=== PATIENT | female | born 1965 | race American Indian/Alaskan Native ===

== ENCOUNTER → 2020-08-10 14:25 | Outpatient (BNVA) | payer OTHER, SELFPAY | PROVIDERS: PCP Internal Medicine; Visit Provider Hospitalist | DX: Z76.89 Persons encountering health services in other specified circumstances (principal) ==

== ENCOUNTER 2021-06-01 17:16 | Outpatient (REF) | payer OTHER, SELFPAY | END 2021-06-01 17:17 | disposition home or self-care (01) | LOC: HO.LNP 17:16 | PROVIDERS: Visit Provider Hospitalist | DX: R30.0 Dysuria (principal) | CPT/HCPCS: 87086; 87088; 87186 ==

== ENCOUNTER 2021-08-01 09:57 | Outpatient (REF) | payer OTHER, SELFPAY ==
[2021-08-01 11:27] LABS: MANUAL DIFF FLAG NO
[2021-08-01 11:44] LABS: Basophils Percent Auto 0.5 % (0-2); Eosinophils Absolute Auto 0.1 X10*3/uL (0.0-0.4); Eosinophils Percent Auto 0.9 % (0-4); Hematocrit 43.2 % (37.0-47.0); Hemoglobin 14.3 g/dl (12.0-16.0); Imm Gran Abs Auto 0.03 X10*3/uL (0.00-0.03); Imm Gran Pct Auto 0.4 % (0.0-0.4); Lymphocytes Absolute Auto 1.7 X10*3/uL (1.2-4.9); Lymphocytes Percent Auto 22.7 % (20-40); Mean Corpuscular HGB Conc 33.1 g/dl (31.0-35.0); Mean Corpuscular Hemoglobin 29.1 pg (27.0-33.0); Mean Corpuscular Volume 87.8 fL (80.0-98.0); Mean Platelet Volume 10.3 fL (9.4-12.3); Monocytes Absolute Auto 0.4 X10*3/uL (0.1-1.2); Monocytes Percent Auto 4.7 % (2-11); Neutrophils Percent Auto 70.8 % (45-73); Platelet Count 216 X10*3/uL (160-400); Red Blood Count 4.92 X10*6/uL (4.20-5.50); Red Cell Distribution Width 12.9 % (11.0-16.0); White Blood Count 7.6 X10*3/uL (4.8-10.8)
[2021-08-01 12:30] LABS: Alanine Aminotransferase 14 U/L (0-31); Alkaline Phosphatase 71 U/L (39-117); Anion Gap 14 (12-20); Aspartate Amino Transferase 16 U/L (5-31); Bilirubin Direct 0.2 mg/dL (0.0-0.5); Bilirubin Total 0.4 mg/dL (0.0-1.0); Blood Urea Nitrogen 17 mg/dL (9-16); Calcium 9.2 mg/dL (8.4-10.2); Carbon Dioxide 30 mmol/L (22-29); Chloride 101 mmol/L (96-108); Estimated Glomerular Filt Rate > 60; Glucose Random 82 mg/dL (60-115); Potassium 3.2 mmol/L (3.3-5.1); Sodium 142 mmol/L (135-145); Total Protein 6.9 g/dL (6.5-8.0)
[2021-08-02 09:20] LABS: LDL Cholesterol Direct 125 mg/dL (<100)
== END 2021-08-01 09:58 | disposition home or self-care (01) ==
LOC: HO.HMGCLDS 09:57
PROVIDERS: PCP Internal Medicine; Visit Provider Internal Medicine
DX: J44.9 Chronic obstructive pulmonary disease, unspecified (principal); I10 Essential (primary) hypertension; G89.29 Other chronic pain; K21.9 Gastro-esophageal reflux disease without esophagitis; K59.01 Slow transit constipation; M54.9 Dorsalgia, unspecified; R26.2 Difficulty in walking, not elsewhere classified; Z72.0 Tobacco use; E78.9 Disorder of lipoprotein metabolism, unspecified; E66.09 Other obesity due to excess calories; F33.2 Major depressive disorder, recurrent severe without psychotic features
CPT/HCPCS: 36415; 80053; 82248; 83721; 85025

== ENCOUNTER → 2021-08-21 10:10 | Outpatient (BNVA) | payer OTHER, SELFPAY | PROVIDERS: Visit Provider Nurse Practitioner Family | DX: M47.816 Spondylosis without myelopathy or radiculopathy, lumbar region (principal); F11.90 Opioid use, unspecified, uncomplicated | CPT/HCPCS: 99202 ==

== ENCOUNTER → 2021-09-12 11:02 | Outpatient (BNVA) | payer OTHER, SELFPAY | PROVIDERS: Visit Provider Nurse Practitioner Family | DX: Z51.81 Encounter for therapeutic drug level monitoring (principal); F11.20 Opioid dependence, uncomplicated; M47.816 Spondylosis without myelopathy or radiculopathy, lumbar region | CPT/HCPCS: 99212 ==

== ENCOUNTER → 2021-10-23 11:39 | Outpatient (BNVA) | payer OTHER, SELFPAY | PROVIDERS: PCP Internal Medicine; Visit Provider Nurse Practitioner Family | DX: Z51.81 Encounter for therapeutic drug level monitoring (principal); F11.20 Opioid dependence, uncomplicated; M47.816 Spondylosis without myelopathy or radiculopathy, lumbar region | CPT/HCPCS: 99212 ==

== ENCOUNTER 2021-10-24 12:41 | Outpatient (REF) | payer OTHER, SELFPAY ==
[2021-10-24 14:54] LABS: Alanine Aminotransferase 10 U/L (0-31); Albumin Level 3.9 g/dL (3.5-5.0); Alkaline Phosphatase 71 U/L (39-117); Anion Gap 12 (12-20); Aspartate Amino Transferase 16 U/L (5-31); Bilirubin Total 0.5 mg/dL (0.0-1.0); Blood Urea Nitrogen 14 mg/dL (9-16); Calcium 9.7 mg/dL (8.4-10.2); Carbon Dioxide 34 mmol/L (22-29); Chloride 99 mmol/L (96-108); Estimated Glomerular Filt Rate > 60; Glucose Random 89 mg/dL (60-115); Potassium 3.5 mmol/L (3.3-5.1); Sodium 141 mmol/L (135-145); Total Protein 7.1 g/dL (6.5-8.0)
== END 2021-10-24 12:42 | disposition home or self-care (01) ==
LOC: HO.HMGCLDS 12:41
PROVIDERS: PCP Internal Medicine; Visit Provider Internal Medicine
DX: Z00.01 Encounter for general adult medical examination with abnormal findings (principal); E66.09 Other obesity due to excess calories; E78.9 Disorder of lipoprotein metabolism, unspecified; I10 Essential (primary) hypertension; K21.9 Gastro-esophageal reflux disease without esophagitis; K59.01 Slow transit constipation; Z91.09 Other allergy status, other than to drugs and biological substances
CPT/HCPCS: 36415; 80053

== ENCOUNTER → 2021-11-06 09:58 | Outpatient (BNVA) | payer OTHER, SELFPAY | PROVIDERS: PCP Internal Medicine; Visit Provider Hospitalist | DX: J45.909 Unspecified asthma, uncomplicated (principal); F17.210 Nicotine dependence, cigarettes, uncomplicated | CPT/HCPCS: 99212 ==

== ENCOUNTER → 2021-11-20 11:41 | Outpatient (BNVA) | payer OTHER, SELFPAY | PROVIDERS: PCP Internal Medicine; Visit Provider Nurse Practitioner Family | DX: M47.816 Spondylosis without myelopathy or radiculopathy, lumbar region (principal); F11.90 Opioid use, unspecified, uncomplicated; I10 Essential (primary) hypertension; J44.9 Chronic obstructive pulmonary disease, unspecified; E53.9 Vitamin B deficiency, unspecified; E55.9 Vitamin D deficiency, unspecified; F17.210 Nicotine dependence, cigarettes, uncomplicated; F33.8 Other recurrent depressive disorders; Z88.0 Allergy status to penicillin; Z91.012 Allergy to eggs; Z79.899 Other long term (current) drug therapy | CPT/HCPCS: 99212 ==

== ENCOUNTER → 2021-12-19 10:52 | Outpatient (BNVA) | payer OTHER, SELFPAY | PROVIDERS: PCP Internal Medicine; Visit Provider Nurse Practitioner Family | DX: Z51.81 Encounter for therapeutic drug level monitoring (principal); F11.20 Opioid dependence, uncomplicated | CPT/HCPCS: 99212 ==

== ENCOUNTER → 2022-01-16 09:54 | Outpatient (BNVA) | payer OTHER, SELFPAY | PROVIDERS: PCP Internal Medicine; Visit Provider Nurse Practitioner Family | DX: Z51.81 Encounter for therapeutic drug level monitoring (principal); F11.20 Opioid dependence, uncomplicated; M47.816 Spondylosis without myelopathy or radiculopathy, lumbar region; M53.3 Sacrococcygeal disorders, not elsewhere classified; M48.061 Spinal stenosis, lumbar region without neurogenic claudication | CPT/HCPCS: 99212 ==

== ENCOUNTER → 2022-02-12 12:41 | Outpatient (BNVA) | payer OTHER, SELFPAY | PROVIDERS: PCP Internal Medicine; Visit Provider Nurse Practitioner Family | DX: Z51.81 Encounter for therapeutic drug level monitoring (principal); F11.20 Opioid dependence, uncomplicated; M47.816 Spondylosis without myelopathy or radiculopathy, lumbar region; M53.3 Sacrococcygeal disorders, not elsewhere classified; M48.061 Spinal stenosis, lumbar region without neurogenic claudication; K59.01 Slow transit constipation | CPT/HCPCS: 99212 ==

== ENCOUNTER 2022-04-16 10:27 | Outpatient (REF) | payer OTHER, SELFPAY ==
[2022-04-16 11:57] LABS: Alanine Aminotransferase 11 U/L (0-31); Alkaline Phosphatase 68 U/L (39-117); Anion Gap 10 (12-20); Aspartate Amino Transferase 13 U/L (5-31); Bilirubin Total 0.2 mg/dL (0.0-1.0); Blood Urea Nitrogen 11 mg/dL (9-16); Carbon Dioxide 29 mmol/L (22-29); Chloride 108 mmol/L (96-108); Estimated Glomerular Filt Rate > 60; Glucose Random 92 mg/dL (60-115); Magnesium 1.8 mg/dL (1.6-2.6); Potassium 4.2 mmol/L (3.3-5.1); Sodium 143 mmol/L (135-145); Total Protein 6.9 g/dL (6.5-8.0)
== END 2022-04-16 10:28 | disposition home or self-care (01) ==
LOC: HO.HMGCLDS 10:27
PROVIDERS: PCP Internal Medicine; Visit Provider Internal Medicine
DX: E87.6 Hypokalemia (principal); R79.0 Abnormal level of blood mineral; I95.9 Hypotension, unspecified
CPT/HCPCS: 36415; 80053; 83735

== ENCOUNTER → 2022-05-08 11:16 | Outpatient (BNVA) | payer OTHER, SELFPAY | PROVIDERS: PCP Internal Medicine; Visit Provider Nurse Practitioner Family | DX: M47.816 Spondylosis without myelopathy or radiculopathy, lumbar region (principal); M53.3 Sacrococcygeal disorders, not elsewhere classified; M48.061 Spinal stenosis, lumbar region without neurogenic claudication; K59.01 Slow transit constipation; Z79.891 Long term (current) use of opiate analgesic | CPT/HCPCS: 99212 ==

== ENCOUNTER → 2022-07-04 11:27 | Outpatient (BNVA) | payer OTHER, SELFPAY | PROVIDERS: PCP Internal Medicine; Visit Provider Nurse Practitioner Family | DX: M53.3 Sacrococcygeal disorders, not elsewhere classified (principal); F11.90 Opioid use, unspecified, uncomplicated; M47.816 Spondylosis without myelopathy or radiculopathy, lumbar region; M48.061 Spinal stenosis, lumbar region without neurogenic claudication; M62.830 Muscle spasm of back | CPT/HCPCS: 99212 ==

== ENCOUNTER → 2022-08-30 11:14 | Outpatient (BNVA) | payer OTHER, SELFPAY | PROVIDERS: PCP Internal Medicine; Visit Provider Nurse Practitioner Family | DX: G89.4 Chronic pain syndrome (principal); M53.3 Sacrococcygeal disorders, not elsewhere classified; M47.816 Spondylosis without myelopathy or radiculopathy, lumbar region; M62.830 Muscle spasm of back; M48.061 Spinal stenosis, lumbar region without neurogenic claudication; Z79.891 Long term (current) use of opiate analgesic | CPT/HCPCS: 99212 ==

== ENCOUNTER 2022-09-05 14:18 | Outpatient (REF) | payer OTHER, SELFPAY ==
[2022-09-05 15:14] LABS: Influenza A PCR NEGATIVE (Negative); Influenza B PCR NEGATIVE (Negative); Resp Syncy Virus RNA Qual PCR NEGATIVE (Negative); SARS COV2 PCR INHOUSE NEGATIVE (Negative)
== END 2022-09-05 14:19 | disposition home or self-care (01) ==
LOC: HO.LNP 14:18
PROVIDERS: Visit Provider Internal Medicine
DX: Z20.822 Contact with and (suspected) exposure to COVID-19 (principal); R09.89 Other specified symptoms and signs involving the circulatory and respiratory systems
CPT/HCPCS: 0241U

== ENCOUNTER 2022-10-18 11:10 | Outpatient (REF) | payer OTHER, SELFPAY ==
[2022-10-18 14:44] LABS: Alanine Aminotransferase 13 U/L (0-31); Albumin Level 4.1 g/dL (3.5-5.0); Alkaline Phosphatase 73 U/L (39-117); Anion Gap 12 (12-20); Aspartate Amino Transferase 13 U/L (5-31); Bilirubin Total 0.3 mg/dL (0.0-1.0); Blood Urea Nitrogen 14 mg/dL (9-16); Calcium 9.5 mg/dL (8.4-10.2); Carbon Dioxide 31 mmol/L (22-29); Chloride 106 mmol/L (96-108); Estimated Glomerular Filt Rate > 60; Glucose Random 88 mg/dL (60-115); Potassium 4.6 mmol/L (3.3-5.1); Sodium 144 mmol/L (135-145)
== END 2022-10-18 11:11 | disposition home or self-care (01) ==
LOC: HO.HMGCLDS 11:10
PROVIDERS: PCP Internal Medicine; Visit Provider Internal Medicine
DX: E66.09 Other obesity due to excess calories (principal); E78.9 Disorder of lipoprotein metabolism, unspecified; F33.2 Major depressive disorder, recurrent severe without psychotic features; I10 Essential (primary) hypertension; J44.9 Chronic obstructive pulmonary disease, unspecified; K21.9 Gastro-esophageal reflux disease without esophagitis; R26.2 Difficulty in walking, not elsewhere classified; Z91.09 Other allergy status, other than to drugs and biological substances
CPT/HCPCS: 36415; 80053

== ENCOUNTER → 2022-10-25 11:07 | Outpatient (BNVA) | payer OTHER, SELFPAY | PROVIDERS: PCP Internal Medicine; Visit Provider Nurse Practitioner Family | DX: G89.29 Other chronic pain (principal); M54.50 Low back pain, unspecified; M79.662 Pain in left lower leg; M79.661 Pain in right lower leg; M53.3 Sacrococcygeal disorders, not elsewhere classified; R51.9 Headache, unspecified; U09.9 Post COVID-19 condition, unspecified; F11.20 Opioid dependence, uncomplicated; Z86.59 Personal history of other mental and behavioral disorders; Z51.81 Encounter for therapeutic drug level monitoring; Z79.899 Other long term (current) drug therapy | CPT/HCPCS: 99212 ==

== ENCOUNTER → 2022-11-22 14:25 | Outpatient (REF) | payer OTHER, SELFPAY ==
--- NOTE | 2022-11-22 15:12 | ECG_ITS ---
Test Reason : CHEST PAIN Blood Pressure : / mmHG Vent. Rate : 054 BPM Atrial Rate : 054 BPM P-R Int : 148 ms QRS Dur : 078 ms QT Int : 398 ms P-R-T Axes : 077 064 052 degrees QTc Int : 377 ms Sinus bradycardia with Premature atrial complexes Otherwise normal ECG No significant changes when compared with the previous EKG of 21 jun 2003 Referred By: Katherin Connolly Electronically Signed By:JESSIE MARTINEZ
== END ==
LOC: HO.CARD 14:25
PROVIDERS: PCP Internal Medicine; Visit Provider Nurse Practitioner Family
DX: M47.816 Spondylosis without myelopathy or radiculopathy, lumbar region (principal); M48.061 Spinal stenosis, lumbar region without neurogenic claudication; M53.3 Sacrococcygeal disorders, not elsewhere classified; M62.830 Muscle spasm of back; F11.90 Opioid use, unspecified, uncomplicated; G89.4 Chronic pain syndrome; Z91.89 Other specified personal risk factors, not elsewhere classified; Z79.899 Other long term (current) drug therapy
CPT/HCPCS: 93005; 99212

== ENCOUNTER → 2022-12-20 12:59 | Outpatient (BNVA) | payer OTHER, SELFPAY | PROVIDERS: PCP Internal Medicine; Visit Provider Nurse Practitioner Family ==

== ENCOUNTER → 2023-01-23 09:12 | Outpatient (BNVA) | payer OTHER, SELFPAY | PROVIDERS: PCP Internal Medicine; Visit Provider Nurse Practitioner Family ==

== ENCOUNTER → 2023-02-07 11:26 | Outpatient (BNVA) | payer OTHER, SELFPAY | PROVIDERS: PCP Internal Medicine; Visit Provider Nurse Practitioner Family | DX: J45.909 Unspecified asthma, uncomplicated (principal); Z51.81 Encounter for therapeutic drug level monitoring; F11.20 Opioid dependence, uncomplicated; Z87.891 Personal history of nicotine dependence; M47.816 Spondylosis without myelopathy or radiculopathy, lumbar region; M53.3 Sacrococcygeal disorders, not elsewhere classified; M48.061 Spinal stenosis, lumbar region without neurogenic claudication; M62.830 Muscle spasm of back | CPT/HCPCS: 99212 ==

== ENCOUNTER 2023-04-04 13:06 | Outpatient (REF) | payer OTHER, SELFPAY ==
--- NOTE | ~2023-04-04 | CT_ITS ---
EXAMINATION: CT CHEST SCREENING CLINICAL INFORMATION: Asymptomatic patient meeting criteria for lung screening. PATIENT PACK-YEAR HISTORY: Current Smoker: Yes If former smoker, years since quittin COMPARISON: None TECHNIQUE: Multidetector volumetric CT imaging of the chest is performed without contrast using low dose technique. Additional 2D coronal and sagittal reformatted images and axial 3D maximum intensity projection (MIP) images are generated on the CT workstation. This CT examination was performed using dose optimization techniques as appropriate, variously including the following: *Automated exposure control *Adjustment of mA and/or kV according to patient size (this includes techniques or standardized protocols for targeted exams where dose is matched to indication/reason for exam; i.e. extremities or head) *Use of iterative reconstruction technique DLP: 56 mGy-cm FINDINGS: LUNGS: Mild centrilobular emphysema. Minimal scarring at the lung apices. 4 mm nodule left upper lobe on image 85. No focal consolidation. Central airways are patent. MEDIASTINUM: The ascending thoracic aorta measures 4.1 x 4.1 cm in transverse dimension at the level of the pulmonary trunk. Heart size is normal. No pericardial effusion. No mediastinal or hilar lymphadenopathy. CORONARY ARTERY CALCIFICATION: None visualized on this study. PLEURA: There is no pleural effusion. No pleural mass or thickening. AXILLA: No axillary lymphadenopathy. UPPER ABDOMEN: Status post cholecystectomy. OSSEOUS STRUCTURES: No destructive bone lesions. CT/CT lung screening IMPRESSION: 4 mm left upper lobe pulmonary nodule. Dilatation of the ascending thoracic aorta. ASSESSMENT: Lung-RADS category 2: Benign RECOMMENDATION: Routine annual low-dose CT screening in 12 months.
== END 2023-04-04 13:07 | disposition home or self-care (01) ==
LOC: HO.CT 13:06
PROVIDERS: PCP Internal Medicine; Visit Provider Physician Assistant Medical
DX: Z12.2 Encounter for screening for malignant neoplasm of respiratory organs (principal); F17.210 Nicotine dependence, cigarettes, uncomplicated; M47.816 Spondylosis without myelopathy or radiculopathy, lumbar region; M53.3 Sacrococcygeal disorders, not elsewhere classified
CPT/HCPCS: 71271; 99212; G0296

== ENCOUNTER 2023-05-23 12:37 | Outpatient (AMB) | payer OTHER, SELFPAY ==
--- NOTE | 2023-05-23 12:54 | A.OFFPC_ITS ---
Vital Signs 05/23/23 12:55 Height 5 ft 6 in Weight 211 lb BMI 34.1 BP 156/100 H Blood Pressure Location Lt brachial Position Sitting Pulse 68 Pulse Source Palpation Intake Visit Reasons: PE Intake Note: Pt is here today for PE. Allergies egg Allergy (Unknown, Verified 05/23/23 12:57) belly pain Penicillins [PENICILLINS] Allergy (Unknown, Verified 05/23/23 12:57) UNKNOWN, WAS A CHILD lobster Adverse Reaction (Mild, Uncoded 05/23/23 12:57) Constipation Medication List - Last Reconciled 05/23/23 by Oral Ocasio MD acetaminophen 650 mg (2 x 325 mg) PO Q6H PRN albuterol sulfate 90 mcg/actuation 2 puffs PO Q6H PRN NS ascorbic acid (vitamin C) 500 mg PO BID blood pressure monitor (Blood Pressure Kit) As directed buprenorphine HCl 300 mcg buccal Q12H 30 days buspirone 30 mg PO BID [Cane As directed] celecoxib mg PO BID cholecalciferol (vitamin D3) 50 mcg PO DAILY 90 days diphenhydramine HCl (Banophen) 25 mg PO PRN estradiol (Yuvafem) 10 mcg vaginal 2XW famotidine 40 mg PO DAILY 90 days gabapentin 600 mg PO QID 30 days loratadine 10 mg PO DAILY 90 days losartan 25 mg PO DAILY methocarbamol 750 mg PO BID PRN mirabegron ER (Myrbetriq) 50 mg PO DAILY mirtazapine 45 mg PO BEDTIME montelukast 10 mg PO DAILY 90 days naloxone 4 mg/actuation 1 spray intranasal Q2M PRN sennosides-docusate sodium 8.6-50 mg (Senexon-S) 1 tab PO BEDTIME [shower chair with handles As directed] Symbicort 160-4.5 mcg/actuation (budesonide-formoterol) 2 puffs PO BID NS Tobacco use date assessed: 05/23/23 Dental Screening Dental Screen Date: 05/23/23 Did you have a dental visit in the last 12 months?: Yes Did you have a dental problem in the last 6 months where you did not have access to dental care?: No Was dental information given to patient?: Patient has dentist HPI PE HPI Details Patient is a 58-year-old female came in today for physical examination Medication list reviewed Medical problem list reviewed and updated Her blood pressure is very high today at 156/100 she is supposed to be on losartan 25 mg but patient is only taking half a tablet I have told her to start taking a full tablet and return in 1 week for follow-up appointment OBGYN is at [facility] mammogram is through them Patient continued to decline to have a colonoscopy Lab order placed to be done today BMI recently did dietitian consultation offered to patient. Tobacco use counseling provided help offered Balance is intact but patient failed tandem walk She uses cane for ambulation [facility] Medical History Asthma Asthma-COPD overlap syndrome Back pain, chronic Chronic GERD Depression, major, severe recurrence Gait instability History of COVID-19 (~09/2021) Hypertension, essential Lipid disorder Nicotine dependence, cigarettes, uncomplicated Vitamin B deficiency Vitamin D deficiency Surgical History History of cervical spinal surgery (~2015) History of cholecystectomy (~2008) History of colonoscopy History of lumbar fusion History of tubal ligation Family History Father No problems noted. Mother No problems noted. Brother No problems noted. Brother No problems noted. Sister No problems noted. Daughter No problems noted. Daughter No problems noted. Daughter No problems noted. Other Mental health disorder Social History Housing: Apartment Patient Tobacco Use Status: Current someday Tobacco user Tobacco use type: Cigarette Cigarettes Per Day: 3 Years Smoked: current smoker - onset 15, 1/2ppd x 42yrs, 21pyh e-Cigarette/Vaping Use: Never Used service: No Current occupational status: disabled Cognitive needs: No Hearing needs: No Vision needs: No Questionnaire PHQ-9 Over the last 2 weeks, how often have you been bothered by any of the following problems? 1. Little interest or pleasure in doing things: several days 2. Feeling down, depressed, or hopeless: not at all 3. Trouble falling or staying asleep, or sleeping too much: several days 4. Feeling tired or having little energy: several days 5. Poor appetite or overeating: several days 6. Feeling bad about yourself - or that you are a failure or have let yourself or your family down: not at all 7. Trouble concentrating on things, such as reading the newspaper or watching television: not at all 8. Moving or speaking so slowly that other people could have noticed. Or the opposite - being so fidgety or restless that you have been moving around a lot more than usual: not at all 9. Thoughts that you would be better off or of hurting yourself in some way: not at all Total score: 4 Depression Screening Interpretation: Negative 40659 - PHQ-9 Billing: Yes Source: Developed by Drs. Rusty Munoz, Yolanda Jacobson, Sabino Loomis and colleagues, with an educational kim from [employer]. Thrive Questionnaire Date Thrive assessed: 10/18/22 AUDIT C Alcohol Use Questionnaire (AUDIT-C) 1. How often do you have a drink containing alcohol?: Never 3. How often do you have six or more drinks on one occasion?: Never Total Score: 0 Score Reviewed/Action Taken: No TAI-7 AMB Questionnaire TAI-7 Date TAI - 7 assessed: 10/18/22 Source: Developed by Drs. Rusty Munoz, Yolanda Jacobson, Sabino Loomis and colleagues, with an educational kim from [employer]. Review of Systems Const Denies chills, Denies fever(s) and Denies headache(s) Eyes Denies blurry vision ENT Denies headache(s), Denies nasal discharge, Denies nasal obstruction, Denies odynophagia and Denies sinus pain Card Denies chest pain at rest and Denies chest pain with activity Resp Denies cough and Denies hemoptysis GI Denies diarrhea, Denies odynophagia, Denies vomiting and Denies hematemesis Reports as per HPI Musc Denies abnormal gait Skin/Breast Reports as per HPI Neuro Denies Neuro-related abnormal movements, Denies Abnormal speech present, Denies abnormal gait, Denies headache(s) and Denies Sensory deficit (Neuro) Psych Denies mood swings and Denies paranoia Endo Reports as per HPI Lio/Lymph Reports as per HPI Aller/Immun Reports as per HPI Physical exam (Primary Care) Vital Signs: Last Vital Signs Pulse 68 05/23/23 12:55 BP 156/100 H 05/23/23 12:55 BMI result Body Mass Index 34.1 BMI Assessment/Plan discussion: High Tobacco/Smoking Status: Tobacco use Status Tobacco use date assessed 05/23/23 05/23/23 13:00 Patient Tobacco Use Status Current someday Tobacco 05/23/23 13:00 Tobacco use type Cigarette 05/23/23 12:55 e-Cigarette/Vaping Use Never Used 05/23/23 12:55 Are you ready to quit: No Tobacco cessation counseling provided: Yes CPT code: 80964 - 4-10 Minutes Depression Screening Interpretation: Negative Thrive Assessment: Date of Thrive Assessment Date Thrive assessed 10/18/22 05/23/23 12:55 Const General: cooperative, comfortable and no acute distress Orientation/consciousness: patient oriented x3 HENMT Head: Yes normocephalic and Yes atraumatic Eyes General: appearance normal, both eyes and all related structures Pupils: Equal, round and reactive pupils present EOM: EOMs intact bilaterally Neck Neck: Yes supple and No lymphadenopathy Thyroid: Thyroid normal Lymphatic: no lymphadenopathy noted Chest Breast/axilla palpation: normal palpation of the breasts Resp Effort & Inspection: normal respiratory effort and able to speak in complete sentences Auscultation: clear to auscultation bilaterally Cardio Heart sounds: S1 normal heart sound present and S2 normal heart sound present GI Palpation (GI): Soft to palpation and nontender Auscultation: normal bowel sounds General: Yes no CVA tenderness Back/Spine/Pelvis Back: no CVA tenderness Skin General skin exam: elasticity normal and turgor normal Neuro General: patient oriented x3 and gait normal Cranial nerves: Yes Equal, round and reactive pupils present Speech: No Abnormal speech present Sensory Exam: No Sensory deficit (Neuro) Coordination: Romberg test negative Extrem General: Yes normal exam except as noted and No edema Assessment and Plan Assessment & Plan (1) Encounter for general adult medical examination with abnormal findings: Code(s): Z00.01 - Encounter for general adult medical examination with abnormal findings (2) Tobacco abuse: Code(s): Z72.0 - Tobacco use (3) Balance problem: Code(s): R26.89 - Other abnormalities of gait and mobility (4) Difficulty walking: Code(s): R26.2 - Difficulty in walking, not elsewhere classified (5) Spinal stenosis, lumbar: Code(s): M48.061 - Spinal stenosis, lumbar region without neurogenic claudication (6) Depression, major, severe recurrence: Code(s): F33.2 - Major depressive disorder, recurrent severe without psychotic features (7) Obesity due to excess calories: Code(s): E66.09 - Other obesity due to excess calories (8) Lipid disorder: Code(s): E78.9 - Disorder of lipoprotein metabolism, unspecified (9) Hypertension, essential: Code(s): I10 - Essential (primary) hypertension (10) Constipation by delayed colonic transit: Code(s): K59.01 - Slow transit constipation (11) Environmental allergies: Code(s): Z91.09 - Other allergy status, other than to drugs and biological substances (12) Asthma-COPD overlap syndrome: Code(s): J44.9 - Chronic obstructive pulmonary disease, unspecified (13) Nicotine dependence, cigarettes, uncomplicated: Comment: (current smoker - onset 15, 1/2ppd x 42yrs, 21pyh) Code(s): F17.210 - Nicotine dependence, cigarettes, uncomplicated (14) Dilatation of thoracic aorta: Comment: (ascending thoracic aorta measures 4.1 x 4.1 cm - noted on 04/04/23 LDCT) Code(s): I77.810 - Thoracic aortic ectasia (15) Vascular insufficiency of extremity: Code(s): I99.8 - Other disorder of circulatory system (16) Tobacco abuse counseling: Code(s): Z71.6 - Tobacco abuse counseling Plan Patient is a 58-year-old female came in today for physical examination Medication list reviewed Medical problem list reviewed and updated Her blood pressure is very high today at 156/100 she is supposed to be on losartan 25 mg but patient is only taking half a tablet I have told her to start taking a full tablet and return in 1 week for follow-up appointment OBGYN is at [facility] mammogram is through them Patient continued to decline to have a colonoscopy Lab order placed to be done today BMI recently did dietitian consultation offered to patient. Tobacco use counseling provided help offered Balance is intact but patient failed tandem walk She uses cane for ambulation Orders: Orders Comprehensive Met. Panel Today E66.09 - Other obesity due to excess calories, E78.9 - Disorder of lipoprotein metabolism, unspecified, F17.210 - Nicotine de pendence, cigarettes, uncomplicated, F33.2 - Major depressive disorder, recurrent severe without psychotic features, I10 - Essential (primary) hypertension, I77.810 - Thoracic aortic ectasia, I99.8 - Other disorder of circulatory system, J44.9 - Chronic obstructive pulmonary disease, unspecified, K59.01 - Slow transit constipation, M48.061 - Spinal stenosis, lumbar region without neurogenic claudication, R26.2 - Difficulty in walking, not elsewhere classified, R26.89 - Other abnormalities of gait and mobility, Z00.01 - Encounter for general adult medical examination with abnormal findings, Z72.0 - Tobacco use, Z91.09 - Other allergy status, other than to drugs and biological substances LDL Cholesterol Direct Today E66.09 - Other obesity due to excess calories, E7 8.9 - Disorder of lipoprotein metabolism, unspecified, F17.210 - Nicotine dependence, cigarettes, uncomplicated, F33.2 - Major depressive disorder, recurrent severe without psychotic features, I10 - Essential (primary) hypertension, I77.810 - Thoracic aortic ectasia, I99.8 - Other disorder of circulatory system, J44.9 - Chronic obstructive pulmonary disease, unspecified, K59.01 - Slow transit constipation, M48.061 - Spinal stenosis, lumbar region without neurogenic claudication, R26.2 - Difficulty in walking, not elsewhere classified, R26.89 - Other abnormalities of gait and mobility, Z00.01 - Encounter for general adult medical examination with abnormal findings, Z72.0 - Tobacco use, Z91.09 - Other allergy status, other than to drugs and biological substances Complete Blood Count Auto Diff Today E66.09 - Other obesity due to excess calories, E78.9 - Disorder of lipoprotein metabolism, unspecified, F17.210 - Nicotine dependence, cigarettes, uncomplicated, F33.2 - Major depressive disorder, recurrent severe without psychotic features, I10 - Essential (primary) hypertension, I77.810 - Thoracic aortic ectasia, I99.8 - Other disorder of circulatory system, J44.9 - Chronic obstructive pulmonary disease, unspecified, K59.01 - Slow transit constipation, M48.061 - Spinal stenosis, lumbar region without neurogenic claudication, R26.2 - Difficulty in walking, not elsewhere classified, R26.89 - Other abnormalities of gait and mobility, Z00.01 - Encounter for general adult medical examination with abnormal findings, Z72.0 - Tobacco use, Z91.09 - Other allergy status, other than to drugs and biological substances Coding Level of Care Code Est Pt Prev Care 40-64y(32738) Diagnoses Encounter for general adult medical examination with abnormal findings Z00.01 Tobacco abuse Z72.0 Balance problem R26.89 Difficulty walking R26.2 Spinal stenosis, lumbar M48.061 Depression, major, severe recurrence F33.2 Obesity due to excess calories E66.09 Lipid disorder E78.9 Hypertension, essential I10 Constipation by delayed colonic transit K59.01 Environmental allergies Z91.09 Asthma-COPD overlap syndrome J44.9 Nicotine dependence, cigarettes, uncomplicated F17.210 Dilatation of thoracic aorta I77.810 Vascular insufficiency of extremity I99.8 Tobacco abuse counseling Z71.6 Additional Codes Vital Signs *Quality* - CPT code: 80356 - 4-10 Minutes ([id number])
[2023-05-23 12:55] VITALS: BP 156/100; PULSE 68; BMI 34.1
== END 2023-05-23 13:18 | disposition home or self-care (01) ==
PROVIDERS: Visit Provider Internal Medicine
DX: Z00.00 Encounter for general adult medical examination without abnormal findings (principal); F33.2 Major depressive disorder, recurrent severe without psychotic features; I10 Essential (primary) hypertension; Z91.09 Other allergy status, other than to drugs and biological substances; F17.210 Nicotine dependence, cigarettes, uncomplicated; J44.9 Chronic obstructive pulmonary disease, unspecified; Z72.0 Tobacco use; R26.89 Other abnormalities of gait and mobility; R26.2 Difficulty in walking, not elsewhere classified; I77.810 Thoracic aortic ectasia; M48.061 Spinal stenosis, lumbar region without neurogenic claudication; E78.9 Disorder of lipoprotein metabolism, unspecified
CPT/HCPCS: 99396

== ENCOUNTER 2023-05-23 13:20 | Outpatient (REF) | payer OTHER, SELFPAY ==
[2023-05-23 15:56] LABS: MANUAL DIFF FLAG NO
[2023-05-23 16:00] LABS: Basophils Percent Auto 0.2 % (0-2); Hematocrit 44.3 % (37.0-47.0); Hemoglobin 14.8 g/dl (12.0-16.0); Imm Gran Abs Auto 0.06 X10*3/uL (0.00-0.03); Imm Gran Pct Auto 0.5 % (0.0-0.4); Lymphocytes Absolute Auto 1.1 X10*3/uL (1.2-4.9); Lymphocytes Percent Auto 9.1 % (20-40); Mean Corpuscular HGB Conc 33.4 g/dl (31.0-35.0); Mean Corpuscular Hemoglobin 29.4 pg (27.0-33.0); Mean Corpuscular Volume 88.1 fL (80.0-98.0); Mean Platelet Volume 10.1 fL (9.4-12.3); Monocytes Absolute Auto 0.5 X10*3/uL (0.1-1.2); Monocytes Percent Auto 3.9 % (2-11); Neutrophils Absolute Auto 10.1 x10*3/uL (2.0-8.3); Neutrophils Percent Auto 86.3 % (45-73); Platelet Count 240 X10*3/uL (160-400); Red Blood Count 5.03 X10*6/uL (4.20-5.50); Red Cell Distribution Width 13.2 % (11.0-16.0); White Blood Count 11.7 X10*3/uL (4.8-10.8)
[2023-05-23 16:11] LABS: Alanine Aminotransferase 12 U/L (0-31); Albumin Level 4.1 g/dL (3.5-5.0); Alkaline Phosphatase 63 U/L (39-117); Anion Gap 12 (12-20); Aspartate Amino Transferase 14 U/L (5-31); Bilirubin Total 0.4 mg/dL (0.0-1.0); Blood Urea Nitrogen 14 mg/dL (9-16); Calcium 9.6 mg/dL (8.4-10.2); Carbon Dioxide 26 mmol/L (22-29); Chloride 108 mmol/L (96-108); Estimated Glomerular Filt Rate > 60; Glucose Random 99 mg/dL (60-115); Potassium 3.9 mmol/L (3.3-5.1); Sodium 142 mmol/L (135-145); Total Protein 7.5 g/dL (6.5-8.0)
[2023-05-24 12:48] LABS: LDL Cholesterol Direct 132 mg/dL (<100)
== END 2023-05-23 13:21 | disposition home or self-care (01) ==
LOC: HO.HMGCLDS 13:20
PROVIDERS: PCP Internal Medicine; Visit Provider Internal Medicine
DX: Z00.01 Encounter for general adult medical examination with abnormal findings (principal); E66.09 Other obesity due to excess calories; E78.9 Disorder of lipoprotein metabolism, unspecified; F17.210 Nicotine dependence, cigarettes, uncomplicated; F33.2 Major depressive disorder, recurrent severe without psychotic features; I10 Essential (primary) hypertension; I77.810 Thoracic aortic ectasia; I99.8 Other disorder of circulatory system; J44.9 Chronic obstructive pulmonary disease, unspecified; K59.01 Slow transit constipation; M48.061 Spinal stenosis, lumbar region without neurogenic claudication; R26.2 Difficulty in walking, not elsewhere classified; R26.89 Other abnormalities of gait and mobility; Z91.09 Other allergy status, other than to drugs and biological substances
CPT/HCPCS: 36415; 80053; 83721; 85025

== ENCOUNTER 2023-05-30 11:02 | Outpatient (AMB) | payer OTHER, SELFPAY ==
--- NOTE | 2023-05-30 11:16 | MHC.OFFVIS ---
Intake Vital Signs 05/30/23 11:31 Height 5 ft 6 in Weight 209 lb BMI 33.7 BP 158/87 H Blood Pressure Location Rt brachial Position Sitting Pulse 58 Pulse Source Pulse Oximeter Pulse Oximetry (%) 96 Oxygen Delivery Method Room Air Intake Visit Reasons: Med count Intake Note: Parveen comes in today for a film count to [facility], patient should have 40 films and presents with 43 films which she last took today 05/30/23 at 7am. Principal Librarian Required: No Accompanied by: Self / Same As Patient Allergies egg Allergy (Unknown, Verified 05/30/23 11:32) belly pain Penicillins [PENICILLINS] Allergy (Unknown, Verified 05/30/23 11:32) UNKNOWN, WAS A CHILD lobster Adverse Reaction (Mild, Uncoded 05/23/23 12:57) Constipation HPI HPI Comments History of Present Illness Details Patient returns today for a film count. She is currently prescribed Belbuca 300 mcg BID. Patient is supposed to have #40 films and presents with #43. This demonstrates a responsible attitude towards her regimen. She reports opioid medication allows her to be less symptomatic and more functional. Denies any side effects on current regime except occasional constipation with mild relief from Senexon. Patient denies any fever, abdominal or groin pain, weakness, bladder or bowel incontinence or saddle anesthesia. [facility] Medical History Asthma Asthma-COPD overlap syndrome Back pain, chronic Chronic GERD Depression, major, severe recurrence Gait instability History of COVID-19 (~09/2021) Hypertension, essential Lipid disorder Nicotine dependence, cigarettes, uncomplicated Vitamin B deficiency Vitamin D deficiency Surgical History History of cervical spinal surgery (~2015) History of cholecystectomy (~2008) History of colonoscopy History of lumbar fusion History of tubal ligation Family History Father No problems noted. Mother No problems noted. Brother No problems noted. Brother No problems noted. Sister No problems noted. Daughter No problems noted. Daughter No problems noted. Daughter No problems noted. Other Mental health disorder Social History Housing: Apartment Patient Tobacco Use Status: Current someday Tobacco user Tobacco use type: Cigarette Cigarettes Per Day: 3 Years Smoked: current smoker - onset 15, 1/2ppd x 42yrs, 21pyh e-Cigarette/Vaping Use: Never Used service: No Current occupational status: disabled Cognitive needs: No Hearing needs: No Vision needs: No Review of Systems Const All systems reviewed & are unremarkable except as noted in HPI and below Physical Exam Vital Signs: Last Vital Signs Pulse 58 05/30/23 11:31 BP 158/87 H 05/30/23 11:31 Pulse Ox 96 05/30/23 11:31 Oxygen Delivery Method Room Air 05/30/23 11:31 BMI result Body Mass Index 33.7 General: Appears afebrile. Alert and oriented. Mood and affect appropriate. Follows and participates in conversation appropriately. Respiratory effort is unlabored. Able to transition from sit to stand unassisted. Back/Spine/Pelvis Cervical Spine: cervical muscular tenderness and No Cervical spine tenderness Thoracic/Lumbar Spine: Lasegue's sign negative, pain with thoraco-lumbar ROM, paraspinal muscle tenderness, No thoracic spinal tenderness and No lumbar spinal tenderness Neuro Gait exam (Neuro): Antalgic gait present and No Assistive device used Motor exam (neuro): 5/5 motor strength present throughout, no tremor noted and Motor abnormalities not present Psych Appearance: grossly normal and well kempt Mental Status: mental status grossly normal Speech and movement: Normal speech and movement present and Clear speech present Affect: normal affect Attitude: cooperative Thought process: Normal thought process present Thought content: Normal thought content present, suicidality (none), no hallucinations and No Depressive thoughts present Insight: Good insight present (Psych) Judgement: Good judgement present (Psych) Assessment & Plan Assessment & Plan (1) Chronic, continuous use of opioids: Code(s): F11.90 - Opioid use, unspecified, uncomplicated (2) Sacroiliac joint pain: Code(s): M53.3 - Sacrococcygeal disorders, not elsewhere classified (3) Spinal stenosis, lumbar: Code(s): M48.061 - Spinal stenosis, lumbar region without neurogenic claudication (4) Muscle spasm of back: Code(s): M62.830 - Muscle spasm of back Plan Patient presents today for a film count. She has shown accountability for her medication regimen and the count was accurate. There is no evidence of misuse, abuse or diversion at this time. [employer] reviewed. Script for Belbuca 300 mcg BID sent with an advanced date of 06/19/23 with one refill and also refill Senexon and new script for stool softener per patient's request. Encouraged increase daily physical activity as tolerate, adequate hydration and increase fiber in dietary intake. All questions were answered and this patient is agreeable to the plan.?Patient will follow-up in 8 weeks for a film count. Medications: New docusate sodium 50 mg PO BID 30 days PRN 60 caps 1RF constipation F11.90 - Opioid use, unspecified, uncomplicated Refilled sennosides-docusate sodium 8.6-50 mg (Senexon-S) 1 tab PO BEDTIME 90 tabs 1RF constipation K59.03 - Drug induced constipation, T40.2X5A - Adverse effect of other opioids, initial encounter buprenorphine HCl Partial Fill upon patient request. 300 mcg buccal Q12H 30 days 60 ea 1RF pain F11.90 - Opioid use, unspecified, uncomplicated, M47.816 - Spondylosis without myelopathy or radiculopathy, lumbar region, M48.061 - Spinal stenosis, lumbar region without neurogenic claudication Quality Reporting (2019) Adult ([facility] 138/11/20/68) Smoking risk assessment performed?: Yes Patient Tobacco Use Status: Current someday Tobacco user Coding Level of Care Code Est Pt Level 4 (28268) Diagnoses Chronic, continuous use of opioids F11.90 Sacroiliac joint pain M53.3 Spinal stenosis, lumbar M48.061 Muscle spasm of back M62.830
[2023-05-30 11:31] VITALS: BP 158/87; PULSE 58; O2SAT 96; BMI 33.7
== END 2023-05-30 11:39 | disposition home or self-care (01) ==
PROVIDERS: PCP Internal Medicine; Visit Provider Nurse Practitioner Family
DX: M53.3 Sacrococcygeal disorders, not elsewhere classified (principal); M48.061 Spinal stenosis, lumbar region without neurogenic claudication; M62.830 Muscle spasm of back; Z79.891 Long term (current) use of opiate analgesic
CPT/HCPCS: 99214

== ENCOUNTER → 2023-05-30 11:02 | Outpatient (BNVA) | payer OTHER, SELFPAY | PROVIDERS: PCP Internal Medicine; Visit Provider Nurse Practitioner Family | DX: Z51.81 Encounter for therapeutic drug level monitoring (principal); F11.20 Opioid dependence, uncomplicated; M53.3 Sacrococcygeal disorders, not elsewhere classified; M48.061 Spinal stenosis, lumbar region without neurogenic claudication; M62.830 Muscle spasm of back | CPT/HCPCS: 99212 ==

== ENCOUNTER 2023-07-11 12:35 | Outpatient (AMB) | payer OTHER, SELFPAY ==
[2023-07-11 12:42] VITALS: BP 118/74; PULSE 101; O2SAT 96
--- NOTE | 2023-07-11 12:42 | A.OFFPC_ITS ---
Vital Signs 07/11/23 12:42 Weight 211 lb 4 oz BP 118/74 Blood Pressure Location Rt brachial Position Sitting Pulse 101 H Pulse Source Pulse Oximeter Pulse Oximetry (%) 96 Oxygen Delivery Method Room Air Intake Visit Reasons: BP f/u Allergies egg Allergy (Unknown, Verified 07/11/23 12:44) belly pain Penicillins [PENICILLINS] Allergy (Unknown, Verified 07/11/23 12:44) UNKNOWN, WAS A CHILD lobster Adverse Reaction (Mild, Uncoded 05/23/23 12:57) Constipation Medication List - Last Reconciled 07/11/23 by Oral Ocasio MD acetaminophen 650 mg (2 x 325 mg) PO Q6H PRN albuterol sulfate 90 mcg/actuation 2 puffs PO Q6H PRN NS blood pressure monitor (Blood Pressure Kit) As directed buprenorphine HCl 300 mcg buccal Q12H 30 days buspirone 30 mg PO BID [Cane As directed] celecoxib mg PO BID diphenhydramine HCl (Banophen) 25 mg PO PRN docusate sodium 50 mg PO BID PRN 30 days estradiol (Yuvafem) 10 mcg vaginal 2XW famotidine 40 mg PO DAILY 90 days gabapentin 600 mg PO QID 30 days loratadine 10 mg PO DAILY 90 days losartan 25 mg PO DAILY mirabegron ER (Myrbetriq) 50 mg PO DAILY mirtazapine 45 mg PO BEDTIME montelukast 10 mg PO DAILY 90 days naloxone 4 mg/actuation 1 spray intranasal Q2M PRN sennosides-docusate sodium 8.6-50 mg (Senexon-S) 1 tab PO BEDTIME [shower chair with handles As directed] Symbicort 160-4.5 mcg/actuation (budesonide-formoterol) 2 puffs PO BID NS Tobacco use date assessed: 07/11/23 Dental Screening Dental Screen Date: 07/11/23 Did you have a dental visit in the last 12 months?: No Did you have a dental problem in the last 6 months where you did not have access to dental care?: No Was dental information given to patient?: Patient declined HPI BP f/u HPI Details ?Patient is a 58-year-old female came in today for her follow-up appointment Patient is requesting another handicap placard as she is not able to walk long distance and is using cane Paperwork filled and needed permanent patient has spinal stenosis and is having weakness in her left leg which is a chronic problem for her She also goes to a scene painter and is taking Belbuca 300 mcg b.i.d. and gabapentin 600 mg q.i.d. which is helping her. Lipid disorder: She was on statin she has lost a lot of weight her LDL is 132 we checked it in April. I am not starting her on statin at this time I would recommend to control her diet little bit better. Blood pressure is stable , patient is taking all her medications, patient is on losartan 25 mg no side effects Allergies are stable she is on loratadine BMI is elevated patient is having difficulty losing weight Psychiatric medication through Psychiatry, buspirone, lamotrigine, mirtazapine PCP office: vitamin-D, omeprazole, MiraLax, atorvastatin, declined colonoscopy 10/18/2021 and is still declining OBGYN at [facility] Pulmonary office: Symbicort, albuterol. Also seeing volcanologist Follow-up 3 months PFSH Medical History Nicotine dependence, cigarettes, uncomplicated Gait instability History of COVID-19 (~09/2021) Lipid disorder Asthma-COPD overlap syndrome Vitamin B deficiency Vitamin D deficiency Chronic GERD Depression, major, severe recurrence Back pain, chronic Asthma Hypertension, essential Surgical History History of lumbar fusion History of colonoscopy History of cervical spinal surgery (~2015) History of cholecystectomy (~2008) History of tubal ligation Family History Father No problems noted. Mother No problems noted. Brother No problems noted. Brother No problems noted. Sister No problems noted. Daughter No problems noted. Daughter No problems noted. Daughter No problems noted. Other Mental health disorder Social History Housing: Apartment Patient Tobacco Use Status: Current someday Tobacco user Tobacco use type: Cigarette Cigarettes Per Day: 3 Years Smoked: current smoker - onset 15, 1/2ppd x 42yrs, 21pyh e-Cigarette/Vaping Use: Never Used service: No Current occupational status: disabled Cognitive needs: No Hearing needs: No Vision needs: No Questionnaire PHQ-9 Over the last 2 weeks, how often have you been bothered by any of the following problems? 1. Little interest or pleasure in doing things: several days 2. Feeling down, depressed, or hopeless: not at all 3. Trouble falling or staying asleep, or sleeping too much: several days 4. Feeling tired or having little energy: several days 5. Poor appetite or overeating: several days 6. Feeling bad about yourself - or that you are a failure or have let yourself or your family down: not at all 7. Trouble concentrating on things, such as reading the newspaper or watching television: not at all 8. Moving or speaking so slowly that other people could have noticed. Or the opposite - being so fidgety or restless that you have been moving around a lot more than usual: not at all 9. Thoughts that you would be better off or of hurting yourself in some way: not at all Total score: 4 Depression Screening Interpretation: Negative Depression Screening Done: Yes 19922 - PHQ-9 Billing: Yes Source: Developed by Drs. Rusty Munoz, Yolanda Jacobson, Sabino Loomis and colleagues, with an educational kim from [employer]. Thrive Questionnaire Date Thrive assessed: 10/18/22 AUDIT C Alcohol Use Questionnaire (AUDIT-C) 1. How often do you have a drink containing alcohol?: Never 3. How often do you have six or more drinks on one occasion?: Never Total Score: 0 Score Reviewed/Action Taken: Yes TAI-7 AMB Questionnaire TAI-7 Date TAI - 7 assessed: 10/18/22 Source: Developed by Drs. Rusty Munoz, Sabino Zamudio and colleagues, with an educational kim from [employer]. Review of Systems Const Denies chills and Denies fever(s) ENT Denies epistaxis and Denies nasal discharge Card Denies chest pain Resp Denies chest congestion, Denies cough and Denies hemoptysis GI Denies diarrhea and Denies nausea Skin/Breast Denies rash Neuro Reports no additional complaints Psych Reports no additional complaints Endo Reports no additional complaints Physical exam (Primary Care) Vital Signs: Last Vital Signs Pulse 101 H 07/11/23 12:42 BP 118/74 07/11/23 12:42 Pulse Ox 96 07/11/23 12:42 Oxygen Delivery Method Room Air 07/11/23 12:42 Tobacco/Smoking Status: Tobacco use Status Tobacco use date assessed 07/11/23 07/11/23 12:48 Patient Tobacco Use Status Current someday Tobacco 07/11/23 12:48 Tobacco use type Cigarette 07/11/23 12:48 e-Cigarette/Vaping Use Never Used 07/11/23 12:48 Depression Screening Interpretation: Negative Thrive Assessment: Date of Thrive Assessment Date Thrive assessed 10/18/22 07/11/23 12:48 Const General: cooperative, comfortable and no acute distress Orientation/consciousness: patient oriented x3 HENMT Head: Yes normocephalic Eyes General: appearance normal, both eyes and all related structures Neck Neck: Yes supple Resp Effort & Inspection: normal respiratory effort, no cough and no stridor Cardio Rhythm: regular rhythm Heart sounds: S1 normal heart sound present and S2 normal heart sound present Skin General skin exam: turgor normal Neuro Other: Mild weakness left leg, patient uses cane to ambulate General: patient oriented x3, tone normal and moves all extremities Extrem Other: 1+ edema ankle left more than right Office Procedures Flu Questionnaire Does the patient have a severe egg allergy?: No Does the patient have severe life threatening allergies?: No Does the patient have a fever or illness today?: No Has the patient ever had Guillain-[place] Syndrome?: No Has the patient ever had any past reaction to a flu shot?: No Immunizations flu vacc [id number] 6mos up(PF) 60 mcg(15 mcgx4)/0.5 mL IM syringe Performing Provider: Oral Ocasio MD Performing Location: [facility] Administered by: JUN Marques on 07/11/23 13:04 Dose Route Admin Location Dispensed Lot Number Expiration Date NDC [employer] 0.5 mL IM Left Deltoid 0.5 mL [id number] 03/28/24 [id number] [employer] VIS Given Date VIS Provided VIS Publication Date 07/11/23 Single Vaccine 21 Eligibility Eligibility Date Funding Source Not [facility] Eligible 07/11/23 Private Assessment and Plan Assessment & Plan (1) Hypertension, essential: Code(s): I10 - Essential (primary) hypertension (2) Balance problem: Code(s): R26.89 - Other abnormalities of gait and mobility (3) Asthma-COPD overlap syndrome: Code(s): J44.9 - Chronic obstructive pulmonary disease, unspecified (4) Difficulty walking: Code(s): R26.2 - Difficulty in walking, not elsewhere classified (5) Spinal stenosis, lumbar: Code(s): M48.061 - Spinal stenosis, lumbar region without neurogenic claudication Qualifiers: Neurogenic claudication status: without neurogenic claudication Qualified Code(s): M48.061 - Spinal stenosis, lumbar region without neurogenic claudication (6) Depression, major, severe recurrence: Code(s): F33.2 - Major depressive disorder, recurrent severe without psychotic features Qualifiers: Psychotic features: without psychotic features Qualified Code(s): F33.2 - Major depressive disorder, recurrent severe without psychotic features (7) Obesity due to excess calories: Code(s): E66.09 - Other obesity due to excess calories Qualifiers: Body mass index: BMI 33.0-33.9 Obesity classification: adult class 1 (BMI 30 - 34.9) Serious obesity comorbidity presence: with serious comorbidity Qualified Code(s): E66.09 - Other obesity due to excess calories; Z68.33 - Body mass index [BMI] 33.0-33.9, adult (8) Lipid disorder: Comment: Make healthy food choices . Eat lots of fruits, vegetables, whole grains, and low-fat dairy products. Limit the amount of meat and fried or fatty foods that you eat. Be active Walk, garden, or do something active for 30 minutes or more on most days of the week. If you smoke, stop smoking. Smoking increases the chance of heart attack or stroke, or develop cancer.If you are over weight, Lose weight, Being overweight increases the risk of many health problems. Avoid alcohol Alcohol can increase blood sugar and blood pressure. Code(s): E78.9 - Disorder of lipoprotein metabolism, unspecified (9) Constipation by delayed colonic transit: Code(s): K59.01 - Slow transit constipation (10) Environmental allergies: Code(s): Z91.09 - Other allergy status, other than to drugs and biological substances (11) Nicotine dependence, cigarettes, uncomplicated: Comment: (current smoker - onset 15, 1/2ppd x 42yrs, 21pyh) Code(s): F17.210 - Nicotine dependence, cigarettes, uncomplicated (12) Vascular insufficiency of extremity: Comment: Chronic mild swelling left more than right Code(s): I99.8 - Other disorder of circulatory system (13) Chronic GERD: Code(s): K21.9 - Gastro-esophageal reflux disease without esophagitis (14) Gait instability: Code(s): R26.81 - Unsteadiness on feet Plan ?Patient is a 58-year-old female came in today for her follow-up appointment Patient is requesting another handicap placard as she is not able to walk long distance and is using cane Paperwork filled and needed permanent patient has spinal stenosis and is having weakness in her left leg which is a chronic problem for her She also goes to a scene painter and is taking Belbuca 300 mcg b.i.d. and gabapentin 600 mg q.i.d. which is helping her. Lipid disorder: She was on statin she has lost a lot of weight her LDL is 132 we checked it in April. I am not starting her on statin at this time I would recommend to control her diet little bit better. Blood pressure is stable , patient is taking all her medications, patient is on losartan 25 mg no side effects Allergies are stable she is on loratadine BMI is elevated patient is having difficulty losing weight Psychiatric medication through Psychiatry, buspirone, lamotrigine, mirtazapine PCP office: vitamin-D, omeprazole, MiraLax, atorvastatin, declined colonoscopy 10/18/2021 and is still declining OBGYN at [facility] Pulmonary office: Symbicort, albuterol. Also seeing volcanologist Follow-up 3 months Orders: Orders Influenza [id number] Immunization Today Z23 - Encounter for immunization Coding Level of Care Code Est Pt Level 4 (03949) Diagnoses Hypertension, essential I10 Balance problem R26.89 Asthma-COPD overlap syndrome J44.9 Difficulty walking R26.2 Spinal stenosis of lumbar region without neurogenic claudication M48.061 Neurogenic claudication status: without neurogenic claudication Severe episode of recurrent major depressive disorder, without psychotic features F33.2 Psychotic features: without psychotic features Class 1 obesity due to excess calories with serious comorbidity and body mass index (BMI) of 33.0 to 33.9 in adult E66.09; Z68.33 Body mass index: BMI 33.0-33.9 Obesity classification: adult class 1 (BMI 30 - 34.9) Serious obesity comorbidity presence: with serious comorbidity Lipid disorder E78.9 Constipation by delayed colonic transit K59.01 Environmental allergies Z91.09 Nicotine dependence, cigarettes, uncomplicated F17.210 Vascular insufficiency of extremity I99.8 Chronic GERD K21.9 Gait instability R26.81
== END 2023-07-11 13:26 | disposition home or self-care (01) ==
PROVIDERS: PCP Internal Medicine; Visit Provider Internal Medicine
DX: Z23 Encounter for immunization (principal)
CPT/HCPCS: 90471; 90686; 99214

== ENCOUNTER 2023-08-05 11:35 | Outpatient (AMB) | payer OTHER, SELFPAY ==
--- NOTE | 2023-08-05 11:39 | A.OFFVIS_ITS ---
Intake Vital Signs 3 08/05/23 11:49 Height 5 ft 6 in Weight 207 lb BMI 33.4 BP 104/59 L Blood Pressure Location Lt brachial Position Sitting Pulse 72 Pulse Source Pulse Oximeter Pulse Oximetry (%) 98 Oxygen Delivery Method Room Air Intake Visit Reasons: PILL COUNT Intake Note: Parveen comes in today for a film count to belbuca, patient should have 20 films and presents with 23 films which she last took today 08/05/23 at 8am. Pain today 02/05 Perfume And Toilet Water Maker Required: No Accompanied by: Self / Same As Patient Allergies egg Allergy (Unknown, Verified 08/05/23 11:50) belly pain Penicillins [PENICILLINS] Allergy (Unknown, Verified 08/05/23 11:50) UNKNOWN, WAS A CHILD lobster Adverse Reaction (Mild, Uncoded 05/23/23 12:57) Constipation HPI HPI Comments 2 History of Present Illness0 Details Patient returns today for a film count. She is currently prescribed Belbuca 300 mcg BID. Patient is supposed to have #20 films and presents with #23. This demonstrates a responsible attitude towards her regimen. She reports opioid medication allows her to be less symptomatic and more functional. Denies any side effects on current regime except occasional constipation for which she takes Senexon-S. Patient denies any fever, abdominal or groin pain, weakness, bladder or bowel incontinence or saddle anesthesia. She reports being evaluated in ER in mid June for COVID illness and more recently admitted for left leg cellulitis and uncontrolled HTN at [facility]. She was discharged on 07/31/23 and had several follow up visits at home with VNA services. Patient has been doing her own dressing changes and continues to take Clindamycin. [facility] Medical History Nicotine dependence, cigarettes, uncomplicated Gait instability History of COVID-19 (~09/2021) Lipid disorder Asthma-COPD overlap syndrome Vitamin B deficiency Vitamin D deficiency Chronic GERD Depression, major, severe recurrence Back pain, chronic Asthma Hypertension, essential Surgical History History of lumbar fusion History of colonoscopy History of cervical spinal surgery (~2015) History of cholecystectomy (~2008) History of tubal ligation Family History Father No problems noted. Mother No problems noted. Brother No problems noted. Brother No problems noted. Sister No problems noted. Daughter No problems noted. Daughter No problems noted. Daughter No problems noted. Other Mental health disorder Social History Housing: Apartment Patient Tobacco Use Status: Current someday Tobacco user Tobacco use type: Cigarette Cigarettes Per Day: 3 Years Smoked: current smoker - onset 15, 1/2ppd x 42yrs, 21pyh e-Cigarette/Vaping Use: Never Used service: No Current occupational status: disabled Cognitive needs: No Hearing needs: No Vision needs: No Review of Systems Const All systems reviewed & are unremarkable except as noted in HPI and below Physical Exam Vital Signs: Last Vital Signs Pulse 72 08/05/23 11:49 BP 104/59 L 08/05/23 11:49 Pulse Ox 98 08/05/23 11:49 Oxygen Delivery Method Room Air 08/05/23 11:49 BMI result Body Mass Index 33.4 General: Appears afebrile. Alert and oriented. Mood and affect appropriate. Follows and participates in conversation appropriately. Respiratory effort is unlabored. Able to transition from sit to stand unassisted. Extrem General: Yes capillary refill normal, Yes no clubbing, cyanosis or edema and Yes no calf tenderness Left lower extremity: lower leg (Dressed in DSD) Psych Appearance: grossly normal and well kempt Mental Status: mental status grossly normal Speech and movement: Normal speech and movement present and Clear speech present Affect: normal affect Attitude: cooperative Thought process: Normal thought process present Thought content: Normal thought content present, suicidality (none), no hallucinations and No Depressive thoughts present Insight: Good insight present (Psych) Judgement: Good judgement present (Psych) Results Reviewed Results Reviewed: Assessment & Plan Assessment & Plan (1) Chronic, continuous use of opioids: Code(s): F11.90 - Opioid use, unspecified, uncomplicated (2) Sacroiliac joint pain: Code(s): M53.3 - Sacrococcygeal disorders, not elsewhere classified (3) Left leg cellulitis: Code(s): L03.116 - Cellulitis of left lower limb (4) Spondylosis of lumbar spine: Code(s): M47.816 - Spondylosis without myelopathy or radiculopathy, lumbar region Plan Patient presents today for a film count. She has shown accountability for her medication regimen and the count was accurate. There is no evidence of misuse, abuse or diversion at this time. [employer] reviewed. Script for Belbuca 300 mcg BID sent with an advanced date of 08/15/23 with one refill. Recent hospitalization at [facility] for left leg cellulitis and VNA follow up at home paperwork was reviewed and papers scanned into patient's chart. All questions were answered and this patient is agreeable to the plan.?Patient will follow-up in 8 weeks for a film count. Medications: Refilled 2 gabapentin 600 mg PO QID 30 days 120 tabs 3RF pain G89.4 - Chronic pain syndrome, M48.061 - Spinal stenosis, lumbar region without neurogenic claudication buprenorphine HCl Partial Fill upon patient request. 300 mcg buccal Q12H 30 days 60 ea 1RF pain F11.90 - Opioid use, unspecified, uncomplicated, M47.816 - Spondylosis without myelopathy or radiculopathy, lumbar region, M48.061 - Spinal stenosis, lumbar region without neurogenic claudication Quality Reporting (2019) Adult ([facility] 138/11/20/68) Smoking risk assessment performed?: Yes Patient Tobacco Use Status: Current someday Tobacco user Coding Level of Care Code Est Pt Level 4 (61152) Diagnoses Chronic, continuous use of opioids F11.90 Sacroiliac joint pain M53.3 Left leg cellulitis L03.116 Spondylosis of lumbar spine M47.816
[2023-08-05 11:49] VITALS: BP 104/59; PULSE 72; O2SAT 98; BMI 33.4
== END 2023-08-05 12:01 | disposition home or self-care (01) ==
PROVIDERS: PCP Internal Medicine; Visit Provider Nurse Practitioner Family
DX: M53.3 Sacrococcygeal disorders, not elsewhere classified (principal); L03.116 Cellulitis of left lower limb; M47.816 Spondylosis without myelopathy or radiculopathy, lumbar region; Z79.891 Long term (current) use of opiate analgesic
CPT/HCPCS: 99214

== ENCOUNTER → 2023-08-05 11:35 | Outpatient (BNVA) | payer OTHER, SELFPAY | PROVIDERS: PCP Internal Medicine; Visit Provider Nurse Practitioner Family | DX: Z51.81 Encounter for therapeutic drug level monitoring (principal); F11.20 Opioid dependence, uncomplicated; M53.3 Sacrococcygeal disorders, not elsewhere classified; M47.816 Spondylosis without myelopathy or radiculopathy, lumbar region; L03.116 Cellulitis of left lower limb | CPT/HCPCS: 99212 ==

== ENCOUNTER 2023-09-04 09:53 | Outpatient (AMB) | payer OTHER, SELFPAY ==
--- NOTE | 2023-09-04 10:21 | HO.NEPHOV_ITS ---
HPI HPI Comments History of Present Illness Details Parveen was seen in the office in follow-up of her hypertension and history of proteinuria. She is on angiotensin receptor arcelia in addition to other blood pressure medications and her blood pressure has been at goal. She has lost a lot of weight intentionally. She has no edema or urinary symptoms. She denies chest pain, shortness of breath, proximal nocturnal dyspnea, orthopnea or orthostatic symptoms. She does not take any nonsteroidal anti- inflammatories. She had no specific complaints at the time of this office visit. [facility] Medical History Nicotine dependence, cigarettes, uncomplicated Gait instability History of COVID-19 (~09/2021) Lipid disorder Asthma-COPD overlap syndrome Vitamin B deficiency Vitamin D deficiency Chronic GERD Depression, major, severe recurrence Back pain, chronic Asthma Hypertension, essential Surgical History History of lumbar fusion History of colonoscopy History of cervical spinal surgery (~2015) History of cholecystectomy (~2008) History of tubal ligation Family History Father No problems noted. Mother No problems noted. Brother No problems noted. Brother No problems noted. Sister No problems noted. Daughter No problems noted. Daughter No problems noted. Daughter No problems noted. Other Mental health disorder Social History Housing: Apartment Patient Tobacco Use Status: Current someday Tobacco user Tobacco use type: Cigarette Cigarettes Per Day: 3 Years Smoked: current smoker - onset 15, 1/2ppd x 42yrs, 21pyh e-Cigarette/Vaping Use: Never Used service: No Current occupational status: disabled Cognitive needs: No Hearing needs: No Vision needs: No Vital Signs 09/04/23 10:23 Height 5 ft 6 in Weight 209 lb BMI 33.7 BP 120/80 Blood Pressure Location Lt brachial Position Sitting Pulse 58 Pulse Source Pulse Oximeter Physical Exam Vital Signs: Last Vital Signs Pulse 58 09/04/23 10:23 BP 120/80 09/04/23 10:23 BMI result Body Mass Index 33.7 Const General: comfortable and no acute distress Orientation/consciousness: patient oriented x3 HEENT Head: Yes normocephalic Mouth: Normal oral and palatal mucosa present Eyes EOM: EOMs intact bilaterally Neck Neck: Yes supple Resp Auscultation: clear to auscultation bilaterally Cardio Jugular venous distension: no JVD Rate: regular rate GI Palpation (GI): Soft to palpation Auscultation: normal bowel sounds General: Yes no CVA tenderness Back/Spine/Pelvis Back: no CVA tenderness Skin General skin exam: no rashes or lesions noted Neuro General: patient oriented x3 and moves all extremities Extrem General: Yes no pedal edema Assessment & Plan Assessment & Plan (1) Hypertension: Code(s): I10 - Essential (primary) hypertension Qualifiers: Hypertension type: primary hypertension Qualified Code(s): I10 - Essential (primary) hypertension (2) Dilatation of thoracic aorta: Comment: (ascending thoracic aorta measures 4.1 x 4.1 cm - noted on 04/04/23 LDCT) Code(s): I77.810 - Thoracic aortic ectasia (3) Proteinuria: Code(s): R80.9 - Proteinuria, unspecified Qualifiers: Proteinuria type: other Qualified Code(s): R80.8 - Other proteinuria Plan Parveen 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 She had obesity which was putting her at risk for secondary FSGS. She has lost a lot of weight intentionally. Her blood pressure is at goal. She is on angiotensin receptor arcelia. I have ordered urine protein along with the repeat blood work. If her urine protein gets worse with time, I plan to doing more immunological and serological workup and will consider renal biopsy if indicated. I did not make any medication changes today. All questions answered. Follow-up given. Orders: Orders Electrolytes 09/04/23 I10 - Essential (primary) hypertension Creatinine 09/04/23 I10 - Essential (primary) hypertension Protein Creatinine Ratio, Ur 09/04/23 I10 - Essential (primary) hypertension Blood Urea Nitrogen 09/04/23 I10 - Essential (primary) hypertension Coding Level of Care Code Est Pt Level 4 (27002) Diagnoses Primary hypertension I10 Hypertension type: primary hypertension Dilatation of thoracic aorta I77.810 Other proteinuria R80.8 Proteinuria type: other Results Reviewed Nephrology Results: Hgb 14.8 g/dl (12.0-16.0) 05/23/23 WBC 11.7 X10*3/uL (4.8-10.8) H 05/23/23 Plt Count 240 X10*3/uL (160-400) 05/23/23 Sodium 142 mmol/L (135-145) 05/23/23 Potassium 3.9 mmol/L (3.3-5.1) 05/23/23 Chloride 108 mmol/L (96-108) 05/23/23 Carbon Dioxide 26 mmol/L (22-29) 05/23/23 BUN 14 mg/dL (9-16) 05/23/23 Creatinine 0.72 mg/dL (0.5-1.4) 05/23/23 Calcium 9.6 mg/dL (8.4-10.2) 05/23/23
[2023-09-04 10:23] VITALS: BP 120/80; PULSE 58; BMI 33.7
== END 2023-09-04 10:56 | disposition home or self-care (01) ==
PROVIDERS: PCP Internal Medicine; Visit Provider Internal Medicine Nephrology
DX: I10 Essential (primary) hypertension (principal); I77.810 Thoracic aortic ectasia; R80.8 Other proteinuria
CPT/HCPCS: 99214

== ENCOUNTER → 2023-09-04 09:53 | Outpatient (BNVA) | payer OTHER, SELFPAY | PROVIDERS: PCP Internal Medicine; Visit Provider Internal Medicine Nephrology | DX: I10 Essential (primary) hypertension (principal); I77.810 Thoracic aortic ectasia; R80.8 Other proteinuria | CPT/HCPCS: 99212 ==

== ENCOUNTER 2023-10-07 11:21 | Outpatient (AMB) | payer OTHER, SELFPAY ==
--- NOTE | 2023-10-07 11:29 | A.OFFVIS_ITS ---
Intake Vital Signs 10/07/23 11:39 Height 5 ft 6 in Weight 210 lb 8 oz BMI 34.0 BP 144/84 H Blood Pressure Location Rt brachial Position Sitting Pulse 55 Pulse Source Pulse Oximeter Pulse Oximetry (%) 97 Oxygen Delivery Method Room Air Intake Visit Reasons: Medication Count Intake Note: Parveen comes in today for a film count to belbuca, patient should have 8 films and presents with 11 films which she last took today 10/07/23 at 6am. Pain today 02/05 Patient signed updated opioid contract in office today. Copy of signed contract was provided to patient. Packing Attendant Required: No Accompanied by: Self / Same As Patient Allergies egg Allergy (Unknown, Verified 10/07/23 11:39) belly pain Penicillins [PENICILLINS] Allergy (Unknown, Verified 10/07/23 11:39) UNKNOWN, WAS A CHILD lobster Adverse Reaction (Mild, Uncoded 05/23/23 12:57) Constipation HPI HPI Comments History of Present Illness Details Patient returns today for a film count for Belbuca 300 mcg BID. Patient is supposed to have #8 films and presents with #11. This demonstrates a responsible attitude towards her regimen. She reports opioid medication allows her to be less symptomatic and more functional. Denies any side effects on current regime except occasional constipation for which she takes Senexon-S and increases fluid intake. Patient reports she recently had follow up with her Hospice Nurse Practitioner and was told her kidney and liver function has improved. Denies any fever, chills, chest pain, dizziness, shortness of breaths, nausea, sedation, dizziness, or urinary retention. [facility] Medical History Nicotine dependence, cigarettes, uncomplicated Gait instability History of COVID-19 (~09/2021) Lipid disorder Asthma-COPD overlap syndrome Vitamin B deficiency Vitamin D deficiency Chronic GERD Depression, major, severe recurrence Back pain, chronic Asthma Hypertension, essential Surgical History History of lumbar fusion History of colonoscopy History of cervical spinal surgery (~2015) History of cholecystectomy (~2008) History of tubal ligation Family History Father No problems noted. Mother No problems noted. Brother No problems noted. Brother No problems noted. Sister No problems noted. Daughter No problems noted. Daughter No problems noted. Daughter No problems noted. Other Mental health disorder Social History Housing: Apartment Patient Tobacco Use Status: Current someday Tobacco user Tobacco use type: Cigarette Cigarettes Per Day: 3 Years Smoked: current smoker - onset 15, 1/2ppd x 42yrs, 21pyh e-Cigarette/Vaping Use: Never Used service: No Current occupational status: disabled Cognitive needs: No Hearing needs: No Vision needs: No Review of Systems Const All systems reviewed & are unremarkable except as noted in HPI and below Physical Exam General: Appears afebrile. Alert and oriented. Mood and affect appropriate. Very pleasant. Follows and participates in conversation appropriately. Respiratory effort is unlabored. No cough. Able to transition from sit to stand unassisted. Psych Appearance: grossly normal and well kempt Mental Status: mental status grossly normal Speech and movement: Normal speech and movement present and Clear speech present Affect: normal affect Attitude: cooperative Thought process: Normal thought process present Thought content: Normal thought content present, suicidality (none), no hallucinations and No Depressive thoughts present Insight: Good insight present (Psych) Judgement: Good judgement present (Psych) Assessment & Plan Assessment & Plan (1) Chronic, continuous use of opioids: Code(s): F11.90 - Opioid use, unspecified, uncomplicated (2) Sacroiliac joint pain: Code(s): M53.3 - Sacrococcygeal disorders, not elsewhere classified (3) Spondylosis of lumbar spine: Code(s): M47.816 - Spondylosis without myelopathy or radiculopathy, lumbar region (4) Back pain, chronic: Code(s): M54.9 - Dorsalgia, unspecified; G89.29 - Other chronic pain Plan Patient presents today for a film count. She has shown accountability for her medication regimen and the count was accurate. There is no evidence of misuse, abuse or diversion at this time. [employer] reviewed. Script for Belbuca 300 mcg BID sent with an advanced date of 10/11/23 with one refill. Refill sent for gabapentin per patient's request. Continue daily physical activity as tolerated, weight loss, adequate hydration, daily fiber intake and good posture. All questions were answered and this patient is agreeable to the plan.?Patient will follow-up in 8 weeks for a film count. Medications: Refilled gabapentin 600 mg PO QID 120 tabs 3RF pain 30 days G89.4 - Chronic pain syndrome, M48.061 - Spinal stenosis, lumbar region without neurogenic claudication buprenorphine HCl Partial Fill upon patient request. 300 mcg buccal Q12H 60 ea 1RF pain 30 days F11.90 - Opioid use, unspecified, uncomplicated, M47.816 - Spondylosis without myelopathy or radiculopathy, lumbar region, M48.061 - Spinal stenosis, lumbar region without neurogenic claudication Quality Reporting (2019) Adult ([facility] 138/11/20/68) Smoking risk assessment performed?: Yes Patient Tobacco Use Status: Current someday Tobacco user Coding Level of Care Code Est Pt Level 4 (26317) Diagnoses Chronic, continuous use of opioids F11.90 Sacroiliac joint pain M53.3 Spondylosis of lumbar spine M47.816 Back pain, chronic M54.9; G89.29
[2023-10-07 11:39] VITALS: BP 144/84; PULSE 55; O2SAT 97; BMI 34.0
== END 2023-10-07 11:40 | disposition home or self-care (01) ==
PROVIDERS: PCP Internal Medicine; Visit Provider Nurse Practitioner Family
DX: G89.29 Other chronic pain (principal); M53.3 Sacrococcygeal disorders, not elsewhere classified; M47.816 Spondylosis without myelopathy or radiculopathy, lumbar region; Z79.891 Long term (current) use of opiate analgesic; M54.9 Dorsalgia, unspecified
CPT/HCPCS: 99214

== ENCOUNTER → 2023-10-07 11:21 | Outpatient (BNVA) | payer OTHER, SELFPAY | PROVIDERS: PCP Internal Medicine; Visit Provider Nurse Practitioner Family | DX: Z51.81 Encounter for therapeutic drug level monitoring (principal); F11.20 Opioid dependence, uncomplicated; M53.3 Sacrococcygeal disorders, not elsewhere classified; M47.816 Spondylosis without myelopathy or radiculopathy, lumbar region; M54.9 Dorsalgia, unspecified; G89.29 Other chronic pain | CPT/HCPCS: 99212 ==

== ENCOUNTER 2023-10-10 15:49 | Outpatient (AMB) | payer OTHER, SELFPAY ==
[2023-10-10 15:51] VITALS: BP 140/84; PULSE 62; O2SAT 96; BMI 33.2
--- NOTE | 2023-10-10 15:51 | HO.NEPHOV_ITS ---
HPI HPI Comments History of Present Illness Details Parveen was seen in the office in follow-up of her hypertension and history of proteinuria. She had headaches and her BP has not been at goal at home. She has lost a lot of weight intentionally. She has no edema or urinary symptoms. She denies chest pain but had chest pressure without any shortness of breath, proximal nocturnal dyspnea, orthopnea or orthostatic symptoms. She was seen in [facility] and was D/[facility]on home. She does not take any nonsteroidal anti-inflammatories. She had no other specific complaints at the time of this office visit [facility] Medical History Nicotine dependence, cigarettes, uncomplicated Gait instability History of COVID-19 (~09/2021) Lipid disorder Asthma-COPD overlap syndrome Vitamin B deficiency Vitamin D deficiency Chronic GERD Depression, major, severe recurrence Back pain, chronic Asthma Hypertension, essential Surgical History History of lumbar fusion History of colonoscopy History of cervical spinal surgery (~2015) History of cholecystectomy (~2008) History of tubal ligation Family History Father No problems noted. Mother No problems noted. Brother No problems noted. Brother No problems noted. Sister No problems noted. Daughter No problems noted. Daughter No problems noted. Daughter No problems noted. Other Mental health disorder Social History Housing: Apartment Patient Tobacco Use Status: Current someday Tobacco user Tobacco use type: Cigarette Cigarettes Per Day: 3 Years Smoked: current smoker - onset 15, 1/2ppd x 42yrs, 21pyh e-Cigarette/Vaping Use: Never Used service: No Current occupational status: disabled Cognitive needs: No Hearing needs: No Vision needs: No Vital Signs 10/10/23 15:51 Height 5 ft 6 in Weight 205 lb 8 oz BMI 33.2 BP 140/84 H Blood Pressure Location Lt brachial Position Sitting Pulse 62 Pulse Source Pulse Oximeter Pulse Oximetry (%) 96 Oxygen Delivery Method Room Air Physical Exam Vital Signs: Last Vital Signs Pulse 62 10/10/23 15:51 BP 140/84 H 10/10/23 15:51 Pulse Ox 96 10/10/23 15:51 Oxygen Delivery Method Room Air 10/10/23 15:51 BMI result Body Mass Index 33.2 Const General: comfortable and no acute distress Orientation/consciousness: patient oriented x3 HEENT Head: Yes normocephalic Mouth: Normal oral and palatal mucosa present Eyes EOM: EOMs intact bilaterally Neck Neck: Yes supple Resp Auscultation: clear to auscultation bilaterally Cardio Jugular venous distension: no JVD Rate: regular rate GI Palpation (GI): Soft to palpation Auscultation: normal bowel sounds General: Yes no CVA tenderness Back/Spine/Pelvis Back: no CVA tenderness Skin General skin exam: no rashes or lesions noted Neuro General: patient oriented x3 and moves all extremities Extrem General: Yes no pedal edema Assessment & Plan Assessment & Plan (1) Hypertension: Code(s): I10 - Essential (primary) hypertension Qualifiers: Hypertension type: primary hypertension Qualified Code(s): I10 - Essential (primary) hypertension (2) Proteinuria: Code(s): R80.9 - Proteinuria, unspecified Qualifiers: Proteinuria type: other Qualified Code(s): R80.8 - Other proteinuria (3) Dilatation of thoracic aorta: Comment: (ascending thoracic aorta measures 4.1 x 4.1 cm - noted on 04/04/23 LDCT) Code(s): I77.810 - Thoracic aortic ectasia Plan Parveen 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 She had obesity which was putting her at risk for secondary FSGS. She has lost a lot of weight intentionally. Her blood pressure is not at goal. She is on angiotensin receptor arcelia. I increased her losartan to 25 mg bid and have ordered urine protein along with the repeat blood work. If her urine protein gets worse with time, I plan to doing more immunological and serological workup and will consider renal biopsy if indicated. I did not make any other medication changes today. All questions answered. Follow-up given Orders: Orders Blood Urea Nitrogen Today I10 - Essential (primary) hypertension, I77.810 - Thoracic aortic ectasia, R80.9 - Proteinuria, unspecified Creatinine Today I10 - Essential (primary) hypertension, I77.810 - Thoracic aortic ectasia, R80.9 - Proteinuria, unspecified Electrolytes Today I10 - Essential (primary) hypertension, I77.810 - Thoracic aortic ectasia, R80.9 - Proteinuria, unspecified Protein Creatinine Ratio, Ur Today I10 - Essential (primary) hypertension, I77.810 - Thoracic aortic ectasia, R80.9 - Proteinuria, unspecified Coding Level of Care Code Est Pt Level 4 (39231) Diagnoses Primary hypertension I10 Hypertension type: primary hypertension Other proteinuria R80.8 Proteinuria type: other Dilatation of thoracic aorta I77.810 Results Reviewed Nephrology Results: Hgb 14.8 g/dl (12.0-16.0) 05/23/23 WBC 11.7 X10*3/uL (4.8-10.8) H 05/23/23 Plt Count 240 X10*3/uL (160-400) 05/23/23 Sodium 142 mmol/L (135-145) 05/23/23 Potassium 3.9 mmol/L (3.3-5.1) 05/23/23 Chloride 108 mmol/L (96-108) 05/23/23 Carbon Dioxide 26 mmol/L (22-29) 05/23/23 BUN 14 mg/dL (9-16) 05/23/23 Creatinine 0.72 mg/dL (0.5-1.4) 05/23/23 Calcium 9.6 mg/dL (8.4-10.2) 05/23/23
== END 2023-10-10 16:29 | disposition home or self-care (01) ==
PROVIDERS: PCP Internal Medicine; Visit Provider Internal Medicine Nephrology
DX: I10 Essential (primary) hypertension (principal); R80.8 Other proteinuria; I77.810 Thoracic aortic ectasia
CPT/HCPCS: 99214

== ENCOUNTER → 2023-10-10 15:49 | Outpatient (BNVA) | payer OTHER, SELFPAY | PROVIDERS: PCP Internal Medicine; Visit Provider Internal Medicine Nephrology | DX: I10 Essential (primary) hypertension (principal); R80.9 Proteinuria, unspecified; I77.810 Thoracic aortic ectasia | CPT/HCPCS: 99212 ==

== ENCOUNTER 2023-10-23 11:20 | Outpatient (AMB) | payer OTHER, SELFPAY ==
--- NOTE | 2023-10-23 11:47 | HO.NEPHOV ---
HPI HPI Comments History of Present Illness Details Parveen was seen in the office in follow-up of her hypertension and history of proteinuria. She had headaches which are better. Her BP is still not oal at home. She has lost a lot of weight intentionally. She has no urinary symptoms. She denies chest pain but had chest pressure without any shortness of breath, proximal nocturnal dyspnea, orthopnea or orthostatic symptoms. She does not take any nonsteroidal anti-inflammatories. She has ascending thoracic aorta measures 4.1 x 4.1 cm in transverse dimension at the level of the pulmonary trunk. She has no other specific complaints at the time of this office visit [facility] Medical History Nicotine dependence, cigarettes, uncomplicated Gait instability History of COVID-19 (~09/2021) Lipid disorder Asthma-COPD overlap syndrome Vitamin B deficiency Vitamin D deficiency Chronic GERD Depression, major, severe recurrence Back pain, chronic Asthma Hypertension, essential Surgical History History of lumbar fusion History of colonoscopy History of cervical spinal surgery (~2015) History of cholecystectomy (~2008) History of tubal ligation Family History Father No problems noted. Mother No problems noted. Brother No problems noted. Brother No problems noted. Sister No problems noted. Daughter No problems noted. Daughter No problems noted. Daughter No problems noted. Other Mental health disorder Social History Housing: Apartment Patient Tobacco Use Status: Current someday Tobacco user Tobacco use type: Cigarette Cigarettes Per Day: 3 Years Smoked: current smoker - onset 15, 1/2ppd x 42yrs, 21pyh e-Cigarette/Vaping Use: Never Used service: No Current occupational status: disabled Cognitive needs: No Hearing needs: No Vision needs: No Vital Signs 10/23/23 11:48 10/23/23 12:19 Height 5 ft 6 in Weight 214 lb 4 oz BMI 34.6 BP 150/92 H 140/90 H Blood Pressure Location Lt brachial Position Sitting Pulse 57 Pulse Source Pulse Oximeter Pulse Oximetry (%) 97 Oxygen Delivery Method Room Air Physical Exam Vital Signs: Last Vital Signs Pulse 57 10/23/23 11:48 BP 140/90 H 10/23/23 12:19 Pulse Ox 97 10/23/23 11:48 Oxygen Delivery Method Room Air 10/23/23 11:48 BMI result Body Mass Index 34.6 Const General: comfortable and no acute distress Orientation/consciousness: patient oriented x3 HEENT Head: Yes normocephalic Mouth: Normal oral and palatal mucosa present Eyes EOM: EOMs intact bilaterally Neck Neck: Yes supple Resp Auscultation: clear to auscultation bilaterally Cardio Jugular venous distension: no JVD Rate: regular rate GI Palpation (GI): Soft to palpation Auscultation: normal bowel sounds General: Yes no CVA tenderness Back/Spine/Pelvis Back: no CVA tenderness Skin General skin exam: no rashes or lesions noted Neuro General: patient oriented x3 and moves all extremities Extrem General: Yes no pedal edema Assessment & Plan Assessment & Plan (1) Hypertension: Code(s): I10 - Essential (primary) hypertension Qualifiers: Hypertension type: primary hypertension Qualified Code(s): I10 - Essential (primary) hypertension (2) Proteinuria: Code(s): R80.9 - Proteinuria, unspecified Qualifiers: Proteinuria type: other Qualified Code(s): R80.8 - Other proteinuria Plan Parveen 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 She had obesity which was putting her at risk for secondary FSGS. Her blood pressure is not at goal. She is on angiotensin receptor arcelia. She is on losartan 50 mg bid. I started her on Chlorthalidone 25 mg daily. I have ordered urine protein along with the repeat blood work. If her urine protein gets worse with time, I plan to doing more immunological and serological workup and will consider renal biopsy if indicated. All questions answered. Follow-up given (She has ascending thoracic aorta measures 4.1 x 4.1 cm in transverse dimension at the level of the pulmonary trunk.from a CT scan in [facility] last year- needs F/U in 6 months) Orders: Orders Protein Creatinine Ratio, Ur Today I10 - Essential (primary) hypertension, R80.9 - Proteinuria, unspecified Creatinine Today I10 - Essential (primary) hypertension, R80.9 - Proteinuria, unspecified Electrolytes Today I10 - Essential (primary) hypertension, R80.9 - Proteinuria, unspecified Blood Urea Nitrogen Today I10 - Essential (primary) hypertension, R80.9 - Proteinuria, unspecified Medications: New chlorthalidone 25 mg PO DAILY 30 tabs 3RF Coding Level of Care Code Est Pt Level 4 (38102) Diagnoses Primary hypertension I10 Hypertension type: primary hypertension Other proteinuria R80.8 Proteinuria type: other Results Reviewed Nephrology Results: Hgb 14.8 g/dl (12.0-16.0) 05/23/23 WBC 11.7 X10*3/uL (4.8-10.8) H 05/23/23 Plt Count 240 X10*3/uL (160-400) 05/23/23 Sodium 142 mmol/L (135-145) 05/23/23 Potassium 3.9 mmol/L (3.3-5.1) 05/23/23 Chloride 108 mmol/L (96-108) 05/23/23 Carbon Dioxide 26 mmol/L (22-29) 05/23/23 BUN 14 mg/dL (9-16) 05/23/23 Creatinine 0.72 mg/dL (0.5-1.4) 05/23/23 Calcium 9.6 mg/dL (8.4-10.2) 05/23/23
[2023-10-23 11:48] VITALS: BP 150/92; PULSE 57; O2SAT 97; BMI 34.6
[2023-10-23 12:19] VITALS: BP 140/90
== END 2023-10-23 12:33 | disposition home or self-care (01) ==
PROVIDERS: PCP Internal Medicine; Visit Provider Internal Medicine Nephrology
DX: I10 Essential (primary) hypertension (principal); R80.8 Other proteinuria
CPT/HCPCS: 99214

== ENCOUNTER → 2023-10-23 11:20 | Outpatient (BNVA) | payer OTHER, SELFPAY | PROVIDERS: PCP Internal Medicine; Visit Provider Internal Medicine Nephrology | DX: I10 Essential (primary) hypertension (principal); R80.8 Other proteinuria | CPT/HCPCS: 99212 ==

== ENCOUNTER 2023-11-12 09:44 | Outpatient (AMB) | payer OTHER, SELFPAY ==
[2023-11-12 09:47] VITALS: BP 142/88; BMI 34.8
--- NOTE | 2023-11-12 09:47 | A.OFFPC_ITS ---
Vital Signs 11/12/23 09:47 Height 5 ft 6 in Weight 215 lb 6 oz BMI 34.8 BP 142/88 H Blood Pressure Location Lt brachial Position Sitting Intake Visit Reasons: 4 month follow up ( meds) Allergies egg Allergy (Unknown, Verified 11/12/23 09:49) belly pain Penicillins [PENICILLINS] Allergy (Unknown, Verified 11/12/23 09:49) UNKNOWN, WAS A CHILD lobster Adverse Reaction (Mild, Uncoded 05/23/23 12:57) Constipation Medication List - Last Reconciled 11/12/23 by Oral Ocasio MD acetaminophen 650 mg (2 x 325 mg) PO Q6H PRN albuterol sulfate 90 mcg/actuation 2 puffs PO Q6H PRN NS blood pressure monitor (Blood Pressure Kit) As directed buprenorphine HCl 300 mcg buccal Q12H 30 days buspirone 30 mg PO BID [Cane As directed] diphenhydramine HCl (Banophen) 25 mg PO PRN famotidine 40 mg PO DAILY 90 days gabapentin 600 mg PO QID 30 days loratadine 10 mg PO DAILY 90 days losartan 50 mg PO BID mirabegron ER (Myrbetriq) 50 mg PO DAILY mirtazapine 45 mg PO BEDTIME montelukast 10 mg PO DAILY 90 days sennosides-docusate sodium 8.6-50 mg (Senexon-S) 1 tab PO BEDTIME [shower chair with handles As directed] Symbicort 160-4.5 mcg/actuation (budesonide-formoterol) 2 puffs PO BID NS Tobacco use date assessed: 11/12/23 Dental Screening Dental Screen Date: 11/12/23 Did you have a dental visit in the last 12 months?: Yes Did you have a dental problem in the last 6 months where you did not have access to dental care?: No Was dental information given to patient?: Patient has dentist HPI 4 month follow up ( meds) HPI Details Patient is a 51 year female came in today for follow-up Patient is complaining of instability of left ankle, patient says that sometimes she feels as if she is going to fall She is requesting a referral to orthopedic Also having pain in her left foot She also goes to a hand touch up painter and is taking Belbuca 300 mcg b.i.d. and gabapentin 600 mg q.i.d. which is helping her. Lipid disorder: She was on statin she has lost a lot of weight her LDL is 132 we checked it in April. I am not starting her on statin at this time I would recommend to control her diet little bit better. Blood pressure is stable , through Nephrology Dr. Hurd Allergies are stable she is on loratadine BMI is elevated patient is having difficulty losing weight Psychiatric medication through Psychiatry, buspirone, lamotrigine, mirtazapine PCP office: vitamin-D, omeprazole, MiraLax, atorvastatin, declined colonoscopy 10/18/2021 and is still declining OBGYN at [facility] Pulmonary office: Symbicort, albuterol. Also seeing retail helper Follow-up in January [facility] Medical History Nicotine dependence, cigarettes, uncomplicated Gait instability History of COVID-19 (~09/2021) Lipid disorder Asthma-COPD overlap syndrome Vitamin B deficiency Vitamin D deficiency Chronic GERD Depression, major, severe recurrence Back pain, chronic Asthma Hypertension, essential Surgical History History of lumbar fusion History of colonoscopy History of cervical spinal surgery (~2015) History of cholecystectomy (~2008) History of tubal ligation Family History Father No problems noted. Mother No problems noted. Brother No problems noted. Brother No problems noted. Sister No problems noted. Daughter No problems noted. Daughter No problems noted. Daughter No problems noted. Other Mental health disorder Social History Housing: Apartment Patient Tobacco Use Status: Current someday Tobacco user Tobacco use type: Cigarette Cigarettes Per Day: 3 Years Smoked: current smoker - onset 15, 1/2ppd x 42yrs, 21pyh e-Cigarette/Vaping Use: Never Used service: No Current occupational status: disabled Cognitive needs: No Hearing needs: No Vision needs: No Questionnaire PHQ-9 Over the last 2 weeks, how often have you been bothered by any of the following problems? Depression Screening Interpretation: Negative Depression Screening Done: Yes Source: Developed by Drs. Rusty Munoz, Sabino Zamudio and colleagues, with an educational kim from [employer]. Thrive Questionnaire Date Thrive assessed: 10/18/22 AUDIT C Alcohol Use Questionnaire (AUDIT-C) 1. How often do you have a drink containing alcohol?: Never 3. How often do you have six or more drinks on one occasion?: Never Total Score: 0 Score Reviewed/Action Taken: Yes TAI-7 AMB Questionnaire TAI-7 Date TAI - 7 assessed: 10/18/22 Source: Developed by Drs. Rusty Munoz, Sabino Zamudio and colleagues, with an educational kim from [employer]. Review of Systems Const Denies chills and Denies fever(s) ENT Denies epistaxis and Denies nasal discharge Card Denies chest pain Resp Denies chest congestion, Denies cough and Denies hemoptysis GI Denies diarrhea and Denies nausea Skin/Breast Denies rash Neuro Reports no additional complaints Psych Reports no additional complaints Endo Reports no additional complaints Physical exam (Primary Care) Vital Signs: Last Vital Signs BP 142/88 H 11/12/23 09:47 BMI result Body Mass Index 34.8 Tobacco/Smoking Status: Tobacco use Status Tobacco use date assessed 11/12/23 11/12/23 09:57 Patient Tobacco Use Status Current someday Tobacco 11/12/23 09:53 Tobacco use type Cigarette 11/12/23 09:53 e-Cigarette/Vaping Use Never Used 11/12/23 09:53 Depression Screening Interpretation: Negative Thrive Assessment: Date of Thrive Assessment Date Thrive assessed 10/18/22 11/12/23 09:53 Const General: cooperative, comfortable and no acute distress Orientation/consciousness: patient oriented x3 HENMT Head: Yes normocephalic Eyes General: appearance normal, both eyes and all related structures Neck Neck: Yes supple Resp Effort & Inspection: normal respiratory effort, no cough and no stridor Cardio Rhythm: regular rhythm Heart sounds: S1 normal heart sound present and S2 normal heart sound present Skin General skin exam: turgor normal Neuro Other: Mild weakness left leg, patient uses cane to ambulate General: patient oriented x3, tone normal and moves all extremities Extrem Other: 1+ edema ankle left more than right Assessment and Plan Assessment & Plan (1) Asthma-COPD overlap syndrome: Code(s): J44.9 - Chronic obstructive pulmonary disease, unspecified (2) Hypertension, essential: Code(s): I10 - Essential (primary) hypertension (3) Left ankle instability: Code(s): M25.372 - Other instability, left ankle (4) Left foot pain: Code(s): M79.672 - Pain in left foot (5) Lipid disorder: Comment: Make healthy food choices . Eat lots of fruits, vegetables, whole grains, and low-fat dairy products. Limit the amount of meat and fried or fatty foods that you eat. Be active Walk, garden, or do something active for 30 minutes or more on most days of the week. If you smoke, stop smoking. Smoking increases the chance of heart attack or stroke, or develop cancer.If you are over weight, Lose weight, Being overweight increases the risk of many health problems. Avoid alcohol Alcohol can increase blood sugar and blood pressure. Code(s): E78.9 - Disorder of lipoprotein metabolism, unspecified (6) Depression, major, severe recurrence: Code(s): F33.2 - Major depressive disorder, recurrent severe without psychotic features Qualifiers: Psychotic features: without psychotic features Qualified Code(s): F33.2 - Major depressive disorder, recurrent severe without psychotic features (7) Disability of walking: Code(s): R26.2 - Difficulty in walking, not elsewhere classified (8) Vascular insufficiency of extremity: Comment: Chronic mild swelling left more than right Code(s): I99.8 - Other disorder of circulatory system (9) Environmental allergies: Code(s): Z91.09 - Other allergy status, other than to drugs and biological substances (10) Nicotine dependence, cigarettes, uncomplicated: Comment: (current smoker - onset 15, 1/2ppd x 42yrs, 21pyh) Code(s): F17.210 - Nicotine dependence, cigarettes, uncomplicated (11) Obesity due to excess calories: Code(s): E66.09 - Other obesity due to excess calories Qualifiers: Body mass index: BMI 33.0-33.9 Obesity classification: adult class 1 (BMI 30 - 34.9) Serious obesity comorbidity presence: with serious comorbidity Qualified Code(s): E66.09 - Other obesity due to excess calories; Z68.33 - Body mass index [BMI] 33.0-33.9, adult (12) Chronic GERD: Code(s): K21.9 - Gastro-esophageal reflux disease without esophagitis (13) Constipation by delayed colonic transit: Code(s): K59.01 - Slow transit constipation Plan Patient is a 51 year female came in today for follow-up Patient is complaining of instability of left ankle, patient says that sometimes she feels as if she is going to fall She is requesting a referral to orthopedic Also having pain in her left foot She also goes to a hand touch up painter and is taking Belbuca 300 mcg b.i.d. and gabapentin 600 mg q.i.d. which is helping her. Lipid disorder: She was on statin she has lost a lot of weight her LDL is 132 we checked it in April. I am not starting her on statin at this time I would recommend to control her diet little bit better. Blood pressure is stable , through Nephrology Dr. Hurd Allergies are stable she is on loratadine BMI is elevated patient is having difficulty losing weight Psychiatric medication through Psychiatry, buspirone, lamotrigine, mirtazapine PCP office: vitamin-D, omeprazole, MiraLax, atorvastatin, declined colonoscopy 10/18/2021 and is still declining OBGYN at [facility] Pulmonary office: Symbicort, albuterol. Also seeing retail helper Follow-up in January Orders: Orders Complete Blood Count Auto Diff Today E66.09 - Other obesity due to excess calories, E78.9 - Disorder of lipoprotein metabolism, unspecified, F17.210 - Nicotine dependence, cigarettes, uncomplicated, F33.2 - Major depressive dis order, recurrent severe without psychotic features, I10 - Essential (primary) hypertension, I99.8 - Other disorder of circulatory system, J44.9 - Chronic obstructive pulmonary disease, unspecified, K21.9 - Gastro-esophageal reflux disease without esophagitis, K59.01 - Slow transit constipation, R26.2 - Difficulty in walking, not elsewhere classified, Z91.09 - Other allergy status, other than to drugs and biological substances Comprehensive Met. Panel Today E66.09 - Other obesity due to excess calories, E78.9 - Disorder of lipoprotein metabolism, unspecified, F17.210 - Nicotine dependence, cigarettes, uncomplicated, F33.2 - Major depressive disorder, recurrent severe without psychotic features, I10 - Essential (primary) hypertension, I99.8 - Other disorder of circulatory system, J44.9 - Chronic obstructive pulmonary disease, unspecified, K21.9 - Gastro-esophageal reflux disease without esophagitis, K59.01 - Slow transit constipation, R26.2 - Difficulty in walking, not elsewhere classified, Z91.09 - Other allergy status, other than to drugs and biological substances LDL Cholesterol Direct Today E66.09 - Other obesity due to excess calories, E78.9 - Disorder of lipoprotein metabolism, unspecified, F17.210 - Nicotine dependence, cigarettes, uncomplicated, F33.2 - Major depressive disorder, recurrent severe without psychotic features, I10 - Essential (primary) hypertension, I99.8 - Other disorder of circulatory system, J44.9 - Chronic obstructive pulmonary disease, unspecified, K21.9 - Gastro-esophageal reflux disease without esophagitis, K59.01 - Slow transit constipation, R26.2 - Difficulty in walking, not elsewhere classified, Z91.09 - Other allergy status, other than to drugs and biological substances Referrals Podiatry Referral M79.672 - Pain in left foot Orthopedics Referral M25.372 - Other instability, left ankle Medications: New [Blood pressure monitor] As directed 1 ea 0RF I10 - Essential (primary) hyp ertension Coding Level of Care Code Est Pt Level 5 (30699) Diagnoses Asthma-COPD overlap syndrome J44.9 Hypertension, essential I10 Left ankle instability M25.372 Left foot pain M79.672 Lipid disorder E78.9 Severe episode of recurrent major depressive disorder, without psychotic features F33.2 Psychotic features: without psychotic features Disability of walking R26.2 Vascular insufficiency of extremity I99.8 Environmental allergies Z91.09 Nicotine dependence, cigarettes, uncomplicated F17.210 Class 1 obesity due to excess calories with serious comorbidity and body mass index (BMI) of 33.0 to 33.9 in adult E66.09; Z68.33 Body mass index: BMI 33.0-33.9 Obesity classification: adult class 1 (BMI 30 - 34.9) Serious obesity comorbidity presence: with serious comorbidity Chronic GERD K21.9 Constipation by delayed colonic transit K59.01 Time Spent (min) 45 Comment 5 pre visit, 22 with patient, 7 minute charting, 11 minute coordination care
== END 2023-11-12 12:17 | disposition home or self-care (01) ==
PROVIDERS: PCP Internal Medicine; Visit Provider Internal Medicine
DX: J44.9 Chronic obstructive pulmonary disease, unspecified (principal); I10 Essential (primary) hypertension; M25.372 Other instability, left ankle; M79.672 Pain in left foot; E78.9 Disorder of lipoprotein metabolism, unspecified; F33.2 Major depressive disorder, recurrent severe without psychotic features; R26.2 Difficulty in walking, not elsewhere classified; I99.8 Other disorder of circulatory system; Z91.09 Other allergy status, other than to drugs and biological substances; F17.210 Nicotine dependence, cigarettes, uncomplicated; E66.09 Other obesity due to excess calories; Z68.33 Body mass index [BMI] 33.0-33.9, adult
CPT/HCPCS: 99215

== ENCOUNTER 2023-11-12 10:12 | Outpatient (REF) | payer OTHER, SELFPAY ==
[2023-11-12 13:21] LABS: MANUAL DIFF FLAG NO
[2023-11-12 13:27] LABS: Basophils Percent Auto 0.6 % (0-2); Eosinophils Absolute Auto 0.1 X10*3/uL (0.0-0.4); Eosinophils Percent Auto 1.5 % (0-4); Hematocrit 43.4 % (37.0-47.0); Hemoglobin 14.3 g/dl (12.0-16.0); Imm Gran Abs Auto 0.02 X10*3/uL (0.00-0.03); Imm Gran Pct Auto 0.3 % (0.0-0.4); Lymphocytes Percent Auto 29.5 % (20-40); Mean Corpuscular HGB Conc 32.9 g/dl (31.0-35.0); Mean Corpuscular Hemoglobin 29.8 pg (27.0-33.0); Mean Corpuscular Volume 90.4 fL (80.0-98.0); Mean Platelet Volume 9.8 fL (9.4-12.3); Monocytes Absolute Auto 0.4 X10*3/uL (0.1-1.2); Monocytes Percent Auto 6.1 % (2-11); Neutrophils Absolute Auto 4.3 x10*3/uL (2.0-8.3); Platelet Count 222 X10*3/uL (160-400); Red Cell Distribution Width 12.5 % (11.0-16.0); White Blood Count 6.9 X10*3/uL (4.8-10.8)
[2023-11-12 13:43] LABS: Alanine Aminotransferase 14 U/L (0-31); Albumin Level 3.9 g/dL (3.5-5.0); Alkaline Phosphatase 67 U/L (39-117); Anion Gap 8 (12-20); Aspartate Amino Transferase 15 U/L (5-31); Bilirubin Total 0.5 mg/dL (0.0-1.0); Blood Urea Nitrogen 12 mg/dL (9-16); Calcium 9.1 mg/dL (8.4-10.2); Carbon Dioxide 32 mmol/L (22-29); Chloride 106 mmol/L (96-108); Estimated Glomerular Filt Rate > 60; Glucose Random 74 mg/dL (60-115); Potassium 4.4 mmol/L (3.3-5.1); Sodium 142 mmol/L (135-145); Total Protein 7.2 g/dL (6.5-8.0)
[2023-11-12 14:04] LABS: Creatinine Urine 101.35 mg/dL; Protein/Creatinine Ratio, Ur 0.17 (<0.2); Total Protein Urine Random 17 mg/dL (<12)
[2023-11-13 10:29] LABS: LDL Cholesterol Direct 119 mg/dL (<100)
== END 2023-11-12 10:13 | disposition home or self-care (01) ==
LOC: HO.HMGCLDS 10:12
PROVIDERS: PCP Internal Medicine; Referring Provider Internal Medicine Nephrology; Visit Provider Internal Medicine
DX: I10 Essential (primary) hypertension (principal); I99.8 Other disorder of circulatory system; E78.9 Disorder of lipoprotein metabolism, unspecified; J44.9 Chronic obstructive pulmonary disease, unspecified; Z91.09 Other allergy status, other than to drugs and biological substances; K21.9 Gastro-esophageal reflux disease without esophagitis; K59.01 Slow transit constipation; E66.09 Other obesity due to excess calories; R26.2 Difficulty in walking, not elsewhere classified; F33.2 Major depressive disorder, recurrent severe without psychotic features; F17.210 Nicotine dependence, cigarettes, uncomplicated
CPT/HCPCS: 36415; 80053; 82570; 83721; 84156; 85025

== ENCOUNTER 2023-11-13 11:40 | Outpatient (AMB) | payer OTHER, SELFPAY ==
--- NOTE | 2023-11-13 11:55 | HO.NEPHOV ---
HPI HPI Comments History of Present Illness Details Parveen was seen in the office in follow-up of her hypertension and history of proteinuria. She had headaches which are gone. Her BP is at goal at home. She has no urinary symptoms. She denies chest pain, shortness of breath, proximal nocturnal dyspnea, orthopnea or orthostatic symptoms. She does not take any nonsteroidal anti-inflammatories. She has ascending thoracic aorta measures 4.1 x 4.1 cm in transverse dimension at the level of the pulmonary trunk. She has no other specific complaints at the time of this office visit. She had issues with Chlorthalidone and it was discontinued by her. ON LICENSE OF [facility] Medical History Nicotine dependence, cigarettes, uncomplicated Gait instability History of COVID-19 (~09/2021) Lipid disorder Asthma-COPD overlap syndrome Vitamin B deficiency Vitamin D deficiency Chronic GERD Depression, major, severe recurrence Back pain, chronic Asthma Hypertension, essential Surgical History History of lumbar fusion History of colonoscopy History of cervical spinal surgery (~2015) History of cholecystectomy (~2008) History of tubal ligation Family History Father No problems noted. Mother No problems noted. Brother No problems noted. Brother No problems noted. Sister No problems noted. Daughter No problems noted. Daughter No problems noted. Daughter No problems noted. Other Mental health disorder Social History Housing: Apartment Patient Tobacco Use Status: Current someday Tobacco user Tobacco use type: Cigarette Cigarettes Per Day: 3 Years Smoked: current smoker - onset 15, 1/2ppd x 42yrs, 21pyh e-Cigarette/Vaping Use: Never Used service: No Current occupational status: disabled Cognitive needs: No Hearing needs: No Vision needs: No Vital Signs 11/13/23 11:56 Height 5 ft 6 in Weight 214 lb 4 oz BMI 34.6 BP 130/80 Blood Pressure Location Lt brachial Position Sitting Physical Exam Vital Signs: Last Vital Signs BP 130/86 11/13/23 11:56 BMI result Body Mass Index 34.6 Const General: comfortable and no acute distress Orientation/consciousness: patient oriented x3 HEENT Head: Yes normocephalic Mouth: Normal oral and palatal mucosa present Eyes EOM: EOMs intact bilaterally Neck Neck: Yes supple Resp Auscultation: clear to auscultation bilaterally Cardio Jugular venous distension: no JVD Rate: regular rate GI Palpation (GI): Soft to palpation Auscultation: normal bowel sounds General: Yes no CVA tenderness Back/Spine/Pelvis Back: no CVA tenderness Skin General skin exam: no rashes or lesions noted Neuro General: patient oriented x3 and moves all extremities Extrem General: Yes no pedal edema Assessment & Plan Assessment & Plan (1) Hypertension: Code(s): I10 - Essential (primary) hypertension Qualifiers: Hypertension type: primary hypertension Qualified Code(s): I10 - Essential (primary) hypertension (2) Dilatation of thoracic aorta: Comment: (ascending thoracic aorta measures 4.1 x 4.1 cm - noted on 04/04/23 LDCT) Code(s): I77.810 - Thoracic aortic ectasia Plan Parveen 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 She had obesity which was putting her at risk for secondary FSGS. Her blood pressure is not at goal. She is on angiotensin receptor arcelia. She is on losartan 50 mg bid. I have ordered urine protein along with the repeat blood work. If her urine protein gets worse with time, I plan to doing more immunological and serological workup and will consider renal biopsy if indicated. All questions answered. Follow-up given (She has ascending thoracic aorta measures 4.1 x 4.1 cm in transverse dimension at the level of the pulmonary trunk.from a CT scan in [facility] last year- needs F/U in 6 months) Orders: Orders Protein Creatinine Ratio, Ur Today I10 - Essential (primary) hypertension, I77.810 - Thoracic aortic ectasia Creatinine Today I10 - Essential (primary) hypertension, I77.810 - Thoracic aortic ectasia Blood Urea Nitrogen Today I10 - Essential (primary) hypertension, I77.810 - Thoracic aortic ectasia Electrolytes Today I10 - Essential (primary) hypertension, I77.810 - Thoracic aortic ectasia Coding Level of Care Code Est Pt Level 4 (52591) Diagnoses Primary hypertension I10 Hypertension type: primary hypertension Dilatation of thoracic aorta I77.810 Results Reviewed Nephrology Results: Hgb 14.3 g/dl (12.0-16.0) 11/12/23 WBC 6.9 X10*3/uL (4.8-10.8) 11/12/23 Plt Count 222 X10*3/uL (160-400) 11/12/23 Sodium 142 mmol/L (135-145) 11/12/23 Potassium 4.4 mmol/L (3.3-5.1) 11/12/23 Chloride 106 mmol/L (96-108) 11/12/23 Carbon Dioxide 32 mmol/L (22-29) H 11/12/23 BUN 12 mg/dL (9-16) 11/12/23 Creatinine 0.79 mg/dL (0.5-1.4) 11/12/23 Calcium 9.1 mg/dL (8.4-10.2) 11/12/23 Urine Creatinine 101.35 mg/dL 11/12/23 Protein/Creatinin Ratio 0.17 (<0.2) 11/12/23
[2023-11-13 11:56] VITALS: BP 130/80; BMI 34.6
== END 2023-11-13 12:16 | disposition home or self-care (01) ==
PROVIDERS: PCP Internal Medicine; Visit Provider Internal Medicine Nephrology
DX: I10 Essential (primary) hypertension (principal); I77.810 Thoracic aortic ectasia
CPT/HCPCS: 99214

== ENCOUNTER → 2023-11-13 11:40 | Outpatient (BNVA) | payer OTHER, SELFPAY | PROVIDERS: PCP Internal Medicine; Visit Provider Internal Medicine Nephrology | DX: I77.810 Thoracic aortic ectasia (principal); I10 Essential (primary) hypertension | CPT/HCPCS: 99212 ==

== ENCOUNTER 2023-12-04 11:33 | Outpatient (AMB) | payer OTHER, SELFPAY ==
--- NOTE | 2023-12-04 11:34 | MHC.OFFVIS ---
Intake Vital Signs 12/04/23 11:41 Height 5 ft 6 in Weight 211 lb 2 oz BMI 34.1 BP 142/91 H Blood Pressure Location Rt brachial Position Sitting Pulse 71 Pulse Source Pulse Oximeter Pulse Oximetry (%) 97 Oxygen Delivery Method Room Air Intake Visit Reasons: Medication Count Intake Note: Parveen comes in today for a film count to belbuca, patient should have 12 films and presents with 11 films which she last took today 12/04/23 at 8am. Pain today 6/10 Allergies egg Allergy (Unknown, Verified 12/04/23 11:41) belly pain Penicillins [PENICILLINS] Allergy (Unknown, Verified 12/04/23 11:41) UNKNOWN, WAS A CHILD lobster Adverse Reaction (Mild, Uncoded 05/23/23 12:57) Constipation HPI HPI Comments History of Present Illness Details Patient returns today for a film count for Belbuca 300 mcg BID. Patient is supposed to have #12 films and presents with #11. This demonstrates a responsible attitude towards her regimen. She reports opioid medication allows her to be less symptomatic and more functional. Denies any side effects on current regime except occasional constipation for which she takes Senexon-S, dietary fiber and increases fluid intake. Denies any fever, chills, chest pain, dizziness, shortness of breaths, nausea, sedation, dizziness, or urinary retention. Patient reports she is overcoming with cold, but denies any infection, fever, any significant changes in her medical history, medications or recent hospitalizations. [facility] Medical History Nicotine dependence, cigarettes, uncomplicated Gait instability History of COVID-19 (~09/2021) Lipid disorder Asthma-COPD overlap syndrome Vitamin B deficiency Vitamin D deficiency Chronic GERD Depression, major, severe recurrence Back pain, chronic Asthma Hypertension, essential Surgical History History of lumbar fusion History of colonoscopy History of cervical spinal surgery (~2015) History of cholecystectomy (~2008) History of tubal ligation Family History Father No problems noted. Mother No problems noted. Brother No problems noted. Brother No problems noted. Sister No problems noted. Daughter No problems noted. Daughter No problems noted. Daughter No problems noted. Other Mental health disorder Social History Housing: Apartment Patient Tobacco Use Status: Current someday Tobacco user Tobacco use type: Cigarette Cigarettes Per Day: 3 Years Smoked: current smoker - onset 15, 1/2ppd x 42yrs, 21pyh e-Cigarette/Vaping Use: Never Used service: No Current occupational status: disabled Cognitive needs: No Hearing needs: No Vision needs: No Review of Systems Const All systems reviewed & are unremarkable except as noted in HPI and below Physical Exam General: Appears afebrile. Alert and oriented. Mood and affect appropriate. Very pleasant. Follows and participates in conversation appropriately. Respiratory effort is unlabored. No cough. Able to transition from sit to stand unassisted. Resp Effort & Inspection: normal respiratory effort, able to speak in complete sentences, no cough, no respiratory distress and symmetric chest movement Back/Spine/Pelvis Cervical Spine: cervical ROM normal and No Cervical spine tenderness Thoracic/Lumbar Spine: thoracic and lumbar spine normal to inspection, pain with thoraco-lumbar ROM, thoraco-lumbar ROM limited, No thoracic spinal tenderness and No lumbar spinal tenderness Psych Appearance: grossly normal and well kempt Mental Status: mental status grossly normal Speech and movement: Normal speech and movement present and Clear speech present Affect: normal affect Attitude: cooperative Thought process: Normal thought process present Thought content: Normal thought content present, suicidality (none), no hallucinations and No Depressive thoughts present Insight: Good insight present (Psych) Judgement: Good judgement present (Psych) Assessment & Plan Assessment & Plan (1) Chronic, continuous use of opioids: Code(s): F11.90 - Opioid use, unspecified, uncomplicated (2) Sacroiliac joint pain: Code(s): M53.3 - Sacrococcygeal disorders, not elsewhere classified (3) Spondylosis of lumbar spine: Code(s): M47.816 - Spondylosis without myelopathy or radiculopathy, lumbar region (4) Back pain, chronic: Code(s): M54.9 - Dorsalgia, unspecified; G89.29 - Other chronic pain Plan Patient presents today for a film count. She has shown accountability for her medication regimen and the count was accurate. There is no evidence of misuse, abuse or diversion at this time. [employer] reviewed. Script for Belbuca 300 mcg BID sent with an advanced date of 12/07/23 with one refill. Refill sent for gabapentin per patient's request today. Continue daily physical activity as tolerated, weight loss, adequate hydration, daily fiber intake and good posture. All questions were answered and this patient is agreeable to the plan.?Patient will follow-up in 8 weeks for a film count. Medications: Refilled gabapentin 600 mg PO QID 30 days 120 tabs 3RF pain G89.4 - Chronic pain syndrome, M48.061 - Spinal stenosis, lumbar region without neurogenic claudication buprenorphine HCl Partial Fill upon patient request. 300 mcg buccal Q12H 60 ea 1RF pain 30 days F11.90 - Opioid use, unspecified, uncomplicated, M47.816 - Spondylosis without myelopathy or radiculopathy, lumbar region, M48.061 - Spinal stenosis, lumbar region without neurogenic claudication Quality Reporting (2019) Adult ([facility] 138/11/20/68) Smoking risk assessment performed?: Yes Patient Tobacco Use Status: Current someday Tobacco user Coding Level of Care Code Est Pt Level 4 (18416) Diagnoses Chronic, continuous use of opioids F11.90 Sacroiliac joint pain M53.3 Spondylosis of lumbar spine M47.816 Back pain, chronic M54.9; G89.29
[2023-12-04 11:41] VITALS: BP 142/91; PULSE 71; O2SAT 97; BMI 34.1
== END 2023-12-04 11:47 | disposition home or self-care (01) ==
PROVIDERS: PCP Internal Medicine; Visit Provider Nurse Practitioner Family
DX: G89.29 Other chronic pain (principal); M53.3 Sacrococcygeal disorders, not elsewhere classified; M47.816 Spondylosis without myelopathy or radiculopathy, lumbar region; Z79.891 Long term (current) use of opiate analgesic; M54.9 Dorsalgia, unspecified
CPT/HCPCS: 99214

== ENCOUNTER → 2023-12-04 11:33 | Outpatient (BNVA) | payer OTHER, SELFPAY | PROVIDERS: PCP Internal Medicine; Visit Provider Nurse Practitioner Family | DX: Z51.81 Encounter for therapeutic drug level monitoring (principal); F11.20 Opioid dependence, uncomplicated; M53.3 Sacrococcygeal disorders, not elsewhere classified; M47.816 Spondylosis without myelopathy or radiculopathy, lumbar region; M54.9 Dorsalgia, unspecified; G89.29 Other chronic pain | CPT/HCPCS: 99212 ==

== ENCOUNTER → 2023-12-09 09:54 | Outpatient (BNVA) | payer OTHER, SELFPAY | PROVIDERS: PCP Internal Medicine; Visit Provider Internal Medicine Nephrology | DX: I10 Essential (primary) hypertension (principal) | CPT/HCPCS: 99212 ==

== ENCOUNTER 2023-12-09 10:15 | Outpatient (AMB) | payer OTHER, SELFPAY ==
--- NOTE | 2023-12-09 10:09 | HO.NEPHOV ---
HPI HPI Comments History of Present Illness Details Parveen was seen in the office in follow-up of her hypertension and history of proteinuria. She had headaches which are gone. Her BP is at goal at home. She has no urinary symptoms. She denies chest pain, shortness of breath, proximal nocturnal dyspnea, orthopnea or orthostatic symptoms. She does not take any nonsteroidal anti-inflammatories. She has ascending thoracic aorta measures 4.1 x 4.1 cm in transverse dimension at the level of the pulmonary trunk. She has no other specific complaints at the time of this office visit. She had issues with Chlorthalidone and it was discontinued by her. [facility] Medical History Nicotine dependence, cigarettes, uncomplicated Gait instability History of COVID-19 (~09/2021) Lipid disorder Asthma-COPD overlap syndrome Vitamin B deficiency Vitamin D deficiency Chronic GERD Depression, major, severe recurrence Back pain, chronic Asthma Hypertension, essential Surgical History History of lumbar fusion History of colonoscopy History of cervical spinal surgery (~2015) History of cholecystectomy (~2008) History of tubal ligation Family History Father No problems noted. Mother No problems noted. Brother No problems noted. Brother No problems noted. Sister No problems noted. Daughter No problems noted. Daughter No problems noted. Daughter No problems noted. Other Mental health disorder Social History Housing: Apartment Patient Tobacco Use Status: Current someday Tobacco user Tobacco use type: Cigarette Cigarettes Per Day: 3 Years Smoked: current smoker - onset 15, 1/2ppd x 42yrs, 21pyh e-Cigarette/Vaping Use: Never Used service: No Current occupational status: disabled Cognitive needs: No Hearing needs: No Vision needs: No Vital Signs 12/09/23 10:10 Height 5 ft 6 in Weight 215 lb 4 oz BMI 34.7 BP 122/82 Blood Pressure Location Lt brachial Position Sitting Pulse 58 Pulse Source Pulse Oximeter Pulse Oximetry (%) 95 Oxygen Delivery Method Room Air Physical Exam Vital Signs: Last Vital Signs Pulse 58 12/09/23 10:10 BP 122/82 12/09/23 10:10 Pulse Ox 95 12/09/23 10:10 Oxygen Delivery Method Room Air 12/09/23 10:10 BMI result Body Mass Index 34.7 Const General: comfortable and no acute distress Orientation/consciousness: patient oriented x3 HEENT Head: Yes normocephalic Mouth: Normal oral and palatal mucosa present Eyes EOM: EOMs intact bilaterally Neck Neck: Yes supple Resp Auscultation: clear to auscultation bilaterally Cardio Jugular venous distension: no JVD Rate: regular rate GI Palpation (GI): Soft to palpation Auscultation: normal bowel sounds General: Yes no CVA tenderness Back/Spine/Pelvis Back: no CVA tenderness Skin General skin exam: no rashes or lesions noted Neuro General: patient oriented x3 and moves all extremities Extrem General: Yes no pedal edema Assessment & Plan Assessment & Plan (1) Hypertension: Code(s): I10 - Essential (primary) hypertension Qualifiers: Hypertension type: primary hypertension Qualified Code(s): I10 - Essential (primary) hypertension Plan Parveen has 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 Her last urine did not show any significant proteinuria. She had obesity which was putting her at risk for secondary FSGS. Her blood pressure is at goal. She is on angiotensin receptor arcelia. She is on losartan 50 mg bid. If her urine protein gets worse with time, I plan to doing more immunological and serological workup and will consider renal biopsy if indicated. All questions answered. Follow-up given (She has ascending thoracic aorta measures 4.1 x 4.1 cm in transverse dimension at the level of the pulmonary trunk.from a CT scan in [facility] last year- needs F/U in 6 months) Medications: New losartan 50 mg PO BID 60 tabs 5RF Coding Level of Care Code Est Pt Level 3 (66784) Diagnoses Primary hypertension I10 Hypertension type: primary hypertension Results Reviewed Nephrology Results: Hgb 14.3 g/dl (12.0-16.0) 11/12/23 WBC 6.9 X10*3/uL (4.8-10.8) 11/12/23 Plt Count 222 X10*3/uL (160-400) 11/12/23 Sodium 142 mmol/L (135-145) 11/12/23 Potassium 4.4 mmol/L (3.3-5.1) 11/12/23 Chloride 106 mmol/L (96-108) 11/12/23 Carbon Dioxide 32 mmol/L (22-29) H 11/12/23 BUN 12 mg/dL (9-16) 11/12/23 Creatinine 0.79 mg/dL (0.5-1.4) 11/12/23 Calcium 9.1 mg/dL (8.4-10.2) 11/12/23 Urine Creatinine 101.35 mg/dL 11/12/23 Protein/Creatinin Ratio 0.17 (<0.2) 11/12/23
[2023-12-09 10:10] VITALS: BP 122/82; PULSE 58; O2SAT 95; BMI 34.7
== END 2023-12-09 10:40 | disposition home or self-care (01) ==
PROVIDERS: PCP Internal Medicine; Visit Provider Internal Medicine Nephrology
DX: I10 Essential (primary) hypertension (principal)
CPT/HCPCS: 99213

== ENCOUNTER 2023-12-17 08:47 | Outpatient (AMB) | payer OTHER, SELFPAY ==
[2023-12-17 08:49] VITALS: BP 148/92; PULSE 56; O2SAT 96; BMI 34.9
--- NOTE | 2023-12-17 08:49 | A.OFFPC_ITS ---
Vital Signs 12/17/23 08:49 Height 5 ft 6 in Weight 216 lb BMI 34.9 BP 148/92 H Blood Pressure Location Rt brachial Position Sitting Pulse 56 Pulse Source Pulse Oximeter Pulse Oximetry (%) 96 Oxygen Delivery Method Room Air Intake Visit Reasons: DCF Forms~ Allergies egg Allergy (Unknown, Verified 12/17/23 08:49) belly pain Penicillins [PENICILLINS] Allergy (Unknown, Verified 12/17/23 08:49) UNKNOWN, WAS A CHILD lobster Adverse Reaction (Mild, Uncoded 05/23/23 12:57) Constipation Medication List - Last Reconciled 12/17/23 by Oral Ocasio MD acetaminophen 650 mg (2 x 325 mg) PO Q6H PRN albuterol sulfate 90 mcg/actuation 2 puffs PO Q6H PRN NS [Blood pressure monitor As directed] blood pressure monitor (Blood Pressure Kit) As directed buprenorphine HCl 300 mcg buccal Q12H 30 days buspirone 30 mg PO BID [Cane As directed] diphenhydramine HCl (Banophen) 25 mg PO PRN famotidine 40 mg PO DAILY 90 days gabapentin 600 mg PO QID 30 days loratadine 10 mg PO DAILY 90 days losartan 50 mg PO BID mirabegron ER (Myrbetriq) 50 mg PO DAILY mirtazapine 45 mg PO BEDTIME montelukast 10 mg PO DAILY 90 days sennosides-docusate sodium 8.6-50 mg (Senexon-S) 1 tab PO BEDTIME [shower chair with handles As directed] Symbicort 160-4.5 mcg/actuation (budesonide-formoterol) 2 puffs PO BID NS Tobacco use date assessed: 12/17/23 Dental Screening Dental Screen Date: 12/17/23 Did you have a dental visit in the last 12 months?: No Did you have a dental problem in the last 6 months where you did not have access to dental care?: No Was dental information given to patient?: No HPI DCF Forms~ HPI Details Patient is a 58-year-old female came in today for DCF forms to be filled Patient is currently taking care of 2 brothers 7 years and 9 years old for the past 7 months Patient says that she need papers just to complete the form LFTs She will be taking care of them for another 4 or 5 months and then they will go back to their father Patient says that she is very happy taking care of them, it gives her a purpose She no longer feels pain, and is feeling happy. Patient says that it is not too much work both boys behave well She takes them to their appointments as well. Forms filled, she is due for Tdap vaccine which was provided as per requirement of forms. [facility] Medical History Nicotine dependence, cigarettes, uncomplicated Gait instability History of COVID-19 (~09/2021) Lipid disorder Asthma-COPD overlap syndrome Vitamin B deficiency Vitamin D deficiency Chronic GERD Depression, major, severe recurrence Back pain, chronic Asthma Hypertension, essential Surgical History History of lumbar fusion History of colonoscopy History of cervical spinal surgery (~2015) History of cholecystectomy (~2008) History of tubal ligation Family History Father No problems noted. Mother No problems noted. Brother No problems noted. Brother No problems noted. Sister No problems noted. Daughter No problems noted. Daughter No problems noted. Daughter No problems noted. Other Mental health disorder Social History Housing: Apartment Patient Tobacco Use Status: Current someday Tobacco user Tobacco use type: Cigarette Cigarettes Per Day: 3 Years Smoked: current smoker - onset 15, 1/2ppd x 42yrs, 21pyh Packs per year/per ci.00 e-Cigarette/Vaping Use: Never Used service: No Current occupational status: disabled Cognitive needs: No Hearing needs: No Vision needs: No Questionnaire PHQ-9 Over the last 2 weeks, how often have you been bothered by any of the following problems? 1. Little interest or pleasure in doing things: not at all 2. Feeling down, depressed, or hopeless: not at all 3. Trouble falling or staying asleep, or sleeping too much: not at all 4. Feeling tired or having little energy: not at all 5. Poor appetite or overeating: not at all 6. Feeling bad about yourself - or that you are a failure or have let yourself or your family down: not at all 7. Trouble concentrating on things, such as reading the newspaper or watching television: not at all 8. Moving or speaking so slowly that other people could have noticed. Or the opposite - being so fidgety or restless that you have been moving around a lot more than usual: not at all 9. Thoughts that you would be better off or of hurting yourself in some way: not at all Total score: 0 Depression Screening Interpretation: Negative Depression Screening Done: Yes 59362 - PHQ-9 Billing: Yes Source: Developed by Drs. Rusty Munoz, Yolanda Jacobson, Sabino Loomis and colleagues, with an educational kim from [employer]. Thrive Questionnaire Date Thrive assessed: 12/17/23 I am a: Patient What is your living situation today?: I have a steady place to live Within the past 12 months, did the food you bought not last and you didn't have the money to get more?: Never true Within the past 12 months, did you worry whether your food would run out before you got money to buy more?: Never true Do you have trouble paying for medicines?: No Do you have trouble getting transportation to medical appointments?: No Do you have trouble paying your heating and electricity bill?: No Do you have trouble taking care of your child, family member or friend?: No Do you have trouble with day-to-day activities such as bathing, preparing meals, shopping, managing finances, etc.?: No Are you currently unemployed and looking for a job?: No Are you interested in more education?: No Please select the resources that you would like help with: None Currently or been in a relationship where the following occur: no concerns reported THRIVE Score: 0 AUDIT C Alcohol Use Questionnaire (AUDIT-C) 1. How often do you have a drink containing alcohol?: Never 3. How often do you have six or more drinks on one occasion?: Never Total Score: 0 Score Reviewed/Action Taken: Yes TAI-7 AMB Questionnaire TAI-7 Date TAI - 7 assessed: 12/17/23 Feeling nervous, anxious, or on edge: 0 = Not at all Not being able to stop or control worryin = Not at all Worrying too much about different things: 0 = Not at all Trouble relaxin = Not at all Being so restless that it is hard to sit still: 0 = Not at all Becoming easily annoyed or irritable: 0 = Not at all Feeling afraid as if something awful might happen: 0 = Not at all Total TAI-7 score (0-4 normal; 5-9 mild; 10-14 moderate; 15-21 severe): 0 Source: Developed by Drs. Rusty Munoz, Yolanda Jacobson, Sabino Loomis and colleagues, with an educational kim from [employer]. TAI-7 Assessment Billing TAI-7 Assessment Tool: TAI-7 Assessment 64933 Review of Systems Const All systems reviewed & are unremarkable except as noted in HPI and below Physical exam (Primary Care) Vital Signs: Last Vital Signs Pulse 56 12/17/23 08:49 BP 148/92 H 12/17/23 08:49 Pulse Ox 96 12/17/23 08:49 Oxygen Delivery Method Room Air 12/17/23 08:49 BMI result Body Mass Index 34.9 Tobacco/Smoking Status: Tobacco use Status Tobacco use date assessed 12/17/23 12/17/23 08:56 Patient Tobacco Use Status Current someday Tobacco 12/17/23 08:56 Tobacco use type Cigarette 12/17/23 08:56 e-Cigarette/Vaping Use Never Used 12/17/23 08:56 Depression Screening Interpretation: Negative Thrive Assessment: Date of Thrive Assessment Date Thrive assessed 12/17/23 12/17/23 09:17 Currently or been in a relationship where the following occur: no concerns reported Const General: no acute distress Orientation/consciousness: patient oriented x3 Eyes General: appearance normal, both eyes and all related structures Resp Effort & Inspection: normal respiratory effort and able to speak in complete sentences Auscultation: clear to auscultation bilaterally Neuro General: patient oriented x3 Psych Mental Status: mental status grossly normal Immunizations Boostrix Tdap 2.5 Lf unit-8 mcg-5 Lf/0.5 mL intramuscular syringe Performing Provider: Oral Ocasio MD [place] [facility] Administered by: WALTER Lord on 12/17/23 09:16 Dose Route Admin Location Dispensed Lot Number Expiration Date NDC [employer] 0.5 mL IM Right Deltoid 0.5 mL [id number] 01/22/26 [id number] [employer] VIS Given Date VIS Provided VIS Publication Date 12/17/23 Single Vaccine 21 Eligibility Eligibility Date Funding Source Not [facility] Eligible 12/17/23 Private Assessment and Plan Assessment & Plan (1) Asthma-COPD overlap syndrome: Code(s): J44.9 - Chronic obstructive pulmonary disease, unspecified (2) Hypertension, essential: Code(s): I10 - Essential (primary) hypertension Plan Patient is a 58-year-old female came in today for DCF forms to be filled Patient is currently taking care of 2 brothers 7 years and 9 years old for the past 7 months Patient says that she need papers just to complete the form LFTs She will be taking care of them for another 4 or 5 months and then they will go back to their father Patient says that she is very happy taking care of them, it gives her a purpose She no longer feels pain, and is feeling happy. Patient says that it is not too much work both boys behave well She takes them to their appointments as well. Forms filled, she is due for Tdap vaccine which was provided as per requirement of forms. Orders: Orders TDaP Immunization Today Z23 - Encounter for immunization Coding Level of Care Code Est Pt Level 3 (66626) Diagnoses Asthma-COPD overlap syndrome J44.9 Hypertension, essential I10 Additional Codes TAI-7 Assessment Billing - TAI-7 Assessment Tool: TAI-7 Assessment 43873 ([id number])
== END 2023-12-17 13:08 | disposition home or self-care (01) ==
PROVIDERS: PCP Internal Medicine; Visit Provider Internal Medicine
DX: J44.9 Chronic obstructive pulmonary disease, unspecified (principal); I10 Essential (primary) hypertension; Z23 Encounter for immunization
CPT/HCPCS: 90471; 90715; 99213

== ENCOUNTER 2023-12-24 09:37 | Outpatient (REF) | payer OTHER, SELFPAY ==
--- NOTE | ~2023-12-24 | XR_ITS ---
EXAMINATION: XR ANKLE, LEFT CLINICAL INFORMATION: Instability left ankle. COMPARISON: None available. TECHNIQUE: AP, lateral, and mortise views of the left ankle. FINDINGS: Diffuse soft tissue swelling at the ankle. Moderate dorsal and plantar calcaneal spurs. Degenerative changes with hypertrophic change at the midfoot. Ankle mortise preserved. XR/XR ankle LT 2V IMPRESSION: Degenerative changes. No displaced fracture. Recommend follow-up imaging in 10-14 days if fracture is suspected.
== END 2023-12-24 09:38 | disposition home or self-care (01) ==
LOC: HO.HOSX 09:37
PROVIDERS: Visit Provider Physical Medicine & Rehabilitation
DX: S93.432A Sprain of tibiofibular ligament of left ankle, initial encounter (principal)
CPT/HCPCS: 73600; 99202

== ENCOUNTER 2023-12-24 10:32 | Outpatient (AMB) | payer OTHER, SELFPAY ==
--- NOTE | 2023-12-24 10:38 | MHC.OFFVIS ---
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 Patient reports that she has felt unstable and weakness of the left ankle for about 3-4 months now. She explains that she had cellulitis of this extremity, where she was hospitalized for 2 days and given a treatment of antibiotics. denies numbness and tingling. She uses compression socks which does help her feel more stable. Allergies egg Allergy (Unknown, Verified 12/24/23 10:46) belly pain Penicillins [PENICILLINS] Allergy (Unknown, Verified 12/24/23 10:46) UNKNOWN, WAS A CHILD lobster Adverse Reaction (Mild, Uncoded 12/24/23 10:46) Constipation Medication List - Last Reconciled 12/24/23 by Alexandria Ricketts MD acetaminophen 650 mg (2 x 325 mg) PO Q6H PRN albuterol sulfate 90 mcg/actuation 2 puffs PO Q6H PRN NS [Blood pressure monitor As directed] blood pressure monitor (Blood Pressure Kit) As directed buprenorphine HCl 300 mcg buccal Q12H 30 days buspirone 30 mg PO BID [Cane As directed] diphenhydramine HCl (Banophen) 25 mg PO PRN famotidine 40 mg PO DAILY 90 days gabapentin 600 mg PO QID 30 days loratadine 10 mg PO DAILY 90 days losartan 50 mg PO BID mirabegron ER (Myrbetriq) 50 mg PO DAILY mirtazapine 45 mg PO BEDTIME montelukast 10 mg PO DAILY 90 days sennosides-docusate sodium 8.6-50 mg (Senexon-S) 1 tab PO BEDTIME [shower chair with handles As directed] Symbicort 160-4.5 mcg/actuation (budesonide-formoterol) 2 puffs PO BID NS HPI HPI Comments History of Present Illness Details 3-4 months of left ankle pain. Started after cellulitis resolved. When she walks, she starts to have weakness on left ankle, but denies pain. Improves with rest. Feels some numbness on left leg, but says even before the cellulitis. She attributes this to vascular insufficiency. She is wearing compression socks which helps with the numbness. [facility] Medical History Nicotine dependence, cigarettes, uncomplicated Gait instability History of COVID-19 (~09/2021) Lipid disorder Asthma-COPD overlap syndrome Vitamin B deficiency Vitamin D deficiency Chronic GERD Depression, major, severe recurrence Back pain, chronic Asthma Hypertension, essential Surgical History History of lumbar fusion History of colonoscopy History of cervical spinal surgery (~2015) History of cholecystectomy (~2008) History of tubal ligation Family History Father No problems noted. Mother No problems noted. Brother No problems noted. Brother No problems noted. Sister No problems noted. Daughter No problems noted. Daughter No problems noted. Daughter No problems noted. Other Mental health disorder Social History Housing: Apartment Patient Tobacco Use Status: Current someday Tobacco user Tobacco use type: Cigarette Cigarettes Per Day: 3 Years Smoked: current smoker - onset 15, 1/2ppd x 42yrs, 21pyh e-Cigarette/Vaping Use: Never Used service: No Current occupational status: disabled Cognitive needs: No Hearing needs: No Vision needs: No Review of Systems Const All systems reviewed & are unremarkable except as noted in HPI and below Physical Exam Vital Signs: BMI result Body Mass Index 34.9 Constitutional: Patient appears to be in no acute distress, well nourished and well developed. MSK: Tender anterior to left lateral malleolus, no effusion, redness, rash. No overt ankle instability. No tenderness over Achillis tendon, plantar fascia or medial malleolus. No footdrop. Strength is 5/5 in all muscle groups tested. No increased tone noted. Neurological: Neurologic examination of the upper and lower extremities was nonfocal with intact sensation, muscle stretch reflexes and without focal motor deficits . Reyes?s negative bilaterally. Babinski was down going bilaterally. Clonus was negative. Gait is non-antalgic without loss of balance. Results Reviewed Results Reviewed: I independently reviewed the results of the following: Left ankle x-ray done in the office today showed calcaneal spur. Await final reading. I reviewed records from the following: PCP Pain management, follows her for medication management Seen by [facility] in 2020 for neck and back pain. History of cervical surgery. [facility], diagnosis of fibromyalgia and OA. Assessment & Plan Assessment & Plan (1) Left ankle sprain: Code(s): S93.402A - Sprain of unspecified ligament of left ankle, initial encounter Qualifiers: Encounter type: initial encounter Involved ligament of ankle: tibiofibular ligament Qualified Code(s): S93.432A - Sprain of tibiofibular ligament of left ankle, initial encounter Plan Suspect left ankle sprain causing sensation of instability. No overt weakness or instability seen on exam though. Will put on a lace up ankle brace. Instructions given. Assessment and plan discussed with patient, and patient was agreeable. All questions were answered thoroughly. Follow-up 2 months. Alexandria Ricketts MD, ALEJANDRA Board Certified, [place] [employer] and [employer] (ABPMR) Board Certified, [place] [employer] Electro[employer] (ABEM) Orders: Orders XR ankle LT 2V Today M25.372 - Other instability, left ankle Quality Reporting (2019) Adult ([facility] 138/11/20/68) Smoking risk assessment performed?: Yes Patient Tobacco Use Status: Current someday Tobacco user Coding Level of Care Code New Pt Level 4 (57284) Diagnoses Sprain of tibiofibular ligament of left ankle, initial encounter S93.432A Encounter type: initial encounter Involved ligament of ankle: tibiofibular ligament
[2023-12-24 10:46] VITALS: BMI 34.9
== END 2023-12-24 11:50 | disposition home or self-care (01) ==
PROVIDERS: PCP Internal Medicine; Visit Provider Physical Medicine & Rehabilitation
DX: S93.432A Sprain of tibiofibular ligament of left ankle, initial encounter (principal)
CPT/HCPCS: 99204

== ENCOUNTER 2024-01-14 13:22 | Outpatient (AMB) | payer OTHER, SELFPAY ==
--- NOTE | 2024-01-14 13:51 | AM.OFFWIN_ITS ---
Intake Vital Signs 01/14/24 13:53 Height 5 ft 6 in Weight 220 lb BMI 35.5 BP 128/78 Blood Pressure Location Rt brachial Position Sitting Pulse 52 Pulse Source Pulse Oximeter Temp 97.7 F Temp Source Oral Pulse Oximetry (%) 96 Oxygen Delivery Method Room Air Intake Visit Reasons: EP fell left side/knees pain (lobby) Intake Note: Patient is here after fall Friday, hurt both her knees, and ribs, when she breathes in, it hurts. Patient Tobacco Use Status: Current someday Tobacco user Allergies egg Allergy (Unknown, Verified 01/14/24 13:55) belly pain Penicillins [PENICILLINS] Allergy (Unknown, Verified 01/14/24 13:55) UNKNOWN, WAS A CHILD lobster Adverse Reaction (Mild, Uncoded 01/14/24 13:55) Constipation Do you need a note to return to daycare/school/sports/work: No HPI HPI Comments History of Present Illness Details The patient presents to urgent care for evaluation of left chest wall pain after a fall. She states that on Friday she was walking out of an event and everyone was walking fast to exit and she tripped and fell landing onto her hands knees and left side. She states that her left knee swelled up but has since improved. She has been ambulatory but she has pain on the left lateral chest wall with deep inspiration. No shortness a breath. [facility] Medical History Nicotine dependence, cigarettes, uncomplicated Gait instability History of COVID-19 (~09/2021) Lipid disorder Asthma-COPD overlap syndrome Vitamin B deficiency Vitamin D deficiency Chronic GERD Depression, major, severe recurrence Back pain, chronic Asthma Hypertension, essential Surgical History History of lumbar fusion History of colonoscopy History of cervical spinal surgery (~2015) History of cholecystectomy (~2008) History of tubal ligation Family History Father No problems noted. Mother No problems noted. Brother No problems noted. Brother No problems noted. Sister No problems noted. Daughter No problems noted. Daughter No problems noted. Daughter No problems noted. Other Mental health disorder Social History Housing: Apartment Patient Tobacco Use Status: Current someday Tobacco user Tobacco use type: Cigarette Cigarettes Per Day: 3 Years Smoked: current smoker - onset 15, 1/2ppd x 42yrs, 21pyh e-Cigarette/Vaping Use: Never Used service: No Current occupational status: disabled Cognitive needs: No Hearing needs: No Vision needs: No Physical Exam Vital Signs: Last Vital Signs Temp 97.7 F 01/14/24 13:53 Pulse 52 01/14/24 13:53 BP 128/78 01/14/24 13:53 Pulse Ox 96 01/14/24 13:53 Oxygen Delivery Method Room Air 01/14/24 13:53 BMI result Body Mass Index 35.5 Const General: healthy appearing and no acute distress Orientation/consciousness: patient oriented x3 Eyes Corneas: corneas normal Pupils: Equal, round and reactive pupils present Chest Other: Tender to palpation in the left lateral chest wall. No crepitus no subcutaneous emphysema. No ecchymosis no erythema abrasions or induration. No bony deformity palpable Resp Effort & Inspection: normal respiratory effort and able to speak in complete sentences Neuro General: patient oriented x3 Cranial nerves: Yes Equal, round and reactive pupils present Extrem Other: Left knee: Tender to palpation. Mild soft tissue swelling appreciated. No bony deformity. Patient ambulatory with a steady gait. Psych Appearance: grossly normal Attitude: cooperative Assessment & Plan Assessment & Plan (1) Fall: Code(s): W19.XXXA - Unspecified fall, initial encounter Plan Rib series x-rays are negative per my interpretation though final report by radiology pending. X-ray of the left knee is negative for fracture dislocation. Patient was alerted to this information. Advised that if there was a discrepancy we would be in touch with the patient. Recommend ibuprofen 600 mg for pain control. Patient requesting this be sent to her pharmacy. Orders: Orders XR ribs LT min 3V w CXR1V Today W19.XXXA - Unspecified fall, initial encounter XR knee LT 2V Today R52 - Pain, unspecified Coding Level of Care Code Est Pt Level 3 (41161) Diagnoses Fall W19.XXXA
[2024-01-14 13:53] VITALS: BP 128/78; PULSE 52; TEMP 36.5; O2SAT 96; BMI 35.5
== END 2024-01-14 15:27 | disposition home or self-care (01) ==
PROVIDERS: PCP Internal Medicine; Visit Provider Emergency Medicine
DX: R07.89 Other chest pain (principal); M25.562 Pain in left knee; W19.XXXA Unspecified fall, initial encounter
CPT/HCPCS: 99213

== ENCOUNTER 2024-01-14 14:22 | Outpatient (REF) | payer OTHER, SELFPAY ==
--- NOTE | ~2024-01-14 | XR_ITS ---
EXAMINATION: XR RIBS, LEFT CLINICAL INFORMATION: Status post fall with pain in lower ribs on the left COMPARISON: None available. TECHNIQUE: 3 views of the left ribs were obtained. FINDINGS: Lungs are clear without consolidation, pleural effusion, pneumothorax. Left rib cage revealed revealed no fractures XR/XR ribs LT min 3V w CXR1V IMPRESSION: No fracture seen
--- NOTE | ~2024-01-14 | XR_ITS ---
EXAMINATION: XR KNEE, LEFT CLINICAL INFORMATION: Left knee pain following fall COMPARISON: None available. TECHNIQUE: Four views of the left knee. FINDINGS: No fracture or joint effusion. Alignment is anatomic. Joint spaces are maintained. No abnormal soft tissue calcification. XR/XR knee LT 2V IMPRESSION: Normal left knee.
== END 2024-01-14 14:23 | disposition home or self-care (01) ==
LOC: HO.HMGCX 14:22
PROVIDERS: PCP Internal Medicine; Visit Provider Emergency Medicine
DX: R07.81 Pleurodynia (principal); M25.562 Pain in left knee; W19.XXXA Unspecified fall, initial encounter
CPT/HCPCS: 71101; 73560

== ENCOUNTER 2024-02-03 11:10 | Outpatient (AMB) | payer OTHER, SELFPAY ==
--- NOTE | 2024-02-03 11:12 | MHC.OFFVIS ---
Vital Signs 02/03/24 11:19 Height 5 ft 6 in Weight 217 lb 8 oz BMI 35.1 BP 128/80 Blood Pressure Location Lt brachial Position Sitting Respiration 16 Pulse 62 Pulse Source Pulse Oximeter Pulse Oximetry (%) 98 Oxygen Delivery Method Room Air Intake Visit Reasons: Pill Count Allergies egg Allergy (Unknown, Verified 02/03/24 11:18) belly pain Penicillins [PENICILLINS] Allergy (Unknown, Verified 02/03/24 11:18) UNKNOWN, WAS A CHILD lobster Adverse Reaction (Mild, Uncoded 01/14/24 13:55) Constipation HPI Comments Details: Patient returns today for a film count for Belbuca 300 mcg BID. Patient is supposed to have #4 films and presents with #5 films. This demonstrates a responsible attitude towards her regimen. She reports opioid medication allows her to be less symptomatic and more functional. Denies any side effects on current regime except occasional constipation for which she takes Senexon-S, dietary fiber and increases fluid intake. Denies any fever, chills, chest pain, dizziness, shortness of breaths, nausea, sedation, dizziness, or urinary retention. Patient denies any recent cough, cold, infection, fever, any significant changes in her medical history, medications or recent hospitalizations. [facility] Medical History Nicotine dependence, cigarettes, uncomplicated Gait instability History of COVID-19 (~09/2021) Lipid disorder Asthma-COPD overlap syndrome Vitamin B deficiency Vitamin D deficiency Chronic GERD Depression, major, severe recurrence Back pain, chronic Asthma Hypertension, essential Surgical History History of lumbar fusion History of colonoscopy History of cervical spinal surgery (~2015) History of cholecystectomy (~2008) History of tubal ligation Family History Father No problems noted. Mother No problems noted. Brother No problems noted. Brother No problems noted. Sister No problems noted. Daughter No problems noted. Daughter No problems noted. Daughter No problems noted. Other Mental health disorder Social History Housing: Apartment Patient Tobacco Use Status: Current someday Tobacco user Tobacco use type: Cigarette Cigarettes Per Day: 3 Years Smoked: current smoker - onset 15, 1/2ppd x 42yrs, 21pyh e-Cigarette/Vaping Use: Never Used service: No Current occupational status: disabled Cognitive needs: No Hearing needs: No Vision needs: No Review of Systems Const All systems reviewed & are unremarkable except as noted in HPI and below Physical Exam Vital Signs: Last Vital Signs Pulse 62 02/03/24 11:19 Resp 16 02/03/24 11:19 BP 128/80 02/03/24 11:19 Pulse Ox 98 02/03/24 11:19 Oxygen Delivery Method Room Air 02/03/24 11:19 BMI result Body Mass Index 35.1 General: Appears afebrile. Alert and oriented. Mood and affect appropriate. Very pleasant. Follows and participates in conversation appropriately. Respiratory effort is unlabored. No cough. Able to transition from sit to stand unassisted. Resp Effort & Inspection: normal respiratory effort, able to speak in complete sentences, no cough, no respiratory distress and symmetric chest movement Back/Spine/Pelvis Cervical Spine: cervical ROM normal and No Cervical spine tenderness Thoracic/Lumbar Spine: thoracic and lumbar spine normal to inspection, Lasegue's sign negative, straight leg raise negative bilaterally, pain with thoraco-lumbar ROM, paraspinal muscle tenderness, thoraco-lumbar ROM limited, No thoracic spinal tenderness and lumbar spinal tenderness at L4 and at L5 Psych Appearance: grossly normal and well kempt Mental Status: mental status grossly normal Speech and movement: Normal speech and movement present and Clear speech present Affect: normal affect Attitude: cooperative Thought process: Normal thought process present Thought content: Normal thought content present, suicidality (none), no hallucinations and No Depressive thoughts present Insight: Good insight present (Psych) Judgement: Good judgement present (Psych) Quality Reporting (2019) Adult ([facility] 138/11/20/68) Smoking risk assessment performed?: Yes Patient Tobacco Use Status: Current someday Tobacco user Results Reviewed Results Reviewed: No imaging results are available for review today. Assessment & Plan Assessment & Plan (1) Chronic, continuous use of opioids: Code(s): F11.90 - Opioid use, unspecified, uncomplicated Category: Medical (2) Sacroiliac joint pain: Code(s): M53.3 - Sacrococcygeal disorders, not elsewhere classified Category: Medical (3) Spondylosis of lumbar spine: Code(s): M47.816 - Spondylosis without myelopathy or radiculopathy, lumbar region Category: Medical (4) Back pain, chronic: Code(s): M54.9 - Dorsalgia, unspecified; G89.29 - Other chronic pain Category: Medical Plan Patient presents today for a film count. She has shown accountability for her medication regimen and the count was accurate. There is no evidence of misuse, abuse or diversion at this time. [employer] reviewed. Script for Belbuca 300 mcg BID sent with an advanced date of 02/04/24 with one refill. Refill sent for gabapentin per patient's request today. [place] [facility] [place] 12-lead E[place] to assess risk for QT prolongation. Continue daily physical activity as tolerated, weight optimization, adequate hydration, well-balanced diet, daily fiber intake and good posture. All questions were answered and this patient is agreeable to the plan.?Patient will follow-up in 8 weeks for a film count. Medications: Refilled buprenorphine HCl Partial Fill upon patient request. 300 mcg buccal Q12H 30 days 60 ea 1RF pain F11.90 - Opioid use, unspecified, uncomplicated, M47.816 - Spondylosis without myelopathy or radiculopathy, lumbar region, M48.061 - Spinal stenosis, lumbar region without neurogenic claudication gabapentin 600 mg PO QID 30 days 120 tabs 3RF pain G89.4 - Chronic pain syndrome, M48.061 - Spinal stenosis, lumbar region without neurogenic claudication Coding Level of Care Code Est Pt Level 4 (42040) Diagnoses Chronic, continuous use of opioids F11.90 Sacroiliac joint pain M53.3 Spondylosis of lumbar spine M47.816 Back pain, chronic M54.9; G89.29
[2024-02-03 11:19] VITALS: BP 128/80; PULSE 62; RESP 16; O2SAT 98; BMI 35.1
== END 2024-02-03 11:45 | disposition home or self-care (01) ==
PROVIDERS: PCP Internal Medicine; Visit Provider Nurse Practitioner Family
DX: G89.29 Other chronic pain (principal); M53.3 Sacrococcygeal disorders, not elsewhere classified; M47.816 Spondylosis without myelopathy or radiculopathy, lumbar region; Z79.891 Long term (current) use of opiate analgesic; M54.9 Dorsalgia, unspecified
CPT/HCPCS: 99214

== ENCOUNTER → 2024-02-03 11:10 | Outpatient (BNVA) | payer OTHER, SELFPAY | PROVIDERS: PCP Internal Medicine; Visit Provider Nurse Practitioner Family | DX: M53.3 Sacrococcygeal disorders, not elsewhere classified (principal); M47.816 Spondylosis without myelopathy or radiculopathy, lumbar region; G89.29 Other chronic pain; M54.9 Dorsalgia, unspecified; Z79.891 Long term (current) use of opiate analgesic | CPT/HCPCS: 99212 ==

== ENCOUNTER 2024-02-12 12:03 | Outpatient (AMB) | payer OTHER, SELFPAY ==
[2024-02-12 12:27] VITALS: BP 120/90; PULSE 50; O2SAT 95; BMI 35.5
--- NOTE | 2024-02-12 12:27 | HO.NEPHOV_ITS ---
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 She had headaches which are gone. Her BP is at goal at home. She has no urinary symptoms. She denies chest pain, shortness of breath, proximal nocturnal dyspnea, orthopnea or orthostatic symptoms. She does not take any nonsteroidal anti-inflammatories. She has ascending thoracic aorta measures 4.1 x 4.1 cm in transverse dimension at the level of the pulmonary trunk. She has no other specific complaints at the time of this office visit. She had issues with Chlorthalidone and it was discontinued by her in the past. Her BP is at goal. She feels well. [facility] Medical History Nicotine dependence, cigarettes, uncomplicated Gait instability History of COVID-19 (~09/2021) Lipid disorder Asthma-COPD overlap syndrome Vitamin B deficiency Vitamin D deficiency Chronic GERD Depression, major, severe recurrence Back pain, chronic Asthma Hypertension, essential Surgical History History of lumbar fusion History of colonoscopy History of cervical spinal surgery (~2015) History of cholecystectomy (~2008) History of tubal ligation Family History Father No problems noted. Mother No problems noted. Brother No problems noted. Brother No problems noted. Sister No problems noted. Daughter No problems noted. Daughter No problems noted. Daughter No problems noted. Other Mental health disorder Social History Housing: Apartment Patient Tobacco Use Status: Current someday Tobacco user Tobacco use type: Cigarette Cigarettes Per Day: 3 Years Smoked: current smoker - onset 15, 1/2ppd x 42yrs, 21pyh e-Cigarette/Vaping Use: Never Used service: No Current occupational status: disabled Cognitive needs: No Hearing needs: No Vision needs: No Physical Exam Vital Signs: Last Vital Signs Pulse 50 02/12/24 12:27 BP 120/90 H 02/12/24 12:27 Pulse Ox 95 02/12/24 12:27 Oxygen Delivery Method Room Air 02/12/24 12:27 BMI result Body Mass Index 35.5 Const General: comfortable and no acute distress Orientation/consciousness: patient oriented x3 HEENT Head: Yes normocephalic Mouth: Normal oral and palatal mucosa present Eyes EOM: EOMs intact bilaterally Neck Neck: Yes supple Resp Auscultation: clear to auscultation bilaterally Cardio Jugular venous distension: no JVD Rate: regular rate GI Palpation (GI): Soft to palpation Auscultation: normal bowel sounds General: Yes no CVA tenderness Back/Spine/Pelvis Back: no CVA tenderness Skin General skin exam: no rashes or lesions noted Neuro General: patient oriented x3 and moves all extremities Extrem General: Yes no pedal edema Results Reviewed Nephrology Results: No Data to Display Assessment & Plan Assessment & Plan (1) Hypertension: Code(s): I10 - Essential (primary) hypertension Category: Medical Qualifiers: Hypertension type: primary hypertension Qualified Code(s): I10 - Essential (primary) hypertension (2) Proteinuria: Code(s): R80.9 - Proteinuria, unspecified Category: Medical Qualifiers: Proteinuria type: other Qualified Code(s): R80.8 - Other proteinuria Plan Parveen has 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 Her last urine did not show any significant proteinuria. She had obesity which was putting her at risk for secondary FSGS. Her blood pressure is at goal. She is on angiotensin receptor arcelia. She is on losartan 50 mg bid. If her urine protein gets worse with time, I plan to doing more immunological and serological workup and will consider renal biopsy if indicated. She needs to lose weight. All questions answered. Follow-up given (She has ascending thoracic aorta measures 4.1 x 4.1 cm in transverse dimension at the level of the pulmonary trunk.from a CT scan in [facility] last year- needs F/U in 6 months) Orders: Orders Blood Urea Nitrogen Today I10 - Essential (primary) hypertension, R80.8 - Other proteinuria Electrolytes Today I10 - Essential (primary) hypertension, R80.8 - Other proteinuria Protein Creatinine Ratio, Ur Today I10 - Essential (primary) hypertension, R80.8 - Other proteinuria Creatinine Today I10 - Essential (primary) hypertension, R80.8 - Other proteinuria Coding Level of Care Code Est Pt Level 4 (34587) Diagnoses Primary hypertension I10 Hypertension type: primary hypertension Other proteinuria R80.8 Proteinuria type: other
== END 2024-02-12 12:55 | disposition home or self-care (01) ==
PROVIDERS: PCP Internal Medicine; Visit Provider Internal Medicine Nephrology
DX: I10 Essential (primary) hypertension (principal); R80.8 Other proteinuria
CPT/HCPCS: 99214

== ENCOUNTER → 2024-02-12 12:03 | Outpatient (BNVA) | payer OTHER, SELFPAY | PROVIDERS: PCP Internal Medicine; Visit Provider Internal Medicine Nephrology | DX: I10 Essential (primary) hypertension (principal); R80.8 Other proteinuria | CPT/HCPCS: 99212 ==

== ENCOUNTER 2024-02-18 09:48 | Outpatient (AMB) | payer OTHER, SELFPAY ==
--- NOTE | 2024-02-18 09:51 | A.OFFPC_ITS ---
Vital Signs 02/18/24 09:52 02/18/24 10:09 Height 5 ft 6 in Weight 219 lb 2 oz BMI 35.4 BP 152/98 H 138/88 Blood Pressure Location Rt brachial Position Sitting Pulse 72 Pulse Source Pulse Oximeter Pulse Oximetry (%) 98 Oxygen Delivery Method Room Air Intake Visit Reasons: 4 month follow up ( meds) Allergies egg Allergy (Unknown, Verified 02/18/24 09:54) belly pain Penicillins [PENICILLINS] Allergy (Unknown, Verified 02/18/24 09:54) UNKNOWN, WAS A CHILD lobster Adverse Reaction (Mild, Uncoded 01/14/24 13:55) Constipation Medication List - Last Reconciled 02/18/24 by Oral Ocasio MD acetaminophen 650 mg (2 x 325 mg) PO Q6H PRN albuterol sulfate 90 mcg/actuation 2 puffs PO Q6H PRN NS [Blood pressure monitor As directed] blood pressure monitor (Blood Pressure Kit) As directed buprenorphine HCl 300 mcg buccal Q12H 30 days buspirone 30 mg PO BID [Cane As directed] diphenhydramine HCl (Banophen) 25 mg PO PRN famotidine 40 mg PO DAILY 90 days gabapentin 600 mg PO QID 30 days ibuprofen 600 mg PO Q6H PRN loratadine 10 mg PO DAILY 90 days losartan 50 mg PO BID mirabegron ER (Myrbetriq) 50 mg PO DAILY mirtazapine 45 mg PO BEDTIME montelukast 10 mg PO DAILY 90 days sennosides-docusate sodium 8.6-50 mg (Senexon-S) 1 tab PO BEDTIME [shower chair with handles As directed] Symbicort 160-4.5 mcg/actuation (budesonide-formoterol) 2 puffs PO BID NS Tobacco use date assessed: 02/18/24 Dental Screening Dental Screen Date: 12/17/23 Did you have a dental visit in the last 12 months?: No Did you have a dental problem in the last 6 months where you did not have access to dental care?: No Was dental information given to patient?: Patient has dentist HPI 4 month follow up ( meds) HPI Details Patient is a 58-year-old female with a history of cervical stenosis surgery approximately 7 years ago which has left her with mild weakness left arm and leg, history of depression, seeing psychiatrist and is doing well, taking number of psychiatric medications Seen Nephrology earlier this month Her blood pressure was 1 20 x 90 during that visit has 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 Her last urine did not show any significant proteinuria. 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 for her chronic back pain [facility] Medical History Nicotine dependence, cigarettes, uncomplicated Gait instability History of COVID-19 (~09/2021) Lipid disorder Asthma-COPD overlap syndrome Vitamin B deficiency Vitamin D deficiency Chronic GERD Depression, major, severe recurrence Back pain, chronic Asthma Hypertension, essential Surgical History History of lumbar fusion History of colonoscopy History of cervical spinal surgery (~2015) History of cholecystectomy (~2008) History of tubal ligation Family History Father No problems noted. Mother No problems noted. Brother No problems noted. Brother No problems noted. Sister No problems noted. Daughter No problems noted. Daughter No problems noted. Daughter No problems noted. Other Mental health disorder Social History Housing: Apartment Patient Tobacco Use Status: Current someday Tobacco user Tobacco use type: Cigarette Cigarettes Per Day: 3 Years Smoked: current smoker - onset 15, 1/2ppd x 42yrs, 21pyh e-Cigarette/Vaping Use: Never Used service: No Current occupational status: disabled Cognitive needs: No Hearing needs: No Vision needs: No Questionnaire Thrive Questionnaire Date Thrive assessed: 12/17/23 TAI-7 AMB Questionnaire TAI-7 Date TAI - 7 assessed: 12/17/23 Source: Developed by Drs. Rusty Munoz, Yolanda Jacobson, Sabino Loomis and colleagues, with an educational kim from [employer]. Review of Systems Const Denies chills and Denies fever(s) ENT Denies epistaxis and Denies nasal discharge Card Denies chest pain Resp Denies chest congestion, Denies cough and Denies hemoptysis GI Denies diarrhea and Denies nausea Skin/Breast Denies rash Neuro Reports no additional complaints Psych Reports no additional complaints Endo Reports no additional complaints Physical exam (Primary Care) Vital Signs: Last Vital Signs Pulse 72 02/18/24 09:52 BP 138/88 02/18/24 10:09 Pulse Ox 98 02/18/24 09:52 Oxygen Delivery Method Room Air 02/18/24 09:52 BMI result Body Mass Index 35.4 Tobacco/Smoking Status: Tobacco use Status Tobacco use date assessed 02/18/24 02/18/24 09:54 Patient Tobacco Use Status Current someday Tobacco 02/18/24 09:54 Tobacco use type Cigarette 02/18/24 09:54 e-Cigarette/Vaping Use Never Used 02/18/24 09:54 Thrive Assessment: Date of Thrive Assessment Date Thrive assessed 12/17/23 02/18/24 09:54 Const General: cooperative, comfortable and no acute distress Orientation/consciousness: patient oriented x3 HENMT Head: Yes normocephalic Eyes General: appearance normal, both eyes and all related structures Neck Neck: Yes supple Resp Effort & Inspection: normal respiratory effort, no cough and no stridor Cardio Rhythm: regular rhythm Heart sounds: S1 normal heart sound present and S2 normal heart sound present Skin General skin exam: turgor normal Neuro General: patient oriented x3, tone normal and moves all extremities Extrem Right lower extremity: no edema Left lower extremity: no edema Assessment and Plan Assessment & Plan (1) Asthma-COPD overlap syndrome: Code(s): J44.9 - Chronic obstructive pulmonary disease, unspecified (2) Hypertension, essential: Code(s): I10 - Essential (primary) hypertension (3) Left ankle instability: Code(s): M25.372 - Other instability, left ankle (4) Lipid disorder: Comment: Make healthy food choices . Eat lots of fruits, vegetables, whole grains, and low-fat dairy products. Limit the amount of meat and fried or fatty foods that you eat. Be active Walk, garden, or do something active for 30 minutes or more on most days of the week. If you smoke, stop smoking. Smoking increases the chance of heart attack or stroke, or develop cancer.If you are over weight, Lose weight, Being overweight increases the risk of many health problems. Avoid alcohol Alcohol can increase blood sugar and blood pressure. Code(s): E78.9 - Disorder of lipoprotein metabolism, unspecified (5) Depression, major, severe recurrence: Code(s): F33.2 - Major depressive disorder, recurrent severe without psychotic features Qualifiers: Psychotic features: without psychotic features Qualified Code(s): F33.2 - Major depressive disorder, recurrent severe without psychotic features (6) Vascular insufficiency of extremity: Comment: Chronic mild swelling left more than right Code(s): I99.8 - Other disorder of circulatory system (7) Environmental allergies: Code(s): Z91.09 - Other allergy status, other than to drugs and biological substances (8) Obesity due to excess calories: Code(s): E66.09 - Other obesity due to excess calories Qualifiers: Obesity classification: adult class 1 (BMI 30 - 34.9) Serious obesity comorbidity presence: with serious comorbidity Body mass index: BMI 33.0-33.9 Qualified Code(s): E66.09 - Other obesity due to excess calories; Z68.33 - Body mass index [BMI] 33.0-33.9, adult (9) Chronic GERD: Code(s): K21.9 - Gastro-esophageal reflux disease without esophagitis (10) Constipation by delayed colonic transit: Code(s): K59.01 - Slow transit constipation Plan Patient is a 58-year-old female with a history of cervical stenosis surgery approximately 7 years ago which has left her with mild weakness left arm and leg, history of depression, seeing psychiatrist and is doing well, taking number of psychiatric medications Seen Nephrology earlier this month Her blood pressure was 1 20 x 90 during that visit has 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 Her last urine did not show any significant proteinuria. 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 for her chronic back pain Coding Level of Care Code Est Pt Level 4 (21527) Complex EM visit Add On G2211 Diagnoses Asthma-COPD overlap syndrome J44.9 Hypertension, essential I10 Left ankle instability M25.372 Lipid disorder E78.9 Severe episode of recurrent major depressive disorder, without psychotic features F33.2 Psychotic features: without psychotic features Vascular insufficiency of extremity I99.8 Environmental allergies Z91.09 Class 1 obesity due to excess calories with serious comorbidity and body mass index (BMI) of 33.0 to 33.9 in adult E66.09; Z68.33 Obesity classification: adult class 1 (BMI 30 - 34.9) Serious obesity comorbidity presence: with serious comorbidity Body mass index: BMI 33.0-33.9 Chronic GERD K21.9 Constipation by delayed colonic transit K59.01
[2024-02-18 09:52] VITALS: BP 152/98; PULSE 72; O2SAT 98; BMI 35.4
[2024-02-18 10:09] VITALS: BP 138/88
== END 2024-02-18 10:18 | disposition home or self-care (01) ==
PROVIDERS: PCP Internal Medicine; Visit Provider Internal Medicine
DX: J44.9 Chronic obstructive pulmonary disease, unspecified (principal); F33.2 Major depressive disorder, recurrent severe without psychotic features; I10 Essential (primary) hypertension; M25.372 Other instability, left ankle; E78.9 Disorder of lipoprotein metabolism, unspecified; I99.8 Other disorder of circulatory system; Z91.09 Other allergy status, other than to drugs and biological substances; E66.09 Other obesity due to excess calories; Z68.33 Body mass index [BMI] 33.0-33.9, adult; K21.9 Gastro-esophageal reflux disease without esophagitis; K59.01 Slow transit constipation
CPT/HCPCS: 99214; G2211

== ENCOUNTER 2024-03-03 10:49 | Outpatient (AMB) | payer OTHER, SELFPAY ==
--- NOTE | 2024-03-03 11:12 | MHC.OFFVIS ---
Intake Visit Reasons: OV - left ankle pain Intake Note: Parveen is a 58 year old female who presents today for a evaluation of her Left ankle sprain. Patient reports still having ongoing pain. She expresses that the lace up ankle brace has not worked for her. 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 Name: [id number] Allergies egg Allergy (Unknown, Verified 03/03/24 11:14) belly pain Penicillins [PENICILLINS] Allergy (Unknown, Verified 03/03/24 11:14) UNKNOWN, WAS A CHILD lobster Adverse Reaction (Mild, Uncoded 01/14/24 13:55) Constipation Medication List - Last Reconciled 03/03/24 by Alexandria Ricketts MD acetaminophen 650 mg (2 x 325 mg) PO Q6H PRN albuterol sulfate 90 mcg/actuation 2 puffs PO Q6H PRN NS [Blood pressure monitor As directed] blood pressure monitor (Blood Pressure Kit) As directed buprenorphine HCl 300 mcg buccal Q12H 30 days buspirone 30 mg PO BID [Cane As directed] diphenhydramine HCl (Banophen) 25 mg PO PRN famotidine 40 mg PO DAILY 90 days gabapentin 600 mg PO QID 30 days ibuprofen 600 mg PO Q6H PRN loratadine 10 mg PO DAILY 90 days losartan 50 mg PO BID mirabegron ER (Myrbetriq) 50 mg PO DAILY mirtazapine 45 mg PO BEDTIME montelukast 10 mg PO DAILY 90 days sennosides-docusate sodium 8.6-50 mg (Senexon-S) 1 tab PO BEDTIME [shower chair with handles As directed] Symbicort 160-4.5 mcg/actuation (budesonide-formoterol) 2 puffs PO BID NS HPI Comments Details: 3-4 months of left ankle pain. Started after cellulitis resolved. When she walks, she starts to have weakness on left ankle, but denies pain. Improves with rest. Feels some numbness on left leg, but says even before the cellulitis. She attributes this to vascular insufficiency. She is wearing compression socks which helps with the numbness. Xray did not show fracture. We did another xray today to compare. Patient has been wearing lace up ankle brace without relief. Left foot still get swollen. It looks more red to today but she says it is because she has bad circulation. Numbness on ankle left, not toes. No fever. She follows with nephrology for HTN. Treatment done so far: physical therapy - referred by rheum for knee djd [facility] Medical History Nicotine dependence, cigarettes, uncomplicated Gait instability History of COVID-19 (~09/2021) Lipid disorder Asthma-COPD overlap syndrome Vitamin B deficiency Vitamin D deficiency Chronic GERD Depression, major, severe recurrence Back pain, chronic Asthma Hypertension, essential Surgical History History of lumbar fusion History of colonoscopy History of cervical spinal surgery (~2015) History of cholecystectomy (~2008) History of tubal ligation Family History Father No problems noted. Mother No problems noted. Brother No problems noted. Brother No problems noted. Sister No problems noted. Daughter No problems noted. Daughter No problems noted. Daughter No problems noted. Other Mental health disorder Social History Housing: Apartment Patient Tobacco Use Status: Current someday Tobacco user Tobacco use type: Cigarette Cigarettes Per Day: 3 Years Smoked: current smoker - onset 15, 1/2ppd x 42yrs, 21pyh e-Cigarette/Vaping Use: Never Used service: No Current occupational status: disabled Cognitive needs: No Hearing needs: No Vision needs: No Review of Systems Const All systems reviewed & are unremarkable except as noted in HPI and below Physical Exam Constitutional: Patient appears to be in no acute distress, well nourished and well developed. MSK: Mildly tender around left lateral malleolus. Left ankle and lower leg with edema, chronic skin changes, but not warm to touch. No tenderness over Achillis tendon, plantar fascia or medial malleolus. No footdrop. Strength is 5/5 in all muscle groups tested. No increased tone noted. Neurological: Neurologic examination of the upper and lower extremities was nonfocal with intact sensation, muscle stretch reflexes and without focal motor deficits . Babinski was down going bilaterally. Clonus was negative. Gait is antalgic without loss of balance. Quality Reporting (2020) Adult (CMS 138/2//69) Smoking risk assessment performed?: Yes Patient Tobacco Use Status: Current someday Tobacco user Results Reviewed Results Reviewed: I independently reviewed the results of the following: Repeat ankle/foot x-rays done today, no overt fracture seen. Await official reading for comparison with previous. I reviewed records from the following: Nephrology Assessment & Plan Assessment & Plan (1) Left foot pain: Code(s): M79.672 - Pain in left foot Category: Medical (2) Left ankle sprain: Code(s): S93.402A - Sprain of unspecified ligament of left ankle, initial encounter Category: Medical Qualifiers: Encounter type: initial encounter Involved ligament of ankle: tibiofibular ligament Qualified Code(s): S93.432A - Sprain of tibiofibular ligament of left ankle, initial encounter Plan Swelling on left ankle appears much more today than previous. She says this comes and goes. Denies any fever. It is not warm or tender to touch. Has not gotten better with lace-up ankle brace. Patient had undergone adequate conservative management including PT without improvement of condition. It would be reasonable to obtain further imaging such as MRI. An MRI would help rule out any serious condition, guide treatment and assess prognosis for recovery. Continue to ice and elevate, wear compression socks. Offered to put her on a walking boot but she defers. If it appears to become even more swollen or she develops fever, advised to seek Urgent Care or go to ER. Assessment and plan discussed with patient, and patient was agreeable. All questions were answered thoroughly. Alexandria Ricketts MD, ALEJANDRA Board Certified, [place] [employer] and [employer] (ABPMR) Board Certified, [place] [employer] Electro[employer] (ABEM) Orders: Orders XR ankle LT 2V Today S93.432A - Sprain of tibiofibular ligament of left ankle, initial encounter MR ankle LT wo con Today M79.672 - Pain in left foot, S93.432A - Sprain of tibiofibular ligament of left ankle, initial encounter Coding Level of Care Code Est Pt Level 4 (26852) Diagnoses Left foot pain M79.672 Sprain of tibiofibular ligament of left ankle, initial encounter S93.432A Encounter type: initial encounter Involved ligament of ankle: tibiofibular ligament
== END 2024-03-03 12:41 | disposition home or self-care (01) ==
PROVIDERS: PCP Internal Medicine; Visit Provider Physical Medicine & Rehabilitation
DX: M79.672 Pain in left foot (principal); S93.432A Sprain of tibiofibular ligament of left ankle, initial encounter
CPT/HCPCS: 99214

== ENCOUNTER 2024-03-03 10:49 | Outpatient (REF) | payer OTHER, SELFPAY ==
--- NOTE | ~2024-03-03 | XR_ITS ---
EXAMINATION: XR ANKLE, LEFT CLINICAL INFORMATION: Sprain of the tibial/fibular ligament, initial encounter. COMPARISON: 12/24/2023 TECHNIQUE: AP, lateral, and mortise views of the left ankle. AP view is suboptimal. FINDINGS: There is bilateral soft tissue swelling present. Degenerative changes are seen with spurring arising from both the medial and lateral malleolus. Calcaneal spurs are present. Hypertrophic degenerative change again seen in the midfoot unchanged from 12/24/2023. XR/XR ankle LT 2V IMPRESSION: Degenerative changes in the ankle and midfoot. No acute fracture is seen.
== END 2024-03-03 10:50 | disposition home or self-care (01) ==
LOC: HO.HOSX 10:49
PROVIDERS: PCP Internal Medicine; Visit Provider Physical Medicine & Rehabilitation
DX: S93.432A Sprain of tibiofibular ligament of left ankle, initial encounter (principal); M79.672 Pain in left foot; X58.XXXA Exposure to other specified factors, initial encounter; Y93.9 Activity, unspecified; Y92.9 Unspecified place or not applicable; Y99.9 Unspecified external cause status
CPT/HCPCS: 73600; 99212

== ENCOUNTER 2024-03-22 13:52 | Outpatient (AMB) | payer OTHER, SELFPAY ==
[2024-03-22 14:01] VITALS: BP 138/90; PULSE 65; O2SAT 94; BMI 35.2
--- NOTE | 2024-03-22 14:01 | MHC.OFFVIS ---
Vital Signs 03/22/24 14:01 Height 5 ft 6 in Weight 218 lb 4.122 oz BMI 35.2 BP 138/90 H Blood Pressure Location Rt brachial Position Sitting Pulse 65 Pulse Source Pulse Oximeter Pulse Oximetry (%) 94 Oxygen Delivery Method Room Air Intake Visit Reasons: Asthma - needs inhalers Allergies egg Allergy (Unknown, Verified 03/22/24 14:05) belly pain Penicillins [PENICILLINS] Allergy (Unknown, Verified 03/22/24 14:05) UNKNOWN, WAS A CHILD lobster Adverse Reaction (Mild, Uncoded 03/22/24 14:05) Constipation HPI HPI Asthma - needs inhalers: Details: Parveen is a pleasant 58 year old female, current smoker with 20+ pack year history with underlying asthma. She is followed by Dr. Gilliam and was last evaluated 01/2023. Since then she denies any visits to urgent care or hospitalizations related to respiratory distress since the last visit. She has had excellent control of respiratory symptoms on Symbicort 160 mcg, singulair, claritin and albuterol MDI. Unfortunately she has been without for the last few days, having increased dyspnea and chest tightness. She denies cough or wheezing. [facility] Medical History Nicotine dependence, cigarettes, uncomplicated Gait instability History of COVID-19 (~09/2021) Lipid disorder Asthma-COPD overlap syndrome Vitamin B deficiency Vitamin D deficiency Chronic GERD Depression, major, severe recurrence Back pain, chronic Asthma Hypertension, essential Surgical History History of lumbar fusion History of colonoscopy History of cervical spinal surgery (~2015) History of cholecystectomy (~2008) History of tubal ligation Family History Father No problems noted. Mother No problems noted. Brother No problems noted. Brother No problems noted. Sister No problems noted. Daughter No problems noted. Daughter No problems noted. Daughter No problems noted. Other Mental health disorder Social History Housing: Apartment Patient Tobacco Use Status: Current someday Tobacco user Tobacco use type: Cigarette Cigarettes Per Day: 3 Years Smoked: current smoker - onset 15, 1/2ppd x 42yrs, 21pyh e-Cigarette/Vaping Use: Never Used service: No Current occupational status: disabled Cognitive needs: No Hearing needs: No Vision needs: No Review of Systems Const Denies chills, Denies excessive sweating, Denies fever(s), Denies headache(s) and Denies night sweats Eyes Denies dry eyes, Denies irritation and Denies itchy eyes ENT Reports Normal hearing present, Denies headache(s), Denies nasal congestion, Denies nasal discharge, Denies post nasal drip and Denies sore throat Card Denies chest pain, Denies chest pain at rest, Denies chest pain with activity, Denies claudication, Denies leg edema, Denies orthopnea and Denies paroxysmal nocturnal dyspnea Resp Denies chest congestion, Denies cough, Denies excessive phlegm production, Denies pain on inspiration, Denies pain with cough, Denies stridor and Denies wheezing Musc Denies myalgias Neuro Reports Normal hearing present and Denies headache(s) Endo Denies excessive sweating Lio/Lymph Denies lymphadenopathy Aller/Immun Denies itchy eyes, Denies seasonal rhinorrhea and Denies wheezing Physical Exam Vital Signs: Last Vital Signs Pulse 65 03/22/24 14:01 BP 138/90 H 03/22/24 14:01 Pulse Ox 94 03/22/24 14:01 Oxygen Delivery Method Room Air 03/22/24 14:01 BMI result Body Mass Index 35.2 Const General: cooperative, healthy appearing, comfortable, no acute distress, well developed and alert Orientation/consciousness: patient oriented x3 Limitations: no limitations HEENT Head: Yes normal to inspection, Yes normocephalic and Yes atraumatic Ears: hearing grossly normal bilaterally and external ears normal Eyes General: appearance normal, both eyes and all related structures Eyelids: Yes eyelids normal Sclerae: sclerae normal EOM: EOMs intact bilaterally Neck Neck: Yes normal visual inspection and Yes no lymphadenopathy Lymphatic: no lymphadenopathy noted Chest Chest palpation & inspection: normal inspection of the chest Resp Other: faint expiratory wheezing throughout Effort & Inspection: normal respiratory effort, able to speak in complete sentences, no audible wheezes, no cough, no stridor, not tachypneic, no tripod positioning and no use of accessory muscles Cardio Jugular venous distension: no JVD Rate: regular rate Rhythm: regular rhythm Skin Other: warm, dry General skin exam: no rashes or lesions noted Neuro General: patient oriented x3 Cranial nerves: Yes Normal hearing present Cognition (Neuro): normal cognition Gait exam (Neuro): Normal gait present Extrem General: Yes normal to inspection, Yes capillary refill normal, Yes no clubbing, cyanosis or edema and Yes no pedal edema Psych Appearance: grossly normal and well kempt Speech and movement: Normal speech and movement present and Clear speech present Affect: normal affect Attitude: cooperative Thought process: Normal thought process present Thought content: Normal thought content present Insight: Good insight present (Psych) Judgement: Good judgement present (Psych) Quality Reporting (2019) Adult ([facility] ) Smoking risk assessment performed?: Yes Patient Tobacco Use Status: Current someday Tobacco user Assessment & Plan Assessment & Plan (1) Asthma: Code(s): J45.909 - Unspecified asthma, uncomplicated Category: Medical (2) Tobacco abuse: Code(s): Z72.0 - Tobacco use Category: Medical Plan Parveen presents for a routine follow up for refills on albuterol MDI, singulair and symbicort. Overall has been doing quite well on current regimen since last evaluated in office 01/2023. Unfortunately, patient has been without medications and developed worsening control of asthma. On exam patient with faint expiratory wheezes throughout, recommended in office nebulizer however patient declined as she report adverse effects. Will send in prednisone 40 mg x 5 days as well as refill all medications. She is aware if symptoms do not improve to call office. All questions were answered and patient is in agreement of plan. Will follow up for regularly scheduled appointment with Dr. Gilliam or sooner if needed. Medications: Refilled Symbicort 160-4.5 mcg/actuation (budesonide-formoterol) 2 puffs PO BID 10.2 grams 11RF NS montelukast 10 mg PO DAILY 90 tabs 3RF 90 days J44.9 - Chronic obstructive pulmonary disease, unspecified albuterol sulfate 90 mcg/actuation 2 puffs PO Q6H PRN 1 ea 11RF shortness of breath or wheezing NS J44.9 - Chronic obstructive pulmonary disease, unspecified, J45.909 - Unspecified asthma, uncomplicated Coding Level of Care Code Est Pt Level 4 (36381) Diagnoses Asthma J45.909 Tobacco abuse Z72.0
== END 2024-03-22 14:24 | disposition home or self-care (01) ==
PROVIDERS: PCP Internal Medicine; Visit Provider Nurse Practitioner Family
DX: J45.909 Unspecified asthma, uncomplicated (principal); Z72.0 Tobacco use
CPT/HCPCS: 99214

== ENCOUNTER → 2024-03-22 13:52 | Outpatient (BNVA) | payer OTHER, SELFPAY | PROVIDERS: PCP Internal Medicine; Visit Provider Nurse Practitioner Family | DX: J45.909 Unspecified asthma, uncomplicated (principal); Z72.0 Tobacco use; Z79.899 Other long term (current) drug therapy | CPT/HCPCS: 99212 ==

== ENCOUNTER 2024-04-05 11:43 | Outpatient (AMB) | payer OTHER, SELFPAY ==
--- NOTE | 2024-04-05 11:45 | A.OFFVIS_ITS ---
Vital Signs 04/05/24 11:51 Height 5 ft 6 in Weight 214 lb BMI 34.5 BP 150/85 H Blood Pressure Location Rt brachial Position Sitting Pulse 56 Pulse Source Pulse Oximeter Pulse Oximetry (%) 99 Oxygen Delivery Method Room Air Intake Visit Reasons: PILL COUNT Intake Note: Parveen comes in today for a film count to belbuca, patient should have 58 films and presents with 60 films which she last took today 04/05/24 at 7:30am. 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 Patient is supposed to have #58 films and presents with #60 films. This demonstrates a responsible attitude towards her regimen. Patient reports current opioid medication allows her to be less symptomatic and more functional. She denies any side effects on current regime except occasional constipation for which she takes Senexon-S, dietary fiber and increases fluid intake. Denies any fever, chills, chest pain, dizziness, shortness of breaths, nausea, sedation, dizziness, or urinary retention. [facility] Medical History Nicotine dependence, cigarettes, uncomplicated Gait instability History of COVID-19 (~09/2021) Lipid disorder Asthma-COPD overlap syndrome Vitamin B deficiency Vitamin D deficiency Chronic GERD Depression, major, severe recurrence Back pain, chronic Asthma Hypertension, essential Surgical History History of lumbar fusion History of colonoscopy History of cervical spinal surgery (~2015) History of cholecystectomy (~2008) History of tubal ligation Family History Father No problems noted. Mother No problems noted. Brother No problems noted. Brother No problems noted. Sister No problems noted. Daughter No problems noted. Daughter No problems noted. Daughter No problems noted. Other Mental health disorder Social History (Reviewed 04/05/24 @ 11:53 by CANDIDA Burgos Housing: Apartment Patient Tobacco Use Status: Current someday Tobacco user Tobacco use type: Cigarette Cigarettes Per Day: 3 Years Smoked: current smoker - onset 15, 1/2ppd x 42yrs, 21pyh e-Cigarette/Vaping Use: Never Used service: No Current occupational status: disabled Cognitive needs: No Hearing needs: No Vision needs: No Review of Systems Const All systems reviewed & are unremarkable except as noted in HPI and below Physical Exam Vital Signs: Last Vital Signs Pulse 56 04/05/24 11:51 BP 150/85 H 04/05/24 11:51 Pulse Ox 99 04/05/24 11:51 Oxygen Delivery Method Room Air 04/05/24 11:51 BMI result Body Mass Index 34.5 General: Appears afebrile. No acute distress. Alert and oriented. Mood and affect appropriate. Very pleasant. Follows and participates in conversation appropriately. Respiratory effort is unlabored. No cough. Able to transition from sit to stand unassisted. Resp Effort & Inspection: normal respiratory effort, able to speak in complete sentences, no cough, no respiratory distress and symmetric chest movement Back/Spine/Pelvis Cervical Spine: cervical ROM normal, cervical muscular tenderness and No Cervical spine tenderness Thoracic/Lumbar Spine: thoracic and lumbar spine normal to inspection, Lasegue's sign negative, straight leg raise negative bilaterally, pain with thoraco- lumbar ROM, paraspinal muscle tenderness, thoraco-lumbar ROM limited, No thoracic spinal tenderness and lumbar spinal tenderness at L4 and at L5 Extrem General: Yes capillary refill normal, Yes no clubbing, cyanosis or edema and Yes no calf tenderness Psych Appearance: grossly normal and well kempt Mental Status: mental status grossly normal Speech and movement: Normal speech and movement present and Clear speech present Affect: normal affect Attitude: cooperative Thought process: Normal thought process present Thought content: Normal thought content present, suicidality (none), no hallucinations and No Depressive thoughts present Insight: Good insight present (Psych) Judgement: Good judgement present (Psych) Quality Reporting (2019) Adult ([facility] 13811/20/68) Smoking risk assessment performed?: Yes Patient Tobacco Use Status: Current someday Tobacco user Results Reviewed Results Reviewed: LUMBAR SPINE MRI: The disc is of normal height and signal intensity without significant disc bulge or herniation. L2-3: The disc is of normal height and signal intensity without significant disc bulge or herniation. There is moderate degenerative facet arthropathy. L3-4: The disc is of normal height and signal intensity without significant disc bulge or herniation. There is moderate degenerative facet arthropathy. L4-5: The disc is of normal height and signal intensity without significant disc bulge or herniation. There is marked degenerative facet arthropathy with ligamentous hypertrophy causing mild central canal stenosis. L5-S1: There is complete fusion of the disc space although the patient does not report any history of prior surgery. There is marked degenerative facet arthropathy without significant foraminal stenosis. Vertebral alignment is normal. There is fusion of the L5-S1 disc space. Marrow signal intensity is normal. The conus terminates at T12-L1 and appears normal. There is no paraspinous mass. IMPRESSION: 1. Marked degenerative facet arthropathy at L4-5 causing mild central canal stenosis. 2. Complete fusion of the L5-S1 disc: No prior surgery is reported. Marked degenerative facet arthropathy. 3. Moderate degenerative facet arthropathy L2-3 and L3-4. ECG 12 lead EKG 11/22/22 Blood Pressure : / mmHG Vent. Rate : 054 BPM Atrial Rate : 054 BPM P-R Int : 148 ms QRS Dur : 078 ms QT Int : 398 ms P-R-T Axes : 077 064 052 degrees QTc Int : 377 ms Sinus bradycardia with Premature atrial complexes Otherwise normal ECG No significant changes when compared with the previous EKG of 21 jun 2003 Assessment & Plan Assessment & Plan (1) Chronic, continuous use of opioids: Code(s): F11.90 - Opioid use, unspecified, uncomplicated Category: Medical (2) Sacroiliac joint pain: Code(s): M53.3 - Sacrococcygeal disorders, not elsewhere classified Category: Medical (3) Spondylosis of lumbar spine: Code(s): M47.816 - Spondylosis without myelopathy or radiculopathy, lumbar region Category: Medical (4) Back pain, chronic: Code(s): M54.9 - Dorsalgia, unspecified; G89.29 - Other chronic pain Category: Medical Plan Patient presents today for a film count. She has shown accountability for her medication regimen and the count was accurate. There is no evidence of misuse, abuse or diversion at this time. [employer] reviewed. Script for Belbuca 300 mcg BID sent with an advanced date of 05/04/24 with one refill. Refill sent for gabapentin per patient's request today. We will also obtain annual 12-lead EKG report to assess risk for QT prolongation. Continue daily physical activity as tolerated, weight optimization, adequate hydration, well-balanced diet, daily fiber intake and good posture. All questions were answered and this patient is agreeable to the plan.?Patient will follow-up in 8 weeks for a film count. Orders: Orders ECG 12 lead EKG Today F11.90 - Opioid use, unspecified, uncomplicated, Z91.89 - Other specified personal risk factors, not elsewhere classified Medications: Refilled gabapentin 600 mg PO QID 30 days 120 tabs 3RF pain G89.4 - Chronic pain syndrome, M48.061 - Spinal stenosis, lumbar region without neurogenic claudication buprenorphine HCl Partial Fill upon patient request. 300 mcg buccal Q12H 30 days 60 ea 1RF pain F11.90 - Opioid use, unspecified, uncomplicated, M47.816 - Spondylosis without myelopathy or radiculopathy, lumbar region, M48.061 - Spinal stenosis, lumbar region without neurogenic claudication Coding Level of Care Code Est Pt Level 4 (94618) Diagnoses Chronic, continuous use of opioids F11.90 Sacroiliac joint pain M53.3 Spondylosis of lumbar spine M47.816 Back pain, chronic M54.9; G89.29
[2024-04-05 11:51] VITALS: BP 150/85; PULSE 56; O2SAT 99; BMI 34.5
== END 2024-04-05 12:00 | disposition home or self-care (01) ==
PROVIDERS: PCP Internal Medicine; Visit Provider Nurse Practitioner Family
DX: G89.29 Other chronic pain (principal); M53.3 Sacrococcygeal disorders, not elsewhere classified; M47.816 Spondylosis without myelopathy or radiculopathy, lumbar region; Z79.891 Long term (current) use of opiate analgesic; M54.9 Dorsalgia, unspecified
CPT/HCPCS: 99214

== ENCOUNTER → 2024-04-05 11:43 | Outpatient (BNVA) | payer OTHER, SELFPAY | PROVIDERS: PCP Internal Medicine; Visit Provider Nurse Practitioner Family | DX: M53.3 Sacrococcygeal disorders, not elsewhere classified (principal); M47.816 Spondylosis without myelopathy or radiculopathy, lumbar region; G89.29 Other chronic pain; M54.9 Dorsalgia, unspecified; Z79.891 Long term (current) use of opiate analgesic | CPT/HCPCS: 99212 ==

== ENCOUNTER 2024-04-07 11:20 | Outpatient (REF) | payer OTHER, SELFPAY ==
--- NOTE | ~2024-04-07 | CT_ITS ---
EXAMINATION: CT LOW-DOSE SCREENING CHEST WITHOUT CONTRAST CLINICAL INFORMATION: Nicotine dependence, cigarettes, uncomplicated. The patient is a current smoker with a 40 pack-year history of smoking. COMPARISON: CT lung screening 04/04/2023. TECHNIQUE: Multidetector volumetric CT imaging of the chest is performed on a Siemens SOMATOM Definition scanner without contrast using low dose technique. Additional 2D coronal and sagittal reformatted images and axial 3D maximum intensity projection (MIP) images are generated on the CT workstation. This CT examination was performed using dose optimization techniques as appropriate, variously including the following: *Automated exposure control *Adjustment of mA and/or kV according to patient size (this includes techniques or standardized protocols for targeted exams where dose is matched to indication/reason for exam; i.e. extremities or head) *Use of iterative reconstruction technique TOTAL EXAM DLP: 57 mGy-cm. CTDIvol: 1.66 mGy. FINDINGS: PULMONARY NODULES: -4 mm nodule lateral left apex, somewhat obscured by respiratory motion but stable grossly. -No new or enlarging pulmonary nodules. LUNGS: -Mild centrilobular emphysema again present. -Right greater than left apical scarring is unchanged, as well as mild paraseptal blebs. -No consolidations or abnormal groundglass opacities. -Airways demonstrate normal appearance without bronchiectasis or endobronchial filling defects. -Foci of scarring in the lingula, medial right middle lobe, and bilateral lower lobes are unchanged. -There are no pleural effusions. MEDIASTINUM: -There is no abnormal lymphadenopathy. -The descending aorta is mildly aneurysmal at 4.3 cm on this non-gated study. This appears stable. -The main pulmonary artery is normal in caliber. -Esophagus is normal aside from a small type I hiatus hernia. -Heart is normal in size. No pericardial effusion. CORONARY ARTERY CALCIFICATION: None visualized on this study. THYROID GLAND: Unremarkable to the extent seen. CHEST WALL/AXILLA: No masses or adenopathy. UPPER ABDOMEN: -There has been a cholecystectomy. -No additional abnormalities. OSSEOUS STRUCTURES: There are no suspicious lytic or blastic bony abnormalities. CT/CT lung screening IMPRESSION: 1. Stable examination with stable left upper lobe 4 mm nodule. No new or enlarging nodules. 2. Mild centrilobular emphysema without evidence for active lung disease. 3. Stable mild aneurysmal dilatation of the ascending aorta measuring 4.3 cm on this non-gated study. 4. Additional ancillary findings as discussed. ASSESSMENT: 1. Lung-RADS Category 2: Benign appearance or behavior of nodules. 2. Lung-RADS Category S: Negative. RECOMMENDATION: Continued routine annual low-dose CT lung screening in 1 year is recommended. An order for CT CHEST LOW DOSE CANCER SCREENING ([id number]) can be placed.
== END 2024-04-07 11:21 | disposition home or self-care (01) ==
LOC: HO.CT 11:20
PROVIDERS: PCP Internal Medicine; Visit Provider Physician Assistant Medical
DX: Z12.2 Encounter for screening for malignant neoplasm of respiratory organs (principal); F17.210 Nicotine dependence, cigarettes, uncomplicated
CPT/HCPCS: 71271

== ENCOUNTER → 2024-04-07 11:20 | Outpatient (BNV) | payer OTHER, SELFPAY | PROVIDERS: PCP Internal Medicine; Visit Provider Radiology Diagnostic Radiology | DX: F17.200 Nicotine dependence, unspecified, uncomplicated (principal) | CPT/HCPCS: 71271 ==

== ENCOUNTER 2024-04-09 13:18 | Outpatient (REF) | payer OTHER, SELFPAY ==
[2024-04-09 16:27] LABS: Anion Gap 12 (12-20); Blood Urea Nitrogen 15 mg/dL (9-16); Carbon Dioxide 26 mmol/L (22-29); Chloride 107 mmol/L (96-108); Estimated Glomerular Filt Rate > 60; Sodium 141 mmol/L (135-145)
== END 2024-04-09 13:19 | disposition home or self-care (01) ==
LOC: HO.HMGCLDS 13:18
PROVIDERS: PCP Internal Medicine; Visit Provider Internal Medicine Nephrology
DX: I10 Essential (primary) hypertension (principal); R80.8 Other proteinuria; I77.810 Thoracic aortic ectasia
CPT/HCPCS: 36415; 80051; 82565; 84520

== ENCOUNTER 2024-04-13 11:43 | Outpatient (AMB) | payer OTHER, SELFPAY ==
[2024-04-13 11:47] VITALS: BP 122/82; PULSE 71; O2SAT 94; BMI 35.3
--- NOTE | 2024-04-13 11:47 | HO.NEPHOV_ITS ---
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 She had headaches which are gone. Her BP is at goal at home. She has no urinary symptoms. She denies chest pain, shortness of breath, proximal nocturnal dyspnea, orthopnea or orthostatic symptoms. She does not take any nonsteroidal anti-inflammatories. She has ascending thoracic aorta measures 4.1 x 4.1 cm in transverse dimension at the level of the pulmonary trunk. She has no other specific complaints at the time of this office visit. She had issues with Chlorthalidone and it was discontinued by her in the past. Her BP is at goal. She feels well. [facility] Medical History Nicotine dependence, cigarettes, uncomplicated Gait instability History of COVID-19 (~09/2021) Lipid disorder Asthma-COPD overlap syndrome Vitamin B deficiency Vitamin D deficiency Chronic GERD Depression, major, severe recurrence Back pain, chronic Asthma Hypertension, essential Surgical History History of lumbar fusion History of colonoscopy History of cervical spinal surgery (~2015) History of cholecystectomy (~2008) History of tubal ligation Family History Father No problems noted. Mother No problems noted. Brother No problems noted. Brother No problems noted. Sister No problems noted. Daughter No problems noted. Daughter No problems noted. Daughter No problems noted. Other Mental health disorder Social History Housing: Apartment Patient Tobacco Use Status: Current someday Tobacco user Tobacco use type: Cigarette Cigarettes Per Day: 3 Years Smoked: current smoker - onset 15, 1/2ppd x 42yrs, 21pyh e-Cigarette/Vaping Use: Never Used service: No Current occupational status: disabled Cognitive needs: No Hearing needs: No Vision needs: No Review of Systems Const All systems reviewed & are unremarkable except as noted in HPI and below Physical Exam Vital Signs: Last Vital Signs Pulse 71 04/13/24 11:47 BP 122/82 04/13/24 11:47 Pulse Ox 94 04/13/24 11:47 Oxygen Delivery Method Room Air 04/13/24 11:47 BMI result Body Mass Index 35.3 Const General: comfortable and no acute distress Orientation/consciousness: patient oriented x3 HEENT Head: Yes normocephalic Mouth: Normal oral and palatal mucosa present Eyes EOM: EOMs intact bilaterally Neck Neck: Yes supple Resp Auscultation: clear to auscultation bilaterally Cardio Jugular venous distension: no JVD Rate: regular rate GI Palpation (GI): Soft to palpation Auscultation: normal bowel sounds General: Yes no CVA tenderness Back/Spine/Pelvis Back: no CVA tenderness Skin General skin exam: no rashes or lesions noted Neuro General: patient oriented x3 and moves all extremities Extrem General: Yes no pedal edema Results Reviewed Nephrology Results: Sodium 141 mmol/L (135-145) 04/09/24 Potassium 4.0 mmol/L (3.3-5.1) 04/09/24 Chloride 107 mmol/L (96-108) 04/09/24 Carbon Dioxide 26 mmol/L (22-29) 04/09/24 BUN 15 mg/dL (9-16) 04/09/24 Creatinine 0.80 mg/dL (0.5-1.4) 04/09/24 Assessment & Plan Assessment & Plan (1) Hypertension: Code(s): I10 - Essential (primary) hypertension Category: Medical Qualifiers: Hypertension type: primary hypertension Qualified Code(s): I10 - Essential (primary) hypertension (2) Proteinuria: Code(s): R80.9 - Proteinuria, unspecified Category: Medical Qualifiers: Proteinuria type: other Qualified Code(s): R80.8 - Other proteinuria Plan Parveen has 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 Her last urine did not show any significant proteinuria. She had obesity which was putting her at risk for secondary FSGS. Her blood pressure is at goal. She is on angiotensin receptor arcelia. She is on losartan 50 mg bid. She needs to lose weight. All questions answered. Follow-up given (She has ascending thoracic aorta measures 4.1 x 4.1 cm in transverse dimension at the level of the pulmonary trunk.from a CT scan in [facility] last year- needs F/U in 6 months) Orders: Orders Protein Creatinine Ratio, Ur Today I10 - Essential (primary) hypertension, R80.8 - Other proteinuria Blood Urea Nitrogen Today I10 - Essential (primary) hypertension, R80.8 - Other proteinuria Creatinine Today I10 - Essential (primary) hypertension, R80.8 - Other proteinuria Electrolytes Today I10 - Essential (primary) hypertension, R80.8 - Other protei leonarda Coding Level of Care Code Est Pt Level 4 (23091) Diagnoses Primary hypertension I10 Hypertension type: primary hypertension Other proteinuria R80.8 Proteinuria type: other
== END 2024-04-13 12:01 | disposition home or self-care (01) ==
PROVIDERS: PCP Internal Medicine; Visit Provider Internal Medicine Nephrology
DX: I10 Essential (primary) hypertension (principal); R80.8 Other proteinuria
CPT/HCPCS: 99214

== ENCOUNTER → 2024-04-13 11:43 | Outpatient (BNVA) | payer OTHER, SELFPAY | PROVIDERS: PCP Internal Medicine; Visit Provider Internal Medicine Nephrology | DX: I10 Essential (primary) hypertension (principal); R80.8 Other proteinuria | CPT/HCPCS: 99212 ==

== ENCOUNTER 2024-05-04 11:20 | Outpatient (AMB) | payer OTHER, SELFPAY ==
--- NOTE | 2024-05-04 11:36 | AM.OFFWIN_ITS ---
Intake Vital Signs 05/04/24 11:38 Height 5 ft 6 in Weight 216 lb BMI 34.9 BP 124/76 Blood Pressure Location Rt brachial Position Sitting Pulse 52 Pulse Source Pulse Oximeter Temp 98.6 F Temp Source Oral Pulse Oximetry (%) 98 Oxygen Delivery Method Room Air Intake Visit Reasons: EP ?fever blister/chills/dizzy/stomach Intake Note: pt c/o blisters, chills, dizziness and stomach ache. ? Fever. Started Patient Tobacco Use Status: Former Tobacco user Allergies egg Allergy (Unknown, Verified 05/04/24 11:37) belly pain Penicillins [PENICILLINS] Allergy (Unknown, Verified 05/04/24 11:37) UNKNOWN, WAS A CHILD lobster Adverse Reaction (Mild, Uncoded 05/04/24 11:37) Constipation Do you need a note to return to daycare/school/sports/work: No HPI HPI Comments History of Present Illness Details 58 y/o female patient who presents to walk in clinic with c/o left lower extremity swelling and redness. She was diagnosed 4 months ago with Cellulitis left lower leg and given Abx. Pt does have left lower leg chronic Vascular insufficiency. Per Pt she was seen by Vascular in the past and surgery was recommended, but Pt declined at that time. Pt also c/o small crusty looking blisters right nostril. She did have body chills and fatigue this past week. No fevers or chills today. [facility] Medical History Nicotine dependence, cigarettes, uncomplicated Gait instability History of COVID-19 (~09/2021) Lipid disorder Asthma-COPD overlap syndrome Vitamin B deficiency Vitamin D deficiency Chronic GERD Depression, major, severe recurrence Back pain, chronic Asthma Hypertension, essential Surgical History History of lumbar fusion History of colonoscopy History of cervical spinal surgery (~2015) History of cholecystectomy (~2008) History of tubal ligation Family History Father No problems noted. Mother No problems noted. Brother No problems noted. Brother No problems noted. Sister No problems noted. Daughter No problems noted. Daughter No problems noted. Daughter No problems noted. Other Mental health disorder Social History Housing: Apartment Patient Tobacco Use Status: Former Tobacco user Tobacco use type: Cigarette Cigarettes Per Day: 3 Years Smoked: current smoker - onset 15, 1/2ppd x 42yrs, 21pyh e-Cigarette/Vaping Use: Never Used service: No Current occupational status: disabled Cognitive needs: No Hearing needs: No Vision needs: No Physical Exam Vital Signs: Last Vital Signs Temp 98.6 F 05/04/24 11:38 Pulse 52 05/04/24 11:38 BP 124/76 05/04/24 11:38 Pulse Ox 98 05/04/24 11:38 Oxygen Delivery Method Room Air 05/04/24 11:38 BMI result Body Mass Index 34.9 Const General: comfortable and no acute distress Nutritional Appearance: obese Orientation/consciousness: patient oriented x3 HEENT Head: Yes normocephalic Ears: external ears normal and TM's normal bilaterally General nose exam: Abnormal external nose present nasal erythema and other (Small crusted blisters outer right nostril. Erythema and dry. ) Face and sinus: Yes sinuses nontender Resp Effort & Inspection: normal respiratory effort Cardio Heart sounds: S1 normal heart sound present and S2 normal heart sound present Neuro General: patient oriented x3, gait normal and moves all extremities Extrem Right lower extremity: edema and lower leg Details: palpable cord and non- pitting edema; no erythema and no tenderness Left lower extremity: lower leg Details: erythema (Mild redness) Location: of the mid lower leg and of the distal lower leg, tenderness and pitting edema Details: 2+ Psych Speech and movement: Normal speech and movement present Assessment & Plan Assessment & Plan (1) Vascular insufficiency of extremity: Comment: Chronic mild swelling left more than right Code(s): I99.8 - Other disorder of circulatory system Plan: Will have Pt f/u with PCP regarding this chronic on going issue She is currently wearing Compression stockings No SOB, CP or dizziness. (2) Impetigo: Code(s): L01.00 - Impetigo, unspecified Plan: Apply thin layer of Abx to the skin Medications: New mupirocin 2% 1 appl topical BID 15 grams 0RF L01.00 - Impetigo, unspecified Coding Level of Care Code Est Pt Level 4 (58855) Diagnoses Vascular insufficiency of extremity I99.8 Impetigo L01.00 Time Spent (min) 20
[2024-05-04 11:38] VITALS: BP 124/76; PULSE 52; TEMP 37; O2SAT 98; BMI 34.9
== END 2024-05-04 13:22 | disposition home or self-care (01) ==
PROVIDERS: PCP Internal Medicine; Visit Provider Nurse Practitioner Family
DX: I99.8 Other disorder of circulatory system (principal); L01.00 Impetigo, unspecified
CPT/HCPCS: 99214

== ENCOUNTER 2024-06-02 11:36 | Outpatient (AMB) | payer OTHER, SELFPAY ==
[2024-06-02 11:38] VITALS: BP 124/74; PULSE 59; O2SAT 98; BMI 34.4
--- NOTE | 2024-06-02 11:38 | A.OFFPC_ITS ---
Vital Signs 06/02/24 11:38 Height 5 ft 6 in Weight 213 lb 2 oz BMI 34.4 BP 124/74 Blood Pressure Location Rt brachial Position Sitting Pulse 59 Pulse Source Pulse Oximeter Pulse Oximetry (%) 98 Oxygen Delivery Method Room Air Intake Visit Reasons: PE Allergies egg Allergy (Unknown, Verified 06/02/24 11:39) belly pain Penicillins [PENICILLINS] Allergy (Unknown, Verified 06/02/24 11:39) UNKNOWN, WAS A CHILD lobster Adverse Reaction (Mild, Uncoded 05/04/24 11:37) Constipation Medication List - Last Reconciled 06/02/24 by Oral Ocasio MD acetaminophen ER mg PO albuterol sulfate 90 mcg/actuation 2 puffs PO Q6H PRN NS [Blood pressure monitor As directed] blood pressure monitor (Blood Pressure Kit) As directed buprenorphine HCl 300 mcg buccal Q12H 30 days buspirone 30 mg PO BID [Cane As directed] diphenhydramine HCl (Banophen) 25 mg PO PRN famotidine 40 mg PO DAILY 90 days gabapentin 600 mg PO QID 30 days ibuprofen 600 mg PO Q6H PRN loratadine 10 mg PO DAILY 90 days losartan 50 mg PO BID mirabegron ER (Myrbetriq) 50 mg PO DAILY mirtazapine 45 mg PO BEDTIME montelukast 10 mg PO DAILY 90 days mupirocin 2% 1 appl topical BID sennosides-docusate sodium 8.6-50 mg (Senexon-S) 1 tab PO BEDTIME [shower chair with handles As directed] Symbicort 160-4.5 mcg/actuation (budesonide-formoterol) 2 puffs PO BID NS Tobacco use date assessed: 06/02/24 Dental Screening Dental Screen Date: 06/02/24 Did you have a dental visit in the last 12 months?: No Did you have a dental problem in the last 6 months where you did not have access to dental care?: No Was dental information given to patient?: No HPI PE HPI Details Patient is a 59-year-old female with a history of COPD, depression, obesity, stable 1 lung nodule Seeing Nephrology, receiving specialist, Head screening CT scan done recently which showed 1. Stable examination with stable left u pper lobe 4 mm nodule. No new or enlarging nodules. 2. Mild centrilobular emphysema without evidence for active lung disease. 3. Stable mild aneurysmal dilatation of the ascending aorta measuring 4.3 cm on this non-gated study. CT scan report explained to patient She has appointment coming up with labor relations specialist as well Mammogram is due order placed Colonoscopy will be at 860 as per patient She has OBGYN at [facility] she will call in book the appointment Tobacco abuse: She is smoking 6 cigarettes daily, patient says that she is ready to quit She is interested in Nicoderm patch, I have sent 14 mg patch for the patient she may continue that for couple of months We talked about smoking habit that needs to be addressed during these 2 months. 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 Mother No problems noted. Brother No problems noted. Brother No problems noted. Sister No problems noted. Daughter No problems noted. Daughter No problems noted. Daughter No problems noted. Other Mental health disorder Social History Housing: Apartment Patient Tobacco Use Status: Former Tobacco user Tobacco use type: Cigarette Cigarettes Per Day: 3 Years Smoked: current smoker - onset 15, 1/2ppd x 42yrs, 21pyh e-Cigarette/Vaping Use: Never Used service: No Current occupational status: disabled Cognitive needs: No Hearing needs: No Vision needs: No Questionnaire PHQ-9 Over the last 2 weeks, how often have you been bothered by any of the following problems? 1. Little interest or pleasure in doing things: not at all 2. Feeling down, depressed, or hopeless: not at all 3. Trouble falling or staying asleep, or sleeping too much: not at all 4. Feeling tired or having little energy: not at all 5. Poor appetite or overeating: not at all 6. Feeling bad about yourself - or that you are a failure or have let yourself or your family down: not at all 7. Trouble concentrating on things, such as reading the newspaper or watching television: not at all 8. Moving or speaking so slowly that other people could have noticed. Or the opposite - being so fidgety or restless that you have been moving around a lot more than usual: not at all 9. Thoughts that you would be better off or of hurting yourself in some way: not at all Total score: 0 Depression Screening Interpretation: Negative Depression Screening Done: Yes 40821 - PHQ-9 Billing: Yes Source: Developed by Drs. Rusty Munoz, Yolanda Jacobson, Sabino Loomis and colleagues, with an educational kim from [employer]. Thrive Questionnaire Date Thrive assessed: 06/02/24 I am a: Patient What is your living situation today?: I have a steady place to live Within the past 12 months, did the food you bought not last and you didn't have the money to get more?: I choose not to answer this question Within the past 12 months, did you worry whether your food would run out before you got money to buy more?: Never true Do you have trouble paying for medicines?: No Do you have trouble getting transportation to medical appointments?: No Do you have trouble paying your heating and electricity bill?: No Do you have trouble taking care of your child, family member or friend?: No Do you have trouble with day-to-day activities such as bathing, preparing meals, shopping, managing finances, etc.?: No Are you currently unemployed and looking for a job?: No Are you interested in more education?: No Please select the resources that you would like help with: None Currently or been in a relationship where the following occur: No concerns reported THRIVE Score: 0 AUDIT C Alcohol Use Questionnaire (AUDIT-C) 1. How often do you have a drink containing alcohol?: Never 3. How often do you have six or more drinks on one occasion?: Never Total Score: 0 Score Reviewed/Action Taken: Yes TAI-7 AMB Questionnaire TAI-7 Date TAI - 7 assessed: 06/02/24 Feeling nervous, anxious, or on edge: 0 = Not at all Not being able to stop or control worryin = Not at all Worrying too much about different things: 0 = Not at all Trouble relaxin = Not at all Being so restless that it is hard to sit still: 0 = Not at all Becoming easily annoyed or irritable: 0 = Not at all Feeling afraid as if something awful might happen: 0 = Not at all Total TAI-7 score (0-4 normal; 5-9 mild; 10-14 moderate; 15-21 severe): 0 Source: Developed by Drs. Rusty Munoz, Yolanda Jacobson, Sabino Loomis and colleagues, with an educational kim from [employer]. TAI-7 Assessment Billing TAI-7 Assessment Tool: TAI-7 Assessment 21444 Review of Systems Const Denies chills, Denies fever(s) and Denies headache(s) Eyes Denies blurry vision ENT Denies headache(s), Denies nasal discharge, Denies nasal obstruction, Denies odynophagia and Denies sinus pain Card Denies chest pain at rest and Denies chest pain with activity Resp Denies cough and Denies hemoptysis GI Denies diarrhea, Denies odynophagia, Denies vomiting and Denies hematemesis Reports as per HPI Skin/Breast Reports as per HPI Neuro Denies Neuro-related abnormal movements, Denies Abnormal speech present and D enies headache(s) Psych Denies mood swings and Denies paranoia Endo Reports as per HPI Lio/Lymph Reports as per HPI Aller/Immun Reports as per HPI Physical exam (Primary Care) Vital Signs: Last Vital Signs Pulse 59 06/02/24 11:38 BP 124/74 06/02/24 11:38 Pulse Ox 98 06/02/24 11:38 Oxygen Delivery Method Room Air 06/02/24 11:38 BMI result Body Mass Index 34.4 Tobacco/Smoking Status: Tobacco use Status Tobacco use date assessed 06/02/24 06/02/24 11:44 Patient Tobacco Use Status Former Tobacco user 06/02/24 11:39 Tobacco use type Cigarette 06/02/24 11:39 e-Cigarette/Vaping Use Never Used 06/02/24 11:39 PHQ-9: PHQ-9 Score PHQ-9: Total score 0 06/02/24 11:44 Depression Screening Interpretation: Negative Thrive Assessment: Date of Thrive Assessment Date Thrive assessed 06/02/24 06/02/24 11:44 Currently or been in a relationship where the following occur: No concerns reported Const General: cooperative, comfortable and no acute distress Orientation/consciousness: patient oriented x3 HENMT Head: Yes normocephalic and Yes atraumatic Eyes General: appearance normal, both eyes and all related structures Pupils: Equal, round and reactive pupils present EOM: EOMs intact bilaterally Neck Neck: Yes supple and No lymphadenopathy Thyroid: Thyroid normal Lymphatic: no lymphadenopathy noted Chest Breast/axilla palpation: normal palpation of the breasts Resp Effort & Inspection: normal respiratory effort and able to speak in complete sentences Auscultation: clear to auscultation bilaterally Cardio Heart sounds: S1 normal heart sound present and S2 normal heart sound present GI Palpation (GI): Soft to palpation and nontender Auscultation: normal bowel sounds General: Yes no CVA tenderness Back/Spine/Pelvis Back: no CVA tenderness Skin General skin exam: elasticity normal and turgor normal Neuro General: patient oriented x3 and gait normal Cranial nerves: Yes Equal, round and reactive pupils present Speech: No Abnormal speech present Coordination: Romberg test negative Extrem General: Yes normal exam except as noted and No edema Assessment and Plan Assessment & Plan (1) Encounter for general adult medical examination with abnormal findings: Code(s): Z00.01 - Encounter for general adult medical examination with abnormal findings (2) Tobacco abuse counseling: Code(s): Z71.6 - Tobacco abuse counseling (3) Dilatation of thoracic aorta: Comment: (ascending thoracic aorta measures 4.1 x 4.1 cm - noted on 04/04/23 LDCT) Code(s): I77.810 - Thoracic aortic ectasia (4) Gait instability: Code(s): R26.81 - Unsteadiness on feet (5) Asthma-COPD overlap syndrome: Code(s): J44.9 - Chronic obstructive pulmonary disease, unspecified (6) Hypertension, essential: Code(s): I10 - Essential (primary) hypertension (7) Obesity due to excess calories: Code(s): E66.09 - Other obesity due to excess calories Qualifiers: Obesity classification: adult class 1 (BMI 30 - 34.9) Serious obesity comorbidity presence: with serious comorbidity Body mass index: BMI 33.0-33.9 Qualified Code(s): E66.09 - Other obesity due to excess calories; Z68.33 - Body mass index [BMI] 33.0-33.9, adult (8) Depression, major, severe recurrence: Code(s): F33.2 - Major depressive disorder, recurrent severe without psychotic features Qualifiers: Psychotic features: without psychotic features Qualified Code(s): F33.2 - Major depressive disorder, recurrent severe without psychotic features (9) Chronic GERD: Code(s): K21.9 - Gastro-esophageal reflux disease without esophagitis (10) Spinal stenosis, lumbar: Code(s): M48.061 - Spinal stenosis, lumbar region without neurogenic claudication Qualifiers: Neurogenic claudication status: without neurogenic claudication Qualified Code(s): M48.061 - Spinal stenosis, lumbar region without neurogenic claudication Plan Patient is a 59-year-old female with a history of COPD, depression, obesity, stable 1 lung nodule Seeing Nephrology, receiving specialist, Head screening CT scan done recently which showed 1. Stable examination with stable left upper lobe 4 mm nodule. No new or enlarging nodules. 2. Mild centrilobular emphysema without evidence for active lung disease. 3. Stable mild aneurysmal dilatation of the ascending aorta measuring 4.3 cm on this non-gated study. CT scan report explained to patient She has appointment coming up with labor relations specialist as well Mammogram is due order placed Colonoscopy will be at 860 as per patient She has OBGYN at [facility] she will call in book the appointment Tobacco abuse: She is smoking 6 cigarettes daily, patient says that she is ready to quit She is interested in Nicoderm patch, I have sent 14 mg patch for the patient she may continue that for couple of months We talked about smoking habit that needs to be addressed during these 2 months. We will book a follow-up appointment in 2 months to follow-up on that Medication list reviewed Last set of labs done in March She is doing well since she has started taking care of 2 boys as a foster care She was not able to perform tandem walk today Orders: Orders MM tomosynthesis screening BI Today Z12.31 - Encounter for screening mammogram for malignant neoplasm of breast Medications: New nicotine (Nicoderm CQ) 1 patch transdermal DAILY 28 ea 1RF Coding Level of Care Code Est Pt Level 3 (63611) Est Pt Prev Care 40-64y(86881) Diagnoses Encounter for general adult medical examination with abnormal findings Z00.01 Tobacco abuse counseling Z71.6 Dilatation of thoracic aorta I77.810 Gait instability R26.81 Asthma-COPD overlap syndrome J44.9 Hypertension, essential I10 Class 1 obesity due to excess calories with serious comorbidity and body mass index (BMI) of 33.0 to 33.9 in adult E66.09; Z68.33 Obesity classification: adult class 1 (BMI 30 - 34.9) Serious obesity comorbidity presence: with serious comorbidity Body mass index: BMI 33.0-33.9 Severe episode of recurrent major depressive disorder, without psychotic features F33.2 Psychotic features: without psychotic features Chronic GERD K21.9 Spinal stenosis of lumbar region without neurogenic claudication M48.061 Neurogenic claudication status: without neurogenic claudication Additional Codes TAI-7 Assessment Billing - TAI-7 Assessment Tool: TAI-7 Assessment 78514 ([id number])
== END 2024-06-02 12:16 | disposition home or self-care (01) ==
PROVIDERS: PCP Internal Medicine; Visit Provider Internal Medicine
DX: Z00.00 Encounter for general adult medical examination without abnormal findings (principal); Z71.6 Tobacco abuse counseling; I77.810 Thoracic aortic ectasia; J44.9 Chronic obstructive pulmonary disease, unspecified; F33.2 Major depressive disorder, recurrent severe without psychotic features; R26.81 Unsteadiness on feet; I10 Essential (primary) hypertension; E66.09 Other obesity due to excess calories; Z68.33 Body mass index [BMI] 33.0-33.9, adult; K21.9 Gastro-esophageal reflux disease without esophagitis; M48.061 Spinal stenosis, lumbar region without neurogenic claudication
CPT/HCPCS: 99213; 99396

== ENCOUNTER 2024-06-04 11:11 | Outpatient (AMB) | payer OTHER, SELFPAY ==
--- NOTE | 2024-06-04 11:14 | MHC.OFFVIS ---
Vital Signs 06/04/24 11:24 Height 5 ft 6 in Weight 213 lb BMI 34.4 BP 129/73 Blood Pressure Location Lt brachial Position Sitting Pulse 55 Pulse Source Pulse Oximeter Pulse Oximetry (%) 99 Oxygen Delivery Method Room Air Intake Visit Reasons: PILL COUNT Intake Note: Parveen comes in today for a film count to belbuca, patient should have 52 films and presents with 55 films which she last took today 06/03/24 at 8am. 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 Patient is supposed to have #52 films and presents with #55 films. This demonstrates a responsible attitude towards her regimen. Patient reports current opioid medication allows her to be less symptomatic and more functional. She denies any side effects on current regime except occasional constipation for which she takes Senexon-S, dietary fiber and increases fluid intake. Denies any fever, chills, chest pain, dizziness, shortness of breaths, nausea, sedation, dizziness, or urinary retention. Patient has upcoming follow up with Cardiology on 06/14/24, has pending EKG. [facility] Medical History Nicotine dependence, cigarettes, uncomplicated Gait instability History of COVID-19 (~09/2021) Lipid disorder Asthma-COPD overlap syndrome Vitamin B deficiency Vitamin D deficiency Chronic GERD Depression, major, severe recurrence Back pain, chronic Asthma Hypertension, essential Surgical History History of lumbar fusion History of colonoscopy History of cervical spinal surgery (~2015) History of cholecystectomy (~2008) History of tubal ligation Family History Father No problems noted. Mother No problems noted. Brother No problems noted. Brother No problems noted. Sister No problems noted. Daughter No problems noted. Daughter No problems noted. Daughter No problems noted. Other Mental health disorder Social History Housing: Apartment Patient Tobacco Use Status: Former Tobacco user Tobacco use type: Cigarette Cigarettes Per Day: 3 Years Smoked: current smoker - onset 15, 1/2ppd x 42yrs, 21pyh e-Cigarette/Vaping Use: Never Used service: No Current occupational status: disabled Cognitive needs: No Hearing needs: No Vision needs: No Review of Systems Const All systems reviewed & are unremarkable except as noted in HPI and below Physical Exam General: Appears afebrile. Alert and oriented. Mood and affect appropriate. Very pleasant. Follows and participates in conversation appropriately. Respiratory effort is unlabored. No cough. Able to transition from sit to stand unassisted. Mildly antalgic gait, no limping. Resp Effort & Inspection: normal respiratory effort, able to speak in complete sentences, no cough, no respiratory distress and symmetric chest movement Back/Spine/Pelvis Cervical Spine: cervical ROM normal, cervical muscular tenderness, pain with cervical ROM and No Cervical spine tenderness Thoracic/Lumbar Spine: thoracic and lumbar spine normal to inspection, Lasegue's sign negative, straight leg raise negative bilaterally, pain with thoraco-lumbar ROM, paraspinal muscle tenderness, thoraco-lumbar ROM limited, No thoracic spinal tenderness and lumbar spinal tenderness at L4 and at L5 Sacroiliac joints: bilaterally tender to palpation Extrem General: Yes capillary refill normal, Yes no clubbing, cyanosis or edema and Yes no calf tenderness Psych Appearance: grossly normal and well kempt Mental Status: mental status grossly normal Speech and movement: Normal speech and movement present and Clear speech present Affect: normal affect Attitude: cooperative Thought process: Normal thought process present Thought content: Normal thought content present, suicidality (none), no hallucinations and No Depressive thoughts present Insight: Good insight present (Psych) Judgement: Good judgement present (Psych) Quality Reporting (2019) Adult ([facility] ) Smoking risk assessment performed?: Yes Patient Tobacco Use Status: Former Tobacco user Results Reviewed Results Reviewed: LUMBAR SPINE MRI: The disc is of normal height and signal intensity without significant disc bulge or herniation. L2-3: The disc is of normal height and signal intensity without significant disc bulge or herniation. There is moderate degenerative facet arthropathy. L3-4: The disc is of normal height and signal intensity without significant disc bulge or herniation. There is moderate degenerative facet arthropathy. L4-5: The disc is of normal height and signal intensity without significant disc bulge or herniation. There is marked degenerative facet arthropathy with ligamentous hypertrophy causing mild central canal stenosis. L5-S1: There is complete fusion of the disc space although the patient does not report any history of prior surgery. There is marked degenerative facet arthropathy without significant foraminal stenosis. Vertebral alignment is normal. There is fusion of the L5-S1 disc space. Marrow signal intensity is normal. The conus terminates at T12-L1 and appears normal. There is no paraspinous mass. IMPRESSION: 1. Marked degenerative facet arthropathy at L4-5 causing mild central canal stenosis. 2. Complete fusion of the L5-S1 disc: No prior surgery is reported. Marked degenerative facet arthropathy. 3. Moderate degenerative facet arthropathy L2-3 and L3-4. ECG 12 lead EKG 11/22/22 Blood Pressure : / mmHG Vent. Rate : 054 BPM Atrial Rate : 054 BPM P-R Int : 148 ms QRS Dur : 078 ms QT Int : 398 ms P-R-T Axes : 077 064 052 degrees QTc Int : 377 ms Sinus bradycardia with Premature atrial complexes Otherwise normal ECG No significant changes when compared with the previous EKG of 21 jun 2003 Assessment & Plan Assessment & Plan (1) Chronic, continuous use of opioids: Code(s): F11.90 - Opioid use, unspecified, uncomplicated Category: Medical (2) Sacroiliac joint pain: Code(s): M53.3 - Sacrococcygeal disorders, not elsewhere classified Category: Medical (3) Spondylosis of lumbar spine: Code(s): M47.816 - Spondylosis without myelopathy or radiculopathy, lumbar region Category: Medical (4) Back pain, chronic: Code(s): M54.9 - Dorsalgia, unspecified; G89.29 - Other chronic pain Category: Medical Plan Patient presents today for a film count. She has shown accountability for her medication regimen and the count was accurate. There is no evidence of misuse, abuse or diversion at this time. [employer] reviewed. Script for Belbuca 300 mcg BID sent with an advanced date of 06/29/24 with one refill. Continue gabapentin. Pending 12-lead EKG study to assess risk for QT prolongation. Rhonda has Cardiology follow up on 06/14/24. Continue daily physical activity as tolerated, weight loss, adequate hydration, well-balanced diet, daily fiber intake and good posture. All questions were answered and this patient is agreeable to the plan.?Patient will follow-up in 8 weeks for a film count. Medications: Refilled buprenorphine HCl Partial Fill upon patient request. 300 mcg buccal Q12H 30 days 60 ea 1RF pain F11.90 - Opioid use, unspecified, uncomplicated, M47.816 - Spondylosis without myelopathy or radiculopathy, lumbar region, M48.061 - Spinal stenosis, lumbar region without neurogenic claudication Coding Level of Care Code Est Pt Level 4 (62337) Complex EM visit Add On G2211 Diagnoses Chronic, continuous use of opioids F11.90 Sacroiliac joint pain M53.3 Spondylosis of lumbar spine M47.816 Back pain, chronic M54.9; G89.29
[2024-06-04 11:24] VITALS: BP 129/73; PULSE 55; O2SAT 99; BMI 34.4
== END 2024-06-04 11:33 | disposition home or self-care (01) ==
PROVIDERS: PCP Internal Medicine; Visit Provider Nurse Practitioner Family
DX: M53.3 Sacrococcygeal disorders, not elsewhere classified (principal); M47.816 Spondylosis without myelopathy or radiculopathy, lumbar region; M54.9 Dorsalgia, unspecified; Z79.891 Long term (current) use of opiate analgesic; G89.29 Other chronic pain
CPT/HCPCS: 99214; G2211

== ENCOUNTER → 2024-06-04 11:11 | Outpatient (BNVA) | payer OTHER, SELFPAY | PROVIDERS: PCP Internal Medicine; Visit Provider Nurse Practitioner Family | DX: M54.9 Dorsalgia, unspecified (principal); G89.29 Other chronic pain; M47.816 Spondylosis without myelopathy or radiculopathy, lumbar region; M53.3 Sacrococcygeal disorders, not elsewhere classified; Z79.891 Long term (current) use of opiate analgesic | CPT/HCPCS: 99212 ==

== ENCOUNTER 2024-06-10 09:50 | Outpatient (AMB) | payer OTHER, SELFPAY ==
--- NOTE | 2024-06-10 10:07 | HO.NEPHOV_ITS ---
Vital Signs 06/10/24 10:08 Height 5 ft 6 in Weight 211 lb 4 oz BMI 34.1 BP 110/70 Blood Pressure Location Lt brachial Position Sitting Pulse 51 Pulse Source Pulse Oximeter Pulse Oximetry (%) 96 Oxygen Delivery Method Room Air Intake Visit Reasons: 4 mon follow up- [facility] Communications Instructor Required: No Accompanied by: Self / Same As Patient Allergies egg Allergy (Unknown, Verified 06/10/24 10:09) belly pain Penicillins [PENICILLINS] Allergy (Unknown, Verified 06/10/24 10:09) UNKNOWN, WAS A CHILD lobster Adverse Reaction (Mild, Uncoded 05/04/24 11:37) Constipation HPI Comments Details: Parveen was seen in the office in follow-up of her hypertension and history of proteinuria. She had headaches which are gone. Her BP is at goal at home. She has no urinary symptoms. She denies chest pain, shortness of breath, proximal nocturnal dyspnea, orthopnea or orthostatic symptoms. She does not take any nonsteroidal anti-inflammatories. She has ascending thoracic aorta measures 4.1 x 4.1 cm in transverse dimension at the level of the pulmonary trunk. She has no other specific complaints at the time of this office visit. She had issues with Chlorthalidone and it was discontinued by her in the past. Her BP is at goal. She feels well. [facility] Medical History Nicotine dependence, cigarettes, uncomplicated Gait instability History of COVID-19 (~09/2021) Lipid disorder Asthma-COPD overlap syndrome Vitamin B deficiency Vitamin D deficiency Chronic GERD Depression, major, severe recurrence Back pain, chronic Asthma Hypertension, essential Surgical History History of lumbar fusion History of colonoscopy History of cervical spinal surgery (~2015) History of cholecystectomy (~2008) History of tubal ligation Family History Father No problems noted. Mother No problems noted. Brother No problems noted. Brother No problems noted. Sister No problems noted. Daughter No problems noted. Daughter No problems noted. Daughter No problems noted. Other Mental health disorder Social History Housing: Apartment Patient Tobacco Use Status: Former Tobacco user Tobacco use type: Cigarette Cigarettes Per Day: 3 Years Smoked: current smoker - onset 15, 1/2ppd x 42yrs, 21pyh e-Cigarette/Vaping Use: Never Used service: No Current occupational status: disabled Cognitive needs: No Hearing needs: No Vision needs: No Review of Systems Const All systems reviewed & are unremarkable except as noted in HPI and below Physical Exam Vital Signs: Last Vital Signs Pulse 51 06/10/24 10:08 BP 110/70 06/10/24 10:08 Pulse Ox 96 06/10/24 10:08 Oxygen Delivery Method Room Air 06/10/24 10:08 BMI result Body Mass Index 34.1 Const General: comfortable and no acute distress Orientation/consciousness: patient oriented x3 HEENT Head: Yes normocephalic Mouth: Normal oral and palatal mucosa present Eyes EOM: EOMs intact bilaterally Neck Neck: Yes supple Resp Auscultation: clear to auscultation bilaterally Cardio Jugular venous distension: no JVD Rate: regular rate GI Palpation (GI): Soft to palpation Auscultation: normal bowel sounds General: Yes no CVA tenderness Back/Spine/Pelvis Back: no CVA tenderness Skin General skin exam: no rashes or lesions noted Neuro General: patient oriented x3 and moves all extremities Extrem General: Yes no pedal edema Results Reviewed Nephrology Results: Sodium 141 mmol/L (135-145) 04/09/24 Potassium 4.0 mmol/L (3.3-5.1) 04/09/24 Chloride 107 mmol/L (96-108) 04/09/24 Carbon Dioxide 26 mmol/L (22-29) 04/09/24 BUN 15 mg/dL (9-16) 04/09/24 Creatinine 0.80 mg/dL (0.5-1.4) 04/09/24 Assessment & Plan Assessment & Plan (1) Hypertension: Code(s): I10 - Essential (primary) hypertension Category: Medical Qualifiers: Hypertension type: primary hypertension Qualified Code(s): I10 - Essential (primary) hypertension (2) Proteinuria: Code(s): R80.9 - Proteinuria, unspecified Category: Medical Qualifiers: Proteinuria type: other Qualified Code(s): R80.8 - Other proteinuria Plan Parveen has 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 Her last urine did not show any significant proteinuria. She had obesity which was putting her at risk for secondary FSGS. Her blood pressure is at goal. She is on angiotensin receptor arcelia. She is on losartan 50 mg bid. She needs to lose weight. All questions answered. Follow-up given (She has ascending thoracic aorta measures 4.1 x 4.1 cm in transverse dimension at the level of the pulmonary trunk.from a CT scan in [facility] last year- needs F/U in 6 months) Orders: Orders Blood Urea Nitrogen Today I10 - Essential (primary) hypertension, R80.8 - Other proteinuria Electrolytes Today I10 - Essential (primary) hypertension, R80.8 - Other proteinuria Protein Creatinine Ratio, Ur Today I10 - Essential (primary) hypertension, R80.8 - Other proteinuria Creatinine Today I10 - Essential (primary) hypertension, R80.8 - Other proteinuria Coding Level of Care Code Est Pt Level 4 (90223) Diagnoses Primary hypertension I10 Hypertension type: primary hypertension Other proteinuria R80.8 Proteinuria type: other
[2024-06-10 10:08] VITALS: BP 110/70; PULSE 51; O2SAT 96; BMI 34.1
== END 2024-06-10 10:20 | disposition home or self-care (01) ==
PROVIDERS: PCP Internal Medicine; Visit Provider Internal Medicine Nephrology
DX: I10 Essential (primary) hypertension (principal); R80.8 Other proteinuria
CPT/HCPCS: 99214

== ENCOUNTER → 2024-06-10 09:50 | Outpatient (BNVA) | payer OTHER, SELFPAY | PROVIDERS: PCP Internal Medicine; Visit Provider Internal Medicine Nephrology | DX: R80.8 Other proteinuria (principal); I10 Essential (primary) hypertension | CPT/HCPCS: 99212 ==

== ENCOUNTER 2024-06-11 08:54 | Outpatient (AMB) | payer OTHER, SELFPAY ==
[2024-06-11 08:57] VITALS: BP 122/60; PULSE 60; O2SAT 98; BMI 32.1
--- NOTE | 2024-06-11 08:57 | A.OFFVIS_ITS ---
Vital Signs 06/11/24 08:57 Height 5 ft 8 in Weight 211 lb BMI 32.1 BP 122/60 Blood Pressure Location Lt brachial Position Sitting Pulse 60 Pulse Source Pulse Oximeter Pulse Oximetry (%) 98 Oxygen Delivery Method Room Air Intake Visit Reasons: Asthma Assignment Editor Required: No Allergies egg Allergy (Unknown, Verified 06/11/24 08:59) belly pain Penicillins [PENICILLINS] Allergy (Unknown, Verified 06/11/24 08:59) UNKNOWN, WAS A CHILD lobster Adverse Reaction (Mild, Uncoded 06/11/24 08:59) Constipation HPI Comments Details: The patient is a 59-year-old woman known COPD and tobacco dependency. She also has significant back pain limiting her activity. She continues to use her respiratory therapy with good effect. Continues to have dyspnea on exertion moderate severity. Has been complaining of episodes of chest discomfort specially when having increased wheezing. At this point is better. Unfortunately she continues to smoke. We talked about ways smoking cessation. The patient be a great candidate for the lung cancer screening program. However, she is not old enough yet. 11/06/2021 the patient is here for a pulmonary follow-up visit. The patient has been doing very well. She has been motivated in having some lifestyle changes. The patient has been losing weight and her breathing has improved. She is also working with pain management regarding her significant back pain and has been able to cut down on some medicine. She continues with respiratory medications. Overall she is responding well to therapy. She continues to smoke. We talked about different alternatives to smoking cessation. The patient is interested in the Nicotrol inhaler. That which she can start decreasing the amount she smokes. I do believe he is going to help her quit completely. She is motivated at this time. In the meantime because her smoking habits she is a candidate for the lung cancer screening program. Will refer her at this time in order to further address lung cancer issues. 02/07/2023 the patient is here for a pulmonary follow-up visit. The patient overall is doing very well. She is responding well to her respiratory therapy. She is about to run out and she needs medications to the pharmacy. In the meantime she still struggling with smoking. Smoking between 7-10 cigarettes a day. She knows she has to quit smoking. We have referred to the lung cancer screening program during the last time but she was concerned about the possibility of having an MRI. I explained to her that a CT scan would be a lot easier to tolerate and she is waiting to go with a this time. I will be submit a request for the lung cancer screening program. The patient has responded well to the respiratory therapy. She is having increased allergy symptoms. Otherwise she is without any other complaints. 06/11/2024 the patient is here for pulmonary follow-up visit. Overall she is doing okay. She continues to take her respiratory medications as prescribed. The patient has been having daytime drowsiness. Also issues with high blood pressure. Her [place] score is elevated 08/22. The patient should have a sleep study at this time. Will go ahead and request a home sleep study. The patient also smoking. She needs to quit altogether. She had been participating in the lung cancer screening program. She should continue to follow through. She continues to have dyspnea on exertion. Mild in severity. The patient however has been stable on her Trelegy inhaler. She has been getting some palpitations and tremulousness with the albuterol. Therefore I will send her Xopenex in stead. The patient follow-up after her sleep study. [facility] Medical History Nicotine dependence, cigarettes, uncomplicated Gait instability History of COVID-19 (~09/2021) Lipid disorder Asthma-COPD overlap syndrome Vitamin B deficiency Vitamin D deficiency Chronic GERD Depression, major, severe recurrence Back pain, chronic Asthma Hypertension, essential Surgical History History of lumbar fusion History of colonoscopy History of cervical spinal surgery (~2015) History of cholecystectomy (~2008) History of tubal ligation Family History Father No problems noted. Mother No problems noted. Brother No problems noted. Brother No problems noted. Sister No problems noted. Daughter No problems noted. Daughter No problems noted. Daughter No problems noted. Other Mental health disorder Social History Housing: Apartment Patient Tobacco Use Status: Former Tobacco user Tobacco use type: Cigarette Cigarettes Per Day: 3 Years Smoked: current smoker - onset 15, 1/2ppd x 42yrs, 21pyh e-Cigarette/Vaping Use: Never Used service: No Current occupational status: disabled Cognitive needs: No Hearing needs: No Vision needs: No Review of Systems Const Denies chills, Reports daytime sleepiness, Reports difficulty sleeping, Denies fever(s), Reports headache(s) and Reports snoring Eyes Denies blurry vision ENT Reports headache(s), Denies nasal discharge, Denies nasal obstruction, Denies odynophagia and Denies sinus pain Card Denies chest pain at rest, Denies chest pain with activity and Reports dyspnea on exertion Resp Reports cough, Denies hemoptysis, Reports dyspnea on exertion and Reports snoring GI Denies diarrhea, Denies odynophagia, Denies vomiting and Denies hematemesis Skin/Breast Reports as per HPI Neuro Denies Neuro-related abnormal movements, Denies Abnormal speech present and Reports headache(s) Psych Denies mood swings and Denies paranoia Endo Reports as per HPI Lio/Lymph Reports as per HPI Aller/Immun Reports as per HPI Physical Exam Vital Signs: Last Vital Signs Pulse 60 06/11/24 08:57 BP 122/60 06/11/24 08:57 Pulse Ox 98 06/11/24 08:57 Oxygen Delivery Method Room Air 06/11/24 08:57 BMI result Body Mass Index 32.1 Const General: alert Neck Neck: Yes normal visual inspection, Yes full ROM and Yes no lymphadenopathy Chest Chest palpation & inspection: normal inspection of the chest Resp Auscultation: diminished lung sounds Cardio Rate: regular rate Rhythm: regular rhythm Heart sounds: S1 normal heart sound present and S2 normal heart sound present GI Palpation (GI): Soft to palpation and nontender Auscultation: normal bowel sounds Skin General skin exam: rashes and/or lesions noted Neuro Speech: No Abnormal speech present Quality Reporting (2019) Adult ([facility] 138/11/20/68) Smoking risk assessment performed?: Yes Patient Tobacco Use Status: Former Tobacco user Assessment & Plan Assessment & Plan (1) Asthma: Code(s): J45.909 - Unspecified asthma, uncomplicated Category: Medical Qualifiers: Asthma severity: moderate Asthma persistence: persistent Asthma complication type: uncomplicated Qualified Code(s): J45.40 - Moderate persistent asthma, uncomplicated (2) Tobacco abuse: Code(s): Z72.0 - Tobacco use Category: Medical (3) KELLY (obstructive sleep apnea): Code(s): G47.33 - Obstructive sleep apnea (adult) (pediatric) Category: Medical Plan stop symbicort and albuterol due to palpitattions start Trelegy saranya;y xopenex as needed nicorette gum home PSG f/u 3 months Orders: Orders RT home sleep study 06/11/24 G47.33 - Obstructive sleep apnea (adult) (pediatric) Medications: New nicotine (polacrilex) (Nicorette) 2 mg buccal Q2H 100 ea 0RF 30 days omgxpahkdlu-xmsgkalht-rgfbrlgw 200-62.5-25 mcg (Trelegy Ellipta) 1 inh inhalation DAILY 60 ea 12RF 30 days levalbuterol tartrate 45 mcg/actuation (Xopenex HFA) 2 puffs inhalation Q6H PRN 15 grams 11RF shortness of breath or wheezing 30 days J45.909 - Unspecified asthma, uncomplicated nicotine (Nicoderm CQ) 1 patch transdermal DAILY 28 ea 6RF 28 days Discontinued Symbicort 160-4.5 mcg/actuation (budesonide-formoterol) Discontinued Reason: Doctor's Order 2 puffs PO BID 10.2 grams 11RF NS Coding Level of Care Code Est Pt Level 4 (45065) Diagnoses Moderate persistent asthma without complication J45.40 Asthma severity: moderate Asthma persistence: persistent Asthma complication type: uncomplicated Tobacco abuse Z72.0 KELLY (obstructive sleep apnea) G47.33 Time Spent (min) 16
== END 2024-06-11 09:20 | disposition home or self-care (01) ==
PROVIDERS: PCP Internal Medicine; Visit Provider Hospitalist
DX: J45.40 Moderate persistent asthma, uncomplicated (principal); Z72.0 Tobacco use; G47.33 Obstructive sleep apnea (adult) (pediatric)
CPT/HCPCS: 99214

== ENCOUNTER → 2024-06-11 08:54 | Outpatient (BNVA) | payer OTHER, SELFPAY | PROVIDERS: PCP Internal Medicine; Visit Provider Hospitalist | DX: J44.9 Chronic obstructive pulmonary disease, unspecified (principal); J45.40 Moderate persistent asthma, uncomplicated; G47.33 Obstructive sleep apnea (adult) (pediatric); F17.210 Nicotine dependence, cigarettes, uncomplicated; Z71.6 Tobacco abuse counseling | CPT/HCPCS: 99212 ==

== ENCOUNTER 2024-08-05 08:44 | Outpatient (AMB) | payer OTHER, SELFPAY ==
--- NOTE | 2024-08-05 09:46 | A.OFFPC_ITS ---
Intake Visit Reasons: 2 month follow up Allergies egg Allergy (Unknown, Verified 08/05/24 09:46) belly pain Penicillins [PENICILLINS] Allergy (Unknown, Verified 08/05/24 09:46) UNKNOWN, WAS A CHILD lobster Adverse Reaction (Mild, Uncoded 06/11/24 08:59) Constipation Medication List - Last Reconciled 08/05/24 by Oral Ocasio MD acetaminophen ER mg PO albuterol sulfate 90 mcg/actuation 2 puffs PO Q6H PRN NS [Blood pressure monitor As directed] blood pressure monitor (Blood Pressure Kit) As directed buprenorphine HCl 300 mcg buccal Q12H 30 days buspirone 30 mg PO BID [Cane As directed] diphenhydramine HCl (Banophen) 25 mg PO PRN famotidine 40 mg PO DAILY 90 days gabapentin 600 mg PO QID 30 days ibuprofen 600 mg PO Q6H PRN levalbuterol tartrate 45 mcg/actuation (Xopenex HFA) 2 puffs inhalation Q6H PRN 30 days loratadine 10 mg PO DAILY 90 days losartan 50 mg PO BID 90 days mirabegron ER (Myrbetriq) 50 mg PO DAILY mirtazapine 45 mg PO BEDTIME montelukast 10 mg PO DAILY 90 days mupirocin 2% 1 appl topical BID nicotine (Nicoderm CQ) 1 patch transdermal DAILY nicotine (Nicoderm CQ) 1 patch transdermal DAILY 28 days nicotine (polacrilex) 2 mg PO Q2H sennosides-docusate sodium 8.6-50 mg (Senexon-S) 1 tab PO BEDTIME [shower chair with handles As directed] umeclidinium-vilanterol 62.5-25 mcg/actuation (Anoro Ellipta) 1 inh inhalation DAILY Tobacco use date assessed: 06/02/24 Dental Screening Dental Screen Date: 06/02/24 HPI 2 month follow up HPI Details Telemedicine visit to follow-up on smoking habit She was started on Nicoderm 14 mg patch 3 weeks ago Patient says that she has cut down on smoking but she is still smoking She would like to continue the patch for another 2 months [facility] Medical History Nicotine dependence, cigarettes, uncomplicated Gait instability History of COVID-19 (~09/2021) Lipid disorder Asthma-COPD overlap syndrome Vitamin B deficiency Vitamin D deficiency Chronic GERD Depression, major, severe recurrence Back pain, chronic Asthma Hypertension, essential Surgical History History of lumbar fusion History of colonoscopy History of cervical spinal surgery (~2015) History of cholecystectomy (~2008) History of tubal ligation Family History Father No problems noted. Mother No problems noted. Brother No problems noted. Brother No problems noted. Sister No problems noted. Daughter No problems noted. Daughter No problems noted. Daughter No problems noted. Other Mental health disorder Social History Housing: Apartment Patient Tobacco Use Status: Former Tobacco user Tobacco use type: Cigarette Cigarettes Per Day: 3 Years Smoked: current smoker - onset 15, 1/2ppd x 43yrs, 21pyh Packs per year/per ci.00 e-Cigarette/Vaping Use: Never Used service: No Current occupational status: disabled Cognitive needs: No Hearing needs: No Vision needs: No Questionnaire Thrive Questionnaire Date Thrive assessed: 06/02/24 I am a: Patient What is your living situation today?: I have a steady place to live Within the past 12 months, did the food you bought not last and you didn't have the money to get more?: I choose not to answer this question Within the past 12 months, did you worry whether your food would run out before you got money to buy more?: Never true Do you have trouble paying for medicines?: No Do you have trouble getting transportation to medical appointments?: No Do you have trouble paying your heating and electricity bill?: No Do you have trouble taking care of your child, family member or friend?: No Do you have trouble with day-to-day activities such as bathing, preparing meals, shopping, managing finances, etc.?: No Are you currently unemployed and looking for a job?: No Are you interested in more education?: No Please select the resources that you would like help with: None Currently or been in a relationship where the following occur: No concerns reported THRIVE Score: 0 TAI-7 AMB Questionnaire TAI-7 Date TAI - 7 assessed: 06/02/24 Source: Developed by Drs. Rusty Munoz, Yolanda Jacobson, Sabino Loomis and colleagues, with an educational kim from [employer]. Review of Systems Const All systems reviewed & are unremarkable except as noted in HPI and below Physical exam (Primary Care) Tobacco/Smoking Status: Tobacco use Status Tobacco use date assessed 06/02/24 08/05/24 09:46 Patient Tobacco Use Status Former Tobacco user 08/05/24 09:46 Tobacco use type Cigarette 08/05/24 09:46 e-Cigarette/Vaping Use Never Used 08/05/24 09:46 Thrive Assessment: Date of Thrive Assessment Date Thrive assessed 06/02/24 08/05/24 09:46 Currently or been in a relationship where the following occur: No concerns reported Telehealth Telehealth Telehealth Platform: [facility] Location of provider rendering services: practice address Location of patient: address on file Patient Identification confirmed using: Name, : Yes Telehealth method: voice only Patient verbally consented to treatment: Yes Patient verbally consented to billing insurance company: Yes Patient informed of any privacy concerns related to visit: Yes Minutes spent on Phone/Video with Pt.: 12 Coding Level of Care Code Tele Est Pt Level 3 (12123) Diagnoses Nicotine dependence, cigarettes, uncomplicated F17.210 Assessment & Plan Assessment & Plan (1) Nicotine dependence, cigarettes, uncomplicated: Comment: (current smoker - onset 15, 1/2ppd x 42yrs, 21pyh) Code(s): F17.210 - Nicotine dependence, cigarettes, uncomplicated Category: Medical Plan Telemedicine visit to follow-up on smoking habit She was started on Nicoderm 14 mg patch 3 weeks ago Patient says that she has cut down on smoking but she is still smoking She would like to continue the patch for another 2 months Medications: Refilled nicotine (Nicoderm CQ) 1 patch transdermal DAILY 28 ea 1RF
== END 2024-08-05 12:07 | disposition home or self-care (01) ==
LOC: HO.HMCC 08:44
PROVIDERS: PCP Internal Medicine; Visit Provider Internal Medicine
DX: F17.210 Nicotine dependence, cigarettes, uncomplicated (principal)

== ENCOUNTER 2024-08-06 10:53 | Outpatient (AMB) | payer OTHER, SELFPAY ==
--- NOTE | 2024-08-06 10:56 | A.OFFVIS_ITS ---
Vital Signs 08/06/24 11:04 Height 5 ft 6 in Weight 220 lb BMI 35.5 BP 130/72 Blood Pressure Location Lt brachial Position Sitting Pulse 98 Pulse Source Pulse Oximeter Pulse Oximetry (%) 97 Oxygen Delivery Method Room Air Intake Visit Reasons: PILL COUNT Intake Note: Parveen comes in today for a film count to belbuca, patient should have 56 films and presents with 64 films ( 4 films from previous script)which she last took today 08/06/24 at 8am. Pain today 03/08 Ui Lead Developer Required: No Allergies egg Allergy (Unknown, Verified 08/05/24 09:46) belly pain Penicillins [PENICILLINS] Allergy (Unknown, Verified 08/05/24 09:46) UNKNOWN, WAS A CHILD lobster Adverse Reaction (Mild, Uncoded 06/11/24 08:59) Constipation HPI Comments Details: Patient returns today for a film count for Belbuca 300 mcg BID. Patient is supposed to have #56 films and presents with #64 films. This demonstrates a responsible attitude towards her regimen. Patient reports current opioid medication allows her to be less symptomatic and more functional. She denies any side effects on current regime except occasional constipation for which she takes Senexon-S, dietary fiber and increases fluid intake. Denies any fever, chills, chest pain, dizziness, shortness of breaths, nausea, sedation, dizziness, or urinary retention. Patient had follow up with Cardiology on 06/14/24 and completed EKG which was scanned into her chart. [facility] Medical History Nicotine dependence, cigarettes, uncomplicated Gait instability History of COVID-19 (~09/2021) Lipid disorder Asthma-COPD overlap syndrome Vitamin B deficiency Vitamin D deficiency Chronic GERD Depression, major, severe recurrence Back pain, chronic Asthma Hypertension, essential Surgical History History of lumbar fusion History of colonoscopy History of cervical spinal surgery (~2015) History of cholecystectomy (~2008) History of tubal ligation Family History Father No problems noted. Mother No problems noted. Brother No problems noted. Brother No problems noted. Sister No problems noted. Daughter No problems noted. Daughter No problems noted. Daughter No problems noted. Other Mental health disorder Social History Housing: Apartment Patient Tobacco Use Status: Former Tobacco user Tobacco use type: Cigarette Cigarettes Per Day: 3 Years Smoked: current smoker - onset 15, 1/2ppd x 42yrs, 21pyh e-Cigarette/Vaping Use: Never Used service: No Current occupational status: disabled Cognitive needs: No Hearing needs: No Vision needs: No Review of Systems Const All systems reviewed & are unremarkable except as noted in HPI and below Physical Exam Vital Signs: Last Vital Signs Pulse 98 08/06/24 11:04 BP 130/72 08/06/24 11:04 Pulse Ox 97 08/06/24 11:04 Oxygen Delivery Method Room Air 08/06/24 11:04 BMI result Body Mass Index 35.5 General: Appears afebrile. Alert and oriented. Mood and affect appropriate. Very pleasant. Follows and participates in conversation appropriately. Respiratory effort is unlabored. No cough. Able to transition from sit to stand unassisted. Mildly antalgic gait, no limping. Resp Effort & Inspection: normal respiratory effort, able to speak in complete sentences, no cough, no respiratory distress and symmetric chest movement Extrem General: Yes capillary refill normal, Yes no clubbing, cyanosis or edema and Yes no calf tenderness Psych Appearance: grossly normal Mental Status: mental status grossly normal Speech and movement: Normal speech and movement present and Clear speech present Affect: normal affect Attitude: cooperative Thought process: Normal thought process present Thought content: Normal thought content present, suicidality (none), no hallucinations and No Depressive thoughts present Insight: Good insight present (Psych) Judgement: Good judgement present (Psych) Quality Reporting (2019) Adult ([facility] [address]11/20/68) Smoking risk assessment performed?: Yes Patient Tobacco Use Status: Former Tobacco user Results Reviewed Results Reviewed: LUMBAR SPINE MRI: The disc is of normal height and signal intensity without significant disc bulge or herniation. L2-3: The disc is of normal height and signal intensity without significant disc bulge or herniation. There is moderate degenerative facet arthropathy. L3-4: The disc is of normal height and signal intensity without significant disc bulge or herniation. There is moderate degenerative facet arthropathy. L4-5: The disc is of normal height and signal intensity without significant disc bulge or herniation. There is marked degenerative facet arthropathy with ligamentous hypertrophy causing mild central canal stenosis. L5-S1: There is complete fusion of the disc space although the patient does not report any history of prior surgery. There is marked degenerative facet arthropathy without significant foraminal stenosis. Vertebral alignment is normal. There is fusion of the L5-S1 disc space. Marrow signal intensity is normal. The conus terminates at T12-L1 and appears normal. There is no paraspinous mass. IMPRESSION: 1. Marked degenerative facet arthropathy at L4-5 causing mild central canal stenosis. 2. Complete fusion of the L5-S1 disc: No prior surgery is reported. Marked degenerative facet arthropathy. 3. Moderate degenerative facet arthropathy L2-3 and L3-4. ECG 12 lead EKG 11/22/22 Blood Pressure : / mmHG Vent. Rate : 054 BPM Atrial Rate : 054 BPM P-R Int : 148 ms QRS Dur : 078 ms QT Int : 398 ms P-R-T Axes : 077 064 052 degrees QTc Int : 377 ms Sinus bradycardia with Premature atrial complexes Otherwise normal ECG No significant changes when compared with the previous EKG of 21 jun 2003 Assessment & Plan Assessment & Plan (1) Chronic, continuous use of opioids: Code(s): F11.90 - Opioid use, unspecified, uncomplicated Category: Medical (2) Spondylosis of lumbar spine: Code(s): M47.816 - Spondylosis without myelopathy or radiculopathy, lumbar region Category: Medical (3) Back pain, chronic: Code(s): M54.9 - Dorsalgia, unspecified; G89.29 - Other chronic pain Category: Medical (4) Sacroiliac joint pain: Code(s): M53.3 - Sacrococcygeal disorders, not elsewhere classified Category: Medical Plan Patient presents today for a film count. She has shown accountability for her medication regimen and the count was accurate. There is no evidence of misuse, abuse or diversion at this time. Ignite100 reviewed. Script for Belbuca 300 mcg BID sent with an advanced date of 09/04/24 with one refill. Continue gabapentin. Updated 12-lead EKG study was scanned into her chart. Continue daily physical activity as tolerated, weight loss, adequate hydration, well-balanced diet, daily fiber intake and good posture. All questions were answered and this patient is agreeable to the plan.?Patient will follow-up in 8 weeks for a film count. Medications: Refilled buprenorphine HCl Partial Fill upon patient request. 300 mcg buccal Q12H 30 days 60 ea 1RF pain F11.90 - Opioid use, unspecified, uncomplicated, M47.816 - Spondylosis without myelopathy or radiculopathy, lumbar region, M48.061 - Spinal stenosis, lumbar region without neurogenic claudication Coding Level of Care Code Est Pt Level 4 (59868) Complex EM visit Add On G2211 Diagnoses Chronic, continuous use of opioids F11.90 Spondylosis of lumbar spine M47.816 Back pain, chronic M54.9; G89.29 Sacroiliac joint pain M53.3
[2024-08-06 11:04] VITALS: BP 130/72; PULSE 98; O2SAT 97; BMI 35.5
== END 2024-08-06 11:13 | disposition home or self-care (01) ==
PROVIDERS: PCP Internal Medicine; Visit Provider Nurse Practitioner Family
DX: G89.29 Other chronic pain (principal); M47.816 Spondylosis without myelopathy or radiculopathy, lumbar region; M54.9 Dorsalgia, unspecified; Z79.891 Long term (current) use of opiate analgesic; M53.3 Sacrococcygeal disorders, not elsewhere classified
CPT/HCPCS: 99214; G2211

== ENCOUNTER → 2024-08-06 10:53 | Outpatient (BNVA) | payer OTHER, SELFPAY | PROVIDERS: PCP Internal Medicine; Visit Provider Nurse Practitioner Family | DX: M47.816 Spondylosis without myelopathy or radiculopathy, lumbar region (principal); M54.9 Dorsalgia, unspecified; M53.3 Sacrococcygeal disorders, not elsewhere classified; F11.20 Opioid dependence, uncomplicated; G89.29 Other chronic pain | CPT/HCPCS: 99212 ==

== ENCOUNTER 2024-09-07 10:39 | Outpatient (AMB) | payer OTHER, SELFPAY ==
[2024-09-07 10:40] VITALS: BP 118/66; PULSE 66; O2SAT 97
--- NOTE | 2024-09-07 10:40 | A.OFFVIS_ITS ---
Vital Signs 09/07/24 10:40 Weight 222 lb 10.67 oz BP 118/66 Blood Pressure Location Lt brachial Position Sitting Pulse 66 Pulse Source Pulse Oximeter Pulse Oximetry (%) 97 Oxygen Delivery Method Room Air Intake Visit Reasons: Asthma Allergies egg Allergy (Unknown, Verified 09/07/24 10:45) belly pain morphine Allergy (Unknown, Verified 09/07/24 10:45) chest pain Penicillins [PENICILLINS] Allergy (Unknown, Verified 09/07/24 10:45) UNKNOWN, WAS A CHILD lobster Adverse Reaction (Mild, Uncoded 09/07/24 10:45) Constipation Medication List - Last Reconciled 09/07/24 by Paola Donato, MICHELLE acetaminophen ER mg PO albuterol sulfate 90 mcg/actuation 2 puffs PO Q6H PRN NS [Blood pressure monitor As directed] blood pressure monitor (Blood Pressure Kit) As directed buprenorphine HCl 300 mcg buccal Q12H 30 days buspirone 30 mg PO BID [Cane As directed] diphenhydramine HCl (Banophen) 25 mg PO PRN famotidine 40 mg PO DAILY 90 days gabapentin 600 mg PO QID 30 days ibuprofen 600 mg PO Q6H PRN levalbuterol tartrate 45 mcg/actuation (Xopenex HFA) 2 puffs inhalation Q6H PRN 30 days loratadine 10 mg PO DAILY 90 days losartan 50 mg PO BID 90 days mirabegron ER (Myrbetriq) 50 mg PO DAILY mirtazapine 45 mg PO BEDTIME montelukast 10 mg PO DAILY 90 days mupirocin 2% 1 appl topical BID nicotine (Nicoderm CQ) 1 patch transdermal DAILY 28 days nicotine (Nicoderm CQ) 1 patch transdermal DAILY nicotine (polacrilex) 2 mg PO Q2H sennosides-docusate sodium 8.6-50 mg (Senexon-S) 1 tab PO BEDTIME [shower chair with handles As directed] umeclidinium-vilanterol 62.5-25 mcg/actuation (Anoro Ellipta) 1 inh inhalation DAILY HPI Comments Details: The patient is a 59-year-old woman known COPD and tobacco dependency. She also has significant back pain limiting her activity. She continues to use her respiratory therapy with good effect. Continues to have dyspnea on exertion moderate severity. Has been complaining of episodes of chest discomfort specially when having increased wheezing. At this point is better. Unfortunately she continues to smoke. We talked about ways smoking cessation. The patient be a great candidate for the lung cancer screening program. However, she is not old enough yet. 11/06/2021 the patient is here for a pulmonary follow-up visit. The patient has been doing very well. She has been motivated in having some lifestyle changes. The patient has been losing weight and her breathing has improved. She is also working with pain management regarding her significant back pain and has been able to cut down on some medicine. She continues with respiratory medications. Overall she is responding well to therapy. She continues to smoke. We talked about different alternatives to smoking cessation. The patient is interested in the Nicotrol inhaler. That which she can start decreasing the amount she smokes. I do believe he is going to help her quit completely. She is motivated at this time. In the meantime because her smoking habits she is a candidate for the lung cancer screening program. Will refer her at this time in order to further address lung cancer issues. 02/07/2023 the patient is here for a pulmonary follow-up visit. The patient overall is doing very well. She is responding well to her respiratory therapy. She is about to run out and she needs medications to the pharmacy. In the meantime she still struggling with smoking. Smoking between 7-10 cigarettes a day. She knows she has to quit smoking. We have referred to the lung cancer screening program during the last time but she was concerned about the possibility of having an MRI. I explained to her that a CT scan would be a lot easier to tolerate and she is waiting to go with a this time. I will be submit a request for the lung cancer screening program. The patient has responded well to the respiratory therapy. She is having increased allergy symptoms. Otherwise she is without any other complaints. 06/11/2024 the patient is here for pulmonary follow-up visit. Overall she is doing okay. She continues to take her respiratory medications as prescribed. The patient has been having daytime drowsiness. Also issues with high blood pressure. Her Yale score is elevated 08/22. The patient should have a sleep study at this time. Will go ahead and request a home sleep study. The patient also smoking. She needs to quit altogether. She had been participating in the lung cancer screening program. She should continue to follow through. She continues to have dyspnea on exertion. Mild in severity. The patient however has been stable on her Trelegy inhaler. She has been getting some palpitations and tremulousness with the albuterol. Therefore I will send her Xopenex in stead. The patient follow-up after her sleep study. 09/07/2024 the patient is here for pulmonary follow-up visit. Overall the patient is doing well. Her sleep seems to be better. Yale score when she sleeps in her recliner is 6/24. Therefore she will continue to sleep in the recliner she would like to hold off on a sleep study. The patient has been using the Anoro inhaler has been affecting beneficial. Seems to be doing better without the steroid component. She does have some shortness of breath and cough at times but intermittent and [id number]-me-[id number] severity. She is participating in the lung cancer screening program. Her last CT scan was back in 04/17/2024 which we personally reviewed. She has a slight dilation of her descending aorta and she is going to follow-up with her primary care doctor and Cardiology. Otherwise nodular densities are stable. She will have a repeat CT scan in 04/17/2025. [facility] Medical History (Updated 09/07/24 @ 19:50 by Augustus Gilliam MD) Descending aortic aneurysm Nicotine dependence, cigarettes, uncomplicated Gait instability History of COVID-19 (~09/2021) Lipid disorder Asthma-COPD overlap syndrome Vitamin B deficiency Vitamin D deficiency Chronic GERD Depression, major, severe recurrence Back pain, chronic Asthma Hypertension, essential Surgical History History of lumbar fusion History of colonoscopy History of cervical spinal surgery (~2015) History of cholecystectomy (~2008) History of tubal ligation Family History Father No problems noted. Mother No problems noted. Brother No problems noted. Brother No problems noted. Sister No problems noted. Daughter No problems noted. Daughter No problems noted. Daughter No problems noted. Other Mental health disorder Social History Housing: Apartment Patient Tobacco Use Status: Former Tobacco user Tobacco use type: Cigarette Cigarettes Per Day: 3 Years Smoked: current smoker - onset 15, 1/2ppd x 42yrs, 21pyh e-Cigarette/Vaping Use: Never Used service: No Current occupational status: disabled Cognitive needs: No Hearing needs: No Vision needs: No Review of Systems Const Denies chills, Reports difficulty sleeping, Denies fever(s) and Reports snoring Eyes Denies blurry vision ENT Denies nasal discharge, Denies nasal obstruction, Denies odynophagia and Denies sinus pain Card Denies chest pain at rest, Denies chest pain with activity and Reports dyspnea on exertion Resp Reports cough, Denies hemoptysis, Reports dyspnea on exertion and Reports snoring GI Denies diarrhea, Denies odynophagia, Denies vomiting and Denies hematemesis Skin/Breast Reports as per HPI Neuro Denies Neuro-related abnormal movements and Denies Abnormal speech present Psych Denies mood swings and Denies paranoia Lio/Lymph Reports as per HPI Aller/Immun Reports as per HPI Physical Exam Vital Signs: Last Vital Signs Pulse 66 09/07/24 10:40 BP 118/66 09/07/24 10:40 Pulse Ox 97 09/07/24 10:40 Oxygen Delivery Method Room Air 09/07/24 10:40 Const General: alert Neck Neck: Yes normal visual inspection, Yes full ROM and Yes no lymphadenopathy Chest Chest palpation & inspection: normal inspection of the chest Resp Auscultation: diminished lung sounds Cardio Rate: regular rate Rhythm: regular rhythm Heart sounds: S1 normal heart sound present and S2 normal heart sound present GI Palpation (GI): Soft to palpation and nontender Auscultation: normal bowel sounds Skin General skin exam: no rashes or lesions noted Neuro Speech: No Abnormal speech present Extrem General: Yes no clubbing, cyanosis or edema Quality Reporting (2019) Adult ([facility] 138/2//69) Smoking risk assessment performed?: Yes Patient Tobacco Use Status: Former Tobacco user Results Reviewed Results Reviewed: [address] [address] [address] Scan Report Signed Patient: Parveen Mallory MR#: [id number] : 1965 Acct:[id number] Age/Sex: 58 / F ADM Date: 04/07/24 Loc: HO.CT Attending Dr: Caitlin Sanchez PA-C Ordering Physician: Caitlin Sanchez PA-C Date of Service: 04/07/24 Procedure(s): CT lung screening Accession Number(s): [id number] cc: Oral Ocasio MD; Caitlin Sanchez PA-C~ EXAMINATION: CT LOW-DOSE SCREENING CHEST WITHOUT CONTRAST CLINICAL INFORMATION: Nicotine dependence, cigarettes, uncomplicated. The patient is a current smoker with a 40 pack-year history of smoking. COMPARISON: CT lung screening 04/04/2023. TECHNIQUE: Multidetector volumetric CT imaging of the chest is performed on a Siemens SOMATOM Definition scanner without contrast using low dose technique. Additional 2D coronal and sagittal reformatted images and axial 3D maximum intensity projection (MIP) images are generated on the CT workstation. This CT examination was performed using dose optimization techniques as appropriate, variously including the following: *Automated exposure control *Adjustment of mA and/or kV according to patient size (this includes techniques or standardized protocols for targeted exams where dose is matched to indication/reason for exam; i.e. extremities or head) *Use of iterative reconstruction technique TOTAL EXAM DLP: 57 mGy-cm. CTDIvol: 1.66 mGy. FINDINGS: PULMONARY NODULES: -4 mm nodule lateral left apex, somewhat obscured by respiratory motion but stable grossly. -No new or enlarging pulmonary nodules. LUNGS: -Mild centrilobular emphysema again present. -Right greater than left apical scarring is unchanged, as well as mild paraseptal blebs. -No consolidations or abnormal groundglass opacities. -Airways demonstrate normal appearance without bronchiectasis or endobronchial filling defects. -Foci of scarring in the lingula, medial right middle lobe, and bilateral lower lobes are unchanged. -There are no pleural effusions. MEDIASTINUM: -There is no abnormal lymphadenopathy. -The descending aorta is mildly aneurysmal at 4.3 cm on this non-gated study. This appears stable. -The main pulmonary artery is normal in caliber. -Esophagus is normal aside from a small type I hiatus hernia. -Heart is normal in size. No pericardial effusion. CORONARY ARTERY CALCIFICATION: None visualized on this study. THYROID GLAND: Unremarkable to the extent seen. CHEST WALL/AXILLA: No masses or adenopathy. UPPER ABDOMEN: -There has been a cholecystectomy. -No additional abnormalities. OSSEOUS STRUCTURES: There are no suspicious lytic or blastic bony abnormalities. CT/CT lung screening IMPRESSION: 1. Stable examination with stable left upper lobe 4 mm nodule. No new or enlarging nodules. 2. Mild centrilobular emphysema without evidence for active lung disease. 3. Stable mild aneurysmal dilatation of the ascending aorta measuring 4.3 cm on this non-gated study. 4. Additional ancillary findings as discussed. ASSESSMENT: 1. Lung-RADS Category 2: Benign appearance or behavior of nodules. 2. Lung-RADS Category S: Negative. RECOMMENDATION: Continued routine annual low-dose CT lung screening in 1 year is recommended. An order for CT CHEST LOW DOSE CANCER SCREENING ([id number]) can be placed. Dictated By: Cristofer Galindo MD Signed By: <Electronically signed by Cristofer Galindo MD in OV> 05/10/24 0931 DD/ 1138 TD/TT: Executive Office Manager: Assessment & Plan Assessment & Plan (1) Asthma: Code(s): J45.909 - Unspecified asthma, uncomplicated Category: Medical Qualifiers: Asthma complication type: uncomplicated Asthma persistence: persistent Asthma severity: moderate Qualified Code(s): J45.40 - Moderate persistent asthma, uncomplicated (2) KELLY (obstructive sleep apnea): Code(s): G47.33 - Obstructive sleep apnea (adult) (pediatric) Category: Medical (3) Descending aortic aneurysm: Code(s): I71.9 - Aortic aneurysm of unspecified site, without rupture Category: Medical (4) Pharyngitis: Code(s): J02.9 - Acute pharyngitis, unspecified Category: Medical Qualifiers: Pharyngitis/tonsillitis etiology: other specified organisms Qualified Code(s): J02.8 - Acute pharyngitis due to other specified organisms Plan Continue Anoro xopenex as needed singulair loratidine start doxycycline nicorette gum f/u 8-10 months Medications: New doxycycline hyclate 100 mg PO BID 20 caps 0RF 10 days Refilled levalbuterol tartrate 45 mcg/actuation (Xopenex HFA) 2 puffs inhalation Q6H PRN 15 grams 11RF shortness of breath or wheezing 30 days J45.909 - Unspecified asthma, uncomplicated loratadine 10 mg PO DAILY 90 tabs 3RF 90 days J44.9 - Chronic obstructive pulmonary disease, unspecified, J45.909 - Unspecified asthma, uncomplicated montelukast 10 mg PO DAILY 90 tabs 3RF 90 days J44.9 - Chronic obstructive pulmonary disease, unspecified umeclidinium-vilanterol 62.5-25 mcg/actuation (Anoro Ellipta) 1 inh inhalation DAILY 60 ea 11RF J44.89 - Other specified chronic obstructive pulmonary disease Coding Level of Care Code Est Pt Level 4 (75232) Diagnoses Moderate persistent asthma without complication J45.40 Asthma complication type: uncomplicated Asthma persistence: persistent Asthma severity: moderate KELLY (obstructive sleep apnea) G47.33 Descending aortic aneurysm I71.9 Pharyngitis due to other organism J02.8 Pharyngitis/tonsillitis etiology: other specified organisms Time Spent (min) 16
== END 2024-09-07 11:04 | disposition home or self-care (01) ==
PROVIDERS: PCP Internal Medicine; Visit Provider Hospitalist
DX: J45.40 Moderate persistent asthma, uncomplicated (principal); G47.33 Obstructive sleep apnea (adult) (pediatric); I71.9 Aortic aneurysm of unspecified site, without rupture; J02.8 Acute pharyngitis due to other specified organisms
CPT/HCPCS: 99214

== ENCOUNTER → 2024-09-07 10:39 | Outpatient (BNVA) | payer OTHER, SELFPAY | PROVIDERS: PCP Internal Medicine; Visit Provider Hospitalist | DX: J45.40 Moderate persistent asthma, uncomplicated (principal); G47.33 Obstructive sleep apnea (adult) (pediatric); I71.9 Aortic aneurysm of unspecified site, without rupture; J02.8 Acute pharyngitis due to other specified organisms | CPT/HCPCS: 99212 ==

== ENCOUNTER 2024-10-04 10:27 | Outpatient (AMB) | payer OTHER, SELFPAY ==
--- NOTE | 2024-10-04 10:31 | A.OFFVIS_ITS ---
Vital Signs 3 10/04/24 10:41 Height 5 ft 6 in Weight 225 lb 6 oz BMI 36.4 BP 146/81 H Blood Pressure Location Rt brachial Position Sitting Pulse 52 Pulse Source Pulse Oximeter Pulse Oximetry (%) 96 Oxygen Delivery Method Room Air Intake Visit Reasons: film count/random UDS Intake Note: Parveen comes in today for a film count to Belbuca, patient should have 56 films and presents with 62 films 2 of which are from previous script. Patient states she last took her films today 10/04/24 at 8am. Pain today 03/08 Patient resigned opioid contract in office, copy of signed contract was provided to patient. Patient will also go for a random UDS today, aware that she needs to go to the lab on the first floor of this building today 10/04/24 before 12pm. 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 Patient is supposed to have #56 films and presents with #62 films. This demonstrates a responsible attitude towards her regimen. Patient reports current opioid medication allows her to be less symptomatic and more functional. Patient denies any side effects on current regime except occasional constipation for which she takes Senexon-S, dietary fiber and increases fluid intake. Denies any fever, chills, chest pain, dizziness, shortness of breaths, nausea, sedation, dizziness, or urinary retention. She reports intermittent non- productive cough and plans to follow up with Pulmonology provider. Patient also reports she is scheduled for umbilical hernia repair on 10/28/24 at [facility]. [facility] Medical History Descending aortic aneurysm Nicotine dependence, cigarettes, uncomplicated Gait instability History of COVID-19 (~09/2021) Lipid disorder Asthma-COPD overlap syndrome Vitamin B deficiency Vitamin D deficiency Chronic GERD Depression, major, severe recurrence Back pain, chronic Asthma Hypertension, essential Surgical History History of lumbar fusion History of colonoscopy History of cervical spinal surgery (~2015) History of cholecystectomy (~2008) History of tubal ligation Family History Father No problems noted. Mother No problems noted. Brother No problems noted. Brother No problems noted. Sister No problems noted. Daughter No problems noted. Daughter No problems noted. Daughter No problems noted. Other Mental health disorder Social History Housing: Apartment Patient Tobacco Use Status: Former Tobacco user Tobacco use type: Cigarette Cigarettes Per Day: 3 Years Smoked: current smoker - onset 15, 1/2ppd x 42yrs, 21pyh e-Cigarette/Vaping Use: Never Used service: No Current occupational status: disabled Cognitive needs: No Hearing needs: No Vision needs: No Review of Systems Const All systems reviewed & are unremarkable except as noted in HPI and below Reports as per HPI, Denies body aches, Denies chills, Denies difficulty sleeping, Denies fatigue, Denies fever(s), Denies headache(s), Denies night sweats and Denies weakness ENT Denies headache(s) Card Denies dyspnea on exertion Resp Denies change in phlegm color, Denies chest congestion, Reports cough, Denies pain with cough, Denies dyspnea on exertion and Denies wheezing Neuro Denies headache(s) and Denies weakness Endo Denies fatigue Aller/Immun Denies wheezing Physical Exam Vital Signs: Last Vital Signs Pulse 52 10/04/24 10:41 BP 146/81 H 10/04/24 10:41 Pulse Ox 96 10/04/24 10:41 Oxygen Delivery Method Room Air 10/04/24 10:41 BMI result Body Mass Index 36.4 General: Appears afebrile. Alert and oriented. Mood and affect appropriate. Very pleasant. Follows and participates in conversation appropriately. Respiratory effort is unlabored. No cough. Able to transition from sit to stand unassisted. Mildly antalgic gait, no limping. Resp Effort & Inspection: normal respiratory effort, able to speak in complete sentences, no cough, respiratory effort not decreased, no respiratory distress and symmetric chest movement Extrem General: Yes capillary refill normal, Yes no clubbing, cyanosis or edema and Yes no calf tenderness Psych Appearance: grossly normal Mental Status: mental status grossly normal Speech and movement: Normal speech and movement present and Clear speech present Affect: normal affect Attitude: cooperative Thought process: Normal thought process present Thought content: Normal thought content present, suicidality (none), no hallucinations and No Depressive thoughts present Insight: Good insight present (Psych) Judgement: Good judgement present (Psych) Quality Reporting (2019) Adult ([facility] 138/11/20/68) Smoking risk assessment performed?: Yes Patient Tobacco Use Status: Former Tobacco user Results Reviewed Results Reviewed: LUMBAR SPINE MRI: The disc is of normal height and signal intensity without significant disc bulge or herniation. L2-3: The disc is of normal height and signal intensity without significant disc bulge or herniation. There is moderate degenerative facet arthropathy. L3-4: The disc is of normal height and signal intensity without significant disc bulge or herniation. There is moderate degenerative facet arthropathy. L4-5: The disc is of normal height and signal intensity without significant disc bulge or herniation. There is marked degenerative facet arthropathy with ligamentous hypertrophy causing mild central canal stenosis. L5-S1: There is complete fusion of the disc space although the patient does not report any history of prior surgery. There is marked degenerative facet arthropathy without significant foraminal stenosis. Vertebral alignment is normal. There is fusion of the L5-S1 disc space. Marrow signal intensity is normal. The conus terminates at T12-L1 and appears normal. There is no paraspinous mass. IMPRESSION: 1. Marked degenerative facet arthropathy at L4-5 causing mild central canal stenosis. 2. Complete fusion of the L5-S1 disc: No prior surgery is reported. Marked degenerative facet arthropathy. 3. Moderate degenerative facet arthropathy L2-3 and L3-4. ECG 12 lead EKG 11/22/22 Blood Pressure : / mmHG Vent. Rate : 054 BPM Atrial Rate : 054 BPM P-R Int : 148 ms QRS Dur : 078 ms QT Int : 398 ms P-R-T Axes : 077 064 052 degrees QTc Int : 377 ms Sinus bradycardia with Premature atrial complexes Otherwise normal ECG No significant changes when compared with the previous EKG of 21 jun 2003 Cardiology notes 09/21/24 Dr. Rodríguez: Assessment & Plan Assessment & Plan (1) Chronic, continuous use of opioids: Code(s): F11.90 - Opioid use, unspecified, uncomplicated Category: Medical (2) Spondylosis of lumbar spine: Code(s): M47.816 - Spondylosis without myelopathy or radiculopathy, lumbar region Category: Medical (3) Back pain, chronic: Code(s): M54.9 - Dorsalgia, unspecified; G89.29 - Other chronic pain Category: Medical (4) Sacroiliac joint pain: Code(s): M53.3 - Sacrococcygeal disorders, not elsewhere classified Category: Medical Plan Patient presents today for a film count. She has shown accountability for her medication regimen and the count was accurate. There is no evidence of misuse, abuse or diversion at this time. Solvonics reviewed. Will obtain random UDS today. Script for Belbuca 300 mcg BID sent with an advanced date of 11/01/24 with one refill. Continue gabapentin. Continue daily physical activity as tolerated, weight loss, adequate hydration, well-balanced diet, daily fiber intake and good posture. Follow up with Pulmonology services or PCP if worsening symptoms of cough or new onset of fever, chills, dyspnea. Patient reports she recently received flu shot and has developed intermittent non-productive cough. Patient is scheduled for umbilical hernia repair 10/28/24 at [facility] and will notify our office if any adjustment needed to manage post-op pain or post-op pain medications can be provided by her surgeon. All questions were answered and this patient is agreeable to the plan.?Patient will follow-up in 8 weeks for a film count/UDS review and sooner as needed. Medications: New 2 naloxone 4 mg/actuation (Narcan) spray 1 dose into ONE nostril; alternate nostrils w each dose until help arrives 4 mg intranasal Q2M PRN 2 ea 0RF opioid overdose - Opioid use, unspecified, uncomplicated Refilled 2 buprenorphine HCl Partial Fill upon patient request. 300 mcg buccal Q12H 60 ea 1RF pain 30 days F190 - Opioid use, unspecified, uncomplicated, M47.816 - Spondylosis without myelopathy or radiculopathy, lumbar region, M48.061 - Spinal stenosis, lumbar region without neurogenic claudication Coding Level of Care Code Est Pt Level 4 (12695) Complex EM visit Add On G2211 Diagnoses Chronic, continuous use of opioids F11.90 Spondylosis of lumbar spine M47.816 Back pain, chronic M54.9; G89.29 Sacroiliac joint pain M53.3
[2024-10-04 10:41] VITALS: BP 146/81; PULSE 52; O2SAT 96; BMI 36.4
== END 2024-10-04 10:51 | disposition home or self-care (01) ==
PROVIDERS: PCP Internal Medicine; Visit Provider Nurse Practitioner Family
DX: G89.29 Other chronic pain (principal); M47.816 Spondylosis without myelopathy or radiculopathy, lumbar region; M54.9 Dorsalgia, unspecified; Z79.891 Long term (current) use of opiate analgesic; M53.3 Sacrococcygeal disorders, not elsewhere classified
CPT/HCPCS: 99214; G2211

== ENCOUNTER 2024-11-16 11:10 | Outpatient (AMB) | payer OTHER, SELFPAY ==
--- NOTE | 2024-11-16 11:18 | HO.NEPHOV ---
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 She had headaches which are gone. Her BP is at goal at home. She has no urinary symptoms. She denies chest pain, shortness of breath, proximal nocturnal dyspnea, orthopnea or orthostatic symptoms. She does not take any nonsteroidal anti-inflammatories. She has ascending thoracic aorta measures 4.1 x 4.1 cm in transverse dimension at the level of the pulmonary trunk. She has no other specific complaints at the time of this office visit. She had issues with Chlorthalidone and it was discontinued by her in the past. Her BP is at goal. She feels well. [facility] Medical History Descending aortic aneurysm Nicotine dependence, cigarettes, uncomplicated Gait instability History of COVID-19 (~09/2021) Lipid disorder Asthma-COPD overlap syndrome Vitamin B deficiency Vitamin D deficiency Chronic GERD Depression, major, severe recurrence Back pain, chronic Asthma Hypertension, essential Surgical History History of lumbar fusion History of colonoscopy History of cervical spinal surgery (~2015) History of cholecystectomy (~2008) History of tubal ligation Family History Father No problems noted. Mother No problems noted. Brother No problems noted. Brother No problems noted. Sister No problems noted. Daughter No problems noted. Daughter No problems noted. Daughter No problems noted. Other Mental health disorder Social History Housing: Apartment Patient Tobacco Use Status: Former Tobacco user Tobacco use type: Cigarette Cigarettes Per Day: 3 Years Smoked: current smoker - onset 15, 1/2ppd x 43yrs, 21pyh e-Cigarette/Vaping Use: Never Used service: No Current occupational status: disabled Cognitive needs: No Hearing needs: No Vision needs: No Review of Systems Const All systems reviewed & are unremarkable except as noted in HPI and below Physical Exam Vital Signs: Last Vital Signs BP 114/80 11/16/24 11:21 BMI result Body Mass Index 37.4 Const General: comfortable and no acute distress Orientation/consciousness: patient oriented x3 HEENT Head: Yes normocephalic Mouth: Normal oral and palatal mucosa present Eyes EOM: EOMs intact bilaterally Neck Neck: Yes supple Resp Auscultation: clear to auscultation bilaterally Cardio Jugular venous distension: no JVD Rate: regular rate GI Palpation (GI): Soft to palpation Auscultation: normal bowel sounds General: Yes no CVA tenderness Back/Spine/Pelvis Back: no CVA tenderness Skin General skin exam: no rashes or lesions noted Neuro General: patient oriented x3 and moves all extremities Extrem General: Yes no pedal edema Results Reviewed Nephrology Results: No Data to Display Assessment & Plan Assessment & Plan (1) Proteinuria: Code(s): R80.9 - Proteinuria, unspecified Category: Medical Qualifiers: Proteinuria type: other Qualified Code(s): R80.8 - Other proteinuria (2) Hypertension: Code(s): I10 - Essential (primary) hypertension Category: Medical Qualifiers: Hypertension type: primary hypertension Qualified Code(s): I10 - Essential (primary) hypertension Plan Parveen has 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 Her last urine did not show any significant proteinuria. She had obesity which was putting her at risk for secondary FSGS. Her blood pressure is at goal. She is on angiotensin receptor arcelia. She is on losartan 50 mg bid. She needs to lose weight. All questions answered. Follow-up given (She has ascending thoracic aorta measures 4.1 x 4.1 cm in transverse dimension at the level of the pulmonary trunk.from a CT scan - needs F/U in 6 months) Orders: Orders Protein Creatinine Ratio, Ur Today I10 - Essential (primary) hypertension, R80.8 - Other proteinuria Blood Urea Nitrogen Today I10 - Essential (primary) hypertension, R80.8 - Other proteinuria Electrolytes Today I10 - Essential (primary) hypertension, R80.8 - Other proteinuria Creatinine Today I10 - Essential (primary) hypertension, R80.8 - Other proteinuria Coding Level of Care Code Est Pt Level 4 (54509) Diagnoses Other proteinuria R80.8 Proteinuria type: other Primary hypertension I10 Hypertension type: primary hypertension
[2024-11-16 11:21] VITALS: BP 114/80; BMI 37.4
--- OUTSIDE RECORDS SUMMARY | 2024-11-16 12:22 | XMS_ITS | Clinical Summary ---
Author Organization [facility] Address [address] [place] [address] Phone Care Team Providers Care Im[facility] Nurse Name Role Phone Oral Ocasio MD Primary Care Provider [phone] Allergies Active Allergy Reactions Criticality Noted Date Comments Egg-Derived Products Other (see comments) 03/09 Penicillins 03/09/2018 Medications budesonide-form oterol (SYMBICORT) 160-4.5 MCG/ACT inhaler Active mirtazapine (REMERON) 45 MG tablet Take 1 tablet by mouth 1 (one) time each day Active montelukast (SINGULAIR) 10 MG tablet Take 1 tablet by mouth 1 (one) time each day Active gabapentin (NEURONTIN) 600 MG tablet Take 1 tablet by mouth in the morning and 1 tablet at noon and 1 tablet in the evening and 1 tablet before bedtime. Active busPIRone (BUSPAR) 30 MG tablet Take 30 mg by mouth 2 (two) times a day 1 Active ProAir HFA 108 (90 Base) MCG/ACT inhaler INHALE 2 PUFFS INHALATION EVERY 6 HOURS NEEDED FOR WHEEZING OR SHORTNESS OF BREATH 1 Active Buprenorphine 15 MCG/HR patch weekly APPLY 1 PATCH TOPICALLY EVERY WEEK NEEDED FOR PAIN 1 Active cholecalciferol (VITAMIN D-3) 50 MCG (1999 UT) capsule Take 1 capsule by mouth 1 (one) time each day 1 Active Banophen 25 MG capsule Take 25 mg by mouth if needed 1 Active loratadine (CLARITIN) 10 MG tablet Take 1 tablet by mouth 1 (one) time each day 1 Active tolterodine LA (DETROL LA) 4 MG 24 hr capsule Take 1 capsule by mouth 1 (one) time each day 2 Active famotidine (PEPCID) 40 MG tablet Take 40 mg by mouth 1 (one) time each day 2 Active Belbuca 300 MCG film Take 1 Film by mouth every 12 (twelve) hours if needed 2 Active losartan (COZAAR) 50 MG tablet TAKE 1 TABLET BY MOUTH TWICE A DAY 180 tablet 1 3 Active Active Problems Problem Noted Date Diagnosed Date Acute urinary tract infection 11/27/2020 Lower urinary tract infectious disease 1 Benign essential hypertension 11/27/2020 Blood in urine 11/27/2020 Hypertension 03/26/2018 Proteinuria 05/13/2014 Resolved Problems Problem Noted Date Diagnosed Date Resolved Date Bipolar disorder 04/27/2019 06/11/2021 Chronic obstructive pulmonary disease 03/26/2018 06/11/2021 Constipation 03/26/2018 06/11/2021 Fibromyalgia 03/26/2018 06/11/2021 Gastroesophageal reflux disease 03/26/2018 06/11/2021 Hyperlipidemia 03/26/2018 06/11/2021 Spinal stenosis of cervical region 03/26/2018 06/11/2021 Varicose veins of bilateral lower limbs 03/26/2018 06/11/2021 Vitamin D deficiency 03/26/2018 021 Anxiety 10/02/2016 06/11/2021 Osteoarthritis 10/02/2016 06/11/2021 Overview (11/27/2020): Knees, Fingers Splenic infarction 07/08/2013 1 Immunizations Name Administration Dates Next Due Influenza, MDCK, PF, Quadrivalent 11/03/2018 Tdap 06/05/2011 Family History Medical History Relation Comments Heart disease Mother Hypertension Mother Cancer Sibling Relation Status Comments Father Unknown Mother Alive Sibling Social History Tobacco Use Types Packs/Day Years Used Date Smoking Tobacco: Some Days Smokeless Tobacco: Never Tobacco Cessation:Ready to Q uit: Not Asked; Counseling Given: Not Answered Alcohol Use Standard Drinks/Week Comments No 0 (1 standard drink = 0.6 oz pur e alcohol) Comments Unknown Sex and Gender Information Value Date Recorded Sex Assigned at Not on file Legal Sex Female 5:10 PM EST Gender Identity Not on file Sexual Orientation Not on file Last Filed Vital Signs Vital Sign Reading Time Taken Comments Blood Pressure 122/70 07/29/2022 1:06 PM EDT Pulse 60 06/11/2021 1:48 PM EDT Temperature - - Respiratory Rate - - Oxygen Saturation 97% 06/11/2021 1:48 PM EDT Inhaled Oxygen Concentration - - Weight 93.1 kg (205 lb 3.2 oz) 07/29/2022 1:06 P M EDT Height 167.6 cm (5' 6 ) 05/16/2020 12:00 PM EDT Body Mass Index 33.12 05/16/2020 12:00 PM EDT Plan of Treatment Health Maintenance Due Date Last Done Comments Breast Cancer Screening 1966 Pneumococcal Vaccine: Pediat rics (0 to 5 Years) and At-Risk Patients (6 to 64 Years) (1 of 2 - PCV) 1972 Hepatitis B Vaccine (1 of 3 - 19+ 3-dose series) 05/19 Colorectal Cancer Screening: Annual FOBT 2015 Colorectal Cancer Screening: Colonoscopy 2015 Colorectal Cancer Screening: Sigmoidoscopy 2015 Influenza Vaccine (#1) 2024 11/03/2018 Insurance Care Teams Imcu Nurse Relationship Specialty Start Date End Date Oral Ocasio MD [facility] [place] [address] PCP - General 10/09/20
--- OUTSIDE RECORDS SUMMARY | 2024-11-16 12:22 | XMS_ITS | Clinical Summary ---
Author Organization [facility] Address [address] [place] [address] Care Team Providers Care Steward/Stewardess Third Class Name Role Phone Oral Ocasio MD Primary Care Provider [phone] Surgical History Surgery Date Site/Laterality Comments TUBAL LIGATION PROCEDURE: HISTORICAL TUBAL LIGATION CERVICAL LAMINECTOMY 06/2017 PROCEDURE: HISTORICAL CERV LAMINECTOMY; COMMENT: cervical decompression HYSTERECTOMY PROCEDURE: HISTORICAL HYSTERECTOMY Medical History Medical History Date Comments Hypertension 03/26/2018 DX:Hypertension GERD (gastroesophageal reflux disease) 03/26/2018 DX:GERD (gastroesophageal reflux disease) Vitamin D deficiency 03/26/2018 DX:Vitamin D deficiency COPD (chronic obstructive pu lmonary disease) ([facility]) 03/26/2018 DX:COPD (chronic obstructive pulmonary disease) ([facility]) Fibromyalgia 03/26/2018 DX:Fibromyalgia Hyperlipidemia 03/26/2018 DX:Hyperlipidemi a Constipation 03/26/2018 DX:Constipation Cervical spinal stenosis 03/26/2018 DX:Cerv ical spinal stenosis Varicose veins of legs 03/26/2018 DX:Varico se veins of legs Anxiety 10/02/2016 DX:Anxiety Bipolar disorder ([facility]) 04/27/2019 DX:Bi polar disorder ([facility]) Osteoarthritis 10/02/2016 DX:Osteoarthriti s; COMMENT: Knees, Fingers Proteinuria 05/13/2014 DX:Proteinuria 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 DX:Splenic infar ct Social History Tobacco Use Types Packs/Day Years Used Date Smoking Tobacco: Every Day Smokeless Tobacco: Never Alcohol Use Standard Drinks/Week Comments Yes 0 (1 standard drink = 0.6 oz pur e alcohol) Comments Unknown Sex and Gender Information Value Date Recorded Sex Assigned at Not on file Legal Sex Female 12:36 PM EST Gender Identity Not on file Sexual Orientation Not on file Obstetrics History Plan of Treatment Health Maintenance Due Date Last Done Comments Hepatitis B Vaccines (1 of 3 - 19+ 3-dose series) 1985 Pneumococcal Vaccine: 50+ Years (1 of 2 - PCV) 1985 Pneumococcal Vaccine: Pediatrics (0 to 5 Years) and At-Risk Patients (6 to 64 Years) (1 of 2 - PCV) 1985 Cervical Cancer Screening: Pap Smear 1987 Zoster Vaccines (1 of 2) 2016 DTaP,Tdap,and Td Vaccines (2 - Td or Tdap) 06/05/2021 06/05/2011 Cholesterol Screening (Lipid Panel) 08/27/2022 Colorectal Cancer Screening: Colonoscopy 08/27/2022 Depression Screening 08/27/2022 HIV Screening 08/27/2022 Hepatitis C Screening 08/27/2022 Social Influencers of Health Screening 08/27/2022 Hypertension/CHF/CAD Annual BMP Blood Test 09/05/2022 COVID-19 Vaccine ( season) 2024 Influenza Vaccine (#1) 2024 11/03/2018 Breast Cancer Screening 06/17/2026 06/17/20 24, 09/02/2022, 08/27/2021, Additional history exists HIB Vaccines Aged Out No longer eligi ble based on patient's age to complete this topic HPV Vaccines Aged Out No longer eligi ble based on patient's age to complete this topic Hepatitis A Vaccines Aged Out No long er eligible based on patient's age to complete this topic IPV Vaccines Aged Out No longer eligi ble based on patient's age to complete this topic MMR Vaccines Aged Out No longer eligi ble based on patient's age to complete this topic Meningococcal ACWY Vaccine Aged Out N o longer eligible based on patient's age to complete this topic Meningococcal B Vacine Aged Out No lo nger eligible based on patient's age to complete this topic RSV Immunization Patients Under 20 months Aged Out No longer eligible based on patient's age to complete this topic Varicella Vaccines Aged Out No longer eligible based on patient's age to complete this topic Procedures Procedure Name Priority Date/Time Associated Diagnosis Comments GERMAN SCREENING DIGITAL Routine 06/17/2024 8:24 AM EDT Encounter for screening mammogram for malignant neoplasm of breast from Last 3 Months or Most Recently Relevant to Health Maintenance Results * [facility] SCREENING DIGITAL (06/17/2024 8:24 AM EDT) Anatomical Region Laterality Modality Mammography 06/16/2024 10:4 2 AM EDT Narrative 06/17/2024 8:24 AM EDT [facility] Diagnostic Imaging Department [address] [place] [address] Patient: ??REBECA HERNANDEZ ?/Age/Sex: 1965 - 59 - F Unit#: ??[id number] ? Location/Status: ??SPDIMAM/REG CLI ? Mnemonic/Ordering Site: ??DIGSC/SPMAM Ordering Physician: ??JUAREZ AL MD [facility] Screening Digital - 06/16/24 - 1122 Report Status:Signed EXAM: [facility] Screening Digital EXAM DATE AND TIME: 06/16/2024 11:23 AM HISTORY: ??Screening. COMPARISON: ??09/02/22, 08/27/21, 08/22/20 TECHNIQUE: Bilateral digital breast tomosynthesis was performed in the CC and MLO projections. Computer aided detection with Intela 3D 3.1 was employed. TISSUE DENSITY: c. The breasts are heterogeneously dense, which may obscure small masses. FINDINGS: The left MLO view is limited due to positioning difficulty in the setting of neck and back injury per technologist notes. No suspicious masses, grouped microcalcifications, or areas of architectural distortion are seen. Scattered micro and macrocalcifications are again seen. The skin and vascularity are unremarkable. IMPRESSION: Stable mammographic appearance of the breasts. ??No evidence of malignancy is seen. A negative mammogram in the presence of a clinically suspicious palpable abnormality does not preclude the possibility of malignancy or alter the indications for biopsy. BI-RADS: ??Category 2: Benign RECOMMENDATION(S): 1: Routine screening mammogram BILATERAL in 1 year. [facility] at [facility] [address] [place] [address] Dictating Physician: ??AUGUSTA SIERRA MD Electronically Signed by: ??AUGUSTA SIERRA MD Dic Date/Time: ??06/17/24821 Sign date/Time: ??06/17/24823 Procedure Note Augusta Sierra MD - 07/14/2024 [facility] Diagnostic Imaging Department [address] [place] [address] Patient: REBECA HERNANDEZ /Age/Sex: 1965 - 59 - F Unit#: [id number] [facility] Ordering Physician: JUAREZ AL MD [facility] Screening Digital - 06/16/24 - 1122 Report Status:Signed EXAM: [facility] Screening Digital EXAM DATE AND TIME: 06/16/2024 11:23 AM HISTORY: Screening. COMPARISON: 09/02/22, 08/27/21, 08/22/20 TECHNIQUE: Bilateral digital breast tomosynthesis was performed in the CCand MLO projections. Computer aided detection with Intela 3D 3.1was employed. TISSUE DENSITY: c. The breasts are heterogeneously dense, which mayobscure small masses. FINDINGS: The left MLO view is limited due to positioning difficulty in the settingof neck and back injury per technologist notes. No suspicious masses, grouped microcalcifications, or areas ofarchitectural distortion are seen. Scattered micro and macrocalcifications are againseen. The skin and vascularity are unremarkable. IMPRESSION: Stable mammographic appearance of the breasts. No evidence of malignancyis seen. A negative mammogram in the presence of a clinically suspicious palpable abnormality does not preclude the possibility of malignancy or alter the indications for biopsy. BI-RADS: Category 2: Benign RECOMMENDATION(S): 1: Routine screening mammogram BILATERAL in 1 year. 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 Health Care Decision (hx) 07/17/2017 AD UNDERWOOD DIRECTIVE Health Care Decision (hx) 07/17/2017 AD UNDERWOOD DIRECTIVE Health Care Decision (hx) 07/17/2017 AD UNDERWOOD DIRECTIVE Health Care Decision (hx) 07/17/2017 AD UNDERWOOD DIRECTIVE Health Care Decision (hx) 07/17/2017 AD UNDERWOOD DIRECTIVE Health Care Decision (hx) 07/17/2017 AD UNDERWOOD DIRECTIVE Health Care Decision (hx) 07/17/2017 AD UNDERWOOD DIRECTIVE Health Care Decision (hx) 07/17/2017 AD UNDERWOOD DIRECTIVE Health Care Decision (hx) 07/17/2017 AD UNDERWOOD DIRECTIVE Health Care Decision (hx) 07/17/2017 AD UNDERWOOD DIRECTIVE Health Care Decision (hx) 07/17/2017 AD UNDERWOOD DIRECTIVE Health Care Decision (hx) 07/17/2017 AD UNDERWOOD DIRECTIVE Health Care Decision (hx) 07/17/2017 AD UNDERWOOD DIRECTIVE Health Care Decision (hx) 07/17/2017 AD UNDERWOOD DIRECTIVE Care Teams Steward/Stewardess Third Class Relationship Specialty Start Date End Date Oral Ocasio MD [address] [place] [address] PCP - General Internal Medicine 12/04/21
== END 2024-11-16 11:35 | disposition home or self-care (01) ==
PROVIDERS: PCP Internal Medicine; Visit Provider Internal Medicine Nephrology
DX: R80.8 Other proteinuria (principal); I10 Essential (primary) hypertension
CPT/HCPCS: 99214

== ENCOUNTER → 2024-11-16 11:10 | Outpatient (BNVA) | payer OTHER, SELFPAY | PROVIDERS: PCP Internal Medicine; Visit Provider Internal Medicine Nephrology | DX: I10 Essential (primary) hypertension (principal); R80.8 Other proteinuria | CPT/HCPCS: 99212 ==

== ENCOUNTER 2024-11-29 11:24 | Outpatient (AMB) | payer OTHER, SELFPAY ==
--- NOTE | 2024-11-29 11:25 | A.OFFVIS_ITS ---
Vital Signs 3 11/29/24 11:34 Height 5 ft 6 in Weight 233 lb 6 oz BMI 37.7 BP 167/81 H Blood Pressure Location Lt brachial Position Sitting Pulse 54 Pulse Source Pulse Oximeter Pulse Oximetry (%) 98 Oxygen Delivery Method Room Air Intake Visit Reasons: Pill Count Intake Note: Parveen comes in today for a film count to belbuca, patient should have 56 films and presents with 68 films which she last took today 11/29/24 at 8am. Pain today 04/07 Clinical Data Abstractor Required: No Accompanied by: Self / Same As Patient Allergies egg Allergy (Unknown, Verified 11/29/24 11:34) belly pain morphine Allergy (Unknown, Verified 11/29/24 11:34) chest pain Penicillins [PENICILLINS] Allergy (Unknown, Verified 11/29/24 11:34) UNKNOWN, WAS A CHILD lobster Adverse Reaction (Mild, Uncoded 09/07/24 10:45) Constipation HPI Comments Details: Patient returns today for a film count for Belbuca 300 mcg BID. Patient is supposed to have #56 films and presents with #68 films. Patient reports adequate analgesia on current regime without any side effects. Patient denies any side effects on current regime except occasional constipation for which she takes Senexon-S, dietary fiber and increases fluid intake. Denies any fever, chills, chest pain, dizziness, shortness of breaths, nausea, sedation, dizziness, or urinary retention. [facility] Medical History Descending aortic aneurysm Nicotine dependence, cigarettes, uncomplicated Gait instability History of COVID-19 (~09/2021) Lipid disorder Asthma-COPD overlap syndrome Vitamin B deficiency Vitamin D deficiency Chronic GERD Depression, major, severe recurrence Back pain, chronic Asthma Hypertension, essential Surgical History History of lumbar fusion History of colonoscopy History of cervical spinal surgery (~2015) History of cholecystectomy (~2008) History of tubal ligation Family History Father No problems noted. Mother No problems noted. Brother No problems noted. Brother No problems noted. Sister No problems noted. Daughter No problems noted. Daughter No problems noted. Daughter No problems noted. Other Mental health disorder Social History Housing: Apartment Patient Tobacco Use Status: Former Tobacco user Tobacco use type: Cigarette Cigarettes Per Day: 3 Years Smoked: current smoker - onset 15, 1/2ppd x 42yrs, 21pyh e-Cigarette/Vaping Use: Never Used service: No Current occupational status: disabled Cognitive needs: No Hearing needs: No Vision needs: No Review of Systems Const All systems reviewed & are unremarkable except as noted in HPI and below Physical Exam Vital Signs: Last Vital Signs Pulse 54 11/29/24 11:34 BP 167/81 H 11/29/24 11:34 Pulse Ox 98 11/29/24 11:34 Oxygen Delivery Method Room Air 11/29/24 11:34 BMI result Body Mass Index 37.7 General: Appears afebrile. Alert and oriented. Mood and affect appropriate. Very pleasant. Follows and participates in conversation appropriately. Respiratory effort is unlabored. No cough. Able to transition from sit to stand unassisted. Mildly antalgic gait, no limping. Extrem General: Yes capillary refill normal, Yes no clubbing, cyanosis or edema and Yes no calf tenderness Psych Appearance: grossly normal Mental Status: mental status grossly normal Speech and movement: Normal speech and movement present and Clear speech present Affect: normal affect Attitude: cooperative Thought process: Normal thought process present Thought content: Normal thought content present, suicidality (none), no hallucinations and No Depressive thoughts present Insight: Good insight present (Psych) Judgement: Good judgement present (Psych) Quality Reporting (2019) Adult ([facility] 138/11/20/68) Smoking risk assessment performed?: Yes Patient Tobacco Use Status: Former Tobacco user Results Reviewed Results Reviewed: LUMBAR SPINE MRI: The disc is of normal height and signal intensity without significant disc bulge or herniation. L2-3: The disc is of normal height and signal intensity without significant disc bulge or herniation. There is moderate degenerative facet arthropathy. L3-4: The disc is of normal height and signal intensity without significant disc bulge or herniation. There is moderate degenerative facet arthropathy. L4-5: The disc is of normal height and signal intensity without significant disc bulge or herniation. There is marked degenerative facet arthropathy with ligamentous hypertrophy causing mild central canal stenosis. L5-S1: There is complete fusion of the disc space although the patient does not report any history of prior surgery. There is marked degenerative facet arthropathy without significant foraminal stenosis. Vertebral alignment is normal. There is fusion of the L5-S1 disc space. Marrow signal intensity is normal. The conus terminates at T12-L1 and appears normal. There is no paraspinous mass. IMPRESSION: 1. Marked degenerative facet arthropathy at L4-5 causing mild central canal stenosis. 2. Complete fusion of the L5-S1 disc: No prior surgery is reported. Marked degenerative facet arthropathy. 3. Moderate degenerative facet arthropathy L2-3 and L3-4. ECG 12 lead EKG 11/22/22 Blood Pressure : / mmHG Vent. Rate : 054 BPM Atrial Rate : 054 BPM P-R Int : 148 ms QRS Dur : 078 ms QT Int : 398 ms P-R-T Axes : 077 064 052 degrees QTc Int : 377 ms Sinus bradycardia with Premature atrial complexes Otherwise normal ECG No significant changes when compared with the previous EKG of 21 jun 2003 Cardiology notes 09/21/24 Dr. Rodríguez: Assessment & Plan Assessment & Plan (1) Chronic, continuous use of opioids: Code(s): F11.90 - Opioid use, unspecified, uncomplicated Category: Medical (2) Spondylosis of lumbar spine: Code(s): M47.816 - Spondylosis without myelopathy or radiculopathy, lumbar region Category: Medical (3) Back pain, chronic: Code(s): M54.9 - Dorsalgia, unspecified; G89.29 - Other chronic pain Category: Medical (4) Sacroiliac joint pain: Code(s): M53.3 - Sacrococcygeal disorders, not elsewhere classified Category: Medical Plan Patient presents today for a film count. She has shown accountability for her medication regimen and the count was accurate. There is no evidence of misuse, abuse or diversion at this time. MassPAT reviewed. Recent random UDS was concordant. Script for Belbuca 300 mcg BID sent with an advanced date of 12/30/24 with one refill. Continue gabapentin. Patient has Narcan at home. Continue daily physical activity as tolerated, weight loss, adequate hydration, well-balanced diet, daily fiber intake and good posture. All questions were answered and this patient is agreeable to the plan.?Follow-up in 8 weeks for a film count and sooner as needed. Medications: Refilled 2 buprenorphine HCl Partial Fill upon patient request. 300 mcg buccal Q12H 30 days 60 ea 1RF pain F11.90 - Opioid use, unspecified, uncomplicated, M47.816 - Spondylosis without myelopathy or radiculopathy, lumbar region, M48.061 - Spinal stenosis, lumbar region without neurogenic claudication Coding Level of Care Code Est Pt Level 4 (61156) Complex EM visit Add On G2211 Diagnoses Chronic, continuous use of opioids F11.90 Spondylosis of lumbar spine M47.816 Back pain, chronic M54.9; G89.29 Sacroiliac joint pain M53.3
[2024-11-29 11:34] VITALS: BP 167/81; PULSE 54; O2SAT 98; BMI 37.7
--- OUTSIDE RECORDS SUMMARY | 2024-11-29 13:32 | XMS_ITS | Clinical Summary ---
Author Organization [employer] [facility] Address [address] [place] [address] Care Team Providers Care Blueprinting Machine Operator Name Role Phone Oral Ocasio MD Primary Care Provider [phone] Surgical History Surgery Date Site/Laterality Comments TUBAL LIGATION PROCEDURE: HISTORICAL TUBAL LIGATION CERVICAL LAMINECTOMY 06/2017 PROCEDURE: HISTORICAL CERV LAMINECTOMY; COMMENT: cervical decompression HYSTERECTOMY PROCEDURE: HISTORICAL HYSTERECTOMY Medical History Medical History Date Comments Hypertension 03/26/2018 DX:Hypertension GERD (gastroesophageal reflux disease) 03/26/2018 DX:GERD (gastroesophageal reflux disease) Vitamin D deficiency 03/26/2018 DX:Vitamin D deficiency COPD (chronic obstructive pu lmonary disease) ([facility]) 03/26/2018 DX:COPD (chronic obstructive pulmonary disease) ([facility]) Fibromyalgia 03/26/2018 DX:Fibromyalgia Hyperlipidemia 03/26/2018 DX:Hyperlipidemi a Constipation 03/26/2018 DX:Constipation Cervical spinal stenosis 03/26/2018 DX:Cerv ical spinal stenosis Varicose veins of legs 03/26/2018 DX:Varico se veins of legs Anxiety 10/02/2016 DX:Anxiety Bipolar disorder ([facility]) 04/27/2019 DX:Bi polar disorder ([facility]) Osteoarthritis 10/02/2016 DX:Osteoarthriti s; COMMENT: [...] Recently Relevant to Health Maintenance Results * [facility] SCREENING DIGITAL (06/17/2024 8:24 AM EDT) Anatomical Region Laterality Modality Mammography 06/16/2024 10:4 2 AM EDT Narrative 06/17/2024 8:24 AM EDT [facility] Diagnostic Imaging Department [address] [place] [address] Patient: ??REBECA HERNANDEZ ?/Age/Sex: 1965 - 59 - F Unit#: ??[id number] ? Location/Status: ??SPDIMAM/REG CLI ? Mnemonic/Ordering Site: ??DIGSC/SPMAM Ordering Physician: ??JUAREZ AL MD [facility] [place] - 06/16/24 - 1122 Report Status:Signed EXAM: [facility] [place] EXAM DATE AND TIME: 06/16/2024 11:23 AM HISTORY: ??Screening. COMPARISON: ??09/02/22, 08/27/21, 08/22/20 TECHNIQUE: Bilateral digital breast tomosynthesis was performed in the CC and MLO projections. Computer aided detection with Quantifeed 3D 3.1 was employed. TISSUE DENSITY: c. [...] Mammogram performed at [facility] [address] [place] [address] Dictating Physician: ??AUGUSTA SIERRA MD Electronically Signed by: ??AUGUSTA SIERRA MD Dic Date/Time: ??06/17/24821 Sign date/Time: ??06/17/24823 Procedure Note Augusta Sierra MD - 07/14/2024 [facility] Diagnostic Imaging Department [address] [place] [address] Patient: REBECA HERNANDEZ /Age/Sex: 1965 - 59 - F Unit#: [id number] [facility]ing [facility] Ordering Physician: JUAREZ AL MD [facility] [place] - 06/16/24 - 1122 Report Status:Signed EXAM: [facility] EXAM DATE AND TIME: 06/16/2024 11:23 AM HISTORY: Screening. COMPARISON: 09/02/22, 08/27/21, 08/22/20 TECHNIQUE: Bilateral digital breast tomosynthesis was performed in the CCand MLO projections. Computer aided detection with Quantifeed 3D 3.1was employed. TISSUE DENSITY: c. 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
--- OUTSIDE RECORDS SUMMARY | 2024-11-29 13:32 | XMS_ITS | Encounter Summary ---
Author Organization [facility] Address [address] [place] [address] Care Team Providers Care Metal Moulder Name Role Phone Community, Pcp Primary Care Provider Madelaine Varghese Primary Care Provider Oral Alicea MD Primary Care Provider Unavailkaity e Encounter Details Date Type Department Care Team Description 03/11/2018 Release of Information Medical Records [address] [place] [id number] Abstract, Provider Social History Tobacco Use Types Packs/Day Years Used Date Smoking Tobacco: Every Day Smokeless Tobacco: Never Alcohol Use Standard Drinks/Week Comments No 0 (1 standard drink = 0.6 oz pur e alcohol) Sex Assigned at Date Recorded Not on file documented as of this encounter Plan of Treatment Not on file documented as of this encounter Visit Diagnoses Not on filedocumented in this encounter Care Teams Metal Moulder Relationship Specialty Start Date End Date Community, Pcp PCP - General Internal Medicine 12/31/17 05/11/18 Madelaine Coon FNP-BC PCP - General Internal Medicine 05/12/18 Oral Ocasio MD PCP - General Internal Medicine 12/04/21 documented as of this encounter
--- OUTSIDE RECORDS SUMMARY | 2024-11-29 13:32 | XMS_ITS | Clinical Summary ---
Author Organization [facility] Address [address] [place] [address] Phone Care Team Providers Care Dye Weigher Name Role Phone Oral Ocasio MD Primary Care Provider [phone] Allergies Active Allergy Reactions Criticality Noted Date [...] Vaccine (#1) 2024 11/03/2018 Insurance Care Teams Dye Weigher Relationship Specialty Start Date End Date Oral Ocasio MD [facility] [address] PCP - General 10/09/20
--- OUTSIDE RECORDS SUMMARY | 2024-11-29 13:32 | XMS_ITS | Clinical Summary ---
Author Organization [facility] Address [address] [place] [address] Care Team Providers Care Joss House Keeper Name Role Phone Oral Ocasio MD Primary Care Provider Unavailabl e Allergies Active Allergy Reactions Severity Noted Date Comments Eggs 03/09/2018 Penicillins 03/09/2018 Medications Medication Sig Dispensed Refills Start Date End Date Status mirtazapine (REMERON) 45 MG tablet Take 45 mg by mouth at bedtime. 0 Active busPIRone (BUSPAR) 15 MG tablet Take 15 mg by mouth 2 times daily. 0 Active Omeprazole 20 MG Tab EC Take by mouth. 0 Active gabapentin (NEURONTIN) 400 MG capsule Take 400 mg by mouth every 8 hours. 0 Active Isvu-Nlprlphko-Ikj- Methyl Cristobal 0.5-0.035-5-20 % PATCH Apply topically. 0 Active buPROPion (WELLBUTRIN SR) 100 MG 12 hr tablet Take 100 mg by mouth 2 times daily. 0 Active tramadol (ULTRAM) 50 MG tablet Take 50 mg by mouth every 6 hours as needed. 0 Active losartan (COZAAR) 50 MG tablet Take 50 mg by mouth daily. 0 Active chlorthalidone (HYGROTEN) 25 MG tablet Take 25 mg by mouth daily. 0 Active atorvastatin (LIPITOR) 20 MG tablet Take 20 mg by mouth daily. 0 Active methocarbamol (ROBAXIN) 500 MG tablet Take 500 mg by mouth every 8 hours. 0 Active nabumetone (RELAFEN) 750 MG tablet Take 750 mg by mouth 2 times daily. 0 Active albuterol (PROVENTIL) (2.5 MG/3ML) 0.083% nebulizer solution Take 1 Vial by nebulization every 4 hours as needed. 0 Active fluticasone (FLONASE) 50 MCG/ACT nasal spray 2 Sprays by Nasal route daily for 30 days. 1 Bottle 11 03/09/2018 Active Tiotropium [place] Monohydrate (SPIRIVA RESPIMAT) 2.5 MCG/ACT Aero Soln Inhale 2 Puffs into the lungs daily for 90 days. 3 Inhaler 3 03/10/2018 Active LAMOTRIGINE OR Take by mouth. 0 Active nicotine (NICOTROL) 10 MG inhaler Inhale 2 Puffs into the lungs 4 times daily as needed for Smoking cessation for up to 30 days. 168 Each 0 12/17/2018 Active montelukast (SINGULAIR) 10 MG tablet TAKE 1 TABLET BY MOUTH EVERY NIGHT AT BEDTIME 30 Tab 6 03/29/2019 Active budesonide-formoter ol (SYMBICORT) 160-4.5 MCG/ACT inhaler Inhale 2 Puffs into the lungs every 12 hours. This medication has inhaler steroid: Rinse mouth with water and expectorate after each dose to prevent oral/esophageal candidiasis or fungal infection. 1 Inhaler 0 2019 Active ALBUTEROL SULFATE (PROAIR HFA) 108 (90 BASE) MCG/ACT Aero Soln Inhale 2 Puffs into the lungs every 4 hours as needed for Cough or Wheezing for up to 30 days. 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 Resolved Problems Problem Noted Date Resolved Date Arthritis 07/18/2016 04/27/2019 Immunizations Name Administration Dates Next Due Influenza Vaccine-preservati ve Free-quadrivalent 4 Years 11/03/2018 Tdap 06/05/2011 Social History Tobacco Use Types Packs/Day Years Used Date Smoking Tobacco: Every Day Smokeless Tobacco: Never Alcohol Use Standard Drinks/Week Comments Yes 0 (1 standard drink = 0.6 oz pur e alcohol) occasionally Sex Assigned at Date Recorded Not on file Last Filed Vital Signs Vital Sign Reading Time Taken Comments Blood Pressure 126/74 11/03/2018 2:18 PM EST Pulse 66 11/03/2018 2:18 PM EST Temperature - - Respiratory Rate 14 11/03/2018 2:18 PM EST Oxygen Saturation 94% 11/03/2018 2:18 PM EST Inhaled Oxygen Concentration - - Weight 111.6 kg (246 lb) 11/03/2018 2:18 PM EST Height 157.5 cm (5' 2 ) 11/03/2018 2:18 PM EST Body Mass Index 44.99 11/03/2018 2:18 PM EST Plan of Treatment Health Maintenance Due Date Last Done Comments Covid-19 Vaccine (#1) 1965 HEPATITIS C SCREENING 1984 PNEUMOCOCCAL VACCINE FOR HIG H RISK PATIENTS (#1) 1985 CHOLESTEROL SCREENING 1986 CERVICAL CANCER SCREENING 1987 BASELINE HEALTH EXAM 40-64 2006 MAMMOGRAM 2006 COLON CANCER SCREENING 2016 SHINGLES VACCINE (1 of 2) 2016 TOBACCO CHECK/ADVISE 2021 2019, 03/27/2019, 12/16/2018, Additional history exists DTAP/TDAP/TD (2 - Td or Tdap) 06/05/2021 06/05/2011 INFLUENZA (#1) 2024 11/03/2018 BMI CHECK/ADVISE 09/29/2024 11/03/2018, , 03/09/2018 DEPRESSION SCREENING/FOLLOWUP 09/29/2024 SOCIAL NEEDS SCREENING 09/29/2024 Care Teams Joss House Keeper Relationship Specialty Start Date End Date Oral Ocasio MD PCP - General Internal Medicine 12/04/21
== END 2024-11-29 11:54 | disposition home or self-care (01) ==
PROVIDERS: PCP Internal Medicine; Visit Provider Nurse Practitioner Family
DX: G89.29 Other chronic pain (principal); M47.816 Spondylosis without myelopathy or radiculopathy, lumbar region; M54.9 Dorsalgia, unspecified; Z79.891 Long term (current) use of opiate analgesic; M53.3 Sacrococcygeal disorders, not elsewhere classified
CPT/HCPCS: 99214; G2211

== ENCOUNTER → 2024-11-29 11:24 | Outpatient (BNVA) | payer OTHER, SELFPAY | PROVIDERS: PCP Internal Medicine; Visit Provider Nurse Practitioner Family | DX: Z51.81 Encounter for therapeutic drug level monitoring (principal); F11.20 Opioid dependence, uncomplicated; M47.816 Spondylosis without myelopathy or radiculopathy, lumbar region; M54.9 Dorsalgia, unspecified; M53.3 Sacrococcygeal disorders, not elsewhere classified; G89.29 Other chronic pain | CPT/HCPCS: 99212 ==

== ENCOUNTER 2025-01-25 11:20 | Outpatient (AMB) | payer OTHER, SELFPAY ==
--- NOTE | 2025-01-25 11:28 | A.OFFVIS_ITS ---
Vital Signs 3 01/25/25 11:50 Height 5 ft 6 in Weight 229 lb 6 oz BMI 37.0 BP 150/78 H Blood Pressure Location Lt brachial Position Sitting Pulse 53 Pulse Source Pulse Oximeter Pulse Oximetry (%) 97 Oxygen Delivery Method Room Air Intake Visit Reasons: Pill count/moved from 01/24 ok per Katherin Intake Note: Parveen comes in today for a pill count to Belbuca, patient should have 54 films and presents with 58 films which she last took today 01/25/25 at 7:30 am. Pain today 03/08 Wire Coating Operator Metal Required: No Accompanied by: Self / Same As Patient Allergies egg Allergy (Unknown, Verified 11/29/24 11:34) belly pain morphine Allergy (Unknown, Verified 11/29/24 11:34) chest pain Penicillins [PENICILLINS] Allergy (Unknown, Verified 11/29/24 11:34) UNKNOWN, WAS A CHILD lobster Adverse Reaction (Mild, Uncoded 09/07/24 10:45) Constipation HPI Comments Details: Patient returns today for a film count for Belbuca 300 mcg BID. Patient is supposed to have #54 films and presents with #58 films. Patient reports reasonable analgesia on current regime without any side effects, however reports flare up in her chronic low back pain with occasional radicular symptoms to lateral and posterior aspects of both legs. Denies any recent trauma, injury or falls. She is hesitant towards injections or interventional treatments as past experiences provided minimal to no pain relief. Patient denies any side effects on current regime except occasional constipation for which she takes Senexon-S, dietary fiber and increases fluid intake. Denies any fever, chills, chest pain, dizziness, shortness of breaths, nausea, sedation, dizziness, or urinary retention. [facility] Medical History Descending aortic aneurysm Nicotine dependence, cigarettes, uncomplicated Gait instability History of COVID-19 (~09/2021) Lipid disorder Asthma-COPD overlap syndrome Vitamin B deficiency Vitamin D deficiency Chronic GERD Depression, major, severe recurrence Back pain, chronic Asthma Hypertension, essential Surgical History History of lumbar fusion History of colonoscopy History of cervical spinal surgery (~2015) History of cholecystectomy (~2008) History of tubal ligation Family History Father No problems noted. Mother No problems noted. Brother No problems noted. Brother No problems noted. Sister No problems noted. Daughter No problems noted. Daughter No problems noted. Daughter No problems noted. Other Mental health disorder Social History Housing: Apartment Patient Tobacco Use Status: Former Tobacco user Tobacco use type: Cigarette Cigarettes Per Day: 3 Years Smoked: current smoker - onset 15, 1/2ppd x 42yrs, 21pyh e-Cigarette/Vaping Use: Never Used service: No Current occupational status: disabled Cognitive needs: No Hearing needs: No Vision needs: No Review of Systems Const All systems reviewed & are unremarkable except as noted in HPI and below Physical Exam Vital Signs: Last Vital Signs Pulse 53 01/25/25 11:50 BP 150/78 H 01/25/25 11:50 Pulse Ox 97 01/25/25 11:50 Oxygen Delivery Method Room Air 01/25/25 11:50 BMI result Body Mass Index 37.0 General: Appears afebrile. Alert and oriented. Mood and affect appropriate. Very pleasant. Follows and participates in conversation appropriately. Respiratory effort is unlabored. No cough. Able to transition from sit to stand unassisted. Mildly antalgic gait, no limping. General: Yes no CVA tenderness Back/Spine/Pelvis Back: no CVA tenderness Cervical Spine: cervical ROM normal, cervical muscular tenderness, pain with cervical ROM and No Cervical spine tenderness Thoracic/Lumbar Spine: thoracic and lumbar spine normal to inspection, No Thoracic/lumbar spine scar(s), Lasegue's sign positive bilateral and diffuse, pain with thoraco-lumbar ROM, thoraco-lumbar ROM limited, No thoracic spinal tenderness and lumbar spinal tenderness (L4-S1) Pelvis: buttock tenderness bilaterally Sacroiliac joints: bilaterally tender to palpation Extrem General: Yes capillary refill normal, Yes no clubbing, cyanosis or edema and Yes no calf tenderness Psych Appearance: grossly normal Mental Status: mental status grossly normal Speech and movement: Normal speech and movement present and Clear speech present Affect: normal affect Attitude: cooperative Thought process: Normal thought process present Thought content: Normal thought content present, suicidality (none), no hallucinations and No Depressive thoughts present Insight: Good insight present (Psych) Judgement: Good judgement present (Psych) Results Reviewed Results Reviewed: LUMBAR SPINE MRI: The disc is of normal height and signal intensity without significant disc bulge or herniation. L2-3: The disc is of normal height and signal intensity without significant disc bulge or herniation. There is moderate degenerative facet arthropathy. L3-4: The disc is of normal height and signal intensity without significant disc bulge or herniation. There is moderate degenerative facet arthropathy. L4-5: The disc is of normal height and signal intensity without significant disc bulge or herniation. There is marked degenerative facet arthropathy with ligamentous hypertrophy causing mild central canal stenosis. L5-S1: There is complete fusion of the disc space although the patient does not report any history of prior surgery. There is marked degenerative facet arthropathy without significant foraminal stenosis. Vertebral alignment is normal. There is fusion of the L5-S1 disc space. Marrow signal intensity is normal. The conus terminates at T12-L1 and appears normal. There is no paraspinous mass. IMPRESSION: 1. Marked degenerative facet arthropathy at L4-5 causing mild central canal stenosis. 2. Complete fusion of the L5-S1 disc: No prior surgery is reported. Marked degenerative facet arthropathy. 3. Moderate degenerative facet arthropathy L2-3 and L3-4. ECG 12 lead EKG 11/22/22 Blood Pressure : / mmHG Vent. Rate : 054 BPM Atrial Rate : 054 BPM P-R Int : 148 ms QRS Dur : 078 ms QT Int : 398 ms P-R-T Axes : 077 064 052 degrees QTc Int : 377 ms Sinus bradycardia with Premature atrial complexes Otherwise normal ECG No significant changes when compared with the previous EKG of 21 jun 2003 Cardiology notes 09/21/24 Dr. Rodríguez: Assessment & Plan Assessment & Plan (1) Back pain, chronic: Code(s): M54.9 - Dorsalgia, unspecified; G89.29 - Other chronic pain Category: Medical (2) Spondylosis of lumbar spine: Code(s): M47.816 - Spondylosis without myelopathy or radiculopathy, lumbar region Category: Medical (3) Sacroiliac joint pain: Code(s): M53.3 - Sacrococcygeal disorders, not elsewhere classified Category: Medical (4) Chronic, continuous use of opioids: Code(s): F11.90 - Opioid use, unspecified, uncomplicated Category: Medical Plan Patient presents today for a film count. She has shown accountability for her medication regimen and the count was accurate. There is no evidence of misuse, abuse or diversion at this time. [facility] reviewed. Script for Belbuca 300 mcg BID sent with an advanced date of 02/20/25 with one refill. Continue gabapentin. Patient has Narcan at home. Will add Meloxicam for acute on chronic low back pain flare up. Patient is hesitant towards Belbuca dose up titration at this time due to potential drowsiness effects. Continue daily physical activity as tolerated, weight loss, adequate hydration, well-balanced diet, daily fiber intake and good posture. All questions were answered and this patient is agreeable to the plan.?Follow-up in 8 weeks for a film count and sooner as needed. Medications: New 2 meloxicam Take it with food and full glass of water. Avoid other NSAIDs. 15 mg PO DAILY PRN 30 tabs 0RF pain G89.29 - Other chronic pain, M47.816 - Spondylosis without myelopathy or radiculopathy, lumbar region, M53.3 - Sacrococcygeal disorders, not elsewhere classified, M54.9 - Dorsalgia, unspecified Refilled 2 buprenorphine HCl Partial Fill upon patient request. 300 mcg buccal Q12H 30 days 60 ea 1RF pain F11.90 - Opioid use, unspecified, uncomplicated, M47.816 - Spondylosis without myelopathy or radiculopathy, lumbar region, M48.061 - Spinal stenosis, lumbar region without neurogenic claudication Coding Level of Care Code Est Pt Level 4 (56069) Complex EM visit Add On G2211 Diagnoses Back pain, chronic M54.9; G89.29 Spondylosis of lumbar spine M47.816 Sacroiliac joint pain M53.3 Chronic, continuous use of opioids F11.90
[2025-01-25 11:50] VITALS: BP 150/78; PULSE 53; O2SAT 97; BMI 37.0
--- OUTSIDE RECORDS SUMMARY | 2025-01-25 13:22 | XMS_ITS | Clinical Summary ---
Author Organization [facility] Address [address] [place] [address] Phone Care Team Providers Care Ambulette Driver Name Role Phone Oral Ocasio MD Primary Care Provider [phone] Allergies Active Allergy Reactions Criticality Noted Date [...] Knees, Fingers Splenic infarction 07/08/2013 1 Immunizations Immunization Administration Dates Next Due Influenza, MDCK, PF, [...] Last Done Comments Breast Cancer Screening 1965 Hepatitis B Vaccine (1 of 3 - 19+ 3-dose series) 05/19 Pneumococcal Vaccine: 50+ Years (1 of 2 - PCV) 985 Colorectal Cancer Screening: Annual FOBT 2015 Colorectal Cancer Screening: Colonoscopy 2015 Colorectal Cancer Screening: Sigmoidoscopy 2015 Influenza Vaccine (Season Ended) 2025 11/03/19 19 Insurance Medicaid Care Teams Ambulette Driver Relationship Specialty Start Date End Date Oral Ocasio MD [place] [address] PCP - General 10/09/20
--- OUTSIDE RECORDS SUMMARY | 2025-01-25 13:22 | XMS_ITS | Encounter Summary ---
Author Organization [facility] Address [address] [place] [address] Care Team Providers Care Senior Front End Web Developer Name Role Phone Madelaine Coon [facility] Primary Care Provider Oral Alicae MD Primary Care Provider Unavailabl e Reason for Visit * Reason Comments E-prescribe Rx Request Encounter Details Date Type Department Care Team Description 03/27/2019 Refill Pulmonology - [place] [address] [place] [id number] Augustus iGlliam MD E-prescribe Rx Request Social History Tobacco Use Types Packs/Day Years Used Date Smoking Tobacco: Every Day Smokeless Tobacco: Never Alcohol Use Standard Drinks/Week Comments No 0 (1 standard drink = 0.6 oz pur e alcohol) Sex Assigned at Date Recorded Not on file documented as of this encounter Miscellaneous Notes * Telephone Encounter - Anali Coon - 03/29/2019 8:37 AM EDT Patient would like script to be: E-PRESCRIBED/FAXED TO PHARMACY WHEN WAS THE PATIENT'S LAST APPOINTMENT WITH THE PRESCRIBING PROVIDER? 11/03/2018 Does patient have an upcoming appointment? Yes 05/11/2019 (THE MEDICATION REQUESTED IS ON THE MED LIST ABOVE) All of the medications requested were on the CURRENT MEDS list Did you check the Pharmacy information above?: YES Patient wants: 30 -day supply Is this a mail order prescription request ? NO Patients current insurance carrier is: [employer] FFS / Plan: [employer] / Product Type: MEDICAID RISK documented in this encounter Plan of Treatment Not on file documented as of this encounter Visit Diagnoses Not on filedocumented in this encounter Care Teams Senior Front End Web Developer Relationship Specialty Start Date End Date Madelaine Coon FNP-DREA PCP - General Internal Medicine 05/12/18 Oral Ocasio MD PCP - General Internal Medicine 12/04/21 documented as of this encounter
--- OUTSIDE RECORDS SUMMARY | 2025-01-25 13:22 | XMS_ITS | Clinical Summary ---
Author Organization [facility] Address [address] [place] [address] Care Team Providers Care Regional Branch Manager Name Role Phone Oral Ocasio MD Primary [...] by mouth every 8 hours. 0 Active Owlh-Unbfidmxr-Acf- Methyl Cristobal 0.5-0.035-5-20 % PATCH Apply topically. [...] days. 1 Bottle 11 03/09/2018 Active Tiotropium [place] Monohydrate (SPIRIVA RESPIMAT) 2.5 MCG/ACT Aero Soln [...] (2 - Td or Tdap) 06/05/2021 06/05/2011 BMI CHECK/ADVISE 09/29/2024 11/03/2018, , 03/09/2018 DEPRESSION SCREENING/FOLLOWUP 09/29/2024 SOCIAL NEEDS SCREENING 09/29/2024 INFLUENZA (Season Ended) 2025 11/03/2018 Care Teams Regional Branch Manager Relationship Specialty Start Date End Date Oral Ocasio MD PCP - General Internal Medicine 12/04/21
--- OUTSIDE RECORDS SUMMARY | 2025-01-25 13:22 | XMS_ITS | Clinical Summary ---
Author Organization [facility] Address [address] [place] [address] Care Team Providers Care Bucket Chucker Name Role Phone Oral Ocasio MD Primary Care Provider [phone] Surgical History Surgery Date Site/Laterality Comments TUBAL LIGATION PROCEDURE: HISTORICAL TUBAL LIGATION CERVICAL LAMINECTOMY 06/2017 PROCEDURE: HISTORICAL CERV LAMINECTOMY; COMMENT: cervical decompression HYSTERECTOMY PROCEDURE: HISTORICAL HYSTERECTOMY Medical History Medical History Date Comments Hypertension 03/26/2018 DX:Hypertension GERD (gastroesophageal reflux disease) 03/26/2018 DX:GERD (gastroesophageal reflux disease) Vitamin D deficiency 03/26/2018 DX:Vitamin D deficiency COPD (chronic obstructive pu lmonary disease) ([facility] V24, [facility] V28) 03/26/2018 DX:COPD (chronic o bstructive pulmonary disease) ([facility]) Fibromyalgia 03/26/2018 DX:Fibromyalgia Hyperlipidemia 03/26/2018 DX:Hyperlipidemi a Constipation 03/26/2018 DX:Constipation Cervical spinal stenosis 03/26/2018 DX:Cerv ical spinal stenosis Varicose veins of legs 03/26/2018 DX:Varico se veins of legs Anxiety 10/02/2016 DX:Anxiety Bipolar disorder ([facility] V2 4, [facility] V28) 04/27/2019 DX:Bipolar disorder ([facility]) Osteoarthritis 10/02/2016 DX:Osteoarthriti s; COMMENT: Knees, Fingers [...] COVID-19 Vaccine ( season) 2024 Influenza Vaccine (Season Ended) 2025 11/03/2018 Breast Cancer Screening 06/17/2026 06/17/20 24, [...] age to complete this topic Meningococcal B Vaccine Aged Out No l onger eligible based on patient's age to complete this topic RSV Immunization Patients Under 20 months Aged Out No longer eligible based on patient's age to complete this topic Varicella Vaccines Aged Out No longer eligible based on patient's age to complete this topic Procedures Procedure Name Priority Date/Time Associated Diagnosis Comments [facility] Routine 06/17/2024 8:24 AM EDT Encounter for screening mammogram for malignant neoplasm of breast from Last 3 Months or Most Recently Relevant to Health Maintenance Results * [facility] (06/17/2024 8:24 AM EDT) Anatomical Region Laterality Modality Mammography 06/16/2024 10:4 2 AM EDT Narrative 06/17/2024 8:24 AM EDT [facility] Diagnostic Imaging Department [address] [place] [address] Patient: ??REBECA HERNANDEZ ?/Age/Sex: 1965 - 59 - F Unit#: ??[id number] ? Location/Status: ??SPDIMAM/REG CLI ? Mnemonic/Ordering Site: ??DIGSC/SPMAM Ordering Physician: ??JUAREZ AL MD [facility] - 06/16/24 - 112 Report Status:Signed EXAM: [facility] EXAM DATE AND TIME: 06/16/2024 11:23 AM HISTORY: ??Screening. COMPARISON: ??09/02/22, 08/27/21, 08/22/20 TECHNIQUE: Bilateral digital breast tomosynthesis was performed in the CC and MLO projections. Computer aided detection with iCAD A[place]ia 3D 3.1 was employed. TISSUE DENSITY: c. [...] Mammogram performed at [facility] [place] [address] Dictating Physician: ??AUGUSTA SIERRA MD Electronically Signed by: ??AUGUSTA SIERRA MD Dic Date/Time: ??06/17/24821 Sign date/Time: ??06/17/24823 Procedure Note Augusta Sierra MD - 07/14/2024 [facility] Diagnostic Imaging Department [address] [place] [id number] Patient: REBECA HERNANDEZ /Age/Sex: 1965 - 59 - F Unit#: [id number] [facility] Ordering Physician: JUAREZ AL MD [facility] - 06/16/24 - 1122 Report Status:Signed EXAM: [facility] Screening Digital EXAM DATE AND TIME: 06/16/2024 11:23 AM HISTORY: Screening. COMPARISON: 09/02/22, 08/27/21, 08/22/20 TECHNIQUE: Bilateral digital breast tomosynthesis was performed in the CCand MLO projections. Computer aided detection with Stretchr 3D 3.1was employed. TISSUE DENSITY: c. The [...] Mammogram performed at [facility] [place] [address] Dictating Physician: AUGUSTA SIERRA MD Electronically Signed by: AUGUSTA SIERRA MD Dic Date/Time: 06/17/24821 Sign date/Time: 06/17/24823 Juarez Foley MD IMG BI PROCEDURES Final Result from Last 3 Months or Most Recently Relevant to Health Maintenance Advance Directives Documents on File Type Date Recorded Patient [employer] Can [employer] Supervisor Expl anation Health Care Decision (hx) 07/17/2017 [...] (hx) 07/17/2017 AD UNDERWOOD DIRECTIVE Care Teams Bucket Chucker Relationship Specialty Start Date End Date Oral Ocasio MD [address] [place] [address] PCP - General Internal Medicine 12/04/21
== END 2025-01-25 12:32 | disposition home or self-care (01) ==
PROVIDERS: PCP Internal Medicine; Visit Provider Nurse Practitioner Family
DX: M54.9 Dorsalgia, unspecified (principal); G89.29 Other chronic pain; M47.816 Spondylosis without myelopathy or radiculopathy, lumbar region; Z79.891 Long term (current) use of opiate analgesic; M53.3 Sacrococcygeal disorders, not elsewhere classified
CPT/HCPCS: 99214; G2211

== ENCOUNTER → 2025-01-25 11:20 | Outpatient (BNVA) | payer OTHER, SELFPAY | PROVIDERS: PCP Internal Medicine; Visit Provider Nurse Practitioner Family | DX: Z51.81 Encounter for therapeutic drug level monitoring (principal); M47.816 Spondylosis without myelopathy or radiculopathy, lumbar region; M54.9 Dorsalgia, unspecified; M53.3 Sacrococcygeal disorders, not elsewhere classified; F11.20 Opioid dependence, uncomplicated; G89.29 Other chronic pain | CPT/HCPCS: 99212 ==

== ENCOUNTER 2025-02-14 09:54 | Outpatient (AMB) | payer OTHER, SELFPAY ==
--- NOTE | 2025-02-14 10:11 | AM.OFFWIN_ITS ---
Intake Vital Signs 02/14/25 10:12 Weight 231 lb BP 118/76 Blood Pressure Location Rt brachial Position Sitting Pulse 58 Pulse Source Pulse Oximeter Pulse Oximetry (%) 98 Oxygen Delivery Method Room Air Intake Visit Reasons: EP-lt side under breast pain, lt leg swollen Intake Note: Patient here for left leg swelling that has been present for 3 days and left side pain under breast pain when bending. Patient Tobacco Use Status: Former Tobacco user Allergies egg Allergy (Unknown, Verified 02/14/25 10:13) belly pain morphine Allergy (Unknown, Verified 02/14/25 10:13) chest pain Penicillins [PENICILLINS] Allergy (Unknown, Verified 02/14/25 10:13) UNKNOWN, WAS A CHILD lobster Adverse Reaction (Mild, Uncoded 02/14/25 10:13) Constipation HPI HPI Comments History of Present Illness Details 59 y/o Female patient who [facility] with c/o Left LE edema for 3 days associated with Left sided chest wall tenderness aggravated with bending down. She does report h/o Peripheral Edema and Varicose Veins. She used to f/u with Vascular surgery in the past. Denies h/o known Blood clots. [facility] Medical History (Updated 02/14/25 @ 10:49 by Alis Cristobal NP) Peripheral edema Descending aortic aneurysm Nicotine dependence, cigarettes, uncomplicated Gait instability History of COVID-19 (~09/2021) Lipid disorder Asthma-COPD overlap syndrome Vitamin B deficiency Vitamin D deficiency Chronic GERD Depression, major, severe recurrence Back pain, chronic Asthma Hypertension, essential Surgical History History of lumbar fusion History of colonoscopy History of cervical spinal surgery (~2015) History of cholecystectomy (~2008) History of tubal ligation Family History Father No problems noted. Mother No problems noted. Brother No problems noted. Brother No problems noted. Sister No problems noted. Daughter No problems noted. Daughter No problems noted. Daughter No problems noted. Other Mental health disorder Social History Housing: Apartment Patient Tobacco Use Status: Former Tobacco user Tobacco use type: Cigarette Cigarettes Per Day: 3 Years Smoked: current smoker - onset 15, 1/2ppd x 42yrs, 21pyh e-Cigarette/Vaping Use: Never Used service: No Current occupational status: disabled Cognitive needs: No Hearing needs: No Vision needs: No Review of Systems Const All systems reviewed & are unremarkable except as noted in HPI and below Physical Exam Vital Signs: Last Vital Signs Pulse 58 02/14/25 10:12 BP 118/76 02/14/25 10:12 Pulse Ox 98 02/14/25 10:12 Oxygen Delivery Method Room Air 02/14/25 10:12 Const General: no acute distress; No comfortable Nutritional Appearance: obese Orientation/consciousness: patient oriented x3 HEENT Head: Yes normocephalic Resp Effort & Inspection: normal respiratory effort Auscultation: clear to auscultation bilaterally Cardio Heart sounds: S1 normal heart sound present and S2 normal heart sound present Skin General skin exam: no rashes or lesions noted Neuro General: patient oriented x3 Extrem Right lower extremity: lower leg Details: non-pitting edema Details: 1+; no erythema and no tenderness Left lower extremity: lower leg Details: erythema, tenderness Location: of the posterior calf and non-pitting edema Details: 3+; no crepitus Psych Speech and movement: Normal speech and movement present Affect: Anxious affect present Assessment & Plan Assessment & Plan (1) Peripheral edema: Code(s): R60.0 - Localized edema Plan: Due to Pain and one sided Edema, will order U/S to r/o DVT. Pt was wearing compression stockings but admits to not being compliant. RESULTS: Preliminary Duplex U/S Report shows DVT left LE Extremity. Pt transported via Ambulance to [facility]. Orders: Orders US venous duplex LE LT Today R60.0 - Localized edema Coding Level of Care Code Est Pt Level 5 (87680) Diagnoses Peripheral edema R60.0 Time Spent (min) 40
[2025-02-14 10:12] VITALS: BP 118/76; PULSE 58; O2SAT 98
--- OUTSIDE RECORDS SUMMARY | 2025-02-14 10:12 | XMS_ITS | Clinical Summary ---
Author Organization [facility] Address [address] [place] [address] Care Team Providers Care Addressograph Operator Name Role Phone Oral Ocasio MD Primary Care Provider Surgical History Surgery Date Site/Laterality Comments TUBAL LIGATION PROCEDURE: HISTORICAL TUBAL LIGATION CERVICAL LAMINECTOMY 06/2017 PROCEDURE: HISTORICAL CERV LAMINECTOMY; COMMENT: cervical decompression HYSTERECTOMY PROCEDURE: HISTORICAL HYSTERECTOMY Medical History Medical History Date Comments Hypertension 03/26/2018 DX:Hypertension GERD (gastroesophageal reflux disease) 03/26/2018 DX:GERD (gastroesophageal reflux disease) Vitamin D deficiency 03/26/2018 DX:Vitamin D deficiency COPD (chronic obstructive pu lmonary disease) ([facility] V24, [facility] V28) 03/26/2018 DX:COPD (chronic o bstructive pulmonary disease) ([facility]) Fibromyalgia 03/26/2018 DX:Fibromyalgia Hyperlipidemia 03/26/2018 DX:Hyperlipidemi a Constipation 03/26/2018 DX:Constipation Cervical spinal stenosis 03/26/2018 DX:Cerv ical spinal stenosis Varicose veins of legs 03/26/2018 DX:Varico se veins of legs Anxiety 10/02/2016 DX:Anxiety Bipolar disorder ([facility] V2 4, [facility] V28) 04/27/2019 DX:Bipolar disorder ([facility]) Osteoarthritis 10/02/2016 DX:Osteoarthriti s; COMMENT: Knees, Fingers [...] AM EDT Narrative 06/17/2024 8:[address] [facility] Diagnostic Imaging Department [address] [place] [address] Patient: ??REBECA HERNANDEZ ?/Age/Sex: 1965 - 59 - F Unit#: ??[id number] ? Location/Status: ??SPDIMAM/REG CLI ? Mnemonic/Ordering Site: ??DIGSC/SPMAM Ordering Physician: ??JUAREZ AL MD [facility] - 06/16/24 - 112 Report Status:Signed EXAM: [facility] EXAM DATE AND TIME: 06/16/2024 11:23 AM HISTORY: ??Screening. COMPARISON: ??09/02/22, 08/27/21, 08/22/20 TECHNIQUE: Bilateral digital breast tomosynthesis was performed in the CC and MLO projections. Computer aided detection with iCAD GoGuide 3D 3.1 was employed. TISSUE DENSITY: c. [...] Mammogram performed at [facility] [place] [address] Dictating Physician: ??AUGUSTA SIERRA MD Electronically Signed by: ??AUGUSTA SIERRA MD Dic Date/Time: ??06/17/24821 Sign date/Time: ??06/17/24823 Procedure Note Augusta Sierra MD - 07/14/2024 [facility] Diagnostic Imaging Department [address] [place] [id number] Patient: REBECA HERNANDEZ /Age/Sex: 1965 - 59 - F Unit#: [id number] [facility] Ordering Physician: JUAREZ AL MD [facility] - 06/16/24 - 1122 Report Status:Signed EXAM: [facility] Screening Digital EXAM DATE AND TIME: 06/16/2024 11:23 AM HISTORY: Screening. COMPARISON: 09/02/22, 08/27/21, 08/22/20 TECHNIQUE: Bilateral digital breast tomosynthesis was performed in the CCand MLO projections. Computer aided detection with [employer] 3D 3.1was employed. TISSUE DENSITY: c. The [...] Mammogram performed at [facility] [place] [address] Dictating Physician: AUGUSTA SIERRA MD Electronically Signed by: AUGUSTA SIERRA MD Dic Date/Time: 06/17/24821 Sign date/Time: 06/17/24823 Juarez Foley MD IMG BI PROCEDURES Final Result from Last 3 Months or Most Recently Relevant to Health Maintenance Advance Directives Documents on File Type Date Recorded Patient Clerk Specialist Expl anation Health Care Decision (hx) 07/17/2017 [...] (hx) 07/17/2017 AD UNDERWOOD DIRECTIVE Care Teams Addressograph Operator Relationship Specialty Start Date End Date Oral Ocasio MD [address] [place] [address] PCP - General Internal Medicine 12/04/21
--- OUTSIDE RECORDS SUMMARY | 2025-02-14 10:12 | XMS_ITS | Clinical Summary ---
Author Organization [facility] Address [address] [place] [address] Phone Care Team Providers Care Social Media Editor Name Role Phone Oral Ocasio MD Primary Care Provider [phone] Allergies Active Allergy Reactions Criticality Noted Date [...] 2025 11/03/19 19 Insurance Medicaid Care Teams Social Media Editor Relationship Specialty Start Date End Date Oral Ocasio MD [facility] [place] [address] PCP - General 10/09/20
== END 2025-02-14 12:26 | disposition home or self-care (01) ==
PROVIDERS: PCP Internal Medicine; Visit Provider Nurse Practitioner Family
DX: R60.0 Localized edema (principal)

== ENCOUNTER → 2025-02-14 09:54 | Outpatient (BNVA) | payer OTHER, SELFPAY | PROVIDERS: PCP Internal Medicine; Visit Provider Nurse Practitioner Family ==

== ENCOUNTER 2025-02-14 11:15 | Outpatient (REF) | payer OTHER, SELFPAY ==
--- NOTE | ~2025-02-14 | US_ITS ---
EXAMINATION: US LOWER EXTREMITY VEINS LIMITED FOLLOW UP LEFT HISTORY: R60.0 - Localized edema COMPARISON: There are no prior studies for comparison. TECHNIQUE: Duplex and color Doppler sonographic examination of the deep venous system of the left lower extremity was performed. FINDINGS: The common femoral and superficial femoral veins are patent demonstrating normal compressibility, spontaneous flow, and augmentation. However, the popliteal vein is not compressible, consistent with DVT. There is also thrombosis of the posterior tibial veins. The peroneal veins are not well visualized. US/US venous duplex LE LT IMPRESSION: Left popliteal DVT. Findings were communicated to Alis Cristobal immediately after the study was completed, and the patient was sent to the emergency room.. Electronically signed by: Rusty Anand MD 02/14/2025 12:15 PM EDT
--- OUTSIDE RECORDS SUMMARY | 2025-02-14 12:00 | XMS_ITS | Encounter Summary ---
Author Organization [facility] Address [address] [place] [address] Care Team Providers Care Early Childhood Lead Teacher Name Role Phone Community, Pcp Primary Care Provider Madelaine Varghese Primary Care Provider Oral Alicea MD Primary Care Provider Unavailkaity e Encounter Details Date Type Department Care Team Description 03/11/2018 Release of Information Medical Records [address] [place] [id number] Abstract, Provider Social History Tobacco Use Types [...] on filedocumented in this encounter Care Teams Early Childhood Lead Teacher Relationship Specialty Start Date End Date Community, Pcp PCP - General Internal Medicine 12/31/17 05/11/18 Madelaine Coon FNP-BC PCP - General Internal Medicine 05/12/18 Oral Ocasio MD PCP - General Internal Medicine 12/04/21 documented as of this encounter
--- OUTSIDE RECORDS SUMMARY | 2025-02-14 12:00 | XMS_ITS | Clinical Summary ---
Author Organization [facility] Address [address] [facility] [address] [place] [address] Phone Care Team Providers Care Archery Equipment Hay Sorter Name Role Phone Oral Ocasio MD Primary Care Provider [phone] Allergies Active Allergy Reactions Criticality Noted Date [...] 2025 11/03/19 19 Insurance Medicaid Care Teams Archery Equipment Hay Sorter Relationship Specialty Start Date End Date Oral Ocasio MD [facility] [place] [address] PCP - General 10/09/20
--- OUTSIDE RECORDS SUMMARY | 2025-02-14 12:00 | XMS_ITS | Encounter Summary ---
Author Organization [facility] Address [address] [place] [address] Care Team Providers Care Instrument Maker Apprentice Name Role Phone Madelaine Coon [facility] Primary Care Provider Oral Alicea MD Primary Care Provider Unavailabl e Reason for Visit * Reason Comments E-prescribe Rx Request Encounter Details Date Type Department Care Team Description 03/27/2019 Refill Pulmonology - [place] [address] [place] [id number] Augustus Gilliam MD E-prescribe Rx Request Social History Tobacco [...] NO Patients current insurance carrier is: Payor: [employer] / Plan: [employer] [place] / Product Type: MEDICAID RISK documented in this encounter Plan of Treatment Not on file documented as of this encounter Visit Diagnoses Not on filedocumented in this encounter Care Teams Instrument Maker Apprentice Relationship Specialty Start Date End Date Madelaine Coon FNP-DREA PCP - General Internal Medicine 05/12/18 Oral Ocasio MD PCP - General Internal Medicine 12/04/21 documented as of this encounter
--- OUTSIDE RECORDS SUMMARY | 2025-02-14 12:00 | XMS_ITS | Clinical Summary ---
Author Organization [facility] Address [address] [place] [address] Care Team Providers Care Greek Professor Name Role Phone Oral Ocasio MD Primary Care Provider [phone] Surgical History Surgery Date Site/Laterality Comments TUBAL LIGATION PROCEDURE: HISTORICAL TUBAL LIGATION CERVICAL LAMINECTOMY 06/2017 PROCEDURE: HISTORICAL CERV LAMINECTOMY; COMMENT: cervical decompression HYSTERECTOMY PROCEDURE: HISTORICAL HYSTERECTOMY Medical History Medical History Date Comments Hypertension 03/26/2018 DX:Hypertension GERD (gastroesophageal reflux disease) 03/26/2018 DX:GERD (gastroesophageal reflux disease) Vitamin D deficiency 03/26/2018 DX:Vitamin D deficiency COPD (chronic obstructive pu lmonary disease) ([facility] V24, [facility] V28) 03/26/2018 DX:COPD (chronic o bstructive pulmonary disease) ([facility]) Fibromyalgia 03/26/2018 DX:Fibromyalgia Hyperlipidemia 03/26/2018 DX:Hyperlipidemi a Constipation 03/26/2018 DX:Constipation Cervical spinal stenosis 03/26/2018 DX:Cerv ical spinal stenosis Varicose veins of legs 03/26/2018 DX:Varico se veins of legs Anxiety 10/02/2016 DX:Anxiety Bipolar disorder ([facility] V2 4, [facility] V28) 04/27/2019 DX:Bipolar disorder ([facility]) Osteoarthritis 10/02/2016 DX:Osteoarthriti s; COMMENT: Knees, Fingers [...] AM EDT Narrative 06/17/2024 8:24 AM EDT [facility] Diagnostic Imaging Department [address] [place] [address] Patient: ??REBECA HERNANDEZ ?/Age/Sex: 1965 - 59 - F Unit#: ??[id number] ? Location/Status: ??SPDIMAM/REG CLI ? Mnemonic/Ordering Site: ??DIGSC/SPMAM Ordering Physician: ??JUAREZ AL MD [facility] - 06/16/24 - 112 Report Status:Signed EXAM: [facility] EXAM DATE AND TIME: 06/16/2024 11:23 AM HISTORY: ??Screening. COMPARISON: ??09/02/22, 08/27/21, 08/22/20 TECHNIQUE: Bilateral digital breast tomosynthesis was performed in the CC and MLO projections. Computer aided detection with iCAD Acclaim[employer] 3D 3.1 was employed. TISSUE DENSITY: c. [...] Mammogram performed at [facility] [place] [address] Dictating Physician: ??AUGUSTA SIERRA MD Electronically Signed by: ??AUGUSTA SIERRA MD Dic Date/Time: ??06/17/24821 Sign date/Time: ??06/17/24823 Procedure Note Augusta Sierra MD - 07/14/2024 [facility] Diagnostic Imaging Department [address] [place] [address] Patient: REBECA HERNANDEZ /Age/Sex: 1965 - 59 - F Unit#: [id number] [facility]Ordering Site[facility] Ordering Physician: JUAREZ AL MD [facility] - 06/16/24 - 1122 Report Status:Signed EXAM: [facility] Screening Digital EXAM DATE AND TIME: 06/16/2024 11:23 AM HISTORY: Screening. COMPARISON: 09/02/22, 08/27/21, 08/22/20 TECHNIQUE: Bilateral digital breast tomosynthesis was performed in the CCand MLO projections. Computer aided detection with [employer] 3D 3.1was employed. TISSUE DENSITY: c. The [...] Mammogram performed at [place] [address] Dictating Physician: AUGUSTA SIERRA MD Electronically Signed by: AUGUSTA SIERRA MD Dic Date/Time: 06/17/24821 Sign date/Time: 06/17/24823 Juarez Foley MD IMG BI PROCEDURES Final Result from Last 3 Months or Most Recently Relevant to Health Maintenance Advance Directives Documents on File Type Date Recorded Patient Stippler Expl anation Health Care Decision (hx) 07/17/2017 [...] (hx) 07/17/2017 AD UNDERWOOD DIRECTIVE Care Teams Greek Professor Relationship Specialty Start Date End Date Oral Ocasio MD [address] [place] [address] PCP - General Internal Medicine 12/04/21
== END 2025-02-14 11:16 | disposition home or self-care (01) ==
LOC: HO.HMGCX 11:15
PROVIDERS: PCP Internal Medicine; Visit Provider Nurse Practitioner Family
DX: R60.0 Localized edema (principal)
CPT/HCPCS: 93971

== ENCOUNTER → 2025-02-14 11:16 | Outpatient (BNV) | payer OTHER, SELFPAY | PROVIDERS: PCP Internal Medicine; Visit Provider Radiology Diagnostic Radiology | DX: I82.532 Chronic embolism and thrombosis of left popliteal vein (principal) | CPT/HCPCS: 93971 ==

== ENCOUNTER 2025-02-17 09:40 | Outpatient (AMB) | payer OTHER, SELFPAY ==
--- NOTE | 2025-02-17 09:58 | MHC.OFFWIV ---
Intake Intake Visit Reasons: EP Leg still swelling from DVT? Intake Note: Patient here to follow up on leg swelling from having DVT and PE. Patient Tobacco Use Status: Former Tobacco user Allergies egg Allergy (Unknown, Verified 02/17/25 09:59) belly pain morphine Allergy (Unknown, Verified 02/17/25 09:59) chest pain Penicillins [PENICILLINS] Allergy (Unknown, Verified 02/17/25 09:59) UNKNOWN, WAS A CHILD lobster Adverse Reaction (Mild, Uncoded 02/17/25 09:59) Constipation HPI HPI Comments History of Present Illness Details 59 y/o Female patient who presents to the walk in clinic with c/o Right LE swelling. She was recently diagnosed with Right LE DVT (02/14) and had CTA done at [facility] 02/14 with positive for Pulmonary Embolus. She is currently prescribed Eliquis to be taken indefinitely. She was told to f/u with Hematology clinic outpatient. Will have Patient f/u with PCP for the referrals. Today patient denies chest pains or LE pain - she does have significant swelling of the limb. [facility] Medical History (Updated 02/17/25 @ 13:24 by Caitlin Sanchez PA-C) DVT (deep venous thrombosis) Pulmonary emboli Peripheral edema Descending aortic aneurysm Nicotine dependence, cigarettes, uncomplicated Gait instability History of COVID-19 (~09/2021) Lipid disorder Asthma-COPD overlap syndrome Vitamin B deficiency Vitamin D deficiency Chronic GERD Depression, major, severe recurrence Back pain, chronic Asthma Hypertension, essential Surgical History History of lumbar fusion History of colonoscopy History of cervical spinal surgery (~2015) History of cholecystectomy (~2008) History of tubal ligation Family History Father No problems noted. Mother No problems noted. Brother No problems noted. Brother No problems noted. Sister No problems noted. Daughter No problems noted. Daughter No problems noted. Daughter No problems noted. Other Mental health disorder Social History Housing: Apartment Patient Tobacco Use Status: Former Tobacco user Tobacco use type: Cigarette Cigarettes Per Day: 3 Years Smoked: current smoker - onset 15, 1/2ppd x 42yrs, 21pyh e-Cigarette/Vaping Use: Never Used service: No Current occupational status: disabled Cognitive needs: No Hearing needs: No Vision needs: No Review of Systems Const All systems reviewed & are unremarkable except as noted in HPI and below Physical Exam Const General: no acute distress Nutritional Appearance: obese Orientation/consciousness: patient oriented x3 Resp Effort & Inspection: normal respiratory effort and able to speak in complete sentences Auscultation: clear to auscultation bilaterally, no crackles, no rales, no rhonchi and no wheezes Cardio Rhythm: regular rhythm Heart sounds: S1 normal heart sound present and S2 normal heart sound present Skin General skin exam: dry skin Neuro General: patient oriented x3 Extrem Right lower extremity: lower leg Details: non-pitting edema Details: 1+; no erythema, no tenderness and no crepitus Left lower extremity: normal to inspection and full ROM Assessment & Plan Assessment & Plan (1) Peripheral edema: Code(s): R60.0 - Localized edema Plan: Advised to elevate Limb when sitting. Avoid sitting down for prolonged period of times. (2) Pulmonary emboli: Code(s): I26.99 - Other pulmonary embolism without acute cor pulmonale Qualifiers: Acute cor pulmonale presence: unspecified Chronicity: acute Pulmonary embolism type: unspecified Qualified Code(s): I26.99 - Other pulmonary embolism without acute cor pulmonale Plan: Continue on Eliquis as prescribed. F/U with PCP for referral to Hematology. (3) DVT (deep venous thrombosis): Code(s): I82.409 - Acute embolism and thrombosis of unspecified deep veins of unspecified lower extremity Qualifiers: Affected thrombotic vein of extremity: popliteal Chronicity: acute DVT location: lower extremity Laterality: right Qualified Code(s): I82.431 - Acute embolism and thrombosis of right popliteal vein Plan: Continue on Eliquis as prescribed. F/U with PCP for referral to Hematology. Coding Level of Care Code Est Pt Level 4 (21218) Diagnoses Peripheral edema R60.0 Acute pulmonary embolism, unspecified pulmonary embolism type, unspecified whether acute cor pulmonale present I26.99 Acute cor pulmonale presence: unspecified Chronicity: acute Pulmonary embolism type: unspecified Acute deep vein thrombosis (DVT) of popliteal vein of right lower extremity I82.431 Affected thrombotic vein of extremity: popliteal Chronicity: acute DVT location: lower extremity Laterality: right Time Spent (min) 20
--- OUTSIDE RECORDS SUMMARY | 2025-02-17 10:01 | XMS_ITS | Clinical Summary ---
Author Organization [employer] [facility] Address [address] [place] [address] Care Team Providers Care Classroom Assistant Name Role Phone Oral Ocasio MD Primary Care Provider [phone] Surgical History Surgery Date Site/Laterality Comments TUBAL LIGATION PROCEDURE: HISTORICAL TUBAL LIGATION CERVICAL LAMINECTOMY 06/2017 PROCEDURE: HISTORICAL CERV LAMINECTOMY; COMMENT: cervical decompression HYSTERECTOMY PROCEDURE: HISTORICAL HYSTERECTOMY Medical History Medical History Date Comments Hypertension 03/26/2018 DX:Hypertension GERD (gastroesophageal reflux disease) 03/26/2018 DX:GERD (gastroesophageal reflux disease) Vitamin D deficiency 03/26/2018 DX:Vitamin D deficiency COPD (chronic obstructive pu lmonary disease) ([facility] V24, [facility] V28) 03/26/2018 DX:COPD (chronic o bstructive pulmonary disease) ([facility]) Fibromyalgia 03/26/2018 DX:Fibromyalgia Hyperlipidemia 03/26/2018 DX:Hyperlipidemi a Constipation 03/26/2018 DX:Constipation Cervical spinal stenosis 03/26/2018 DX:Cerv ical spinal stenosis Varicose veins of legs 03/26/2018 DX:Varico se veins of legs Anxiety 10/02/2016 DX:Anxiety Bipolar disorder ([facility] V2 4, [facility] V28) 04/27/2019 DX:Bipolar disorder ([facility]) Osteoarthritis 10/02/2016 DX:Osteoarthriti s; COMMENT: [...] AM EDT Narrative 06/17/2024 8:24 AM EDT [facility] Diagnostic Imaging Department [address] [place] [address] Patient: ??REBECA HERNANDEZ ?/Age/Sex: 1965 - 59 - F Unit#: ??[id number] ? Location/Status: ??SPDIMAM/REG CLI ? Mnemonic/Ordering Site: ??DIGSC/SPMAM Ordering Physician: ??JUAERZ AL MD [facility] - 06/16/24 - 112 Report Status:Signed EXAM: [facility] EXAM DATE AND TIME: 06/16/2024 11:23 AM HISTORY: ??Screening. COMPARISON: ??09/02/22, 08/27/21, 08/22/20 TECHNIQUE: Bilateral digital breast tomosynthesis was performed in the CC and MLO projections. Computer aided detection with iCAD Black Raven and Stag 3D 3.1 was employed. TISSUE DENSITY: c. [...] Mammogram performed at [facility] [place] [address] Dictating Physician: ??AUGUSTA SIERRA MD Electronically Signed by: ??AUGUSTA SIERRA MD Dic Date/Time: ??06/17/24821 Sign date/Time: ??06/17/24823 Procedure Note Augusta Sierra MD - 07/14/2024 [facility] Diagnostic Imaging Department [address] [place] [id number] Patient: REBECA HERNANDEZ /Age/Sex: 1965 - 59 - F Unit#: [id number] [facility]Ordering Site: [facility] Ordering Physician: JUAREZ AL MD [facility] - 06/16/24 - 1122 Report Status:Signed EXAM: [facility] Screening Digital EXAM DATE AND TIME: 06/16/2024 11:23 AM HISTORY: Screening. COMPARISON: 09/02/22, 08/27/21, 08/22/20 TECHNIQUE: Bilateral digital breast tomosynthesis was performed in the CCand MLO projections. Computer aided detection with [employer] 3D 3.1was employed. TISSUE DENSITY: c. The [...] Mammogram performed at [facility] [place] [address] Dictating Physician: AUGUSTA ISERRA MD Electronically Signed by: AUGUSTA SIERRA MD Dic Date/Time: 06/17/24821 Sign date/Time: 06/17/24823 Juarez Foley MD IMG BI PROCEDURES Final Result from Last 3 Months or Most Recently Relevant to Health Maintenance Advance Directives Documents on File Type Date Recorded Patient Quality Control Expl anation Health Care Decision (hx) 07/17/2017 [...] (hx) 07/17/2017 AD UNDERWOOD DIRECTIVE Care Teams Classroom Assistant Relationship Specialty Start Date End Date Oral Ocasio MD [address] [place] [address] PCP - General Internal Medicine 12/04/21
--- OUTSIDE RECORDS SUMMARY | 2025-02-17 10:01 | XMS_ITS | Clinical Summary ---
Author Organization [facility] Address [address] [facility] [address] [place] [address] Phone Care Team Providers Care Air Press Operator Name Role Phone Oral Ocasio MD Primary Care Provider [phone] Allergies Active Allergy Reactions Criticality Noted Date [...] 2025 11/03/19 19 Insurance Medicaid Care Teams Air Press Operator Relationship Specialty Start Date End Date Oral Ocasio MD [facility] [place] [address] PCP - General 10/09/20
== END 2025-02-17 11:26 | disposition home or self-care (01) ==
PROVIDERS: PCP Internal Medicine; Visit Provider Nurse Practitioner Family
DX: R60.0 Localized edema (principal); I26.99 Other pulmonary embolism without acute cor pulmonale; I82.431 Acute embolism and thrombosis of right popliteal vein

== ENCOUNTER → 2025-02-17 09:40 | Outpatient (BNVA) | payer OTHER, SELFPAY | PROVIDERS: PCP Internal Medicine; Visit Provider Nurse Practitioner Family | DX: R60.0 Localized edema (principal); I26.99 Other pulmonary embolism without acute cor pulmonale; I82.431 Acute embolism and thrombosis of right popliteal vein | CPT/HCPCS: 99212 ==

== ENCOUNTER 2025-02-18 13:50 | Outpatient (AMB) | payer OTHER, SELFPAY ==
--- NOTE | 2025-02-18 13:56 | A.OFFPC_ITS ---
Vital Signs 02/18/25 13:57 Height 5 ft 6 in Weight 228 lb BMI 36.8 BP 110/72 Blood Pressure Location Rt brachial Position Sitting Pulse 60 Pulse Source Pulse Oximeter Pulse Oximetry (%) 96 Intake Visit Reasons: Legs pain , lung issue Intermediate Designer Required: No Accompanied by: Self / Same As Patient Allergies egg Allergy (Unknown, Verified 02/18/25 13:57) belly pain morphine Allergy (Unknown, Verified 02/18/25 13:57) chest pain Penicillins [PENICILLINS] Allergy (Unknown, Verified 02/18/25 13:57) UNKNOWN, WAS A CHILD lobster Adverse Reaction (Mild, Uncoded 02/17/25 09:59) Constipation Medication List - Last Reconciled 02/18/25 by Oral Ocasio MD acetaminophen ER mg PO albuterol sulfate 90 mcg/actuation 2 puffs PO Q6H PRN NS apixaban 10 mg PO BID [Blood pressure monitor As directed] blood pressure monitor (Blood Pressure Kit) As directed buprenorphine HCl 300 mcg buccal Q12H 30 days buspirone 30 mg PO BID [Cane As directed] diphenhydramine HCl (Banophen) 25 mg PO PRN famotidine 40 mg PO DAILY 90 days gabapentin 600 mg PO QID 30 days levalbuterol tartrate 45 mcg/actuation (Xopenex HFA) 2 puffs inhalation Q6H PRN 30 days loratadine 10 mg PO DAILY 90 days losartan 50 mg PO BID 90 days mirabegron ER (Myrbetriq) 50 mg PO DAILY mirtazapine 45 mg PO BEDTIME montelukast 10 mg PO DAILY 90 days naloxone 4 mg/actuation (Narcan) 4 mg intranasal Q2M PRN nicotine (Nicoderm CQ) 1 patch transdermal DAILY sennosides-docusate sodium 8.6-50 mg (Senexon-S) 1 tab PO BEDTIME [shower chair with handles As directed] umeclidinium-vilanterol 62.5-25 mcg/actuation (Anoro Ellipta) 1 inh inhalation DAILY Tobacco use date assessed: 02/18/25 Dental Screening Dental Screen Date: 02/18/25 Did you have a dental visit in the last 12 months?: Yes Did you have a dental problem in the last 6 months where you did not have access to dental care?: No Was dental information given to patient?: Patient has dentist HPI Legs pain , lung issue HPI Details Hospital discharge follow up [facility] - The patient is a 59-year-old female pr esenting with lower extremity swelling and pain in the lungs. - The patient reports developing a clot in the left leg following an injury when she hit her leg, but injury was right leg, which was followed by swelling. - On the of this month, she presen konstantin to our walk-in clinic 1st and had an ultrasound of left leg which showed DVT She was directed to emergency room after that, as she also complained of pain left side of her chest - Associated symptoms included a heavy s ensation in the lungs and left-sided pain. In emergency room she was diagnosed with pulmonary embolism and was started on Eliquis which she is currently taking - The patient denies traveling or any kn own precipitating factors besides the impact injury. Patient will need a referral to Hematology which I have placed for her Medications - new medication: Eliquis (Apixaban) fo r Deep Vein Thrombosis and Pulmonary Embolism, taken twice daily. Problem List - Deep Vein Thrombosis (DVT) - Pulmonary Embolism - Essential Hypertension - Hyperlipidemia - Gastroesophageal Reflux Disease (GERD) Patient Instructions - Continue taking Eliquis twice daily at 8:00 AM and 8:00 PM as prescribed. - Ensure to eat a meal before taking med ication to help with nausea. - Monitor for any worsening symptoms and seek immediate care if new or severe symptoms arise. - Stay as active as possible but avoid p rolonged inactivity. - Keep upcoming appointments with health care specialists and ensure follow-up for blood tests as instructed. - wait for Hematology appointment Review of Systems General: No fever no chills neurological: No headaches no dizziness ear nose throat: No sore throat no hearing difficulty no ear pain cardiovascular: No syncope, no chest pain, no palpitations gastrointestinal: No vomiting or diarrhea endocrine: No polyuria polydipsia no heat intolerance genitourinary: No dysuria skin: No new complaints Physical Exam general: No acute distress HEENT: No acute findings neck: Supple respiratory system: Able to talk in full sentences, no audible wheeze, no stridor cardiovascular: S1-S2 RRR gastrointestinal: No pain extremities: Swelling in the left lower extremity, no pain with calf palpation CATTLE RANCHER: Alert awake oriented x3 motor sensory intact skin: Normal turgor [facility] Medical History DVT (deep venous thrombosis) Pulmonary emboli Peripheral edema Descending aortic aneurysm Nicotine dependence, cigarettes, uncomplicated Gait instability History of COVID-19 (~09/2021) Lipid disorder Asthma-COPD overlap syndrome Vitamin B deficiency Vitamin D deficiency Chronic GERD Depression, major, severe recurrence Back pain, chronic Asthma Hypertension, essential Surgical History History of lumbar fusion History of colonoscopy History of cervical spinal surgery (~2015) History of cholecystectomy (~2008) History of tubal ligation Family History Father No problems noted. Mother No problems noted. Brother No problems noted. Brother No problems noted. Sister No problems noted. Daughter No problems noted. Daughter No problems noted. Daughter No problems noted. Other Mental health disorder Social History Housing: Apartment Patient Tobacco Use Status: Former Tobacco user Tobacco use type: Cigarette Cigarettes Per Day: 3 Years Smoked: current smoker - onset 15, 1/2ppd x 42yrs, 21pyh Packs per year/per ci.00 e-Cigarette/Vaping Use: Never Used service: No Current occupational status: disabled Cognitive needs: No Hearing needs: No Vision needs: No Questionnaire PHQ-9 Over the last 2 weeks, how often have you been bothered by any of the following problems? 1. Little interest or pleasure in doing things: several days 2. Feeling down, depressed, or hopeless: not at all 3. Trouble falling or staying asleep, or sleeping too much: several days 4. Feeling tired or having little energy: several days 5. Poor appetite or overeating: several days 6. Feeling bad about yourself - or that you are a failure or have let yourself or your family down: not at all 7. Trouble concentrating on things, such as reading the newspaper or watching television: not at all 8. Moving or speaking so slowly that other people could have noticed. Or the opposite - being so fidgety or restless that you have been moving around a lot more than usual: not at all 9. Thoughts that you would be better off or of hurting yourself in some way: not at all Total score: 4 Depression Screening Interpretation: Negative Depression Screening Done: Yes 59207 - PHQ-9 Billing: Yes Source: Developed by Drs. Rusty Munoz, Yolanda Jacobson, Sabino Loomis and colleagues, with an educational kim from [employer]. Thrive Questionnaire Date Thrive assessed: 02/18/25 I am a: Patient What is your living situation today?: I have a steady place to live Within the past 12 months, did the food you bought not last and you didn't have the money to get more?: Never true Within the past 12 months, did you worry whether your food would run out before you got money to buy more?: Never true Do you have trouble paying for medicines?: No Do you have trouble getting transportation to medical appointments?: No Do you have trouble paying your heating and electricity bill?: No Do you have trouble taking care of your child, family member or friend?: No Do you have trouble with day-to-day activities such as bathing, preparing meals, shopping, managing finances, etc.?: No Are you currently unemployed and looking for a job?: No Are you interested in more education?: No Please select the resources that you would like help with: None Currently or been in a relationship where the following occur: I choose not to answer THRIVE Score: 0 AUDIT C Alcohol Use Questionnaire (AUDIT-C) 1. How often do you have a drink containing alcohol?: Never 3. How often do you have six or more drinks on one occasion?: Never Total Score: 0 Score Reviewed/Action Taken: Yes TAI-7 AMB Questionnaire TAI-7 Date TAI - 7 assessed: 02/18/25 Feeling nervous, anxious, or on edge: 0 = Not at all Not being able to stop or control worryin = Not at all Worrying too much about different things: 0 = Not at all Trouble relaxin = Not at all Being so restless that it is hard to sit still: 0 = Not at all Becoming easily annoyed or irritable: 0 = Not at all Feeling afraid as if something awful might happen: 0 = Not at all Total TAI-7 score (0-4 normal; 5-9 mild; 10-14 moderate; 15-21 severe): 0 Source: Developed by Drs. Rusty Munoz, Yolanda Jacobson, Sabino Loomis and colleagues, with an educational kim from [employer]. TAI-7 Assessment Billing TAI-7 Assessment Tool: TAI-7 Assessment 38483 Physical exam (Primary Care) Vital Signs: Last Vital Signs Pulse 60 02/18/25 13:57 BP 110/72 02/18/25 13:57 Pulse Ox 96 02/18/25 13:57 BMI result Body Mass Index 36.8 Tobacco/Smoking Status: Tobacco use Status Tobacco use date assessed 02/18/25 02/18/25 13:58 Patient Tobacco Use Status Former Tobacco user 02/18/25 13:56 Tobacco use type Cigarette 02/18/25 13:56 e-Cigarette/Vaping Use Never Used 02/18/25 13:56 PHQ-9: PHQ-9 Score PHQ-9: Total score 4 02/18/25 14:26 Depression Screening Interpretation: Negative Thrive Assessment: Date of Thrive Assessment Date Thrive assessed 02/18/25 02/18/25 13:58 Currently or been in a relationship where the following occur: I choose not to answer Coding Level of Care Code Est Pt Level 4 (20139) Diagnoses Hospital discharge follow-up Z09 Acute pulmonary embolism, unspecified pulmonary embolism type, unspecified whether acute cor pulmonale present I26.99 Acute cor pulmonale presence: unspecified Chronicity: acute Pulmonary embolism type: unspecified Acute deep vein thrombosis (DVT) of popliteal vein of right lower extremity I82.431 Affected thrombotic vein of extremity: popliteal Chronicity: acute DVT location: lower extremity Laterality: right Swelling of left lower extremity M79.89 Hx of group home use of blood thinners Z79.01 Additional Codes TAI-7 Assessment Billing - TAI-7 Assessment Tool: TAI-7 Assessment 88994 ([id number]) PHQ-9 - 36333 - PHQ-9 Billing: Yes ([id number]) Assessment & Plan Assessment & Plan (1) Hospital discharge follow-up: Code(s): Z09 - Encounter for follow-up examination after completed treatment for conditions other than malignant neoplasm Category: Medical (2) Pulmonary emboli: Code(s): I26.99 - Other pulmonary embolism without acute cor pulmonale Category: Medical Qualifiers: Acute cor pulmonale presence: unspecified Chronicity: acute Pulmonary embolism type: unspecified Qualified Code(s): I26.99 - Other pulmonary embolism without acute cor pulmonale (3) DVT (deep venous thrombosis): Code(s): I82.409 - Acute embolism and thrombosis of unspecified deep veins of unspecified lower extremity Category: Medical Qualifiers: Affected thrombotic vein of extremity: popliteal Chronicity: acute DVT location: lower extremity Laterality: right Qualified Code(s): I82.431 - Acute embolism and thrombosis of right popliteal vein (4) Swelling of left lower extremity: Code(s): M79.89 - Other specified soft tissue disorders Category: Medical (5) 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 - The patient reports developing a clot in the left leg following an injury when she hit her leg, but injury was right leg, which was followed by swelling. - On the of this month, she presented to our walk-in clinic 1st and had an ultrasound of left leg which showed DVT She was directed to emergency room after that, as she also complained of pain left side of her chest - Associated symptoms included a heavy sensation in the lungs and left-sided pain. In emergency room she was diagnosed with pulmonary embolism and was started on Eliquis which she is currently taking - The patient denies traveling or any known precipitating factors besides the impact injury. Patient will need a referral to Hematology which I have placed for her Medications - new medication: Eliquis (Apixaban) for Deep Vein Thrombosis and Pulmonary Embolism, taken twice daily. Problem List - Deep Vein Thrombosis (DVT) - Pulmonary Embolism - Essential Hypertension - Hyperlipidemia - Gastroesophageal Reflux Disease (GERD) Patient Instructions - Continue taking Eliquis twice daily at 8:00 AM and 8:00 PM as prescribed. - Ensure to eat a meal before taking medication to help with nausea. - Monitor for any worsening symptoms and seek immediate care if new or severe symptoms arise. - Stay as active as possible but avoid prolonged inactivity. - Keep upcoming appointments with healthcare specialists and ensure follow-up for blood tests as instructed. - wait for Hematology appointment Orders: Referrals Hematology & Oncology Referral I26.99 - Other pulmonary embolism without acute cor pulmonale, I82.431 - Acute embolism and thrombosis of right popliteal vein
[2025-02-18 13:57] VITALS: BP 110/72; PULSE 60; O2SAT 96; BMI 36.8
== END 2025-02-18 14:46 | disposition home or self-care (01) ==
PROVIDERS: PCP Internal Medicine; Visit Provider Internal Medicine
DX: Z09 Encounter for follow-up examination after completed treatment for conditions other than malignant neoplasm (principal); I26.99 Other pulmonary embolism without acute cor pulmonale; I82.431 Acute embolism and thrombosis of right popliteal vein; M79.89 Other specified soft tissue disorders; Z79.01 Long term (current) use of anticoagulants

== ENCOUNTER → 2025-02-18 13:50 | Outpatient (BNVA) | payer OTHER, SELFPAY | PROVIDERS: PCP Internal Medicine; Visit Provider Internal Medicine | DX: Z09 Encounter for follow-up examination after completed treatment for conditions other than malignant neoplasm (principal); I26.99 Other pulmonary embolism without acute cor pulmonale; I82.431 Acute embolism and thrombosis of right popliteal vein; M79.89 Other specified soft tissue disorders; I10 Essential (primary) hypertension; E78.5 Hyperlipidemia, unspecified; K21.9 Gastro-esophageal reflux disease without esophagitis; Z79.01 Long term (current) use of anticoagulants; Z13.30 Encounter for screening examination for mental health and behavioral disorders, unspecified | CPT/HCPCS: 96127; 99212 ==

== ENCOUNTER → 2025-03-28 11:38 | Outpatient (BNV) | payer OTHER, SELFPAY | PROVIDERS: PCP Internal Medicine; Referring Provider Internal Medicine; Visit Provider Internal Medicine | DX: I82.402 Acute embolism and thrombosis of unspecified deep veins of left lower extremity (principal) | CPT/HCPCS: 99204; G2211 ==

== ENCOUNTER 2025-05-02 10:46 | Outpatient (REF) | payer OTHER, SELFPAY | END 2025-05-02 10:47 | disposition home or self-care (01) | LOC: HO.LAB 10:46 | PROVIDERS: PCP Internal Medicine; Visit Provider Nurse Practitioner Family | DX: M48.061 Spinal stenosis, lumbar region without neurogenic claudication (principal); M47.816 Spondylosis without myelopathy or radiculopathy, lumbar region; F11.90 Opioid use, unspecified, uncomplicated; M53.3 Sacrococcygeal disorders, not elsewhere classified; M54.9 Dorsalgia, unspecified; G89.29 Other chronic pain; K59.03 Drug induced constipation; T40.2X5A Adverse effect of other opioids, initial encounter; Z98.51 Tubal ligation status; Z79.899 Other long term (current) drug therapy | CPT/HCPCS: 80348; 80362; 99212 ==

== ENCOUNTER 2025-05-02 10:46 | Outpatient (AMB) | payer OTHER, SELFPAY ==
--- NOTE | 2025-05-02 11:11 | A.OFFVIS_ITS ---
Vital Signs 05/02/25 11:31 Height 5 ft 6 in Weight 238 lb BMI 38.4 BP 145/67 H Blood Pressure Location Lt brachial Position Sitting Pulse 67 Pulse Source Pulse Oximeter Pulse Oximetry (%) 97 Oxygen Delivery Method Room Air Intake Visit Reasons: Pill count Intake Note: Parveen comes in today for a film count to [facility], patient should have 48 films and presents with 48 films which she last took today 05/02/25 at 8am. Pain today 03/08 Patient will also go across to [facility] to have blood work done. Allergies egg Allergy (Unknown, Verified 05/02/25 11:32) belly pain morphine Allergy (Unknown, Verified 05/02/25 11:32) chest pain Penicillins (PENICILLINS) Allergy (Unknown, Verified 05/02/25 11:32) UNKNOWN, WAS A CHILD lobster Adverse Reaction (Mild, Uncoded 02/17/25 09:59) Constipation Medication List - Last Reconciled 05/02/25 by TADEO Burgos acetaminophen ER mg PO albuterol sulfate 90 mcg/actuation 2 puffs PO Q6H PRN NS apixaban 10 mg PO BID [Blood pressure monitor As directed] blood pressure monitor (Blood Pressure Kit) As directed buprenorphine HCl 300 mcg buccal Q12H 30 days buspirone 30 mg PO BID [Cane As directed] diphenhydramine HCl (Banophen) 25 mg PO DAILY PRN famotidine 40 mg PO DAILY 90 days gabapentin 600 mg PO QID 30 days levalbuterol tartrate 45 mcg/actuation (Xopenex HFA) 2 puffs inhalation Q6H PRN 30 days loratadine 10 mg PO DAILY 90 days losartan 50 mg PO BID 90 days mirabegron ER (Myrbetriq) 50 mg PO DAILY mirtazapine 45 mg PO BEDTIME montelukast 10 mg PO DAILY 90 days naloxone 4 mg/actuation (Narcan) 4 mg intranasal Q2M PRN nicotine (Nicoderm CQ) 1 patch transdermal DAILY polyethylene glycol 3350 (Miralax) 17 grams PO DAILY sennosides-docusate sodium 8.6-50 mg (Senexon-S) 1 tab PO BID PRN 90 days [shower chair with handles As directed] umeclidinium-vilanterol 62.5-25 mcg/actuation (Anoro Ellipta) 1 inh inhalation DAILY HPI Comments Details: Patient returns today for a film count for Belbuca 300 mcg BID. Patient is supposed to have #48 films and presents with #48 films. Patient reports reasonable analgesia on current regime without any side effects. Denies any recent trauma, injury or falls. She is hesitant towards injections or interventional treatments as past experiences provided minimal to no pain relief. Patient denies any side effects on current regime except occasional constipation for which she takes Senexon-S, dietary fiber and increases fluid intake. She reports Miralax was ineffective for her. Patient reports recent history of Deep Vein Thrombosis (DVT) in the left lower extremity and Pulmonary Embolism. These events occurred in January, requiring hospitalization at [facility] for almost three days. She is currently on Eliquis, taken at a dosage of 5 mg twice daily. The patient denies experiencing chest pain, shortness of breath, or leg pain at present. She reports adherence to her medication regimen, which includes Belbuca 300 mcg films twice daily, with a correct pill count presented during the visit. Denies any fever, chills, chest pain, dizziness, shortness of breaths, nausea, sedation, dizziness, or urinary retention or any other significant changes in medical history since last office visit. [facility] Medical History DVT (deep venous thrombosis) Pulmonary emboli Peripheral edema Descending aortic aneurysm Nicotine dependence, cigarettes, uncomplicated Gait instability History of COVID-19 (~09/2021) Lipid disorder Asthma-COPD overlap syndrome Vitamin B deficiency Vitamin D deficiency Chronic GERD Depression, major, severe recurrence Back pain, chronic Asthma Hypertension, essential Surgical History History of lumbar fusion History of colonoscopy History of cervical spinal surgery (~2015) History of cholecystectomy (~2008) History of tubal ligation Family History Father No problems noted. Mother Heart problem Brother No problems noted. Brother No problems noted. Sister No problems noted. Daughter No problems noted. Daughter No problems noted. Daughter No problems noted. Sister Colon cancer Maternal Grandmother Cancer Mother No problems noted. Other Mental health disorder Social History (Reviewed 05/02/25 @ 11:21 by CANDIDA Burgos Household Members: None Housing: Apartment Patient Tobacco Use Status: Former Tobacco user Tobacco use type: Cigarette Years Smoked: current smoker - onset 15, 1/2ppd x 43yrs, 21pyh e-Cigarette/Vaping Use: Never Used service: No Current occupational status: disabled Cognitive needs: No Hearing needs: No Vision needs: No Review of Systems Const Details: - Cardiovascular: Denies chest pain, chest tightness or pressure. - Respiratory: Denies dyspnea or cough. - Musculoskeletal: Denies leg pain. All systems reviewed & are unremarkable except as noted in HPI and below Physical Exam Vital Signs: Last Vital Signs Pulse 67 05/02/25 11:31 BP 145/67 H 05/02/25 11:31 Pulse Ox 97 05/02/25 11:31 Oxygen Delivery Method Room Air 05/02/25 11:31 BMI result Body Mass Index 38.4 General: Appears afebrile. Alert and oriented. Mood and affect appropriate. Very pleasant. Follows and participates in conversation appropriately. Respiratory effort is unlabored. No cough. Able to transition from sit to stand unassisted. Mildly antalgic gait, no limping. Eyes General: appearance normal, both eyes and all related structures Resp Effort & Inspection: normal respiratory effort, able to speak in complete sentences, no cough, not labored, no respiratory distress and symmetric chest movement Extrem General: Yes capillary refill normal, Yes no clubbing, cyanosis or edema and Yes no calf tenderness Psych Appearance: grossly normal and well kempt Mental Status: mental status grossly normal Speech and movement: Normal speech and movement present and Clear speech present Affect: normal affect Attitude: cooperative Thought process: Normal thought process present Thought content: Normal thought content present, suicidality (none), no hallucinations and No Depressive thoughts present Insight: Good insight present (Psych) Judgement: Good judgement present (Psych) Results Reviewed Results Reviewed: LUMBAR SPINE MRI: The disc is of normal height and signal intensity without significant disc bulge or herniation. L2-3: The disc is of normal height and signal intensity without significant disc bulge or herniation. There is moderate degenerative facet arthropathy. L3-4: The disc is of normal height and signal intensity without significant disc bulge or herniation. There is moderate degenerative facet arthropathy. L4-5: The disc is of normal height and signal intensity without significant disc bulge or herniation. There is marked degenerative facet arthropathy with ligamentous hypertrophy causing mild central canal stenosis. L5-S1: There is complete fusion of the disc space although the patient does not report any history of prior surgery. There is marked degenerative facet arthropathy without significant foraminal stenosis. Vertebral alignment is normal. There is fusion of the L5-S1 disc space. Marrow signal intensity is normal. The conus terminates at T12-L1 and appears normal. There is no paraspinous mass. IMPRESSION: 1. Marked degenerative facet arthropathy at L4-5 causing mild central canal stenosis. 2. Complete fusion of the L5-S1 disc: No prior surgery is reported. Marked degenerative facet arthropathy. 3. Moderate degenerative facet arthropathy L2-3 and L3-4. Assessment & Plan Assessment & Plan (1) Back pain, chronic: Code(s): M54.9 - Dorsalgia, unspecified; G89.29 - Other chronic pain Category: Medical (2) Spondylosis of lumbar spine: Code(s): M47.816 - Spondylosis without myelopathy or radiculopathy, lumbar region Category: Medical (3) Sacroiliac joint pain: Code(s): M53.3 - Sacrococcygeal disorders, not elsewhere classified Category: Medical (4) Chronic, continuous use of opioids: Code(s): F11.90 - Opioid use, unspecified, uncomplicated Category: Medical Plan Patient presents today for a film count. She has shown accountability for her medication regimen and the count was accurate. There is no evidence of misuse, abuse or diversion at this time. [employer] reviewed. Script for Belbuca 300 mcg BID sent with an advanced date of 05/25/25 with one refill. Continue gabapentin and Senexon, refills sent today per patient's request. Patient has Narcan at home. Continue daily physical activity as tolerated, weight loss, adequate hydration, well-balanced diet, daily fiber intake and good posture. All questions were answered and this patient is agreeable to the plan.?Follow-up in 8 weeks for a film count and sooner as needed. Patient was informed and verbally consented to the use of an ambient scribe for clinic note documentation during this visit. Medications: Changed From sennosides-docusate sodium 8.6-50 mg (Senexon-S) 1 tab PO BEDTIME 90 tabs 3RF for constipation K59.03 - Drug induced constipation, T40.2X5A - Adverse effect of other opioids, initial encounter To sennosides-docusate sodium 8.6-50 mg (Senexon-S) 1 tab PO BID PRN 180 tabs 2RF for constipation 90 days K59.03 - Drug induced constipation, T40.2X5A - Adverse effect of other opioids, initial encounter Refilled buprenorphine HCl Partial Fill upon patient request. 300 mcg buccal Q12H 60 ea 1RF pain 30 days F11.90 - Opioid use, unspecified, uncomplicated, M47.816 - Spondylosis without myelopathy or radiculopathy, lumbar region, M48.061 - Spinal stenosis, lumbar region without neurogenic claudication gabapentin 600 mg PO QID 120 tabs 0RF pain 30 days G89.4 - Chronic pain syndrome, M48.061 - Spinal stenosis, lumbar region without neurogenic claudication Coding Level of Care Code Est Pt Level 4 (92180) Complex EM visit Add On G2211 Diagnoses Back pain, chronic M54.9; G89.29 Spondylosis of lumbar spine M47.816 Sacroiliac joint pain M53.3 Chronic, continuous use of opioids F190
[2025-05-02 11:31] VITALS: BP 145/67; PULSE 67; O2SAT 97; BMI 38.4
--- OUTSIDE RECORDS SUMMARY | 2025-05-02 11:42 | XMS_ITS | Encounter Summary ---
Author Organization [facility] Address [address] [place] [address] Care Team Providers Care Bottle Feeder Name Role Phone Community, Pcp Primary Care Provider Madelaine Varghese Primary Care Provider Oral Alicea MD Primary Care Provider Unavailkaity e Encounter Details Date Type Department Care Team Description 03/11/2018 Release of Information Medical Records [address] [place] [id number] Abstract, Provider Social History Tobacco Use Types [...] on filedocumented in this encounter Care Teams Bottle Feeder Relationship Specialty Start Date End Date Community, Pcp PCP - General Internal Medicine 12/31/17 05/11/18 Madelaine Coon FNP-BC PCP - General Internal Medicine 05/12/18 Oral Ocasio MD PCP - General Internal Medicine 12/04/21 documented as of this encounter
--- OUTSIDE RECORDS SUMMARY | 2025-05-02 11:42 | XMS_ITS | Clinical Summary ---
Author Organization [facility] Address [address] [facility] [address] [place] [address] Phone Care Team Providers Care Oil Spreader Operator Name Role Phone Oral Ocasio MD Primary Care Provider [phone] Allergies Active Allergy Reactions Criticality Noted Date [...] Cancer Screening: Sigmoidoscopy 2015 Influenza Vaccine (#1) 2025 11/03/2018 Insurance Medicaid Medicaid Care Teams Oil Spreader Operator Relationship Specialty Start Date End Date Oral Ocasio MD [facility] [place] [address] PCP - General 10/09/20
--- OUTSIDE RECORDS SUMMARY | 2025-05-02 11:42 | XMS_ITS | Clinical Summary ---
Author Organization [employer] [facility] Address [address] [place] [address] Care Team Providers Care Lead Cook Name Role Phone Oral Ocasio MD Primary Care Provider [phone] Surgical History Surgery Date Site/Laterality Comments TUBAL LIGATION PROCEDURE: HISTORICAL TUBAL LIGATION CERVICAL LAMINECTOMY 06/2017 PROCEDURE: HISTORICAL CERV LAMINECTOMY; COMMENT: cervical decompression HYSTERECTOMY PROCEDURE: HISTORICAL HYSTERECTOMY Medical History Medical History Date Comments Hypertension 03/26/2018 DX:Hypertension GERD (gastroesophageal reflux disease) 03/26/2018 DX:GERD (gastroesophageal reflux disease) Vitamin D deficiency 03/26/2018 DX:Vitamin D deficiency COPD (chronic obstructive pu lmonary disease) ([facility] V24, [facility] V28) 03/26/2018 DX:COPD (chronic o bstructive pulmonary disease) ([facility]) Fibromyalgia 03/26/2018 DX:Fibromyalgia Hyperlipidemia 03/26/2018 DX:Hyperlipidemi a Constipation 03/26/2018 DX:Constipation Cervical spinal stenosis 03/26/2018 DX:Cerv ical spinal stenosis Varicose veins of legs 03/26/2018 DX:Varico se veins of legs Anxiety 10/02/2016 DX:Anxiety Bipolar disorder ([facility] V2 4, [facility] V28) 04/27/2019 DX:Bipolar disorder ([facility]) Osteoarthritis 10/02/2016 DX:Osteoarthriti s; COMMENT: Knees, Fingers [...] Years (1 of 2 - PCV) 1985 Cervical Cancer Screening: Pap Smear 1987 Zoster Vaccines (1 of 2) 2016 DTaP,Tdap,and Td Vaccines (2 - Td or Tdap) 06/05/2021 06/05/2011 Cholesterol Screening (Lipid Panel) 08/27/2022 Colorectal Cancer Screening: Colonoscopy 08/27/2022 HIV Screening 08/27/2022 Hepatitis C Screening 08/27/2022 Social Influencers of Health Screening 08/27/2022 Hypertension/CHF/CAD Annual BMP Blood Test 09/05/2022 COVID-19 Vaccine ( season) 2024 Depression Screening 09/29/2024 Influenza Vaccine (#1) 2025 11/03/2018 Breast Cancer Screening 06/17/2026 06/17/20 [...] Recently Relevant to Health Maintenance Results * [facility] SCREENING DIGITAL (06/17/2024 8:24 AM EDT) Anatomical Region Laterality Modality Mammography 06/16/2024 10:4 2 AM EDT Narrative 06/17/2024 8:24 AM EDT [facility] Diagnostic Imaging Department [address] [place] [address] Patient: DAVIDREBECA Laine /Age/Sex: 1965 - 59 - F Unit#: [id number] Location/Status: [facility] CLI Mnemonic/Ordering Site: [facility] Ordering Physician: JUAREZ AL MD [facility] Screening Digital - 06/16/24 - 1122 Report Status:Signed EXAM: [facility] Screening Digital EXAM DATE AND TIME: 06/16/2024 11:23 AM HISTORY: Screening. COMPARISON: 09/02/22, 08/27/21, 08/22/20 TECHNIQUE: Bilateral digital breast tomosynthesis was performed in the CC and MLO projections. Computer aided detection with [employer] 3D 3.1 was employed. TISSUE DENSITY: c. [...] appearance of the breasts. No evidence of malignancy is seen. A negative mammogram in the presence of a clinically suspicious palpable abnormality does not preclude the possibility of malignancy or alter the indications for biopsy. BI-RADS: Category 2: Benign RECOMMENDATION(S): 1: Routine screening mammogram BILATERAL in 1 year. [facility] performed at [facility] [address] [place] [address] Dictating Physician: AUGUSTA SIERRA MD Electronically Signed by: AUGUSTA SIERRA MD Dic Date/Time: 06/17/24821 Sign date/Time: 06/17/24823 Procedure Note Augusta Sierra MD - 07/14/2024 [facility] Diagnostic Imaging Department [address] [place] [address] Patient: DAVIDREBECA /Age/Sex: 1965 - 59 - F Unit#: [id number] Location/Status: [facility] CLI Mnemonic/Ordering Site: [facility] Ordering Physician: JUAREZ AL MD [facility] Screening Digital - 06/16/24 - 1122 Report Status:Signed EXAM: [facility] Screening Digital EXAM DATE AND TIME: 06/16/2024 11:23 AM HISTORY: Screening. COMPARISON: 09/02/22, 08/27/21, 08/22/20 TECHNIQUE: Bilateral digital breast tomosynthesis was performed in the CCand MLO projections. Computer aided detection with 4-Tell 3D 3.1was employed. TISSUE DENSITY: c. The [...] Mammogram performed at [place] [address] Dictating Physician: AUGUSTA SIERRA MD Electronically Signed by: AUGUSTA SIERRA MD Dic Date/Time: 06/17/24821 Sign date/Time: 06/17/24823 Juarez Foley MD IMG BI PROCEDURES Final Result from Last 3 Months or Most Recently Relevant to Health Maintenance Advance Directives Documents on File Type Date Recorded Patient Top Precipitator Operator Expl anation Health Care Decision (hx) 07/17/2017 [...] (hx) 07/17/2017 AD [employer]ER[employer] DIRECTIVE Care Teams Lead Cook Relationship Specialty Start Date End Date Oral Ocasio MD [address] [place] [address] PCP - General Internal Medicine 12/04/21
== END 2025-05-02 11:31 | disposition home or self-care (01) ==
LOC: HO.PMC 10:46
PROVIDERS: PCP Internal Medicine; Visit Provider Nurse Practitioner Family
DX: M54.9 Dorsalgia, unspecified (principal); G89.29 Other chronic pain; M47.816 Spondylosis without myelopathy or radiculopathy, lumbar region; Z79.891 Long term (current) use of opiate analgesic; M53.3 Sacrococcygeal disorders, not elsewhere classified
CPT/HCPCS: 99214

== ENCOUNTER 2025-06-02 06:51 | Outpatient (AMB) | payer OTHER, SELFPAY ==
--- OUTSIDE RECORDS SUMMARY | 2025-06-02 06:56 | XMS_ITS | Clinical Summary ---
Author Organization [employer] [facility] Address [address] [place] [address] Care Team Providers Care Glass Block Bender Name Role Phone Oral Ocasio MD Primary Care Provider [phone] Surgical History Surgery Date Site/Laterality Comments TUBAL LIGATION PROCEDURE: HISTORICAL TUBAL LIGATION CERVICAL LAMINECTOMY 06/2017 PROCEDURE: HISTORICAL CERV LAMINECTOMY; COMMENT: cervical decompression HYSTERECTOMY PROCEDURE: HISTORICAL HYSTERECTOMY Medical History Medical History Date Comments Hypertension 03/26/2018 DX:Hypertension GERD (gastroesophageal reflux disease) 03/26/2018 DX:GERD (gastroesophageal reflux disease) Vitamin D deficiency 03/26/2018 DX:Vitamin D deficiency COPD (chronic obstructive pu lmonary disease) ([facility] V24, [facility] V28) 03/26/2018 DX:COPD (chronic o bstructive pulmonary disease) ([facility]) Fibromyalgia 03/26/2018 DX:Fibromyalgia Hyperlipidemia 03/26/2018 DX:Hyperlipidemi a Constipation 03/26/2018 DX:Constipation Cervical spinal stenosis 03/26/2018 DX:Cerv ical spinal stenosis Varicose veins of legs 03/26/2018 DX:Varico se veins of legs Anxiety 10/02/2016 DX:Anxiety Bipolar disorder ([facility] V2 4, [facility] V28) 04/27/2019 DX:Bipolar disorder ([facility]) Osteoarthritis 10/02/2016 DX:Osteoarthriti s; COMMENT: Knees, Fingers [...] 06/17/20 24, 09/02/2022, 08/27/2021, Additional history exists RSV Immunization Adult Patients (1 - 1-dose 75+ series) 2041 HIB Vaccines Aged Out No longer eligi [...] Recently Relevant to Health Maintenance Results * [facility] SCREENING DIGITAL (06/17/2024 8:24 AM EDT) Anatomical Region Laterality Modality Mammography 06/16/2024 10:4 2 AM EDT Narrative 06/17/2024 8:24 AM EDT [facility] Diagnostic Imaging Department [address] [place] [address] Patient: REBECA HERNANDEZ /Age/Sex: 1965 - 59 - F Unit#: [id number] Location/Status: [facility] CLI Mnemonic/Ordering Site: [facility] Ordering Physician: JUAREZ AL MD [facility] Screening Digital - 06/16/24 - 1122 Report Status:Signed EXAM: [facility] Screening Digital EXAM DATE AND TIME: 06/16/2024 11:23 AM HISTORY: Screening. COMPARISON: 09/02/22, 08/27/21, 08/22/20 TECHNIQUE: Bilateral digital breast tomosynthesis was performed in the CC and MLO projections. Computer aided detection with [employer] 3D 3.1 was employed. TISSUE DENSITY: c. [...] Mammogram performed at [facility] [address] [place] [address] Dictating Physician: AUGUSTA SIERRA MD Electronically Signed by: AUGUSTA SIERRA MD Dic Date/Time: 06/17/24821 Sign date/Time: 06/17/24823 Procedure Note Augusta Sierra MD - 07/14/2024 [facility] Diagnostic Imaging Department [address] [place] [address] Patient: DAVIDREBECA Jang /Age/Sex: 1965 - 59 - F Unit#: [id number] Location/Status: [facility] CLI [facility] Ordering Physician: JUAREZ AL MD [facility] Screening Digital - 06/16/24 - 1122 Report Status:Signed EXAM: [facility] Screening Digital EXAM DATE AND TIME: 06/16/2024 11:23 AM HISTORY: Screening. COMPARISON: 09/02/22, 08/27/21, 08/22/20 TECHNIQUE: Bilateral digital breast tomosynthesis was performed in the CCand MLO projections. Computer aided detection with [employer] 3D 3.1was employed. TISSUE DENSITY: c. The [...] Mammogram performed at [place] [address] Dictating Physician: AUGUSTA SIERRA MD Electronically Signed by: AUGUSTA SIERRA MD Dic Date/Time: 06/17/24821 Sign date/Time: 06/17/24823 Juarez Foley MD IMG BI PROCEDURES Final Result from Last 3 Months or Most Recently Relevant to Health Maintenance Advance Directives Documents on File Type Date Recorded Patient Tool Crib Lead Expl anation Health Care Decision (hx) 07/17/2017 [...] (hx) 07/17/2017 AD UNDERWOOD DIRECTIVE Care Teams Glass Block Bender Relationship Specialty Start Date End Date Oral Ocasio MD [address] [place] [id number] PCP - General Internal Medicine 12/04/21
--- OUTSIDE RECORDS SUMMARY | 2025-06-02 06:56 | XMS_ITS | Clinical Summary ---
Author Organization [facility] Address [address] [place] [address] Phone Care Team Providers Care Licensed Sales Assistant Name Role Phone Oral Ocasio MD Primary Care Provider [phone] Allergies Active Allergy Reactions Criticality Noted Date [...] 2025 11/03/2018 Insurance Medicaid Medicaid Care Teams Licensed Sales Assistant Relationship Specialty Start Date End Date Oral Ocasio MD [facility] [place] [address] PCP - General 10/09/20
--- NOTE | 2025-06-02 09:53 | A.OFFPC_ITS ---
Intake Visit Reasons: fostercare forms Allergies egg Allergy (Unknown, Verified 05/02/25 11:32) belly pain morphine Allergy (Unknown, Verified 05/02/25 11:32) chest pain Penicillins (PENICILLINS) Allergy (Unknown, Verified 05/02/25 11:32) UNKNOWN, WAS A CHILD lobster Adverse Reaction (Mild, Uncoded 02/17/25 09:59) Constipation Medication List - Last Reconciled 06/02/25 by Oral Ocasio MD acetaminophen ER mg PO albuterol sulfate 90 mcg/actuation 2 puffs PO Q6H PRN NS apixaban 10 mg PO BID [Blood pressure monitor As directed] blood pressure monitor (Blood Pressure Kit) As directed buprenorphine HCl 300 mcg buccal Q12H 30 days buspirone 30 mg PO BID [Cane As directed] diphenhydramine HCl (Banophen) 25 mg PO DAILY PRN famotidine 40 mg PO DAILY 90 days gabapentin 600 mg PO QID 30 days levalbuterol tartrate 45 mcg/actuation (Xopenex HFA) 2 puffs inhalation Q6H PRN 30 days loratadine 10 mg PO DAILY 90 days losartan 50 mg PO BID 90 days mirabegron ER (Myrbetriq) 50 mg PO DAILY mirtazapine 45 mg PO BEDTIME montelukast 10 mg PO DAILY 90 days naloxone 4 mg/actuation (Narcan) 4 mg intranasal Q2M PRN nicotine (Nicoderm CQ) 1 patch transdermal DAILY polyethylene glycol 3350 (Miralax) 17 grams PO DAILY sennosides-docusate sodium 8.6-50 mg (Senexon-S) 1 tab PO BID PRN 90 days [shower chair with handles As directed] umeclidinium-vilanterol 62.5-25 mcg/actuation (Anoro Ellipta) 1 inh inhalation DAILY Tobacco use date assessed: 02/18/25 Dental Screening Dental Screen Date: 02/18/25 HPI fostercare forms HPI Details Interval History The patient is a 60-year-old female, want to foster a child, she has done that before as well , but need updated paper work. 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 for depression and anxiety - Regular consultations with a psychiatr ist. doing well Social History: - The patient has completed care respons ibilities for her nephews. 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 - The patient intends to foster children aged seven to nine years old, avoiding those too young due to physical capacity constraints. Diagnostic Results: - Whooping cough vaccine reported to be up to date as of November 2023. - The patient has not received the flu v accine for the current year. Plan : Patient is stable and is capable of fostering a child in fact when she started doing that since couple of years ago, she started feeling better emotionally and physically felt happy, and felt as if she has found her purpose Review of Systems - General: No fever no chills - Neurological: No headaches no dizziness - Ear nose throat: No sore throat no hearing difficulty no ear pain - Cardiovascular: No syncope, no chest pain, no palpitations - Gastrointestinal: No nausea vomiting or diarrhea PFSH Medical History DVT (deep venous thrombosis) Pulmonary emboli Peripheral edema Descending aortic aneurysm Nicotine dependence, cigarettes, uncomplicated Gait instability History of COVID-19 (~09/2021) Lipid disorder Asthma-COPD overlap syndrome Vitamin B deficiency Vitamin D deficiency Chronic GERD Depression, major, severe recurrence Back pain, chronic Asthma Hypertension, essential Surgical History History of lumbar fusion History of colonoscopy History of cervical spinal surgery (~2015) History of cholecystectomy (~2008) History of tubal ligation Family History Father No problems noted. Mother Heart problem Brother No problems noted. Brother No problems noted. Sister No problems noted. Daughter No problems noted. Daughter No problems noted. Daughter No problems noted. Sister Colon cancer Maternal Grandmother Cancer Mother No problems noted. Other Mental health disorder Social History Household Members: None Housing: Apartment Patient Tobacco Use Status: Former Tobacco user Tobacco use type: Cigarette Years Smoked: current smoker - onset 15, 1/2ppd x 42yrs, 21pyh e-Cigarette/Vaping Use: Never Used service: No Current occupational status: disabled Cognitive needs: No Hearing needs: No Vision needs: No Questionnaire Thrive Questionnaire Date Thrive assessed: 02/18/25 I am a: Patient What is your living situation today?: I have a steady place to live Within the past 12 months, did the food you bought not last and you didn't have the money to get more?: Never true Within the past 12 months, did you worry whether your food would run out before you got money to buy more?: Never true Do you have trouble paying for medicines?: No Do you have trouble getting transportation to medical appointments?: No Do you have trouble paying your heating and electricity bill?: No Do you have trouble taking care of your child, family member or friend?: No Do you have trouble with day-to-day activities such as bathing, preparing meals, shopping, managing finances, etc.?: No Are you currently unemployed and looking for a job?: No Are you interested in more education?: No Please select the resources that you would like help with: None Currently or been in a relationship where the following occur: I choose not to answer THRIVE Score: 0 AUDIT C Alcohol Use Questionnaire (AUDIT-C) 2. How many drinks containing alcohol do you have on a typical day when you are drinking?: 1 or 2 3. How often do you have six or more drinks on one occasion?: Never Total Score: 0 TAI-7 AMB Questionnaire TAI-7 Date TAI - 7 assessed: 02/18/25 Source: Developed by Drs. Rusty Munoz, Yolanda Jacobson, Sabino Loomis and colleagues, with an educational kim from [employer]. Physical exam (Primary Care) Tobacco/Smoking Status: Tobacco use Status Tobacco use date assessed 02/18/25 06/02/25 09:53 Patient Tobacco Use Status Former Tobacco user 06/02/25 09:53 Tobacco use type Cigarette 06/02/25 09:53 e-Cigarette/Vaping Use Never Used 06/02/25 09:53 Thrive Assessment: Date of Thrive Assessment Date Thrive assessed 02/18/25 06/02/25 09:53 Currently or been in a relationship where the following occur: I choose not to answer Telehealth Telehealth Telehealth Platform: D[employer]im[employer] Location of provider rendering services: practice address Location of patient: address on file Patient Identification confirmed using: Name, : Yes Telehealth method: video Patient verbally consented to treatment: Yes Patient verbally consented to billing insurance company: Yes Patient informed of any privacy concerns related to visit: Yes Coding Level of Care Code Tele Est Pt Level 4 (87537) Diagnoses Hypertension, essential I10 Severe episode of recurrent major depressive disorder, without psychotic features F33.2 Psychotic features: without psychotic features Lipid disorder E78.9 Chronic GERD K21.9 Asthma-COPD overlap syndrome J44.9 Time Spent (min) 30 Comment face to face / chart review / paper work Assessment & Plan Assessment & Plan (1) Hypertension, essential: Code(s): I10 - Essential (primary) hypertension Category: Medical (2) Depression, major, severe recurrence: Code(s): F33.2 - Major depressive disorder, recurrent severe without psychotic features Category: Medical Qualifiers: Psychotic features: without psychotic features Qualified Code(s): F33.2 - Major depressive disorder, recurrent severe without psychotic features (3) Lipid disorder: Comment: Make healthy food choices . Eat lots of fruits, vegetables, whole grains, and low-fat dairy products. Limit the amount of meat and fried or fatty foods that you eat. Be active Walk, garden, or do something active for 30 minutes or more on most days of the week. If you smoke, stop smoking. Smoking increases the chance of heart attack or stroke, or develop cancer.If you are over weight, Lose weight, Being overweight increases the risk of many health problems. Avoid alcohol Alcohol can increase blood sugar and blood pressure. Code(s): E78.9 - Disorder of lipoprotein metabolism, unspecified Category: Medical (4) Chronic GERD: Code(s): K21.9 - Gastro-esophageal reflux disease without esophagitis Category: Medical (5) Asthma-COPD overlap syndrome: Code(s): J44.9 - Chronic obstructive pulmonary disease, unspecified Category: Medical Plan Interval History The patient is a 60-year-old female, want to foster a child, she has done that before as well , but need updated paper work. 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 for depression and anxiety - Regular consultations with a psychiatrist. doing well Social History: - The patient has completed care responsibilities for her nephews. 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 - The patient intends to foster children aged seven to nine years old, avoiding those too young due to physical capacity constraints. Diagnostic Results: - Whooping cough vaccine reported to be up to date as of November 2023. - The patient has not received the flu vaccine for the current year. Plan : Patient is stable and is capable of fostering a child in fact when she started doing that since couple of years ago, she started feeling better emotionally and physically felt happy, and felt as if she has found her purpose
== END 2025-06-02 10:58 | disposition home or self-care (01) ==
LOC: HO.HMCC 06:51
PROVIDERS: PCP Internal Medicine; Visit Provider Internal Medicine
DX: I10 Essential (primary) hypertension (principal); F33.2 Major depressive disorder, recurrent severe without psychotic features; J44.9 Chronic obstructive pulmonary disease, unspecified; E78.9 Disorder of lipoprotein metabolism, unspecified; K21.9 Gastro-esophageal reflux disease without esophagitis

== ENCOUNTER 2025-06-06 14:38 | Outpatient (REF) | payer OTHER, SELFPAY ==
--- OUTSIDE RECORDS SUMMARY | 2025-06-06 17:01 | XMS_ITS | Clinical Summary ---
Author Organization [facility] Address [address] [place] [address] Phone Care Team Providers Care Lead Miner Blasting Name Role Phone Oral Ocasio MD Primary Care Provider [phone] Allergies Active Allergy Reactions Criticality Noted Date [...] 2025 11/03/2018 Insurance Medicaid Medicaid Care Teams Lead Miner Blasting Relationship Specialty Start Date End Date Oral Ocasio MD [place] [address] PCP - General 10/09/20
--- OUTSIDE RECORDS SUMMARY | 2025-06-06 17:01 | XMS_ITS | Clinical Summary ---
Author Organization [facility] Address [address] [place] [address] Care Team Providers Care Pst Manager Name Role Phone Oral Ocasio MD Primary Care Provider [phone] Surgical History Surgery Date Site/Laterality Comments TUBAL LIGATION PROCEDURE: HISTORICAL TUBAL LIGATION CERVICAL LAMINECTOMY 06/2017 PROCEDURE: HISTORICAL CERV LAMINECTOMY; COMMENT: cervical decompression HYSTERECTOMY PROCEDURE: HISTORICAL HYSTERECTOMY Medical History Medical History Date Comments Hypertension 03/26/2018 DX:Hypertension GERD (gastroesophageal reflux disease) 03/26/2018 DX:GERD (gastroesophageal reflux disease) Vitamin D deficiency 03/26/2018 DX:Vitamin D deficiency COPD (chronic obstructive pu lmonary disease) ([facility] V24, [facility] V28) 03/26/2018 DX:COPD (chronic o bstructive pulmonary disease) ([facility]) Fibromyalgia 03/26/2018 DX:Fibromyalgia Hyperlipidemia 03/26/2018 DX:Hyperlipidemi a Constipation 03/26/2018 DX:Constipation Cervical spinal stenosis 03/26/2018 DX:Cerv ical spinal stenosis Varicose veins of legs 03/26/2018 DX:Varico se veins of legs Anxiety 10/02/2016 DX:Anxiety Bipolar disorder ([facility] V2 4, [facility] V28) 04/27/2019 DX:Bipolar disorder ([facility]) Osteoarthritis 10/02/2016 DX:Osteoarthriti s; COMMENT: [...] 08/27/2022 Hypertension/CHF/CAD Annual BMP Blood Test 09/05/2022 Depression Screening 09/29/2024 COVID-19 Vaccine ( season) 2025 Influenza Vaccine (#1) 2025 11/03/2018 Breast Cancer [...] Recently Relevant to Health Maintenance Results * [facility] SCREENING DIGITAL (06/17/2024 8:24 AM EDT) Anatomical Region Laterality Modality Mammography 06/16/2024 10:4 2 AM EDT Narrative 06/17/2024 8:24 AM EDT [facility] Diagnostic Imaging Department [address] [place] [address] Patient: REBECA HERNANDEZ /Age/Sex: 1965 - 59 - F Unit#: [id number] Location/Status: [facility]/REG CLI Mnemonic/Ordering Site: [facility] Ordering Physician: JUAREZ AL MD [facility] Screening Digital - 06/16/24 - 1122 Report Status:Signed EXAM: [facility] Screening Digital EXAM DATE AND TIME: 06/16/2024 11:23 AM HISTORY: Screening. COMPARISON: 09/02/22, 08/27/21, 08/22/20 TECHNIQUE: Bilateral digital breast tomosynthesis was performed in the CC and MLO projections. Computer aided detection with [employer] 3D 3.1 was employed. TISSUE DENSITY: c. [...] Mammogram performed at [facility] [address] [place] [address] Dictating Physician: AUGUSTA SIERRA MD Electronically Signed by: AUGUSTA SIERRA MD Dic Date/Time: 06/17/24821 Sign date/Time: 06/17/24823 Procedure Note Augusta Sierra MD - 07/14/2024 [facility] Diagnostic Imaging Department [address] [place] [address] Patient: DAVIDREBECA Jang /Age/Sex: 1965 - 59 - F Unit#: [id number] Location/Status: [facility] CLI Mnemonic[facility] Ordering Physician: JUAREZ AL MD [facility] Screening Digital - 06/16/24 - 1122 Report Status:Signed EXAM: [facility] Screening Digital EXAM DATE AND TIME: 06/16/2024 11:23 AM HISTORY: Screening. COMPARISON: 09/02/22, 08/27/21, 08/22/20 TECHNIQUE: Bilateral digital breast tomosynthesis was performed in the CCand MLO projections. Computer aided detection with [employer] 3D 3.1was employed. TISSUE DENSITY: c. The [...] Mammogram performed at [facility] [place] [address] Dictating Physician: AUGUSTA SIERRA MD Electronically Signed by: AUGUSTA SIERRA MD Dic Date/Time: 06/17/24821 Sign date/Time: 06/17/24823 Juarez Foley MD IMG BI PROCEDURES Final Result from Last 3 Months or Most Recently Relevant to Health Maintenance Advance Directives Documents on File Type Date Recorded Patient Park Ranger Expl anation Health Care Decision (hx) 07/17/2017 [...] (hx) 07/17/2017 AD UNDERWOOD DIRECTIVE Care Teams Pst Manager Relationship Specialty Start Date End Date Oral Ocasio MD [address] [place] [id number] PCP - General Internal Medicine 12/04/21
[2025-06-06 17:55] LABS: Anion Gap 12 (12-20); Blood Urea Nitrogen 13 mg/dL (9-16); Carbon Dioxide 29 mmol/L (22-29); Chloride 107 mmol/L (96-108); Estimated Glomerular Filt Rate > 60; Potassium 4.0 mmol/L (3.3-5.1); Sodium 144 mmol/L (135-145)
[2025-06-06 18:11] LABS: Protein/Creatinine Ratio, Ur 0.10 (<0.2); Total Protein Urine Random 11 mg/dL (<12)
== END 2025-06-06 14:39 | disposition home or self-care (01) ==
LOC: HO.HKASLDS 14:38
PROVIDERS: Visit Provider Internal Medicine Nephrology
DX: I10 Essential (primary) hypertension (principal); R80.8 Other proteinuria
CPT/HCPCS: 36415; 80051; 82565; 82570; 84156; 84520

== ENCOUNTER 2025-06-07 11:29 | Outpatient (AMB) | payer OTHER, SELFPAY ==
--- NOTE | 2025-06-07 11:36 | HO.NEPHOV ---
Vital Signs 06/07/25 11:38 Height 5 ft 6 in Weight 242 lb 4 oz BMI 39.1 BP 122/82 Blood Pressure Location Lt brachial Position Sitting Intake Visit Reasons: 6mon [id number] Manager Behavioral Required: No Accompanied by: Self / Same As Patient Allergies egg Allergy (Unknown, Verified 06/07/25 11:38) belly pain morphine Allergy (Unknown, Verified 06/07/25 11:38) chest pain Penicillins (PENICILLINS) Allergy (Unknown, Verified 06/07/25 11:38) UNKNOWN, WAS A CHILD lobster Adverse Reaction (Mild, Uncoded 02/17/25 09:59) Constipation HPI Comments Details: Parveen was seen in the office in follow-up of her hypertension and history of proteinuria. She had headaches which are gone. Her BP is at goal at home. She has no urinary symptoms. She denies chest pain, shortness of breath, proximal nocturnal dyspnea, orthopnea or orthostatic symptoms. She does not take any nonsteroidal anti-inflammatories. She has ascending thoracic aorta measures 4.1 x 4.1 cm in transverse dimension at the level of the pulmonary trunk. She has no other specific complaints at the time of this office visit. She had issues with Chlorthalidone and it was discontinued by her in the past. She is on Elquis for DVT and PE. She feels well. [facility] Medical History DVT (deep venous thrombosis) Pulmonary emboli Peripheral edema Descending aortic aneurysm Nicotine dependence, cigarettes, uncomplicated Gait instability History of COVID-19 (~09/2021) Lipid disorder Asthma-COPD overlap syndrome Vitamin B deficiency Vitamin D deficiency Chronic GERD Depression, major, severe recurrence Back pain, chronic Asthma Hypertension, essential Surgical History History of lumbar fusion History of colonoscopy History of cervical spinal surgery (~2015) History of cholecystectomy (~2008) History of tubal ligation Family History Father No problems noted. Mother Heart problem Brother No problems noted. Brother No problems noted. Sister No problems noted. Daughter No problems noted. Daughter No problems noted. Daughter No problems noted. Sister Colon cancer Maternal Grandmother Cancer Mother No problems noted. Other Mental health disorder Social History Household Members: None Housing: Apartment Patient Tobacco Use Status: Former Tobacco user Tobacco use type: Cigarette Years Smoked: current smoker - onset 15, 1/2ppd x 42yrs, 21pyh e-Cigarette/Vaping Use: Never Used service: No Current occupational status: disabled Cognitive needs: No Hearing needs: No Vision needs: No Review of Systems Const All systems reviewed & are unremarkable except as noted in HPI and below Physical Exam Vital Signs: Last Vital Signs BP 122/82 06/07/25 11:38 BMI result Body Mass Index 39.1 Const General: comfortable and no acute distress Orientation/consciousness: patient oriented x3 HEENT Head: Yes normocephalic Mouth: Normal oral and palatal mucosa present Eyes EOM: EOMs intact bilaterally Neck Neck: Yes supple Resp Auscultation: clear to auscultation bilaterally Cardio Jugular venous distension: no JVD Rate: regular rate GI Palpation (GI): Soft to palpation Auscultation: normal bowel sounds General: Yes no CVA tenderness Back/Spine/Pelvis Back: no CVA tenderness Skin General skin exam: no rashes or lesions noted Neuro General: patient oriented x3 and moves all extremities Extrem General: Yes no pedal edema Results Reviewed Nephrology Results: Sodium, (135-145) 144 mmol/L 06/06/25 Potassium, (3.3-5.1) 4.0 mmol/L 06/06/25 Chloride, (96-108) 107 mmol/L 06/06/25 Carbon Dioxide, (22-29) 29 mmol/L 06/06/25 BUN, (9-16) 13 mg/dL 06/06/25 Creatinine, (0.5-1.4) 0.76 mg/dL 06/06/25 Urine Creatinine 110.83 mg/dL 06/06/25 Protein/Creatinin Ratio, (<0.2) 0.10 06/06/25 Assessment & Plan Assessment & Plan (1) Hypertension, essential: Code(s): I10 - Essential (primary) hypertension Category: Medical (2) Proteinuria: Code(s): R80.9 - Proteinuria, unspecified Category: Medical Qualifiers: Proteinuria type: other Qualified Code(s): R80.8 - Other proteinuria Plan Parveen has 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 Her last urine did not show any significant proteinuria. She had obesity which was putting her at risk for secondary FSGS. Her blood pressure is at goal. She is on angiotensin receptor arcelia. She is on losartan 50 mg bid. She needs to lose weight. All questions answered. Follow-up given (She has ascending thoracic aorta measures 4.1 x 4.1 cm in transverse dimension at the level of the pulmonary trunk.from a CT scan - needs F/U ) Orders: Orders Creatinine 6 Months I10 - Essential (primary) hypertension, R80.8 - Other proteinuria Protein Creatinine Ratio, Ur 6 Months I10 - Essential (primary) hypertension, R80.8 - Other proteinuria Blood Urea Nitrogen 6 Months I10 - Essential (primary) hypertension, R80.8 - Other proteinuria Electrolytes 6 Months I10 - Essential (primary) hypertension, R80.8 - Other proteinuria UA and rflx microscopic 6 Months I10 - Essential (primary) hypertension, R80.8 - Other proteinuria Coding Level of Care Code Est Pt Level 4 (22150) Diagnoses Hypertension, essential I10 Other proteinuria R80.8 Proteinuria type: other
[2025-06-07 11:38] VITALS: BP 122/82; BMI 39.1
--- OUTSIDE RECORDS SUMMARY | 2025-06-07 13:59 | XMS_ITS | Clinical Summary ---
Author Organization [facility] Address [address] [place] [address] Care Team Providers Care Hyster Driver Name Role Phone Oral Ocasio MD Primary Care Provider [phone] Surgical History Surgery Date Site/Laterality Comments TUBAL LIGATION PROCEDURE: HISTORICAL TUBAL LIGATION CERVICAL LAMINECTOMY 06/2017 PROCEDURE: HISTORICAL CERV LAMINECTOMY; COMMENT: cervical decompression HYSTERECTOMY PROCEDURE: HISTORICAL HYSTERECTOMY Medical History Medical History Date Comments Hypertension 03/26/2018 DX:Hypertension GERD (gastroesophageal reflux disease) 03/26/2018 DX:GERD (gastroesophageal reflux disease) Vitamin D deficiency 03/26/2018 DX:Vitamin D deficiency COPD (chronic obstructive pu lmonary disease) ([facility] V24, [facility] V28) 03/26/2018 DX:COPD (chronic o bstructive pulmonary disease) ([facility]) Fibromyalgia 03/26/2018 DX:Fibromyalgia Hyperlipidemia 03/26/2018 DX:Hyperlipidemi a Constipation 03/26/2018 DX:Constipation Cervical spinal stenosis 03/26/2018 DX:Cerv ical spinal stenosis Varicose veins of legs 03/26/2018 DX:Varico se veins of legs Anxiety 10/02/2016 DX:Anxiety Bipolar disorder ([facility] V2 4, [facility] V28) 04/27/2019 DX:Bipolar disorder ([facility]) Osteoarthritis 10/02/2016 DX:Osteoarthriti s; COMMENT: Knees, [...] Recently Relevant to Health Maintenance Results * [facility] SCREENING DIGITAL (06/17/2024 8:24 AM EDT) Anatomical Region Laterality Modality Mammography 06/16/2024 10:4 2 AM EDT Narrative 06/17/2024 8:24 AM EDT [facility] Diagnostic Imaging Department [address] [place] [address] Patient: REBECA HERNANDEZ /Age/Sex: 1965 - 59 - F Unit#: [id number] Location/Status: [facility]/REG CLI Mnemonic/Ordering Site: [facility] Ordering Physician: JUAREZ AL MD [facility] Screening Digital - 06/16/24 - 1122 Report Status:Signed EXAM: [facility] Screening Digital EXAM DATE AND TIME: 06/16/2024 11:23 AM HISTORY: Screening. COMPARISON: 09/02/22, 08/27/21, 08/22/20 TECHNIQUE: Bilateral digital breast tomosynthesis was performed in the CC and MLO projections. Computer aided detection with [employer] 3D 3.1 was employed. TISSUE DENSITY: c. [...] performed at [facility] [address] [place] [address] Dictating Physician: AUGUSTA SIERRA MD Electronically Signed by: AUGUSTA SIERRA MD Dic Date/Time: 06/17/24821 Sign date/Time: 06/17/24823 Procedure Note Augusta Sierra MD - 07/14/2024 [facility] Diagnostic Imaging Department [address] [place] [address] Patient: DAVIDREBECA Jang /Age/Sex: 1965 - 59 - F Unit#: [id number] Location/Status: [facility] CLI Mnemonic[facility] Ordering Physician: JUAREZ AL MD [facility] Screening Digital - 06/16/24 - 1122 Report Status:Signed EXAM: [facility] Screening Digital EXAM DATE AND TIME: 06/16/2024 11:23 AM HISTORY: Screening. COMPARISON: 09/02/22, 08/27/21, 08/22/20 TECHNIQUE: Bilateral digital breast tomosynthesis was performed in the CCand MLO projections. Computer aided detection with [employer] 3D 3.1was employed. TISSUE DENSITY: c. The [...] Mammogram performed at [place] [address] Dictating Physician: AUGUSTA SIERRA MD Electronically Signed by: AUGUSTA SIERRA MD Dic Date/Time: 06/17/24821 Sign date/Time: 06/17/24823 Juarez Foley MD IMG BI PROCEDURES Final Result from Last 3 Months or Most Recently Relevant to Health Maintenance Advance Directives Documents on File Type Date Recorded Patient Frickertron Checker Expl anation Health Care Decision (hx) 07/17/2017 [...] (hx) 07/17/2017 AD UNDERWOOD DIRECTIVE Care Teams Hyster Driver Relationship Specialty Start Date End Date Oral Ocasio MD [address] [place] [id number] PCP - General Internal Medicine 12/04/21
--- OUTSIDE RECORDS SUMMARY | 2025-06-07 13:59 | XMS_ITS | Clinical Summary ---
Author Organization [facility] Address [address] [place] [address] Phone Care Team Providers Care Employee Relations Manager Name Role Phone Oral Ocasio MD Primary Care Provider [phone] Allergies Active Allergy Reactions Criticality Noted Date [...] 2025 11/03/2018 Insurance Medicaid Medicaid Care Teams Employee Relations Manager Relationship Specialty Start Date End Date Oral Ocasio MD [place] [address] PCP - General 10/09/20
== END 2025-06-07 11:49 | disposition home or self-care (01) ==
LOC: HO.HKAS 11:29
PROVIDERS: PCP Internal Medicine; Visit Provider Internal Medicine Nephrology
DX: I10 Essential (primary) hypertension (principal); R80.8 Other proteinuria
CPT/HCPCS: 99214

== ENCOUNTER → 2025-06-07 11:29 | Outpatient (BNVA) | payer OTHER, SELFPAY | PROVIDERS: PCP Internal Medicine; Visit Provider Internal Medicine Nephrology | DX: I10 Essential (primary) hypertension (principal); R80.8 Other proteinuria; Z68.39 Body mass index [BMI] 39.0-39.9, adult | CPT/HCPCS: 99212 ==

== ENCOUNTER 2025-06-17 11:31 | Outpatient (AMB) | payer OTHER, SELFPAY ==
[2025-06-17 11:35] VITALS: BP 130/80; PULSE 65; O2SAT 95; BMI 39.4
--- NOTE | 2025-06-17 11:35 | MHC.PC.OV ---
Vital Signs 06/17/25 11:35 Height 5 ft 6 in Weight 244 lb BMI 39.4 BP 130/80 Blood Pressure Location Lt brachial Position Sitting Pulse 65 Pulse Source Pulse Oximeter Pulse Oximetry (%) 95 Intake Visit Reasons: PE Accompanied by: Self / Same As Patient Allergies egg Allergy (Unknown, Verified 06/17/25 11:36) belly pain morphine Allergy (Unknown, Verified 06/17/25 11:36) chest pain Penicillins (PENICILLINS) Allergy (Unknown, Verified 06/17/25 11:36) UNKNOWN, WAS A CHILD lobster Adverse Reaction (Mild, Uncoded 02/17/25 09:59) Constipation Medication List - Last Reconciled 06/17/25 by Oral Ocasio MD acetaminophen ER mg PO albuterol sulfate 90 mcg/actuation 2 puffs PO Q6H PRN NS apixaban 10 mg PO BID [Blood pressure monitor As directed] blood pressure monitor (Blood Pressure Kit) As directed buprenorphine HCl 300 mcg buccal Q12H 30 days buspirone 30 mg PO BID [Cane As directed] diphenhydramine HCl (Banophen) 25 mg PO DAILY PRN famotidine 40 mg PO DAILY 90 days gabapentin 600 mg PO QID 30 days levalbuterol tartrate 45 mcg/actuation (Xopenex HFA) 2 puffs inhalation Q6H PRN 30 days loratadine 10 mg PO DAILY 90 days losartan 50 mg PO BID 90 days mirabegron ER (Myrbetriq) 50 mg PO DAILY mirtazapine 45 mg PO BEDTIME montelukast 10 mg PO DAILY 90 days naloxone 4 mg/actuation (Narcan) 4 mg intranasal Q2M PRN nicotine (Nicoderm CQ) 1 patch transdermal DAILY polyethylene glycol 3350 (Miralax) 17 grams PO DAILY sennosides-docusate sodium 8.6-50 mg (Senexon-S) 1 tab PO BID PRN 90 days [shower chair with handles As directed] umeclidinium-vilanterol 62.5-25 mcg/actuation (Anoro Ellipta) 1 inh inhalation DAILY Tobacco use date assessed: 02/18/25 Dental Screening Dental Screen Date: 02/18/25 HPI PE HPI Details PE The patient is a 60-year-old female presenting for PE apt. Hernia: - The patient is preparing for an upcoming hernia surgery and requires necessary pre-operative clearances. Hypertension: - Managed by Dr. Aldo Paredes without recent changes mentioned. Asthma and COPD: - stable, she has stopped smoking, managed by Dr Pablo Chronic Kidney Disease: - Patient manages chronic kidney disease with recent tests indicating normal kidney function. GERD: - Currently managed with famotidine. Depression: - Under the care of a psychiatrist with no recent updates. Medical History: - Chronic Kidney Disease - Hypertension - Asthma - Chronic Obstructive Pulmonary Disease (COPD) - Gastroesophageal Reflux Disease (GERD) - Depression - Obesity - H/o Pulmonary Embolism and DVT, [facility] and is on blood thinner - lumbar radiculitis and spinal stenosis Health Maintenance - Recent labs indicate normal electrolytes, BUN, and creatinine. - Liver enzymes were within normal limits last year. - LDL: 119 [address] of Care - Dr. Aldo Hurd for nephrology - Dr. Gilliam for pulmonology - Psychiatrist for mental health needs - Pain management at [facility] - Obgyn need new Patient Instructions - continue medications as prescribed by different providers - once you have date for surgery get in touch with Cardiology, Pulmonary and Hematology for clearance - famotidine refill was sent earlier for the whole year - complete OBGYN visit and mammogram Review of Systems - General: No fever no chills - Neurological: No headaches - Ear nose throat: No sore throat no hearing difficulty no ear pain - Cardiovascular: No syncope, no chest pain, no palpitations - Gastrointestinal: No nausea vomiting or diarrhea - Skin: No new complaints Physical Exam General: Cooperative, healthy appearing, comfortable, no acute distress Orientation: Patient oriented x3 Head: Normal to inspection Ears: Within normal limit visually Nose: Normal external nose present Face and sinus: Normal facial exam Eyes: Appearance normal, extraocular movement intact pupils reactive Neck: Normal visual inspection and supple Respiratory: Normal respiratory effort and able to speak in complete sentences. Clear to auscultation, no stridor Cardiovascular: S1 and S2 RRR Breast exam benign GI: Normal to inspection. Soft to palpation and nontender, umbilical hernia present Skin: Turgor normal, no acute findings Neuro: Patient oriented x3, motor sensory intact, balance intact, unable to perform tandem , patient is very careful with getting on examination table and uses cane for ambulation Extremities: Normal to inspection [facility] Medical History DVT (deep venous thrombosis) Pulmonary emboli Peripheral edema Descending aortic aneurysm Nicotine dependence, cigarettes, uncomplicated Gait instability History of COVID-19 (~09/2021) Lipid disorder Asthma-COPD overlap syndrome Vitamin B deficiency Vitamin D deficiency Chronic GERD Depression, major, severe recurrence Back pain, chronic Asthma Hypertension, essential Surgical History History of lumbar fusion History of colonoscopy History of cervical spinal surgery (~2015) History of cholecystectomy (~2008) History of tubal ligation Family History Father No problems noted. Mother Heart problem Brother No problems noted. Brother No problems noted. Sister No problems noted. Daughter No problems noted. Daughter No problems noted. Daughter No problems noted. Sister Colon cancer Maternal Grandmother Cancer Mother No problems noted. Other Mental health disorder Social History Household Members: None Housing: Apartment Patient Tobacco Use Status: Former Tobacco user Tobacco use type: Cigarette Years Smoked: current smoker - onset 15, 1/2ppd x 42yrs, 21pyh e-Cigarette/Vaping Use: Never Used service: No Current occupational status: disabled Cognitive needs: No Hearing needs: No Vision needs: No Questionnaire PHQ-9 Over the last 2 weeks, how often have you been bothered by any of the following problems? 1. Little interest or pleasure in doing things: several days 2. Feeling down, depressed, or hopeless: not at all 3. Trouble falling or staying asleep, or sleeping too much: several days 4. Feeling tired or having little energy: several days 5. Poor appetite or overeating: several days 6. Feeling bad about yourself - or that you are a failure or have let yourself or your family down: not at all 7. Trouble concentrating on things, such as reading the newspaper or watching television: not at all 8. Moving or speaking so slowly that other people could have noticed. Or the opposite - being so fidgety or restless that you have been moving around a lot more than usual: not at all 9. Thoughts that you would be better off or of hurting yourself in some way: not at all Total score: 4 Depression Screening Interpretation: Negative Depression Screening Done: Yes 55800 - PHQ-9 Billing: Yes Source: Developed by Drs. Rusty Munoz, Yolanda Jacobson, Sabino Loomis and colleagues, with an educational kim from [employer]. Thrive Questionnaire Date Thrive assessed: 02/18/25 I am a: Patient What is your living situation today?: I have a steady place to live Within the past 12 months, did the food you bought not last and you didn't have the money to get more?: Never true Within the past 12 months, did you worry whether your food would run out before you got money to buy more?: Never true Do you have trouble paying for medicines?: No Do you have trouble getting transportation to medical appointments?: No Do you have trouble paying your heating and electricity bill?: No Do you have trouble taking care of your child, family member or friend?: No Do you have trouble with day-to-day activities such as bathing, preparing meals, shopping, managing finances, etc.?: No Are you currently unemployed and looking for a job?: No Are you interested in more education?: No Please select the resources that you would like help with: None Currently or been in a relationship where the following occur: I choose not to answer THRIVE Score: 0 AUDIT C Alcohol Use Questionnaire (AUDIT-C) 1. How often do you have a drink containing alcohol?: Never 3. How often do you have six or more drinks on one occasion?: Never Total Score: 0 TAI-7 AMB Questionnaire TAI-7 Date TAI - 7 assessed: 02/18/25 Feeling nervous, anxious, or on edge: 0 = Not at all Not being able to stop or control worryin = Not at all Worrying too much about different things: 0 = Not at all Trouble relaxin = Not at all Being so restless that it is hard to sit still: 0 = Not at all Becoming easily annoyed or irritable: 0 = Not at all Feeling afraid as if something awful might happen: 0 = Not at all Total TAI-7 score (0-4 normal; 5-9 mild; 10-14 moderate; 15-21 severe): 0 Source: Developed by Drs. Rusty Munoz, Yolanda Jacobson, Sabino Loomis and colleagues, with an educational kim from [employer]. TAI-7 Assessment Billing TAI-7 Assessment Tool: TAI-7 Assessment 38190 Physical exam (Primary Care) Vital Signs: Last Vital Signs Pulse 65 06/17/25 11:35 BP 130/80 06/17/25 11:35 Pulse Ox 95 06/17/25 11:35 BMI result Body Mass Index 39.4 Tobacco/Smoking Status: Tobacco use Status Tobacco use date assessed 02/18/25 06/17/25 11:40 Patient Tobacco Use Status Former Tobacco user 06/17/25 11:40 Tobacco use type Cigarette 06/17/25 11:40 e-Cigarette/Vaping Use Never Used 06/17/25 11:40 PHQ-9: PHQ-9 Score PHQ-9: Total score 4 06/17/25 11:40 Depression Screening Interpretation: Negative Thrive Assessment: Date of Thrive Assessment Date Thrive assessed 02/18/25 06/17/25 11:40 Currently or been in a relationship where the following occur: I choose not to answer Coding Level of Care Code Est Pt Level 4 (87110) Est Pt Prev Care 40-64y(67338) Diagnoses Encounter for general adult medical examination with abnormal findings Z00.01 Hypertension, essential I10 Dilatation of thoracic aorta I77.810 Lipid disorder E78.9 Severe episode of recurrent major depressive disorder, without psychotic features F33.2 Psychotic features: without psychotic features Hx of shelter use of blood thinners Z79.01 Chronic GERD K21.9 Sacroiliac joint pain M53.3 Spondylosis of lumbar spine M47.816 Spinal stenosis of lumbar region without neurogenic claudication M48.061 Neurogenic claudication status: without neurogenic claudication Asthma-COPD overlap syndrome J44.9 KELLY (obstructive sleep apnea) G47.33 Gait instability R26.81 Additional Codes PHQ-9 - 66484 - PHQ-9 Billing: Yes ([id number]) TAI-7 Assessment Billing - TAI-7 Assessment Tool: TAI-7 Assessment 23200 ([id number]) Assessment & Plan Assessment & Plan (1) Encounter for general adult medical examination with abnormal findings: Code(s): Z00.01 - Encounter for general adult medical examination with abnormal findings Category: Medical (2) Hypertension, essential: Code(s): I10 - Essential (primary) hypertension Category: Medical (3) Dilatation of thoracic aorta: Comment: (ascending thoracic aorta measures 4.1 x 4.1 cm - noted on 04/04/23 LDCT) Code(s): I77.810 - Thoracic aortic ectasia Category: Medical (4) Lipid disorder: Comment: Make healthy food choices . Eat lots of fruits, vegetables, whole grains, and low-fat dairy products. Limit the amount of meat and fried or fatty foods that you eat. Be active Walk, garden, or do something active for 30 minutes or more on most days of the week. If you smoke, stop smoking. Smoking increases the chance of heart attack or stroke, or develop cancer.If you are over weight, Lose weight, Being overweight increases the risk of many health problems. Avoid alcohol Alcohol can increase blood sugar and blood pressure. Code(s): E78.9 - Disorder of lipoprotein metabolism, unspecified Category: Medical (5) Depression, major, severe recurrence: Code(s): F33.2 - Major depressive disorder, recurrent severe without psychotic features Category: Medical Qualifiers: Psychotic features: without psychotic features Qualified Code(s): F33.2 - Major depressive disorder, recurrent severe without psychotic features (6) Hx of shelter use of blood thinners: Code(s): Z79.01 - [facility] (current) use of anticoagulants Category: Medical (7) Chronic GERD: Code(s): K21.9 - Gastro-esophageal reflux disease without esophagitis Category: Medical (8) Sacroiliac joint pain: Code(s): M53.3 - Sacrococcygeal disorders, not elsewhere classified Category: Medical (9) Spondylosis of lumbar spine: Code(s): M47.816 - Spondylosis without myelopathy or radiculopathy, lumbar region Category: Medical (10) Spinal stenosis, lumbar: Code(s): M48.061 - Spinal stenosis, lumbar region without neurogenic claudication Category: Medical Qualifiers: Neurogenic claudication status: without neurogenic claudication Qualified Code(s): M48.061 - Spinal stenosis, lumbar region without neurogenic claudication (11) Asthma-COPD overlap syndrome: Code(s): J44.9 - Chronic obstructive pulmonary disease, unspecified Category: Medical (12) KELLY (obstructive sleep apnea): Code(s): G47.33 - Obstructive sleep apnea (adult) (pediatric) Category: Medical (13) Gait instability: Code(s): R26.81 - Unsteadiness on feet Category: Medical Plan PE The patient is a 60-year-old female presenting for PE apt. Hernia: - The patient is preparing for an upcoming hernia surgery and requires necessary pre-operative clearances. Hypertension: - Managed by Dr. Aldo Paredes without recent changes mentioned. Asthma and COPD: - stable, she has stopped smoking, managed by Dr Pablo Chronic Kidney Disease: - Patient manages chronic kidney disease with recent tests indicating normal kidney function. GERD: - Currently managed with famotidine. Depression: - Under the care of a psychiatrist with no recent updates. Medical History: - Chronic Kidney Disease - Hypertension - Asthma - Chronic Obstructive Pulmonary Disease (COPD) - Gastroesophageal Reflux Disease (GERD) - Depression - Obesity - H/o Pulmonary Embolism and DVT, [facility] and is on blood thinner - lumbar radiculitis and spinal stenosis Health Maintenance - Recent labs indicate normal electrolytes, BUN, and creatinine. - Liver enzymes were within normal limits last year. - LDL: 119 [place] of Care - Dr. Aldo Hurd for nephrology - Dr. Gilliam for pulmonology - Psychiatrist for mental health needs - Pain management at [facility] - [facility] - Obgyn need new Patient Instructions - continue medications as prescribed by different providers - once you have date for surgery get in touch with Cardiology, Pulmonary and Hematology for clearance - famotidine refill was sent earlier for the whole year - complete OBGYN visit and mammogram Orders: Referrals [facility] [facility] Referral Z01.419 - Encounter for gynecological examination (general) (routine) without abnormal findings
--- OUTSIDE RECORDS SUMMARY | 2025-06-17 12:09 | XMS_ITS | Clinical Summary ---
Author Organization [employer] [facility] Address [address] [place] [address] Care Team Providers Care Impact Retail Service Merchandiser Name Role Phone Oral Ocasio MD Primary Care Provider [phone] Surgical History Surgery Date Site/Laterality Comments TUBAL LIGATION PROCEDURE: HISTORICAL TUBAL LIGATION CERVICAL LAMINECTOMY 06/2017 PROCEDURE: HISTORICAL CERV LAMINECTOMY; COMMENT: cervical decompression HYSTERECTOMY PROCEDURE: HISTORICAL HYSTERECTOMY Medical History Medical History Date Comments Hypertension 03/26/2018 DX:Hypertension GERD (gastroesophageal reflux disease) 03/26/2018 DX:GERD (gastroesophageal reflux disease) Vitamin D deficiency 03/26/2018 DX:Vitamin D deficiency COPD (chronic obstructive pu lmonary disease) ([facility] V24, [facility] V28) 03/26/2018 DX:COPD (chronic o bstructive pulmonary disease) ([facility]) Fibromyalgia 03/26/2018 DX:Fibromyalgia Hyperlipidemia 03/26/2018 DX:Hyperlipidemi a Constipation 03/26/2018 DX:Constipation Cervical spinal stenosis 03/26/2018 DX:Cerv ical spinal stenosis Varicose veins of legs 03/26/2018 DX:Varico se veins of legs Anxiety 10/02/2016 DX:Anxiety Bipolar disorder ([facility] V2 4, [facility] V28) 04/27/2019 DX:Bipolar disorder ([facility]) Osteoarthritis 10/02/2016 DX:Osteoarthriti s; COMMENT: Knees, [...] Recently Relevant to Health Maintenance Results * [facility] SCREENING DIGITAL (06/17/2024 8:24 AM EDT) Anatomical Region Laterality Modality Mammography 06/16/2024 10:4 2 AM EDT Narrative 06/17/2024 8:24 AM EDT [facility] Diagnostic Imaging Department [address] [place] [address] Patient: REBECA HERNANDEZ /Age/Sex: 1965 - 59 - F Unit#: [id number] Location/Status: [facility]/REG CLI Mnemonic/Ordering Site: [facility] Ordering Physician: JUAREZ AL MD [facility] Screening Digital - 06/16/24 - 1122 Report Status:Signed EXAM: [facility] Screening Digital EXAM DATE AND TIME: 06/16/2024 11:23 AM HISTORY: Screening. COMPARISON: 09/02/22, 08/27/21, 08/22/20 TECHNIQUE: Bilateral digital breast tomosynthesis was performed in the CC and MLO projections. Computer aided detection with [employer] 3D 3.1 was employed. TISSUE DENSITY: c. [...] performed at [facility] [address] [place] [address] Dictating Physician: AUGUSTA SIERRA MD Electronically Signed by: AUGUSTA SIERRA MD Dic Date/Time: 06/17/24821 Sign date/Time: 06/17/24823 Procedure Note Augusta Sierra MD - 07/14/2024 [facility] Diagnostic Imaging Department [address] [place] [address] Patient: DAVIDREBECA Jang /Age/Sex: 1965 - 59 - F Unit#: [id number] Location/Status: [facility] CLI [facility]emonic[facility] Order[facility] Physician: JUAREZ AL MD [facility] Screening Digital - 06/16/24 - 1122 Report Status:Signed EXAM: [facility] Screening Digital EXAM DATE AND TIME: 06/16/2024 11:23 AM HISTORY: Screening. COMPARISON: 09/02/22, 08/27/21, 08/22/20 TECHNIQUE: Bilateral digital breast tomosynthesis was performed in the CCand MLO projections. Computer aided detection with [employer] 3D 3.1was employed. TISSUE DENSITY: c. 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
--- OUTSIDE RECORDS SUMMARY | 2025-06-17 12:09 | XMS_ITS | Clinical Summary ---
Author Organization [facility] Address [address] [place] [address] Phone Care Team Providers Care In School Suspension Coordinator Name Role Phone Oral Ocasio MD Primary Care Provider [phone] Allergies Active Allergy Reactions Criticality Noted Date [...] 2025 11/03/2018 Insurance Medicaid Medicaid Care Teams In School Suspension Coordinator Relationship Specialty Start Date End Date Oral Ocasio MD [facility] [place] [address] PCP - General 10/09/20
== END 2025-06-17 12:06 | disposition home or self-care (01) ==
LOC: HO.HMCC 11:32
PROVIDERS: PCP Internal Medicine; Visit Provider Internal Medicine
DX: Z00.01 Encounter for general adult medical examination with abnormal findings (principal); I10 Essential (primary) hypertension; F33.2 Major depressive disorder, recurrent severe without psychotic features; J44.9 Chronic obstructive pulmonary disease, unspecified; I77.810 Thoracic aortic ectasia; E78.9 Disorder of lipoprotein metabolism, unspecified; Z79.01 Long term (current) use of anticoagulants; K21.9 Gastro-esophageal reflux disease without esophagitis; M53.3 Sacrococcygeal disorders, not elsewhere classified; M47.816 Spondylosis without myelopathy or radiculopathy, lumbar region; M48.061 Spinal stenosis, lumbar region without neurogenic claudication; G47.33 Obstructive sleep apnea (adult) (pediatric)

== ENCOUNTER → 2025-06-17 11:31 | Outpatient (BNVA) | payer OTHER, SELFPAY | PROVIDERS: PCP Internal Medicine; Visit Provider Internal Medicine | DX: Z00.01 Encounter for general adult medical examination with abnormal findings (principal); K46.9 Unspecified abdominal hernia without obstruction or gangrene; J44.89 Other specified chronic obstructive pulmonary disease; I12.9 Hypertensive chronic kidney disease with stage 1 through stage 4 chronic kidney disease, or unspecified chronic kidney disease; N18.9 Chronic kidney disease, unspecified; K21.9 Gastro-esophageal reflux disease without esophagitis; I77.810 Thoracic aortic ectasia; E78.9 Disorder of lipoprotein metabolism, unspecified; F33.2 Major depressive disorder, recurrent severe without psychotic features; M53.3 Sacrococcygeal disorders, not elsewhere classified; M47.816 Spondylosis without myelopathy or radiculopathy, lumbar region; M48.061 Spinal stenosis, lumbar region without neurogenic claudication; J44.9 Chronic obstructive pulmonary disease, unspecified; G47.33 Obstructive sleep apnea (adult) (pediatric); R26.81 Unsteadiness on feet; Z79.01 Long term (current) use of anticoagulants | CPT/HCPCS: 96127; 99396 ==

== ENCOUNTER 2025-08-09 10:43 | Outpatient (AMB) | payer OTHER, SELFPAY ==
--- NOTE | 2025-08-09 10:48 | MHC.OFFVIS ---
Vital Signs 08/09/25 10:55 Height 5 ft 6 in Weight 233 lb 4 oz BMI 37.6 BP 164/89 H Blood Pressure Location Rt brachial Position Sitting Pulse 62 Pulse Source Pulse Oximeter Pulse Oximetry (%) 98 Oxygen Delivery Method Room Air Intake Visit Reasons: PILL COUNT Intake Note: Parveen comes in today for a film count to belbuca, patient should have 24 films and presents with 31 films which she last took today 08/09/25 at 8am. Pain today 03/08 Managing Consultant Clinical Professor Required: No Accompanied by: Self / Same As Patient Allergies egg Allergy (Unknown, Verified 08/09/25 10:49) belly pain morphine Allergy (Unknown, Verified 08/09/25 10:49) chest pain Penicillins (PENICILLINS) Allergy (Unknown, Verified 08/09/25 10:49) UNKNOWN, WAS A CHILD lobster Adverse Reaction (Mild, Uncoded 02/17/25 09:59) Constipation HPI Comments Details: Patient returns today for a film count for Belbuca 300 mcg BID. Patient is supposed to have #24 films and presents with #31 films. Patient reports reasonable analgesia on current regime without any side effects. Patient denies any side effects on current regime except occasional constipation for which she takes Senexon-S, dietary fiber and increases fluid intake. Denies any fever, chills, chest pain, dizziness, shortness of breaths, nausea, sedation, dizziness, or urinary retention or any significant changes in medical history since last office visit. [facility] Medical History DVT (deep venous thrombosis) Pulmonary emboli Peripheral edema Descending aortic aneurysm Nicotine dependence, cigarettes, uncomplicated Gait instability History of COVID-19 (~09/2021) Lipid disorder Asthma-COPD overlap syndrome Vitamin B deficiency Vitamin D deficiency Chronic GERD Depression, major, severe recurrence Back pain, chronic Asthma Hypertension, essential Surgical History History of lumbar fusion History of colonoscopy History of cervical spinal surgery (~2015) History of cholecystectomy (~2008) History of tubal ligation Family History Father No problems noted. Mother Heart problem Brother No problems noted. Brother No problems noted. Sister No problems noted. Daughter No problems noted. Daughter No problems noted. Daughter No problems noted. Sister Colon cancer Maternal Grandmother Cancer Mother No problems noted. Other Mental health disorder Social History Household Members: None Housing: Apartment Patient Tobacco Use Status: Former Tobacco user Tobacco use type: Cigarette Years Smoked: current smoker - onset 15, 1/2ppd x 42yrs, 21pyh e-Cigarette/Vaping Use: Never Used service: No Current occupational status: disabled Cognitive needs: No Hearing needs: No Vision needs: No Review of Systems Const All systems reviewed & are unremarkable except as noted in HPI and below Physical Exam Vital Signs: Last Vital Signs Pulse 62 08/09/25 10:55 BP 164/89 H 08/09/25 10:55 Pulse Ox 98 08/09/25 10:55 Oxygen Delivery Method Room Air 08/09/25 10:55 BMI result Body Mass Index 37.6 General: Appears afebrile. Alert and oriented. Mood and affect appropriate. Very pleasant. Follows and participates in conversation appropriately. Respiratory effort is unlabored. No cough. Able to transition from sit to stand unassisted. Mildly antalgic gait, no limping. Eyes General: appearance normal, both eyes and all related structures Resp Effort & Inspection: normal respiratory effort, able to speak in complete sentences, no cough, not labored, no respiratory distress and symmetric chest movement Psych Appearance: grossly normal and well kempt Mental Status: mental status grossly normal Speech and movement: Normal speech and movement present and Clear speech present Affect: normal affect Attitude: cooperative Thought process: Normal thought process present Thought content: Normal thought content present, suicidality (none), no hallucinations and No Depressive thoughts present Insight: Good insight present (Psych) Judgement: Good judgement present (Psych) Results Reviewed Results Reviewed: LUMBAR SPINE MRI: The disc is of normal height and signal intensity without significant disc bulge or herniation. L2-3: The disc is of normal height and signal intensity without significant disc bulge or herniation. There is moderate degenerative facet arthropathy. L3-4: The disc is of normal height and signal intensity without significant disc bulge or herniation. There is moderate degenerative facet arthropathy. L4-5: The disc is of normal height and signal intensity without significant disc bulge or herniation. There is marked degenerative facet arthropathy with ligamentous hypertrophy causing mild central canal stenosis. L5-S1: There is complete fusion of the disc space although the patient does not report any history of prior surgery. There is marked degenerative facet arthropathy without significant foraminal stenosis. Vertebral alignment is normal. There is fusion of the L5-S1 disc space. Marrow signal intensity is normal. The conus terminates at T12-L1 and appears normal. There is no paraspinous mass. IMPRESSION: 1. Marked degenerative facet arthropathy at L4-5 causing mild central canal stenosis. 2. Complete fusion of the L5-S1 disc: No prior surgery is reported. Marked degenerative facet arthropathy. 3. Moderate degenerative facet arthropathy L2-3 and L3-4. Assessment & Plan Assessment & Plan (1) Back pain, chronic: Code(s): M54.9 - Dorsalgia, unspecified; G89.29 - Other chronic pain Category: Medical (2) Spondylosis of lumbar spine: Code(s): M47.816 - Spondylosis without myelopathy or radiculopathy, lumbar region Category: Medical (3) Sacroiliac joint pain: Code(s): M53.3 - Sacrococcygeal disorders, not elsewhere classified Category: Medical (4) Chronic, continuous use of opioids: Code(s): F11.90 - Opioid use, unspecified, uncomplicated Category: Medical Plan Patient presents today for a film count. She has shown accountability for her medication regimen and the count was accurate. There is no evidence of misuse, abuse or diversion at this time. ConferensumT reviewed. Script for Belbuca 300 mcg BID sent with an advanced date of 08/20/25 with one refill. Continue gabapentin and Senexon, refills sent today for Miralax per patient's request. Patient has Narcan at home. Continue daily physical activity as tolerated, weight loss, adequate hydration, well-balanced diet, daily fiber intake and good posture. All questions were answered and this patient is agreeable to the plan.?Follow-up in 8 weeks for a film count and sooner as needed. Patient was informed and verbally consented to the use of an ambient scribe for clinic note documentation during this visit. Medications: Refilled polyethylene glycol 3350 (Miralax) 17 grams PO DAILY 238 grams 3RF constipation F11.90 - Opioid use, unspecified, uncomplicated, K59.01 - Slow transit constipation buprenorphine HCl Partial Fill upon patient request. 300 mcg buccal Q12H 60 ea 1RF pain 30 days F11.90 - Opioid use, unspecified, uncomplicated, M47.816 - Spondylosis without myelopathy or radiculopathy, lumbar region, M48.061 - Spinal stenosis, lumbar region without neurogenic claudication Coding Level of Care Code Est Pt Level 4 (79238) Complex EM visit Add On G2211 Diagnoses Back pain, chronic M54.9; G89.29 Spondylosis of lumbar spine M47.816 Sacroiliac joint pain M53.3 Chronic, continuous use of opioids F11.90
[2025-08-09 10:55] VITALS: BP 164/89; PULSE 62; O2SAT 98; BMI 37.6
--- OUTSIDE RECORDS SUMMARY | 2025-08-09 12:26 | XMS_ITS | Clinical Summary ---
Author Organization [facility] Address [address] [place] [address] Care Team Providers Care Hiv Counselor Name Role Phone Oral Ocasio MD Primary Care Provider [phone] Surgical History Surgery Date Site/Laterality Comments TUBAL LIGATION PROCEDURE: HISTORICAL TUBAL LIGATION CERVICAL LAMINECTOMY 06/2017 PROCEDURE: HISTORICAL CERV LAMINECTOMY; COMMENT: cervical decompression HYSTERECTOMY PROCEDURE: HISTORICAL HYSTERECTOMY Medical History Medical History Date Comments Hypertension 03/26/2018 DX:Hypertension GERD (gastroesophageal reflux disease) 03/26/2018 DX:GERD (gastroesophageal reflux disease) Vitamin D deficiency 03/26/2018 DX:Vitamin D deficiency COPD (chronic obstructive pu lmonary disease) ([facility] V24, [facility] V28) 03/26/2018 DX:COPD (chronic o bstructive pulmonary disease) ([facility]) Fibromyalgia 03/26/2018 DX:Fibromyalgia Hyperlipidemia 03/26/2018 DX:Hyperlipidemi a Constipation 03/26/2018 DX:Constipation Cervical spinal stenosis 03/26/2018 DX:Cerv ical spinal stenosis Varicose veins of legs 03/26/2018 DX:Varico se veins of legs Anxiety 10/02/2016 DX:Anxiety Bipolar disorder ([facility] V2 4, [facility] V28) 04/27/2019 DX:Bipolar disorder ([facility]) Osteoarthritis 10/02/2016 DX:Osteoarthriti s; COMMENT: Knees, Fingers [...] Health Maintenance Due Date Last Done Comments Colorectal Cancer Screening: Colonoscopy 1965 Hepatitis B Vaccines (1 of 3 - 19+ 3-dose series) 1985 Pneumococcal Vaccine: 50+ Years (1 of 2 - PCV) 1985 Cervical Cancer Screening: Pap Smear 1987 RSV Immunization Adult Patients (1 - Risk 50-74 years 1-dose series) 2016 Zoster Vaccines (1 of 2) 2016 DTaP,Tdap,and Td Vaccines (2 - Td or Tdap) 06/05/2021 06/05/2011 Cholesterol Screening (Lipid Panel) 08/27/2022 HIV Screening 08/27/2022 Hepatitis C Screening 08/27/2022 Social Influencers of Health Screening 08/27/2022 Hypertension/CHF/CAD Annual BMP Blood Test 09/05/2022 Depression Screening 09/29/2024 COVID-19 Vaccine ( - season) 2025 Influenza Vaccine (#1) 2025 11/03/2018 [...] Recently Relevant to Health Maintenance Results * [facility] SCREENING DIGITAL (06/17/2024 8:24 AM EDT) Anatomical Region Laterality Modality Mammography 06/16/2024 10:4 2 AM EDT Narrative 06/17/2024 8:24 AM EDT [facility] Diagnostic Imaging Department [address] [place], [place] [id number] Patient: REBECA HERNANDEZ /Age/Sex: 1965 - 59 - F Unit#: [id number] Location/Status: [facility] CLI Mnemonic/Ordering Site: [facility] Ordering Physician: JUAREZ AL MD [facility] Screening Digital - 06/16/24 - 1122 Report Status:Signed EXAM: [facility] Screening Digital EXAM DATE AND TIME: 06/16/2024 11:23 AM HISTORY: Screening. COMPARISON: 09/02/22, 08/27/21, 08/22/20 TECHNIQUE: Bilateral digital breast tomosynthesis was performed in the CC and MLO projections. Computer aided detection with [employer] 3D 3.1 was employed. TISSUE DENSITY: c. [...] Mammogram performed at [facility] [place] [address] Dictating Physician: AUGUSTA SIERRA MD Electronically Signed by: AUGUSTA SIERRA MD Dic Date/Time: 06/17/24821 Sign date/Time: 06/17/24823 Procedure Note Augusta Sierra MD - 07/14/2024 [facility] Diagnostic Imaging Department [address] [place] [address] Patient: DAVIDREBECA Laine /Age/Sex: 1965 - 59 - F Unit#: [id number] Location/Status: [facility] CLI Mnemonic/[facility] Order[facility] Physician: JUAREZ AL MD [facility] Screening Digital - 06/16/24 - 1122 Report Status:Signed EXAM: [facility] Screening Digital EXAM DATE AND TIME: 06/16/2024 11:23 AM HISTORY: Screening. COMPARISON: 09/02/22, 08/27/21, 08/22/20 TECHNIQUE: Bilateral digital breast tomosynthesis was performed in the CCand MLO projections. Computer aided detection with [employer] 3D 3.1was employed. TISSUE DENSITY: c. The [...] Mammogram performed at [facility] [place] [address] Dictating Physician: AUGUSTA SIERRA MD Electronically Signed by: AUGUSTA SIERRA MD Dic Date/Time: 06/17/24821 Sign date/Time: 06/17/24823 Juarez Foley MD IMG BI PROCEDURES Final Result from Last 3 Months or Most Recently Relevant to Health Maintenance Advance Directives Documents on File Type Date Recorded Patient [employer] Expl anation Health Care Decision (hx) 07/17/2017 [...] (hx) 07/17/2017 AD UNDER[place]OD DIRECTIVE Care Teams Hiv Counselor Relationship Specialty Start Date End Date Oral Ocasio MD [address] [place] [phone] PCP - General Internal Medicine 12/04/21
== END 2025-08-09 11:01 | disposition home or self-care (01) ==
LOC: HO.PMC 10:44
PROVIDERS: PCP Internal Medicine; Visit Provider Nurse Practitioner Family
DX: M54.9 Dorsalgia, unspecified (principal); G89.29 Other chronic pain; M47.816 Spondylosis without myelopathy or radiculopathy, lumbar region; M53.3 Sacrococcygeal disorders, not elsewhere classified; Z79.891 Long term (current) use of opiate analgesic
CPT/HCPCS: 99214

== ENCOUNTER → 2025-08-09 10:43 | Outpatient (BNVA) | payer OTHER, SELFPAY | PROVIDERS: PCP Internal Medicine; Visit Provider Nurse Practitioner Family | DX: F11.90 Opioid use, unspecified, uncomplicated (principal); M53.3 Sacrococcygeal disorders, not elsewhere classified; M47.816 Spondylosis without myelopathy or radiculopathy, lumbar region; M54.9 Dorsalgia, unspecified; G89.29 Other chronic pain | CPT/HCPCS: 99212 ==